=== PATIENT | female | born 1980 | race Caucasian/White ===

== ENCOUNTER 2024-07-20 12:43 | Observation (INO) | payer OTHER, SELFPAY ==
[2024-07-20] VITALS (8 sets, daily range): BP systolic 123–172; BP diastolic 64–98; PULSE 84–114; RESP 15–20; TEMP 36.6–37.4; O2SAT 96–100; BMI 52.3
--- NOTE | ~2024-07-20 | CT_ITS ---
EXAMINATION: CT facial bones w con DATE: 07/20/2024 14:49 INDICATION: Tooth pain. Face swelling. TECHNIQUE: Computed tomography (CT) of the facial bones and maxillofacial region was performed with 7 5 mL Omnipaque 350 intravenous contrast. Automated exposure control and iterative reconstruction tech [employer] were employed. The dose-length product was 811.29 mGy-cm. COMPARISON: None. FINDINGS: There is mucosal thickening in the paranasal sinuses. There is dependent fluid in the sphen oid and maxillary sinuses. The mastoid air cells are normal. There is right face soft tissue swelling . There is a mildly enlarged right submental lymph node, likely reactive. There are changes of root c anal procedures at teeth 30 and 31. There is a 17 x 4 mm subperiosteal abscess of the alveolar proces s adjacent to teeth 30 and 31. IMPRESSION: 1. Subperiosteal abscess of the alveolar process adjacent to teeth 30 and 31. Reviewed, dictated and finalized at location A. [facility] [employer]
--- NOTE | 2024-07-20 14:00 | ED.DENTAL ---
HPI - Dental/Oral General Chief complaint: Dental/Oral <LIANE Lebron Last Filed: 07/20/24 17:55> Stated complaint: dental pain <LIANE Lebron Last Filed: 07/20/24 17:55> Time Seen by Provider: 07/20/24 13:55 <LIANE Lebron Last Filed: 07/20/24 17:55> Source: patient <LIANE Lebron Last Filed: 07/20/24 17:55> Mode of arrival: ambulatory <LIANE Lebron Last Filed: 07/20/24 17:55> Limitations: no limitations <LIANE Lebron Last Filed: 07/20/24 17:55> History of Present Illness HPI Narrative: This is a 43 year old female that presents to the ER for dentalgia. Ongoing over the last 4 days. Reports she was seen by a dentist yesterday. Started on Clindamycin. She has taken two doses of this. Had significant swelling which developed overnight which prompted her to be seen. Denies fevers, difficulty breathing or trouble swallowing. <LIANE Lebron Last Filed: 07/20/24 17:55> MD Complaint: tooth pain <LIANE Lebron Last Filed: 07/20/24 17:55> Location: Tooth # (30) <LIANE Lebron Last Filed: 07/20/24 17:55> Related Data Allergies/adverse reactions: Allergies Allergy/AdvReac Type Severity Reaction Status Date / Time Penicillins Allergy Severe Anaphylaxis Verified 07/20/24 13:04 ketorolac (From Toradol) Allergy Mild Agitated Verified 07/20/24 13:04 lorazepam (From Ativan) Allergy Mild Agitated Verified 07/20/24 13:04 Influenza Virus Vaccines AdvReac Mild Vomiting Verified 07/20/24 13:04 metoclopramide (From Reglan) AdvReac Mild Vomiting Verified 07/20/24 13:04 <LIANE Lebron Last Filed: 07/20/24 17:55> Review of Systems Review of Systems: CONSTITUTIONAL: Denies fever ENT: Reports dentalgia <Joann Post PA-C - Last Filed: 07/20/24 17:55> All systems reviewed & are unremarkable except as noted in HPI and below <Joann Post PA-C - Last Filed: 07/20/24 17:55> PMFSH Past Medical History Medical History: Medical History (Updated 07/20/24 @ 21:27 by Blanca Vasquez PA-C) Type 2 diabetes mellitus <Joann Post PA-C - Last Filed: 07/20/24 17:55> Social History Social History: Social History (Updated 07/20/24 @ 21:27 by Blanca Vasquez PA-C) Social History: Surrogate medical decision maker: Aris Wilson, sibling. Code status: Full code. Substance use: never <Joann Post PA-C - Last Filed: 07/20/24 17:55> Exam Narrative: GENERAL: Well-appearing, well-nourished, and in no acute distress. HEAD: Normocephalic, atraumatic. EYES: EOMI. ENT: Mucous membranes moist. Oropharynx without tonsillar hypertrophy exudate or other lesions. No trismus. Floor of mouth is soft. Significant right sided submandibular swelling. No overlying redness. Tender to palpation of tooth #30. NECK: Supple. No adenopathy or masses. CHEST: Clear to auscultation. No respiratory distress. No wheezes rales or rhonchi HEART: Regular rate and rhythm. No murmur heard. Normal peripheral pulses. EXTREMITIES: Normal range of motion. No edema. SKIN: Warm, dry, no rash. NEURO: No focal deficits. Alert and oriented x3. PSYCH: Normal mood and affect <Joann Post PA-C - Last Filed: 07/20/24 17:55> Course Course Emergency Course: patient updated on workup and recommendation for admission <Joann Post PA-C - Last Filed: 07/20/24 17:55> HIGH SPEED OPERATOR/PA Physician Supervision For this patient encounter, I reviewed the HIGH SPEED OPERATOR or PA documentation, treatment plan, and medical decision making; and I had [id number] time with this patient. <Lobo Gordillo MD - Last Filed: 07/20/24 21:30> Consultations Consultation #1: Spoke with hospitalist about patient and workup who accepts admission <Joann Post PA-C - Last Filed: 07/20/24 17:55> Date: 07/20/24 <Joann Post PA-C - Last Filed: 07/20/24 17:55> Vital Signs Vital signs: Vital Signs Temperature 98.9 F 07/20/24 12:56 Pulse Rate 114 H 07/20/24 12:56 Respiratory Rate 20 07/20/24 12:56 Blood Pressure 172/94 H 07/20/24 12:56 Pulse Oximetry 100 07/20/24 12:56 Oxygen Delivery Room Air 07/20/24 12:56 Temperature 97.9 F 07/20/24 14:28 Pulse Rate 105 H 07/20/24 18:23 Respiratory Rate 20 07/20/24 18:23 Blood Pressure 144/95 H 07/20/24 18:23 Pulse Oximetry 100 07/20/24 18:23 Oxygen Delivery Room Air 07/20/24 12:56 <Joann Post PA-C - Last Filed: 07/20/24 17:55> Vital Signs Temperature 98.9 F 07/20/24 12:56 Pulse Rate 114 H 07/20/24 12:56 Respiratory Rate 20 07/20/24 12:56 Blood Pressure 172/94 H 07/20/24 12:56 Pulse Oximetry 100 07/20/24 12:56 Oxygen Delivery Room Air 07/20/24 12:56 Temperature 97.9 F 07/20/24 14:28 Pulse Rate 105 H 07/20/24 18:23 Respiratory Rate 20 07/20/24 18:23 Blood Pressure 144/95 H 07/20/24 18:23 Pulse Oximetry 100 07/20/24 18:23 Oxygen Delivery Room Air 07/20/24 12:56 <oLbo Gordillo MD - Last Filed: 07/20/24 21:30> MDM - Dental/Oral MDM Narrative Medical decision making narrative: Patient presents to the ER for dentalgia, facial swelling. Patient is afebrile. Tachycardic upon arrival. She does have significant right-sided facial swelling with associated tenderness to palpation of tooth number 30. No trismus, floor of mouth is soft, airway patent. CBC with leukocytosis to 15.7. ESR and CRP are elevated. Blood cultures obtained. Patient started on IV antibiotics. Patient has a very small subperiosteal abscess with associated facial cellulitis. With patient's history of diabetes will admit for further management with IV antibiotics. Spoke with hospitalist about patient and workup who accepts admission <Joann Post PA-C - Last Filed: 07/20/24 17:55> Differential Diagnosis Differential diagnosis: Likely dental caries, toothache and dental abscess <Joann Post PA-C - Last Filed: 07/20/24 17:55> Lab Data Attestation: I reviewed the patient's lab results. <Joann Post PA-C - Last Filed: 07/20/24 17:55> Result diagrams: 07/20/24 14:17 07/20/24 14:17 <LIANE Lebron Last Filed: 07/20/24 17:55> Labs: Lab Results 07/20/24 Range/Units 14:17 WBC 15.7 H (4.5-10.0) K/mm3 RBC 5.51 H (4.2-5.4) M/mm3 Hgb 14.7 (12.0-15.0) g/dL Hct 44.5 (37.0-47.0) % MCV 80.8 (80-100) fl MCH 26.7 (26-34) pg MCHC 33.0 (32-36) g/dl RDW 14.5 (11.5-14.5) % Plt Count 319 (150-375) k/mm3 MPV 8.9 (7.4-10.4) fl Immature Gran % (Auto) 0.4 (0-0.5) % Neut % (Auto) 75.8 H (45.5-73.1) % Lymph % (Auto) 16.6 L (18.3-44.2) % [place] % (Auto) 6.6 (2.6-8.5) % Eos % (Auto) 0.3 (0-4.4) % Baso % (Auto) 0.3 (0.2-1.2) % Lymph # (Auto) 2.61 (0.9-3.2) K/mm3 [place] # (Auto) 1.0 H (0.1-0.6) K/mm3 Eos # (Auto) 0.0 (0-0.3) K/mm3 Baso # (Auto) 0.1 (0.0-0.1) K/mm3 Abs Immat Gran (auto) 0.07 H (0.00-0.031) K/mm3 Absolute Neuts (auto) 11.9 H (1.3-6.7) K/mm3 Absolute Nucleated RBC 0.000 (0.0-0.012) K/mm3 Nucleated RBC % 0.0 (0.0-0.2) % ESR 42 H (0-20) mm/hr Sodium 139 (137-145) mmol/L Potassium 4.0 (3.4-5.0) mmol/L Chloride 103 (98-107) mmol/L Carbon Dioxide 23 (22-30) mmol/L Anion Gap 13 H (4-12) mmol/L BUN 4 L (7-17) mg/dL Creatinine 0.51 L (0.7-1.0) mg/dL Estim Creat Clear Calc 174 ml/min Estimated GFR > 60 (59 - ) Glucose 113 H (65-110) mg/dL Calcium 10.0 (8.4-10.2) mg/dL Total Bilirubin 0.8 (0.2-1.3) mg/dL AST 21 (14-36) U/L ALT 32 (6-35) U/L Alkaline Phosphatase 126 (38-126) U/L C-Reactive Protein 7.0 H (<1.0) mg/dL Total Protein 8.0 (6.3-8.2) g/dL Albumin 4.6 (3.5-5.1) g/dL <Joann Post PA-C - Last Filed: 07/20/24 17:55> Lab Results 07/20/24 Range/Units 14:17 WBC 15.7 H (4.5-10.0) K/mm3 RBC 5.51 H (4.2-5.4) M/mm3 Hgb 14.7 (12.0-15.0) g/dL Hct 44.5 (37.0-47.0) % MCV 80.8 (80-100) fl MCH 26.7 (26-34) pg MCHC 33.0 (32-36) g/dl RDW 14.5 (11.5-14.5) % Plt Count 319 (150-375) k/mm3 MPV 8.9 (7.4-10.4) fl Immature Gran % (Auto) 0.4 (0-0.5) % Neut % (Auto) 75.8 H (45.5-73.1) % Lymph % (Auto) 16.6 L (18.3-44.2) % [place] % (Auto) 6.6 (2.6-8.5) % Eos % (Auto) 0.3 (0-4.4) % Baso % (Auto) 0.3 (0.2-1.2) % Lymph # (Auto) 2.61 (0.9-3.2) K/mm3 [place] # (Auto) 1.0 H (0.1-0.6) K/mm3 Eos # (Auto) 0.0 (0-0.3) K/mm3 Baso # (Auto) 0.1 (0.0-0.1) K/mm3 Abs Immat Gran (auto) 0.07 H (0.00-0.031) K/mm3 Absolute Neuts (auto) 11.9 H (1.3-6.7) K/mm3 Absolute Nucleated RBC 0.000 (0.0-0.012) K/mm3 Nucleated RBC % 0.0 (0.0-0.2) % ESR 42 H (0-20) mm/hr Sodium 139 (137-145) mmol/L Potassium 4.0 (3.4-5.0) mmol/L Chloride 103 (98-107) mmol/L Carbon Dioxide 23 (22-30) mmol/L Anion Gap 13 H (4-12) mmol/L BUN 4 L (7-17) mg/dL Creatinine 0.51 L (0.7-1.0) mg/dL Estim Creat Clear Calc 174 ml/min Estimated GFR > 60 (59 - ) Glucose 113 H (65-110) mg/dL Calcium 10.0 (8.4-10.2) mg/dL Total Bilirubin 0.8 (0.2-1.3) mg/dL AST 21 (14-36) U/L ALT 32 (6-35) U/L Alkaline Phosphatase 126 (38-126) U/L C-Reactive Protein 7.0 H (<1.0) mg/dL Total Protein 8.0 (6.3-8.2) g/dL Albumin 4.6 (3.5-5.1) g/dL <Lobo Gordillo MD - Last Filed: 07/20/24 21:30> Imaging Data Radiologist's impression: ITS Impressions Face CT 07/20/24 14:55 IMPRESSION: 1. Subperiosteal abscess of the alveolar process adjacent to teeth 30 and 31. <Joann Post PA-C - Last Filed: 07/20/24 17:55> Critical Care Time Critical Care Time Critical Care Time: No <Joann Post PA-C - Last Filed: 07/20/24 17:55> Discharge Plan Discharge Clinical Impression: Toothache, Dental abscess, Cellulitis of face <Joann Post PA-C - Last Filed: 07/20/24 17:55> Patient Disposition: Still a Patient <Joann Post PA-C - Last Filed: 07/20/24 17:55> Condition: Stable <Joann Post PA-C - Last Filed: 07/20/24 17:55>
[2024-07-20 14:23] LABS: Basophils Absolute Auto 0.1 K/mm3 (0.0-0.1); Basophils Percent Auto 0.3 % (0.2-1.2); Eosinophils Percent Auto 0.3 % (0-4.4); Hematocrit 44.5 % (37.0-47.0); Hemoglobin 14.7 g/dL (12.0-15.0); Immature Granulocyte Absolute 0.07 K/mm3 (0.00-0.031); Immature Granulocyte Percent A 0.4 % (0-0.5); Lymphocytes Absolute Auto 2.61 K/mm3 (0.9-3.2); Lymphocytes Percent Auto 16.6 % (18.3-44.2); Mean Corpuscular Hemoglobin 26.7 pg (26-34); Mean Corpuscular Volume 80.8 fl (80-100); Mean Platelet Volume 8.9 fl (7.4-10.4); Monocytes Percent Auto 6.6 % (2.6-8.5); Neutrophils Absolute Auto 11.9 K/mm3 (1.3-6.7); Neutrophils Percent Auto 75.8 % (45.5-73.1); Platelet Count Result 319 k/mm3 (150-375); Red Blood Count 5.51 M/mm3 (4.2-5.4); Red Cell Distribution Width 14.5 % (11.5-14.5); White Blood Count 15.7 K/mm3 (4.5-10.0)
[2024-07-20] MEDS: dexAMETHasone SOD PHOS INJ 10 MG/ML 1 ML VIAL IV PUSH (14:25)
[2024-07-20] MEDS: MORPHINE SULFATE (*CRX) 4 MG/ML INJ IV PUSH (14:25)
[2024-07-20] MEDS: ONDANSETRON INJ 4 MG/2 ML VIAL IV PUSH (14:25)
[2024-07-20] MEDS: SODIUM CHLORIDE 0.9% IV 1,000 ML 999 ML IV CONT (14:25)
[2024-07-20 14:35] LABS: Alanine Aminotransferase 32 U/L (6-35); Albumin Level 4.6 g/dL (3.5-5.1); Alkaline Phosphatase 126 U/L (38-126); Anion Gap 13 mmol/L (4-12); Aspartate Amino Transferase 21 U/L (14-36); Bilirubin,Total 0.8 mg/dL (0.2-1.3); Blood Urea Nitrogen 4 mg/dL (7-17); Carbon Dioxide 23 mmol/L (22-30); Chloride 103 mmol/L (98-107); Estimated CRCL calculation 174 ml/min; Estimated Glomerular Filt Rate > 60; Glucose 113 mg/dL (65-110); Sodium 139 mmol/L (137-145)
--- OUTSIDE RECORDS SUMMARY | 2024-07-20 14:56 | XMS_ITS | Encounter Summary ---
Author Organization [facility] Address [address] [place] [address] Care Team Providers Care Supervisor Wheel Shop Name Role Phone Rosette Michelle RN Unavailable Unavailab Lyle Stuart MD Primary Care Provider [phone] Mellissa Reid CAR SWEEPER Unavailable [phone] Nargis Martins CAR SWEEPER Unavailable Reason for Visit * Reason Onset Date Comments Future Appointment 09/23/2018 Encounter Details Date Type Department Care Team (Late st Contact Info) Description 09/23/2018 Telephone [facility] [address] [place], [place] [id number] Jostin Souza Jr., MD [address] [place], [place] [id number] Future Appointment Social History Tobacco Use Types Packs/Day Years Used Date Smoking Tobacco: Never Smokeless Tobacco: Never Alcohol Use Standard Drinks/Week Comments No 0 (1 standard drink = 0.6 oz pur e alcohol) Sex and Gender Information Value Date Recorded Sex Assigned at Female 12/12/2023 4:10 PM CDT Gender Identity Female 12/12/2023 4:10 PM CDT Sexual Orientation Choose not to disclose 2023 4:10 PM CDT documented as of this encounter Miscellaneous Notes * Telephone Encounter - Elly Walker - 09/23/2018 8:21 AM CDT Pt received vm says Monday 09/25 will work for her so she will be here at 3:30 no need for return call. 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
--- OUTSIDE RECORDS SUMMARY | 2024-07-20 14:56 | XMS_ITS | Encounter Summary ---
Author Organization [facility] Address [address] [place] [address] Care Team Providers Care Conveyor Feeder Name Role Phone Romi Tompkins MD Primary Care Provider Violeta castellon Reason for Visit * Reason Onset Date Comments Courtesy Call 10/18/2019 Encounter Details Date Type Department Care Team (Late st Contact Info) Description 10/18/2019 Telephone [facility] [address] [address] Teresa Burns, RT Courtesy Call Social History Tobacco Use Types Packs/Day Years Used Date Smoking Tobacco: Never Smokeless Tobacco: Never Comments:tried smoking but q uit by age 20 Alcohol Use Standard Drinks/Week Comments Not Currently 0 (1 standard drink = 0.6 oz pur e alcohol) Rare Comments No Sex and Gender Information Value Date Recorded Sex Assigned at Not on file Legal Sex Female 11:36 AM CDT Gender Identity Not on file Sexual Orientation Not on file 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 No / Unsure 10/15/2019 12:21 PM CDT documented as of this encounter Plan of Treatment Not on file documented as of this encounter Visit Diagnoses Not on filedocumented in this encounter Additional Health Concerns Assessment Noted Time PHQ-9 Depression Total Score: 6 12/08/19 19 3:00 PM CDT documented as of this encounter Care Teams Conveyor Feeder Relationship Specialty Start Date End Date Romi Tompkins MD PCP - General Family Practice 12/02/18 documented as of this encounter
--- OUTSIDE RECORDS SUMMARY | 2024-07-20 14:56 | XMS_ITS | Encounter Summary ---
Author Organization [facility] Address [address] [place] [address] Care Team Providers Care Jewel Grinder Name Role Phone Rosette Michelle RN Unavailable Unavailab Lyle Stuart MD Primary Care Provider [phone] Mellissa Reid TIP OUT WORKER Unavailable [phone] Nargis Martins TIP OUT WORKER Unavailable [phone] Reason for Visit * Reason Onset Date Comments Med Question 09/09/2017 Encounter Details Date Type Department Care Team (Late st Contact Info) Description 09/09/2017 Telephone [facility] [address] [place] [id number] Lisette Mobley Med Question Social History Tobacco Use Types Packs/Day Years [...] encounter Miscellaneous Notes * Telephone Encounter - Patricia Cardenas - 09/09/2017 2:21 PM CDT Telephone call to [facility]. Spoke with Tad who states Elmiron was prescribed Dr Milton on 09/05. States this medication will cost pt $125 per one month supply. Pt is requesting prescription for a cheaper option. * Telephone Encounter - Lisette Mobley - 09/09/2017 1:47 PM CDT [facility] stating pt can not afford Elmiron rx that was sent over. Pt wouldlike a cheaper rx sent to her pharm. 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
--- OUTSIDE RECORDS SUMMARY | 2024-07-20 14:57 | XMS_ITS | Encounter Summary ---
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
--- OUTSIDE RECORDS SUMMARY | 2024-07-20 14:57 | XMS_ITS | Clinical Summary ---
Author Organization [facility] Address [address] [place] [address] Care Team Providers Care [employer]orer [employer] Name Role Phone Lyle Hutchins MD Primary Care Provider [phone] Allergies Active Allergy Reactions Criticality Noted Date Comments Lorazepam Unknown Mupirocin Rash Medium 11/27/2021 Clarithromycin Nausea only,Vomiting Reaction: NAUSEA, VOMITING, Dicyclomine Nausea And Vomiting 09/11/2017 Flu Vac Tv 2012(18-49yr)Rc(Pf) Nausea & Vomiting Low 12/12/2019 Flu like symptoms Penicillin Anaphylaxis High Penicillin G Procaine Anaphylaxis High 03/31/2014 Prednisone Other (See comments) Low High blood sugars. Metoclopramide Anxiety Low 12/12/2019 Shellfish Anaphylaxis High 11/06/2015 Only shrimp & Tuna confirmed with community worker Ketorolac Mental status changes Low Agitated and increases PTSD Medications norethindrone (AYGESTIN) 5 mg tablet Take 1 tablet (5 mg total) by mouth nightly Active allopurinoL (ZYLOPRIM) 100 mg tablet Take 1 tablet (100 mg total) by mouth nightly 0 Active insulin aspart niacinamide (FIASP) 100 unit/mL (3 mL) pen for injection Inject 15 Units under the skin 3 (three) times a day before meals Plus sliding scale (1-10 units) Active QUEtiapine XR (SEROquel XR) 50 mg tablet extended release 24 hr Take 2 tablets (100 mg total) by mouth nightly PTSD Active insulin degludec (TRESIBA) 100 unit/mL (3 mL) pen for injectionIndica tions:type 2 diabetes mellitus Inject 0.3 mL (30 Units total) under the skin daily Active omeprazole (PriLOSEC) 40 mg capsule Take 1 capsule (40 mg total) by mouth nightly Active escitalopram (LEXAPRO) 20 mg tablet Take 1 tablet (20 mg total) by mouth nightly Active nabumetone (RELAFEN) 750 mg tablet Take 1 tablet (750 mg total) by mouth nightly Active prazosin (MINIPRESS) 1 mg capsule Take 1 capsule (1 mg total) by mouth nightly Active traZODone (DESYREL) 100 mg tablet Take 1 tablet (100 mg total) by mouth nightly Active lidocaine (LMX) 4 % cream Apply 2.5 g (1 Application total) topically as needed for pain Active benzonatate (TESSALON) 200 mg capsule Take 1 capsule (200 mg total) by mouth 3 (three) times a day as needed for cough Active Lactobacillus acidophilus capsule Take 1 capsule by mouth daily (brand: [employer] Active polyethylene glycol (Miralax) 17 gram packetIndicatio ns:constipation Take 1 packet (17 g total) by mouth daily as needed for constipation Active hydrOXYzine (ATARAX) 10 mg tablet Take 1 tablet (10 mg total) by mouth 3 (three) times a day as needed for anxiety Active phenazopyridine (PYRIDIUM) 200 mg tablet Take 1 tablet (200 mg total) by mouth 3 (three) times a day 6 tablet 4 Active tamsulosin (FLOMAX) 0.4 mg extended release capsule Take 1 capsule (0.4 mg total) by mouth daily 15 capsule 4 Active HYDROcodone-uziel taminophen (NORCO) 5-325 mg per tabletIndicatio ns:Pain Take 1 tablet by mouth every 6 (six) hours as needed for pain 15 tablet 4 Active albuterol HFA (PROVENTIL HFA,VENTOLIN HFA,PROAIR HFA) 90 mcg/actuation inhaler Inhale 2 puffs every 4 (four) hours as needed for wheezing or shortness of breath 18 g 4 03/02/20 25 Active Active Problems Problem Noted Date Diagnosed Date Shortness of breath 03/02/2024 Wheezing 03/02/2024 COVID-19 07/10/2023 Insect bite of pelvic region 05/31/2023 Spider bite 05/31/2023 Cellulitis 05/30/2023 Miscarriage 11/27/2021 Abdominal pain 02/21/2020 Cervical stenosis of spinal canal 02/21/2020 Diabetes mellitus, insulin dependent (IDDM), con trolled 02/21/2020 Depressive disorder 02/21/2020 Upper respiratory tract infection 02/21/2020 Clostridium difficile infection 01/28/2020 Colitis 01/28/2020 Encounter for medication refill 01/28/2020 Gastroesophageal reflux disease with esophagitis 01/28/2020 Involuntary movements 01/28/2020 Overview (02/21/2020): left arm and left leg . Lightheadedness 01/28/2020 Overview (02/21/2020): Persistent headache and dizziness. Called neurologist Dr. Norberto Kennedy . He will see her right now. Informed pt and . [address] drive pt to the neurologists office for further eval and treatment. examination or test, unconfi rmed 01/28/2020 Nonintractable episodic headache 12/16/2019 Chronic pain syndrome 12/16/2019 Hypertension 12/16/2019 Cervical spondylosis without myelopathy 05/31/20 19 Dehydration 03/22/2019 Diabetic ketoacidosis withou t coma associated with type 2 diabetes mellitus ([facility]/HCC) 03/22/2019 Metabolic acidosis 03/22/2019 Sinusitis 03/22/2019 Trochanteric bursitis of left hip 03/21/2019 Elevated liver enzymes 02/17/2019 Gastroesophageal reflux disease 02/17/2019 Gastroparesis due to DM (CMS/HCC) 02/17/2019 NAFLD (nonalcoholic fatty liver disease) 019 Protein-calorie malnutrition, moderate (CMS/HCC) 01/29/2019 Intractable nausea and vomiting 01/28/2019 Morbid obesity with BMI of 50.0-59.9, adult 01/01 Insulin dependent type 2 reji betes mellitus, controlled (CMS/HCC) 01/28/2019 Enthesopathy of hip region 01/18/2019 Anxiety 12/07/2018 Biliary dyskinesia 12/07/2018 Generalized anxiety disorder 12/07/2018 Inflammatory dermatosis 12/07/2018 Insomnia 12/07/2018 Morbid obesity with body mass index of 40.0-49.9 12/07/2018 Obstructive sleep apnea of adult 12/07/2018 Osteoarthritis of knee 12/07/2018 Pelvic adhesions 12/07/2018 Severe episode of recurrent major depressive disorder, without psychotic features 12/07/2018 Irritable bowel syndrome with diarrhea 8 Chronic constipation 09/11/2017 Chronic interstitial cystitis 09/11/2017 Urinary urgency 09/11/2017 Endometriosis 04/09/2016 Sprain of tibiofibular ligament of ankle 014 Encounters Date Type Department Care Team Description 04/28/2024 5:49 PM ENVELOPE FOLDING MACHINE ADJUSTER - 04/29/2024 12:08 AM [facility] Emergency [facility] Emergency Department [address] [place] [address] Gonzalo Holman MD Beck, Joann Valdez MD Hyperglycemia (Primary Dx); Other migraine without status migrainosus, not intractable; Leukocytosis, unspecified type Discharge Disposition: Discharge to home or self care from Last 3 Months Immunizations Immunization Administration Dates Next Due Influenza, Quadrivalent, Spl it, Preservative Free, Intramuscular 03/03/2019 Influenza, Trivalent, IM (MDV) 04/01/2014,2012 Influenza, Trivalent, Preservative Free, Intramu scular 05/08/2012 Influenza, Unspecified 03/06/2009 Pneumococcal Polysaccharide PPV23 05/08/2012 Tdap 09/23/2013 Surgical History Surgery Date Site/Laterality Comments CHOLECYSTECTOMY Cholecystectomy KNEE SURGERY 06/02/2011 - 06/01/2012 arthroscopy ERCP x3 TONSILLECTOMY Bilateral CARPAL TUNNEL RELEASE Right TOTAL ABDOMINAL HYSTERECTOMY 06/02/2012 - 06/01/2013 Hysterectomy, total TOTAL ABDOMINAL HYSTERECTOMY W/ BILATERAL SALPINGOOPHORECTOMY ERCP CERVICAL DISCECTOMY 10/31/2020 - 11/29/2020 Disc replacement C6-7 RADIOFREQUENCY ABLATION NERVES x 3 prior to cervical surgeries Medical History Medical History Date Comments Anxiety Type 2 diabetes mellitus (HCC) Depression IBS (irritable bowel syndrome) d iarrhea often related to pain and stress/PTSD Asthma exercise induced as a child, no inhalers required, no occurences in many years Cervical stenosis (uterine cervix) Hypertension controlled, pain increase BP at times Endometriosis had 7 miscarriag es/3 surgeries - diagnostic lap/hysterectomy/laprascopic bilat S & ) Arthritis IBS (irritable bowel syndrome) PTSD (post-traumatic stress disorder) seven miscarriages/anxiety/pain- pt states called complex PTSD related to several causes Gout Obesity Eczema contact dermatit is at times/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/ no outbreaks at this time 11/27/21 Tarsal tunnel syndrome left, hx fracture Wears glasses Teeth missing wisdom teeth, 2 teeth lower left missing Miscarriage seven/endometrio sis/unable to have children/hysterectomy followed 7 D & C's PONV (postoperative nausea and vomiting) only after cervical discectomy DKA (diabetic ketoacidosis) (CMS/HCC) (HCC) occurred several years ago a fter prednisone dosing/listed as an allergy now Overactive bladder doesn't empty completely at times- pt stated Family History Medical History Relation Name Comments Diabetes Brother Hypertension Brother Diabetes Father Cancer Maternal Grandfather Cancer Maternal Grandmother Diabetes Mother Hypertension Mother Cancer Paternal Grandfather Diabetes Sister Relation Name Status Comments Brother Father Maternal Grandfather Maternal Grandmother Mother Paternal Grandfather Sister Social History Tobacco Use Types Packs/Day Years Used Date Smoking Tobacco: Never Smokeless Tobacco: Never Tobacco Cessation:Counseling Given: No Alcohol Use Standard Drinks/Week Comments Yes 0 (1 standard drink = 0.6 oz pur e alcohol) [facility] Utilities Answer Date Recorded In the past 12 months has th e electric, gas, oil, or water Visier threatened to shut off services in your home? No 07/11/2023 Social Connection and Isolat ion Panel [NHANES] Answer Date Recorded In a typical week, how many times do you talk on the phone with family, friends, or neighbors? More than three times a week 07/11/2023 How often do you get togethe r with friends or relatives? More than three times a week 07/11/2023 How often do you attend chur ch or pentecostalism services? Never 07/11/2023 Do you belong to any clubs o r organizations such as holiness groups, unions, fraternal or athletic groups, or school groups? No 07/11/2023 How often do you attend meet ings of the clubs or organizations you belong to? Never 07/11/2023 Are you , , di vorced, , never , or living with a partner? 07/11/2023 AUDIT-C Answer Date Recorded Q1: How often do you have a drink containing alc ohol? Monthly or less 11/29/2021 Q2: How many drinks containi ng alcohol do you have on a typical day when you are drinking? 1 or 2 11/29/2021 Q3: How often do you have si x or more drinks on one occasion? Less than monthly 11/29/2021 Overall Financial Resource Strain (CARDIA) Answe r Date Recorded How hard is it for you to pa y for the very basics like food, housing, medical care, and heating? Not hard at all 07/11/2023 Hunger Vital Sign Answer Date Recorded Within the past 12 months, y ou worried that your food would run out before you got the money to buy more. Never true 07/11/19 24 Within the past 12 months, t he food you bought just didn't last and you didn't have money to get more. Never true 07/11/2023 PRAPARE - Transportation Answer Date Re corded In the past 12 months, has l ack of transportation kept you from medical appointments or from getting medications? No 02/2024 In the past 12 months, has l ack of transportation kept you from meetings, work, or from getting things needed for daily living? No 07/11/2023 Housing Stability Vital Sign Answer Pablo e Recorded In the last 12 months, was t here a time when you were not able to pay the mortgage or rent on time? No 07/11/2023 In the last 12 months, how many places have you lived? 1 07/11/2023 In the last 12 months, was t here a time when you did not have a steady place to sleep or slept in a jail (including now)? No 07/11/2023 Personal Safety Answer Date Recorded Have you ever been in or are you currently in a harmful physical or emotional relationship or is someone making you feel afraid or unsafe? Denies 04/28/2024 Comments No Sex and Gender Information Value Date Recorded Sex Assigned at Not on file Legal Sex Female 2:19 PM ENVELOPE FOLDING MACHINE ADJUSTER Gender Identity Not on file Sexual Orientation Bisexual 04/28/2024 6: 46 PM ENVELOPE FOLDING MACHINE ADJUSTER Obstetrics History Last Filed Vital Signs Vital Sign Reading Time Taken Comments Blood Pressure 129/81 04/28/2024 11:30 PM ENVELOPE FOLDING MACHINE ADJUSTER Pulse 85 04/28/2024 11:30 PM ENVELOPE FOLDING MACHINE ADJUSTER Temperature 36.9 C (98.4 F) 04/28/2024 5:39 PM ENVELOPE FOLDING MACHINE ADJUSTER Respiratory Rate 16 04/28/2024 11:30 PM ENVELOPE FOLDING MACHINE ADJUSTER Oxygen Saturation 97% 04/28/2024 11:30 PM ENVELOPE FOLDING MACHINE ADJUSTER Inhaled Oxygen Concentration - - Weight 140.6 kg (310 lb) 04/28/2024 5:39 PM ENVELOPE FOLDING MACHINE ADJUSTER Height 165.1 cm (5' 5 ) 04/28/2024 5:39 PM ENVELOPE FOLDING MACHINE ADJUSTER Body Mass Index 51.59 04/28/2024 5:39 PM ENVELOPE FOLDING MACHINE ADJUSTER Plan of Treatment Health Maintenance Due Date Last Done Comments Albumin Creatinine Ratio, Urine 1982 Depression Screening 1982 Hepatitis C Screening 1982 Dilated Eye Exam 1982 Foot Exam 1982 Varicella Vaccines (1 of 2 - 13+ 2-dose series) 08/24/1995 Hepatitis B Screening 2000 Regular Well Visit/Exam 18-64 2000 Lipid Panel 12/09/2019 12/08/2018 DTaP/Tdap/Td Vaccine (2 - Td or Tdap) 09/24/2023 09/23/2013 Hemoglobin A1C 12/01/2023 06/02/2023 Covid-19 Vaccine ( season) 2024 03/07/2021, 07/25/2020, 07/04/2020 Influenza Vaccine (#1) 2024 9, 04/01/2014, 03/05/2013, Additional history exists Breast Cancer Screening-Mammogram 12/12/2024 12/13/2023, 12/13/2023 eGFR 04/28/2025 04/28/2024, 04/03, 03/02/2024, Additional history exists Pneumococcal vaccine <65 Completed 03/03/2023, 12/2011 HPV Vaccines Aged Out No longer eligi ble based on patient's age to complete this topic Medical Devices Implanted Type Area Survey Interviewer Device Identifier Shelf Expiration Date Model / Serial / Lot Other - See Comments Other - see comments Neck Description:Neck disc replac ement C6-C7 Procedures Procedure Name Priority Date/Time Associated Diagnosis Comments EGFR STAT 04/28/2024 11:19 PM ENVELOPE FOLDING MACHINE ADJUSTER BASIC METABOLIC PANEL STAT 04/28/2024 11:19 PM ENVELOPE FOLDING MACHINE ADJUSTER POCT GLUCOSE DEVICE Routine 04/28/2024 9 :38 PM ENVELOPE FOLDING MACHINE ADJUSTER TROPONIN T HIGH-SENSITIVITY 2-HOUR Timed 04/28/2024 9:37 PM ENVELOPE FOLDING MACHINE ADJUSTER POCT GLUCOSE DEVICE Routine 04/28/2024 8 :31 PM ENVELOPE FOLDING MACHINE ADJUSTER PRO B-TYPE NATRIURETIC PEPTIDE STAT 04/28/2024 7:13 PM ENVELOPE FOLDING MACHINE ADJUSTER COMPREHENSIVE METABOLIC PANEL STAT 04/28/2024 7:13 PM ENVELOPE FOLDING MACHINE ADJUSTER EGFR STAT 04/28/2024 7:13 PM ENVELOPE FOLDING MACHINE ADJUSTER DIFFERENTIAL AUTO STAT 04/28/2024 7:1 3 PM ENVELOPE FOLDING MACHINE ADJUSTER TROPONIN T HIGH-SENSITIVITY SERIES (BASELINE, 2HR, 4HR, 6HR) STAT 04/28/2024 7:13 PM ENVELOPE FOLDING MACHINE ADJUSTER CBC WITH AUTO DIFFERENTIAL STAT 04/28/2024 7:13 PM ENVELOPE FOLDING MACHINE ADJUSTER RESPIRATORY PATHOGEN PANEL Routine 04/28/2024 7:13 PM ENVELOPE FOLDING MACHINE ADJUSTER URINALYSIS AND REFLEX TO MICROSCOPIC AND CULTURE STAT 04/28/2024 7:13 PM ENVELOPE FOLDING MACHINE ADJUSTER CT HEAD WO CONTRAST ED 04/28/2024 6 :53 PM ENVELOPE FOLDING MACHINE ADJUSTER XR CHEST PA LATERAL 2 VIEWS ED 04/28/2024 6:34 PM ENVELOPE FOLDING MACHINE ADJUSTER ECG 12-LEAD STAT 04/28/2024 6:26 PM ENVELOPE FOLDING MACHINE ADJUSTER POCT GLUCOSE DEVICE Routine 04/28/2024 5 :44 PM ENVELOPE FOLDING MACHINE ADJUSTER HEMOGLOBIN A1C Routine 06/02/2023 4:40 AM ENVELOPE FOLDING MACHINE ADJUSTER from Last 3 Months or Most Recently Relevant to Health Maintenance Results * eGFR (04/28/2024 11:19 PM ENVELOPE FOLDING MACHINE ADJUSTER) Pathologist [facility] [place] eGFR >90 >=60 mL/min/1. 73 m2 Comment: Interpretive Data Reference Interval Normal >/= 90 mL/min/1.73m2 Mildly decreased* 60 - 89 mL/min/1.73m2 Mildly to moderately decreased 45 - 59 mL/min/1.73m2 Moderately to severely decreased 30 - 44 mL/min/1.73m2 Severely decreased 15 - 29 mL/min/1.73m2 Kidney Failure < 15 mL/min/1.73m2 *Relative to young adult level Estimated glomerular filtration rate is determined by the 2020 CKD-EPI equation recommended by the National Kidney Foundation (A Unifying Approach to GFR Estimation: Recommendations of the NKF-ASK Task Force on Reassessing the Inclusion of Race in Diagnosing Kidney Disease, JASN 2020). The CKD-EPI equation should not be used for patients with unstable renal function and has not been validated in children and those over 70. Current interpretive data was last reviewed 2021. Blood 04/28/2024 11:1 9 PM ENVELOPE FOLDING MACHINE ADJUSTER 04/28/2024 11:24 PM ENVELOPE FOLDING MACHINE ADJUSTER us Gonzalo Holman MD LAB BLOOD ORDERABLES Final R esult [facility] [address] Department [place] [address] * (ABNORMAL) Basic metabolic panel (04/28/2024 11:19 PM ENVELOPE FOLDING MACHINE ADJUSTER) Pathologist [facility] [place] Sodium 139 135 - 145 mmol/L Potassium, pl 4.3 3.3 - 4.9 mmol/L [facility] Chloride 105 97 - 110 mmol/L [facility] CO2 19(L) 22 - 32 mmol/L [facility] Anion gap 15 2 - 15 mmol/L [facility] BUN 16 6 - 25 mg/dL [facility] Creatinine 0.67 0.60 - 1.10 mg/dL [facility] Glucose 218(H) 70 - 199 mg/dL [facility] Comment: Interpretive Data Fasting glucose >/= 126 mg/dl is diagnostic for diabetes. Fasting is defined as no caloric intake for at least 8 hours. Fasting glucose between 100 mg/dl to 125 mg/dl is diagnostic of prediabetes. In a patient with classic symptoms of hyperglycemia or hyperglycemic crisis, a random glucose >/= 200 mg/dl is diagnostic for diabetes. In the absence of unequivocal hyperglycemia, results should be confirmed by repeat testing. The classification and Diagnosis of Diabetes Diabetes Care 2021; 46: S19-S40. Current interpretive data was last revised 2022. Calcium 9.4 8.5 - 10.3 mg/dL [facility] Blood 04/28/2024 11:1 9 PM ENVELOPE FOLDING MACHINE ADJUSTER 04/28/2024 11:24 PM ENVELOPE FOLDING MACHINE ADJUSTER Gonzalo Holman MD LAB BLOOD ORDERABLES Final R esult Performing Organization Address City/[facility]/ZIP Co de Phone Number [facility] [address] [place] [address] * POCT glucose (04/28/2024 9:38 PM ENVELOPE FOLDING MACHINE ADJUSTER) Pathologist [facility] [place] Glucose, POC 195 70 - 199 mg/dL Comment: For Glucose values <35 mg/dl when Hematocrit is >60 mg/dl,the test may not accurately detect significant hypoglycemia,and testing in the Laboratory should be considered if clinically indicated. Blood 04/28/2024 9:38 PM ENVELOPE FOLDING MACHINE ADJUSTER 04/28/2024 9:38 PM ENVELOPE FOLDING MACHINE ADJUSTER Gonzalo Holman MD LAB POCT ORDERABLES - DEVICE Final Result Performing Organization Address City/[facility]/ZIP Co de Phone Number [facility] [address] [place] [address] * Troponin T high-sensitivity 2-hour (04/28/2024 9:37 PM ENVELOPE FOLDING MACHINE ADJUSTER) Pathologist [facility] [place] Trop T hs <6 <=14 ng/L Comment: Interpretive Data For further hscTnT resources including the diagnostic algorithm and an aid in interpretation, copy and paste this link: [email or web address]/[email or web address] Current Interpretive Data last revised 2020. Trop T hs delta 0 ng/L [facility] Trop T hs interp Insignificant [facility] Blood 04/28/2024 9:37 PM ENVELOPE FOLDING MACHINE ADJUSTER 04/28/2024 9:50 PM ENVELOPE FOLDING MACHINE ADJUSTER Gonzalo Holman MD LAB BLOOD ORDERABLES Final R esult Performing Organization Address [facility] Co de Phone Number [facility] [address] Department of Laboratories [place], [place] [id number] * POCT glucose (04/28/2024 8:31 PM ENVELOPE FOLDING MACHINE ADJUSTER) Glucose, POC 198 70 - 199 mg/dL Comment: For Glucose values <35 mg/dl when Hematocrit is >60 mg/dl,the test may not accurately detect significant hypoglycemia,and testing in the Laboratory should be considered if clinically indicated. Blood 04/28/2024 8:31 PM ENVELOPE FOLDING MACHINE ADJUSTER 04/28/2024 8:31 PM ENVELOPE FOLDING MACHINE ADJUSTER Gonzalo Holman MD LAB POCT ORDERABLES - DEVICE Final Result Performing Organization Address [facility] Co de Phone Number [facility] [address] Department [place] [address] * Troponin T high-sensitivity series (baseline, 2hr, 4hr, 6hr) (04/28/2024 7:13 PM ENVELOPE FOLDING MACHINE ADJUSTER) Trop T hs <6 <=14 ng/L Comment: Interpretive Data For further hscTnT resources including the diagnostic algorithm and an aid in interpretation, copy and paste this link: https://nrl.[email or web address]/show/[email or web address] Current Interpretive Data last revised 2020. Blood 04/28/2024 7:13 PM ENVELOPE FOLDING MACHINE ADJUSTER 04/28/2024 7:22 PM ENVELOPE FOLDING MACHINE ADJUSTER Gonzalo Holman MD LAB BLOOD ORDERABLES Final R esult Performing Organization Address [facility] Co de Phone Number [facility] [address] Department of [employer] [place], [place] [phone] * eGFR (04/28/2024 7:13 PM ENVELOPE FOLDING MACHINE ADJUSTER) eGFR >90 >=60 mL/min/1. 73 m2 Comment: Interpretive Data Reference Interval Normal >/= 90 mL/min/1.73m2 Mildly decreased* 60 - 89 mL/min/1.73m2 Mildly to moderately decreased 45 - 59 mL/min/1.73m2 Moderately to severely decreased 30 - 44 mL/min/1.73m2 Severely decreased 15 - 29 mL/min/1.73m2 Kidney Failure < 15 mL/min/1.73m2 *Relative to young adult level Estimated glomerular filtration rate is determined by the 2020 CKD-EPI equation recommended by the National Kidney Foundation (A Unifying Approach to GFR Estimation: Recommendations of the NKF-ASK Task Force on Reassessing the Inclusion of Race in Diagnosing Kidney Disease, JASN 2020). The CKD-EPI equation should not be used for patients with unstable renal function and has not been validated in children and those over 70. Current interpretive data was last reviewed 2021. Blood 04/28/2024 7:13 PM ENVELOPE FOLDING MACHINE ADJUSTER 04/28/2024 7:22 PM ENVELOPE FOLDING MACHINE ADJUSTER Gonzalo Holman MD LAB BLOOD ORDERABLES Final R esult Performing Organization Address [facility] Co de Phone Number [facility] [address] Department of [employer] [place], [place] [id number] * (ABNORMAL) Differential, auto (04/28/2024 7:13 PM ENVELOPE FOLDING MACHINE ADJUSTER) Pathologist [facility] [place] Neutrophil abs 15.5(H) 1.5 - 6.5 K/cumm Imm gran abs 0.2(H) 0.0 - 0.1 K/cumm [facility] Lymphocyte abs 2.4 0.8 - 3.3 K/cumm [facility] Monocyte abs 0.7 0.2 - 0.8 K/cumm [facility] Eosinophil abs 0.0 0.0 - 0.5 K/cumm [facility] Basophil abs 0.0 0.0 - 0.1 K/cumm [facility] Neutrophil pct 82.2 % [facility] Comment: Interpretive Data Percent cell count reference ranges are not reported, since discordance with absolute values may lead to misinterpretation of CBC data. Current Interpretive Data was last revised on 2017. Imm gran pct 0.9 % [facility] Comment: Interpretive Data Percent cell count reference ranges are not reported, since discordance with absolute values may lead to misinterpretation of CBC data. Current Interpretive Data was last revised on 2017. Lymphocyte pct 12.9 % [facility] Comment: Interpretive Data Percent cell count reference ranges are not reported, since discordance with absolute values may lead to misinterpretation of CBC data. Current Interpretive Data was last revised on 2017. Monocyte pct 3.9 % [facility] Comment: Interpretive Data Percent cell count reference ranges are not reported, since discordance with absolute values may lead to misinterpretation of CBC data. Current Interpretive Data was last revised on 2017. Eosinophil pct 0.0 % [facility] Comment: Interpretive Data Percent cell count reference ranges are not reported, since discordance with absolute values may lead to misinterpretation of CBC data. Current Interpretive Data was last revised on 2017. Basophil pct 0.1 % [facility] Comment: Interpretive Data Percent cell count reference ranges are not reported, since discordance with absolute values may lead to misinterpretation of CBC data. Current Interpretive Data was last revised on 2017. Blood 04/28/2024 7:13 PM ENVELOPE FOLDING MACHINE ADJUSTER 04/28/2024 7:22 PM ENVELOPE FOLDING MACHINE ADJUSTER us Gonzalo Holman MD LAB BLOOD ORDERABLES Final R esult [facility] [address] Department [place] [address] * Pro B-type natriuretic peptide (04/28/2024 7:13 PM ENVELOPE FOLDING MACHINE ADJUSTER) NT-proBNP 51 <=300 pg/mL Comment: Interpretive Comments: A. Dyspnea in Acute Care Setting All Ages: < 300 pg/ml, acute heart failure unlikely. < 50 yrs: 300 - 450 pg/ml, further investigation warranted. > 450 pg/ml, acute heart failure likely. 50 - 74 yrs: 300 - 900 pg/ml, further investigation warranted. > 900 pg/ml, acute heart failure likely . > or = 75 yrs: 450 - 1800 pg/ml, further investigation warranted. > 1800 pg/ml, acute heart failure likely. B. Non-acute Setting < 75 yrs < 125 pg/ml, rules out heart failure. > or = 125 pg/ml, further investigation warranted. > or = 75 yrs < 450 pg/ml, rules out heart failure. > or = 450 pg/ml, further investigation warranted. - Knowledge of each individual patient's NT-proBNP range may be more useful than using similar cut-points for every patient. Please note that marked elevations in NT-proBNP levels may be observed in state other than Left Ventricular Congestive Failure, including: acute coronary syndromes, right heart strain/failure (including pulmonary embolism and cor pulmonale), critical illness, renal failure, as well as advanced age. - References: 1. Jess JL et.al. Eur Heart J. 2006:27:330-337. 2. Jean-Claude RW, Sarath BALLESTEROS. J. AM Walt Cardiol: Cardiovasc Imag. 2009;2: 216- 225. Interpretive Data Last Revised Date: 2018. Blood 04/28/2024 7:13 PM ENVELOPE FOLDING MACHINE ADJUSTER 04/28/2024 7:14 PM ENVELOPE FOLDING MACHINE ADJUSTER us Gonzalo Holman MD LAB BLOOD ORDERABLES Final R esult [facility] [address] Department [place] [address] * Urinalysis reflex to microscopic and culture Urine (04/28/2024 7:13 PM ENVELOPE FOLDING MACHINE ADJUSTER) Color, ur Straw Yellow Clarity, ur Clear Clear [facility] Specific gravity, ur 1.010 1.003 - 1.030 [facility] pH, urine 6.5 [facility] Comment: Interpretive Data U rine pH is affected by diet, medications, systemic acid-base disturbances, and renal tubular function. pH may affect urinary stone formation. For example, urine pH below 6.0 may help reduce the tendency for calcium phosphate stones and pH greater than 6.0 may reduce the tendency for uric acid stone formation. Source: [facility] Current Interpretive Data was last revised on 2017 Protein, ur ql Negative Negative [facility] Glucose, ur ql Negative Negative [facility] Ketones, ur Negative Negative [facility] Bilirubin, ur Negative Negative [facility] Blood, ur Negative Negative [facility] Urobilinogen, ur <2.0 <2.0 mg/dL [facility] Nitrite, ur Negative Negative [facility] Leukocyte esterase, ur Negative Negative [facility] UA reflex comment Reflex conditions for microscopic UA and culture not met. [facility] Urine 04/28/2024 7:13 PM ENVELOPE FOLDING MACHINE ADJUSTER 04/28/2024 7:14 PM ENVELOPE FOLDING MACHINE ADJUSTER Gonzalo Holman MD LAB MICROBIOLOGY - GENERAL O RDERABLES Final Result [facility] [address] Department [place] [address] * Respiratory pathogen panel Nasopharyngeal (04/28/2024 7:13 PM ENVELOPE FOLDING MACHINE ADJUSTER) Influenza A RNA Not Detected Not Detected [facility] Influenza B RNA Not Detected Not Detected [facility] RSV RNA Not Detected Not Detected [facility] COVID-19 RNA Not Detected Not Detected [facility] Coronavirus 229E RNA Not Detected Not Detected [facility] Coronavirus HKU1 RNA Not Detected Not Detected [facility] Coronavirus NL63 RNA Not Detected Not Detected [facility] Coronavirus OC43 RNA Not Detected Not Detected [facility] Adenovirus DNA Not Detected Not Detected [facility] Metapneumovirus RNA Not Detected Not Detected [facility] Rhinovirus/Enterov irus RNA Not Detected Not Detected [facility] Parainfluenza 1 RNA Not Detected Not Detected [facility] Parainfluenza 2 RNA Not Detected Not Detected [facility] Parainfluenza 3 RNA Not Detected Not Detected [facility] Parainfluenza 4 RNA Not Detected Not Detected [facility] B. pertussis DNA Not Detected Not Detected [facility] B. parapertussis DNA Not Detected Not Detected [facility] C. pneumoniae DNA Not Detected Not Detected [facility] M. pneumoniae DNA Not Detected Not Detected [facility] Comment: Interpretive Data The [employer] FilmArray Respiratory Panel (RP2.1) assay is a multiplexed real-time PCR based nucleic acid test capable of simultaneous qualitative detection and identification of multiple respiratory viral and bacterial nucleic acids, including SARS Coronavirus 2 (the causative agent of COVID-19). The following bacteria, viruses and virus subtypes can be identified using the FilmArray RP2.1 assay: Bordetella pertussis, Bordetella parapertussis, Chlamydia pneumoniae, Mycoplasma pneumoniae, Adenovirus, SARS Coronavirus 2, seasonal coronaviruses (Coronavirus HKU1, Coronavirus NL63, Coronavirus 229E, and Coronavirus OC43), Influenza A, Influenza A subtype H1, Influenza A subtype H3, Influenza A subtype 2009 H1, Influenza B, Metapneumovirus, Parainfluenza 1, Parainfluenza 2, Parainfluenza 3, Parainfluenza 4, RSV, Rhinovirus/Enterovirus. Due to the genetic similarity between human Rhinovirus and Enterovirus, the FilmArray RP2.1 assay cannot reliably differentiate them. Coronavirus OC43 may cross-react with some isolates of Coronavirus HKU1. A dual positive result may be due to cross-reactivity or may indicate a co- infection. The detection and identification of specific viral and bacterial nucleic acids from individuals exhibiting signs and symptoms of a respiratory infection aids in the diagnosis of respiratory infection if used in conjunction with other clinical and epidemiological information. The results of this test should not be used as the sole basis for diagnosis, treatment, or other management decisions. Negative results in the setting of a respiratory illness may be due to infection with pathogens that are not detected by this test. Positive results do not rule out infection/co-infection with other organisms. The agent(s) detected by the FilmArray RP2.1 may not be the definite cause of disease. Additional testing (lab, imaging, etc.) may be necessary when evaluating a patient with possible respiratory tract infection. The FilmArray RP2.1 assay has FDA clearance for testing of MOCK UP BUILDER swabs. The performance characteristics of this assay have been determined by [facility]. Current interpretive data was last revised on 2020. Nasopharyngeal 04/28/2024 7: 13 PM ENVELOPE FOLDING MACHINE ADJUSTER 04/28/2024 7:19 PM ENVELOPE FOLDING MACHINE ADJUSTER Narrative [facility] - 04/28/2024 8:11 PM ENVELOPE FOLDING MACHINE ADJUSTER Is the Patient experiencing symptoms consistent with COVID?->Yes Surveillance testing for transplant patient?->No Gonzalo Holman MD LAB MICROBIOLOGY - GENERAL O RDERABLES Final Result [facility] [address] Department [place] [address] [facility] * (ABNORMAL) CBC with auto differential (04/28/2024 7:13 PM ENVELOPE FOLDING MACHINE ADJUSTER) WBC 18.8(H) 3.8 - 9.9 K/cumm Hgb 13.7 11.9 - 15.5 g/dL [facility] Hct 41.7 35.6 - 45.5 % [facility] Plt 398 150 - 400 K/cumm [facility] MPV 9.2 9.1 - 12.3 fL [facility] RBC 5.12 3.90 - 5.20 M/cumm [facility] MCV 81.4 81.3 - 96.4 fL [facility] MCH 26.8(L) 27.1 - 33.3 pg [facility] MCHC 32.9 32.3 - 35.7 g/dL [facility] RDW CV 14.1 11.1 - 14.9 % [facility] RDW SD 41.2 35.7 - 48.1 fL [facility] NRBC abs 0.00 0.00 - 0.01 K/cumm [facility] Blood 04/28/2024 7:13 PM ENVELOPE FOLDING MACHINE ADJUSTER 04/28/2024 7:22 PM ENVELOPE FOLDING MACHINE ADJUSTER Gonzalo Holman MD LAB BLOOD ORDERABLES Final R esult [facility] [address] Department [place] [address] * (ABNORMAL) Comprehensive metabolic panel (04/28/2024 7:13 PM ENVELOPE FOLDING MACHINE ADJUSTER) Sodium 141 135 - 145 mmol/L Potassium, pl 4.2 3.3 - 4.9 mmol/L [facility] Chloride 104 97 - 110 mmol/L [facility] CO2 20(L) 22 - 32 mmol/L [facility] Anion gap 17(H) 2 - 15 mmol/L [facility] BUN 16 6 - 25 mg/dL [facility] Creatinine 0.74 0.60 - 1.10 mg/dL [facility] Glucose 212(H) 70 - 199 mg/dL [facility] Comment: Interpretive Data Fasting glucose >/= 126 mg/dl is diagnostic for diabetes. Fasting is defined as no caloric intake for at least 8 hours. Fasting glucose between 100 mg/dl to 125 mg/dl is diagnostic of prediabetes. In a patient with classic symptoms of hyperglycemia or hyperglycemic crisis, a random glucose >/= 200 mg/dl is diagnostic for diabetes. In the absence of unequivocal hyperglycemia, results should be confirmed by repeat testing. The classification and Diagnosis of Diabetes Diabetes Care 2021; 46: S19-S40. Current interpretive data was last revised 2022. Calcium 9.9 8.5 - 10.3 mg/dL [facility] Bilirubin, total 0.2 0.1 - 1.2 mg/dL [facility] Protein, pl 7.7 6.5 - 8.5 g/dL [facility] Albumin 4.6 3.5 - 5.0 g/dL [facility] Alk phos 98 40 - 130 Units/L [facility] ALT 29 7 - 45 Units/L [facility] AST 19 10 - 45 Units/L [facility] Blood 04/28/2024 7:13 PM ENVELOPE FOLDING MACHINE ADJUSTER 04/28/2024 7:14 PM ENVELOPE FOLDING MACHINE ADJUSTER Gonzalo Holman MD LAB BLOOD ORDERABLES Final R esult [facility] [address] Department [place] [address] * CT Head WO Contrast (04/28/2024 6:53 PM ENVELOPE FOLDING MACHINE ADJUSTER) Anatomical Region Laterality Modality Head and Neck N/A Computed Tomogra phy 04/28/2024 6:57 PM ENVELOPE FOLDING MACHINE ADJUSTER Impressions 04/28/2024 7:20 PM ENVELOPE FOLDING MACHINE ADJUSTER No acute intracranial process. Dictated by: Valencia Yousif MD The radiology attending physician has personally reviewed this study, and had reviewed and/or edited this written report and agrees with it. Electronically signed by: Rachid Monge MD Narrative 04/28/2024 7:20 PM ENVELOPE FOLDING MACHINE ADJUSTER EXAMINATION: CT head without contrast HISTORY: Headache TECHNIQUE: CT of the head was performed with images acquired from skull base to vertex without intravenous contrast. COMPARISON: CT dated 12/16/2019 FINDINGS: There is no acute intracranial hemorrhage. Ventricles are of normal size and morphology. No mass effect or midline shift is present. The wilkinson-white matter differentiation is normal. The visualized portions of the orbits are normal. The visualized portions of the mastoids are normal. The visualized portions of the paranasal sinuses are normal. No fractures are identified. Hyperostosis frontalis interna. Procedure Note Rachid Monge MD - 04/28/2024 EXAMINATION: CT head without contrast HISTORY: Headache TECHNIQUE: CT of the head was performed with images acquired from skull base to vertex without intravenous contrast. COMPARISON: CT dated 12/16/2019 FINDINGS: There is no acute intracranial hemorrhage. Ventricles are of normal size and morphology. No mass effect or midline shift is present. The wilkinson-white matter differentiation is normal. The visualized portions of the orbits are normal. The visualized portions of the mastoids are normal. The visualized portions of the paranasal sinuses are normal. No fractures are identified. Hyperostosis frontalis interna. IMPRESSION: No acute intracranial process. Dictated by: Valencia Yousif MD The radiology attending physician has personally reviewed this study, and had reviewed and/or edited this written report and agrees with it. Electronically signed by: Rachid Monge MD Gonzalo Holman MD IMG CT PROCEDURES Final Resu lt * XR Chest Pa Lateral 2 Vw (04/28/2024 6:34 PM ENVELOPE FOLDING MACHINE ADJUSTER) Anatomical Region Laterality Modality Body, Chest N/A Computed Radiogr aphy 04/28/2024 6:45 PM ENVELOPE FOLDING MACHINE ADJUSTER Impressions 04/28/2024 6:45 PM ENVELOPE FOLDING MACHINE ADJUSTER No consolidation or pulmonary edema. No pleural effusion or pneumothorax. Unchanged cardiomediastinal silhouette. Unchanged mild elevation of the right hemidiaphragm. Cholecystectomy. Electronically signed by: Johanna Lopez M.D. Narrative 04/28/2024 6:45 PM ENVELOPE FOLDING MACHINE ADJUSTER EXAMINATION: XR CHEST PA LATERAL 2 VIEWS HISTORY: Shortness of breath COMPARISON: Radiograph 03/02/2024 Procedure Note Johanna Lopez MD - 04/28/2024 EXAMINATION: XR CHEST PA LATERAL 2 VIEWS HISTORY: Shortness of breath COMPARISON: Radiograph 03/02/2024 IMPRESSION: No consolidation or pulmonary edema. No pleural effusion or pneumothorax. Unchanged cardiomediastinal silhouette. Unchanged mild elevation of the right hemidiaphragm. Cholecystectomy. Electronically signed by: Johanna Lopez M.D. Gonzalo Holman MD G XR PROCEDURES Final Resu lt * ECG 12 lead (04/28/2024 6:26 PM ENVELOPE FOLDING MACHINE ADJUSTER) 04/28/2024 6:26 PM ENVELOPE FOLDING MACHINE ADJUSTER Narrative [facility] - 04/28/2024 9:06 PM ENVELOPE FOLDING MACHINE ADJUSTER Vent Rate: 86 bpm RR Interval: 695 msec FL Interval: 168 msec QRS Duration: 91 msec QT Interval: 363 msec QTC Interval: 406 msec P-R-T [place]: 17 - 11 - 12 degrees IMPRESSION: SINUS RHYTHM LOW QRS VOLTAGE IN PRECORDIAL LEADS [QRS DEFLECTION < 1.0 mV IN CHEST LEADS] DELAYED R WAVE PROGRESSION ABNORMAL ECG Electronically Signed By: Andres Cummins [facility] Card Gonzalo Holman MD ECG ORDERABLES Final Result [facility] * (ABNORMAL) POCT glucose (04/28/2024 5:44 PM ENVELOPE FOLDING MACHINE ADJUSTER) Glucose, POC 201(H) 70 - 199 mg/dL Comment: For Glucose values <35 mg/dl when Hematocrit is >60 mg/dl,the test may not accurately detect significant hypoglycemia,and testing in the Laboratory should be considered if clinically indicated. Blood 04/28/2024 5:44 PM ENVELOPE FOLDING MACHINE ADJUSTER 04/28/2024 5:44 PM ENVELOPE FOLDING MACHINE ADJUSTER Notinfile Unknown LAB POCT ORDERABLES - DEVICE F inal Result Performing Organization Address [facility] Co de Phone Number [facility] [address] [place] [address] * (ABNORMAL) Hemoglobin A1c (06/02/2023 4:40 AM ENVELOPE FOLDING MACHINE ADJUSTER) [facility] Hgb A1C 8.6(H) 4.0 - 5.6 % [facility] Estimated Average Glucose 200 mg/dL [facility] Comment: The ADA recommends reporting an estimated Average Glucose (eAG) with all Hemoglobin A1c results using the equation derived from a study of 507 normal and diabetic adults. Minority populations were underrepresented and children were not included. (Diabetes Care 31:2670-7569, 2008). The eAG is not equivalent to a fasting glucose. Blood 06/02/2023 4:40 AM ENVELOPE FOLDING MACHINE ADJUSTER 06/02/2023 5:21 AM ENVELOPE FOLDING MACHINE ADJUSTER us Jean Givens DO LAB BLOOD ORDERABLES Final Result [facility] [address] [place] [address] from Last 3 Months or Most Recently Relevant to Health Maintenance Insurance [facility] PPO [employer] [facility] PPO MAIL [employer] [facility] Advance Directives For more information, please contact: [phone] * Full Code (Latest Code Status on File) Date Activated Date Inactivated Comments 07/10/2023 7:28 AM 07/12/2023 4:02 PM * Full Code Date Activated Date Inactivated Comments 05/30/2023 8:47 PM 06/05/2023 7:08 PM Care Teams Laborer [employer] Relationship Specialty Start Date End Date Lyle Hutchins MD [address] [facility] [address] [address] PCP - General Family Medicine 02/09/20
--- OUTSIDE RECORDS SUMMARY | 2024-07-20 14:57 | XMS_ITS | Encounter Summary ---
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
--- OUTSIDE RECORDS SUMMARY | 2024-07-20 14:57 | XMS_ITS | Referral Summary ---
Author Organization [facility] Address [address] [place] [address] Care Team Providers Care Scaffold Builder Name Role Phone Lyle Hutchins MD Primary Care Provider [phone] Encounters Date Type Department Care Team Description 04/28/2024 5:49 PM CEMENT SACK BREAKER - 04/29/2024 12:08 AM [facility] Emergency [facility] Emergency Department [address] [place] [address] Gonzalo Holman MD Beck, Joann Valdez MD Hyperglycemia (Primary Dx); Other migraine without status migrainosus, not intractable; Leukocytosis, unspecified type Discharge Disposition: Discharge to home or self care from Last 3 Months Allergies Active Allergy Reactions Criticality Noted Date [...] 11/06/2015 Only shrimp & Tuna confirmed with development analyst Ketorolac Mental status changes Low Agitated and [...] Take 1 capsule by mouth daily (brand: [employer]) Active polyethylene glycol (Miralax) 17 gram packetIndicatio [...] 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) 01/28/2019 Enthesopathy of hip region 01/18/2019 Anxiety [...] Sprain of tibiofibular ligament of ankle 014 Immunizations Immunization Administration Dates Next Due Influenza, Quadrivalent, Spl it, Preservative Free, Intramuscular 03/03/2019 Influenza, Trivalent, IM (MDV) 04/01/2014,2012 Influenza, Trivalent, Preservative Free, Intramu scular 05/08/2012 Influenza, Unspecified 03/06/2009 Pneumococcal Polysaccharide PPV23 05/08/2012 Tdap 09/23/2013 Social History Tobacco Use Types Packs/Day Years Used Date Smoking Tobacco: Never Smokeless Tobacco: Never Tobacco Cessation:Counseling Given: No Alcohol Use Standard Drinks/Week Comments Yes 0 (1 standard drink = 0.6 oz pur e alcohol) [facility] Utilities Answer Date Recorded In the past 12 months has [employer], gas, oil, or water [employer] threatened to shut off services in your [...] often do you attend chur ch or voodoo services? Never 07/11/2023 Do you belong to any clubs o r organizations such as cheondoism groups, unions, fraternal or athletic groups, or [...] place to sleep or slept in a group home (including now)? No 07/11/2023 Personal Safety Answer Date Recorded Have you ever been in or are you currently in a harmful physical or emotional relationship or is someone making you feel afraid or unsafe? Denies 04/28/2024 Comments No Sex and Gender Information Value Date Recorded Sex Assigned at Not on file Legal Sex Female 2:19 PM CEMENT SACK BREAKER Gender Identity Not on file Sexual Orientation Bisexual 04/28/2024 6: 46 PM CEMENT SACK BREAKER Last Filed Vital Signs Vital Sign Reading Time Taken Comments Blood Pressure 129/81 04/28/2024 11:30 PM CEMENT SACK BREAKER Pulse 85 04/28/2024 11:30 PM CEMENT SACK BREAKER Temperature 36.9 C (98.4 F) 04/28/2024 5:39 PM CEMENT SACK BREAKER Respiratory Rate 16 04/28/2024 11:30 PM CEMENT SACK BREAKER Oxygen Saturation 97% 04/28/2024 11:30 PM CEMENT SACK BREAKER Inhaled Oxygen Concentration - - Weight 140.6 kg (310 lb) 04/28/2024 5:39 PM CEMENT SACK BREAKER Height 165.1 cm (5' 5 ) 04/28/2024 5:39 PM CEMENT SACK BREAKER Body Mass Index 51.59 04/28/2024 5:39 PM CEMENT SACK BREAKER Plan of Treatment Not on file Medical Devices Implanted Type Area Director Global Device Identifier Shelf Expiration Date Model / Serial / Lot Other - See Comments Other - see comments Neck Description:Neck disc replac ement C6-C7 Procedures Procedure Name Priority Date/Time Associated Diagnosis Comments EGFR STAT 04/28/2024 11:19 PM CEMENT SACK BREAKER BASIC METABOLIC PANEL STAT 04/28/2024 11:19 PM CEMENT SACK BREAKER POCT GLUCOSE DEVICE Routine 04/28/2024 9 :38 PM CEMENT SACK BREAKER TROPONIN T HIGH-SENSITIVITY 2-HOUR Timed 04/28/2024 9:37 PM CEMENT SACK BREAKER POCT GLUCOSE DEVICE Routine 04/28/2024 8 :31 PM CEMENT SACK BREAKER PRO B-TYPE NATRIURETIC PEPTIDE STAT 04/28/2024 7:13 PM CEMENT SACK BREAKER COMPREHENSIVE METABOLIC PANEL STAT 04/28/2024 7:13 PM CEMENT SACK BREAKER EGFR STAT 04/28/2024 7:13 PM CEMENT SACK BREAKER DIFFERENTIAL AUTO STAT 04/28/2024 7:1 3 PM CEMENT SACK BREAKER TROPONIN T HIGH-SENSITIVITY SERIES (BASELINE, 2HR, 4HR, 6HR) STAT 04/28/2024 7:13 PM CEMENT SACK BREAKER CBC WITH AUTO DIFFERENTIAL STAT 04/28/2024 7:13 PM CEMENT SACK BREAKER RESPIRATORY PATHOGEN PANEL Routine 04/28/2024 7:13 PM CEMENT SACK BREAKER URINALYSIS AND REFLEX TO MICROSCOPIC AND CULTURE STAT 04/28/2024 7:[address] HEAD WO CONTRAST ED 04/28/2024 6 :53 PM CEMENT SACK BREAKER XR CHEST PA LATERAL 2 VIEWS ED 04/28/2024 6:34 PM CEMENT SACK BREAKER ECG 12-LEAD STAT 04/28/2024 6:26 PM CEMENT SACK BREAKER POCT GLUCOSE DEVICE Routine 04/28/2024 5 :44 PM CEMENT SACK BREAKER HEMOGLOBIN A1C Routine 06/02/2023 4:40 AM CEMENT SACK BREAKER from Last 3 Months or Most Recently Relevant to Health Maintenance Results * eGFR (04/28/2024 11:19 PM CEMENT SACK BREAKER) eGFR >90 >=60 mL/min/1. 73 m2 Comment: [...] of Race in Diagnosing Kidney Disease, JASN 202). The CKD-EPI equation should not be used for patients with unstable renal function and has not been validated in children and those over 70. Current interpretive data was last reviewed 2021. Blood 04/28/2024 11:1 9 PM CEMENT SACK BREAKER 04/28/2024 11:24 PM CEMENT SACK BREAKER Gonzalo Holman MD LAB BLOOD ORDERABLES Final R esult [facility] [address] Department [place] [address] * (ABNORMAL) Basic metabolic panel (04/28/2024 11:19 PM CEMENT SACK BREAKER) Sodium 139 135 - 145 mmol/L Potassium, pl 4.3 3.3 - 4.9 mmol/L [facility] Chloride 105 97 - 110 mmol/L [facility] CO2 19(L) 22 - 32 mmol/L [facility] Anion gap 15 2 - 15 mmol/L [facility] BUN 16 6 - 25 mg/dL [facility] Creatinine 0.67 0.60 - 1.10 mg/dL [facility] Glucose 218(H) 70 - 199 mg/dL [facility] Comment: Interpretive Data Fasting glucose >/= [...] 2022. Calcium 9.4 8.5 - 10.3 mg/dL [facility] Blood 04/28/2024 11:1 9 PM CEMENT SACK BREAKER 04/28/2024 11:24 PM CEMENT SACK BREAKER Gonzalo Holman MD LAB BLOOD ORDERABLES Final R esult Performing Organization Address [facility]/ZIP Co de Phone Number [facility] [address] Department [place] [address] * POCT glucose (04/28/2024 9:38 PM CEMENT SACK BREAKER) Glucose, POC 195 70 - 199 mg/dL Comment: For Glucose values <35 mg/dl when Hematocrit is >60 mg/dl,the test may not accurately detect significant hypoglycemia,and testing in the Laboratory should be considered if clinically indicated. Blood 04/28/2024 9:38 PM CEMENT SACK BREAKER 04/28/2024 9:38 PM CEMENT SACK BREAKER Gonzalo Holman MD LAB POCT ORDERABLES - DEVICE Final Result Performing Organization Address [facility] Co de Phone Number [facility] [address] [place] [address] * Troponin T high-sensitivity 2-hour (04/28/2024 9:37 PM CEMENT SACK BREAKER) Pathologist [facility] Trop T hs <6 <=14 ng/L Comment: Interpretive Data For further hscTnT resources including the diagnostic algorithm and an aid in interpretation, copy and paste this link: https://nrl.testcatalog.org/show/hsTrop Current Interpretive Data last revised 2020. Trop T hs delta 0 ng/L [facility] Trop T hs interp Insignificant [facility] Blood 04/28/2024 9:37 PM CEMENT SACK BREAKER 04/28/2024 9:50 PM CEMENT SACK BREAKER Gonzalo Holman MD LAB BLOOD ORDERABLES Final R esult Performing Organization Address City/[facility]/ZIP Co de Phone Number [facility] [address] [place] [address] * POCT glucose (04/28/2024 8:31 PM CEMENT SACK BREAKER) Glucose, POC 198 70 - 199 mg/dL Comment: For Glucose values <35 mg/dl when Hematocrit is >60 mg/dl,the test may not accurately detect significant hypoglycemia,and testing in the Laboratory should be considered if clinically indicated. Blood 04/28/2024 8:31 PM CEMENT SACK BREAKER 04/28/2024 8:31 PM CEMENT SACK BREAKER Gonzalo Holman MD LAB POCT ORDERABLES - DEVICE Final Result Performing Organization Address [facility] de Phone Number [facility] [address] Department [place] [address] * Troponin T high-sensitivity series (baseline, 2hr, 4hr, 6hr) (04/28/2024 7:13 PM CEMENT SACK BREAKER) Pathologist [facility] Trop T hs <6 <=14 ng/L Comment: Interpretive Data For further hscTnT resources including the diagnostic algorithm and an aid in interpretation, copy and paste this link: https://nrl.testcatalog.org/show/hsTrop Current Interpretive Data last revised 2020. Blood 04/28/2024 7:13 PM CEMENT SACK BREAKER 04/28/2024 7:22 PM CEMENT SACK BREAKER Gonzalo Holman MD LAB BLOOD ORDERABLES Final R esult Performing Organization Address [facility] Co de Phone Number [facility] [address] Department of [employer] [place], [place] [id number] * eGFR (04/28/2024 7:13 PM CEMENT SACK BREAKER) eGFR >90 >=60 mL/min/1. 73 m2 Comment: [...] of Race in Diagnosing Kidney Disease, JASN 202). The CKD-EPI equation should not be used for patients with unstable renal function and has not been validated in children and those over 70. Current interpretive data was last reviewed 2021. Blood 04/28/2024 7:13 PM CEMENT SACK BREAKER 04/28/2024 7:22 PM CEMENT SACK BREAKER us Gonzalo Holman MD LAB BLOOD ORDERABLES Final R esult [facility] [address] Department [place] [address] * (ABNORMAL) Differential, auto (04/28/2024 7:13 PM CEMENT SACK BREAKER) Neutrophil abs 15.5(H) 1.5 - 6.5 K/cumm Imm gran abs 0.2(H) 0.0 - 0.1 K/cumm [facility] Lymphocyte abs 2.4 0.8 - 3.3 K/cumm [facility] Monocyte abs 0.7 0.2 - 0.8 K/cumm [facility] Eosinophil abs 0.0 0.0 - 0.5 K/cumm [facility] Basophil abs 0.0 0.0 - 0.1 K/cumm [facility] Neutrophil pct 82.2 % [facility] Comment: Interpretive Data Percent cell count reference ranges are not reported, since discordance with absolute values may lead to misinterpretation of CBC data. Current Interpretive Data was last revised on 2017. Imm gran pct 0.9 % [facility] Comment: Interpretive Data Percent cell count reference ranges are not reported, since discordance with absolute values may lead to misinterpretation of CBC data. Current Interpretive Data was last revised on 2017. Lymphocyte pct 12.9 % [facility] Comment: Interpretive Data Percent cell count reference ranges are not reported, since discordance with absolute values may lead to misinterpretation of CBC data. Current Interpretive Data was last revised on 2017. Monocyte pct 3.9 % [facility] Comment: Interpretive Data Percent cell count reference ranges are not reported, since discordance with absolute values may lead to misinterpretation of CBC data. Current Interpretive Data was last revised on 2017. Eosinophil pct 0.0 % [facility] Comment: Interpretive Data Percent cell count reference ranges are not reported, since discordance with absolute values may lead to misinterpretation of CBC data. Current Interpretive Data was last revised on 2017. Basophil pct 0.1 % [facility] Comment: Interpretive Data Percent cell count reference ranges are not reported, since discordance with absolute values may lead to misinterpretation of CBC data. Current Interpretive Data was last revised on 2017. Blood 04/28/2024 7:13 PM CEMENT SACK BREAKER 04/28/2024 7:22 PM CEMENT SACK BREAKER us Gonzalo Holman MD LAB BLOOD ORDERABLES Final R esult [facility] [address] Department [place] [address] * Pro B-type natriuretic peptide (04/28/2024 7:13 PM CEMENT SACK BREAKER) NT-proBNP 51 <=300 pg/mL Comment: Interpretive Comments: [...] as advanced age. - References: 1. Jess BASHIR et.al. Eur Heart J. 2006:27:330-337. 2. Jean-Claude RW, Sarath BALLESTEROS. J. AM Walt Cardiol: Cardiovasc Imag. 2009;2: 216- 225. Interpretive Data Last Revised Date: 2018. Blood 04/28/2024 7:13 PM CEMENT SACK BREAKER 04/28/2024 7:14 PM CEMENT SACK BREAKER us Gonzalo Holman MD LAB BLOOD ORDERABLES Final R esult [facility] [address] Department [place] [address] * Urinalysis reflex to microscopic and culture Urine (04/28/2024 7:13 PM CEMENT SACK BREAKER) Color, ur Straw Yellow Clarity, ur Clear Clear [facility] Specific gravity, ur 1.010 1.003 - 1.030 [facility] pH, urine 6.5 [facility] Comment: Interpretive Data U rine pH is affected by diet, medications, systemic acid-base disturbances, and renal tubular function. pH may affect urinary stone formation. For example, urine pH below 6.0 may help reduce the tendency for calcium phosphate stones and pH greater than 6.0 may reduce the tendency for uric acid stone formation. Source: [facility] [employer] Current Interpretive Data was last revised on 2017 Protein, ur ql Negative Negative [facility] Glucose, ur ql Negative Negative [facility] Ketones, ur Negative Negative [facility] Bilirubin, ur Negative Negative [facility] Blood, ur Negative Negative [facility] Urobilinogen, ur <2.0 <2.0 mg/dL [facility] Nitrite, ur Negative Negative [facility] Leukocyte esterase, ur Negative Negative [facility] UA reflex comment Reflex conditions for microscopic UA and culture not met. [facility] Urine 04/28/2024 7:13 PM CEMENT SACK BREAKER 04/28/2024 7:14 PM CEMENT SACK BREAKER Gonzalo Holman MD LAB MICROBIOLOGY - GENERAL O RDERABLES Final Result [facility] [address] Department [place] [address] * Respiratory pathogen panel Nasopharyngeal (04/28/2024 7:13 PM CEMENT SACK BREAKER) Pathologist [facility] Influenza A RNA Not Detected Not Detected [facility] Influenza B RNA Not Detected Not Detected [facility] RSV RNA Not Detected Not Detected [facility] COVID-19 RNA Not Detected Not Detected [facility] Coronavirus 229E RNA Not Detected Not Detected [facility] Coronavirus HKU1 RNA Not Detected Not Detected [facility] Coronavirus NL63 RNA Not Detected Not Detected [facility] Coronavirus OC43 RNA Not Detected Not Detected [facility] Adenovirus DNA Not Detected Not Detected [facility] Metapneumovirus RNA Not Detected Not Detected [facility] Rhinovirus/Enterov irus RNA Not Detected Not Detected [facility] Parainfluenza 1 RNA Not Detected Not Detected [facility] Parainfluenza 2 RNA Not Detected Not Detected [facility] Parainfluenza 3 RNA Not Detected Not Detected [facility] Parainfluenza 4 RNA Not Detected Not Detected [facility] B. pertussis DNA Not Detected Not Detected [facility] B. parapertussis DNA Not Detected Not Detected [facility] C. pneumoniae DNA Not Detected Not Detected [facility] M. pneumoniae DNA Not Detected Not Detected [facility] Comment: Interpretive Data The [employer] FilmArray Respiratory Panel (RP2.1) assay is a [...] assay has FDA clearance for testing of MECHANICAL LEAD swabs. The performance characteristics of this assay have been determined by [facility]. Current interpretive data was last revised on 2020. Nasopharyngeal 04/28/2024 7: 13 PM CEMENT SACK BREAKER 04/28/2024 7:19 PM CEMENT SACK BREAKER Narrative [facility] - 04/28/2024 8:11 PM CEMENT SACK BREAKER Is the Patient experiencing symptoms consistent with COVID?->Yes Surveillance testing for transplant patient?->No Gonzalo Holman MD LAB MICROBIOLOGY - GENERAL O RDERABLES Final Result [facility] [address] Department [place] [address] [facility] * (ABNORMAL) CBC with auto differential (04/28/2024 7:13 PM CEMENT SACK BREAKER) [facility] WBC 18.8(H) 3.8 - 9.9 K/cumm Hgb 13.7 11.9 - 15.5 g/dL [facility] Hct 41.7 35.6 - 45.5 % [facility] Plt 398 150 - 400 K/cumm [facility] MPV 9.2 9.1 - 12.3 fL [facility] RBC 5.12 3.90 - 5.20 M/cumm [facility] MCV 81.4 81.3 - 96.4 fL [facility] MCH 26.8(L) 27.1 - 33.3 pg [facility] MCHC 32.9 32.3 - 35.7 g/dL [facility] RDW CV 14.1 11.1 - 14.9 % [facility] RDW SD 41.2 35.7 - 48.1 fL [facility] NRBC abs 0.00 0.00 - 0.01 K/cumm [facility] Blood 04/28/2024 7:13 PM CEMENT SACK BREAKER 04/28/2024 7:22 PM CEMENT SACK BREAKER us Gonzalo Holman MD LAB BLOOD ORDERABLES Final R esult [facility] [address] Department [place] [address] * (ABNORMAL) Comprehensive metabolic panel (04/28/2024 7:13 PM CEMENT SACK BREAKER) [facility] Sodium 141 135 - 145 mmol/L Potassium, pl 4.2 3.3 - 4.9 mmol/L [facility] Chloride 104 97 - 110 mmol/L [facility] CO2 20(L) 22 - 32 mmol/L [facility] Anion gap 17(H) 2 - 15 mmol/L [facility] BUN 16 6 - 25 mg/dL [facility] Creatinine 0.74 0.60 - 1.10 mg/dL [facility] Glucose 212(H) 70 - 199 mg/dL [facility] Comment: Interpretive Data Fasting glucose >/= [...] 2022. Calcium 9.9 8.5 - 10.3 mg/dL [facility] Bilirubin, total 0.2 0.1 - 1.2 mg/dL [facility] Protein, pl 7.7 6.5 - 8.5 g/dL [facility] Albumin 4.6 3.5 - 5.0 g/dL [facility] Alk phos 98 40 - 130 Units/L [facility] ALT 29 7 - 45 Units/L [facility] AST 19 10 - 45 Units/L [facility] Blood 04/28/2024 7:13 PM CEMENT SACK BREAKER 04/28/2024 7:14 PM CEMENT SACK BREAKER Gonzalo Holman MD LAB BLOOD ORDERABLES Final R esult [facility] [address] Department [place] [address] * CT Head WO Contrast (04/28/2024 6:53 PM CEMENT SACK BREAKER) Anatomical Region Laterality Modality Head and Neck N/A Computed Tomogra phy 04/28/2024 6:57 PM CEMENT SACK BREAKER Impressions 04/28/2024 7:20 PM CEMENT SACK BREAKER No acute intracranial process. Dictated by: Valencia Yousif MD The radiology attending physician has personally reviewed this study, and had reviewed and/or edited this written report and agrees with it. Electronically signed by: Rachid Monge MD Narrative 04/28/2024 7:20 PM CEMENT SACK BREAKER EXAMINATION: CT head without contrast HISTORY: Headache [...] Pa Lateral 2 Vw (04/28/2024 6:34 PM CEMENT SACK BREAKER) Anatomical Region Laterality Modality Body, Chest N/A Computed Radiogr aphy 04/28/2024 6:45 PM CEMENT SACK BREAKER Impressions 04/28/2024 6:45 PM CEMENT SACK BREAKER No consolidation or pulmonary edema. No pleural effusion or pneumothorax. Unchanged cardiomediastinal silhouette. Unchanged mild elevation of the right hemidiaphragm. Cholecystectomy. Electronically signed by: Johanna Lopez M.D. Narrative 04/28/2024 6:45 PM CEMENT SACK BREAKER EXAMINATION: XR CHEST PA LATERAL 2 VIEWS [...] by: Johanna Lopez M.D. Gonzalo Holman MD IMG XR PROCEDURES Final Resu lt * ECG 12 lead (04/28/2024 6:26 PM CEMENT SACK BREAKER) 04/28/2024 6:26 PM CEMENT SACK BREAKER Narrative [facility] - 04/28/2024 9:06 PM CEMENT SACK BREAKER Vent Rate: 86 bpm RR Interval: 695 msec NH Interval: 168 msec QRS Duration: 91 msec QT Interval: 363 msec QTC Interval: 406 msec P-R-T [place]: 17 - 11 - 12 degrees IMPRESSION: SINUS RHYTHM LOW QRS VOLTAGE IN PRECORDIAL LEADS [QRS DEFLECTION < 1.0 mV IN CHEST LEADS] DELAYED R WAVE PROGRESSION ABNORMAL ECG Electronically Signed By: Andres Cummins [facility] Card Gonzalo Holman MD ECG ORDERABLES Final Result Performing Organization Address [facility]/ZIP Co de Phone Number [email or web address] [facility] * (ABNORMAL) POCT glucose (04/28/2024 5:44 PM CEMENT SACK BREAKER) [facility] Glucose, POC 201(H) 70 - 199 mg/dL Comment: For Glucose values <35 mg/dl when Hematocrit is >60 mg/dl,the test may not accurately detect significant hypoglycemia,and testing in the Laboratory should be considered if clinically indicated. Blood 04/28/2024 5:44 PM CEMENT SACK BREAKER 04/28/2024 5:44 PM CEMENT SACK BREAKER Notinfile Unknown LAB POCT ORDERABLES - DEVICE F inal Result [facility] [address] Department [place] [address] * (ABNORMAL) Hemoglobin A1c (06/02/2023 4:40 AM CEMENT SACK BREAKER) Hgb A1C 8.6(H) 4.0 - 5.6 % [facility] Estimated Average Glucose 200 mg/dL [facility] Comment: The ADA recommends reporting an estimated Average Glucose (eAG) with all Hemoglobin A1c results using the equation derived from a study of 507 normal and diabetic adults. Minority populations were underrepresented and children were not included. (Diabetes Care 31:4253-3852, 2008). The eAG is not equivalent to a fasting glucose. Blood 06/02/2023 4:40 AM CEMENT SACK BREAKER 06/02/2023 5:21 AM CEMENT SACK BREAKER Jean Givens LAB BLOOD ORDERABLES Final Result [facility] [address] Department [place] [address] from Last 3 Months or Most Recently Relevant to Health Maintenance Insurance [facility] PPO [employer]IL [employer] [facility] MAIL HANDLERS [facility] Advance Directives For more information, please contact: [phone] * Full Code (Latest Code Status on File) Date Activated Date Inactivated Comments 07/10/2023 7:28 AM 07/12/2023 4:02 PM * Full Code Date Activated Date Inactivated Comments 05/30/2023 8:47 PM 06/05/2023 7:08 PM Care Teams Scaffold Builder Relationship Specialty Start Date End Date Lyle Hutchins MD [address] [address] PCP - General Family Medicine 02/09/20
--- OUTSIDE RECORDS SUMMARY | 2024-07-20 14:57 | XMS_ITS | Continuity of Care Document ---
Author Organization [facility] Address [address] [place] [address] Phone Care Team Providers Care Industrial Refrigeration Mechanic Name Role Phone Andres Coker MD Unavailable Unavailable Allergies, Adverse Reactions, Alerts Substance Reaction Status Criticality Penicillins Active No Information lorazepam Active No Information prednisone Active No Information KETOROLAC TROMETHAMINE Active No In formation clarithromycin Active No Informatio n Medications Medication Instructions Dosage Effective Dates (start - stop) Status Comments EpiPen 2-Sebastian 0.3 mg/0.3 mL injection, auto-injector inject 0.3 milliliter by intramuscular route once as needed for anaphylaxis 0.3 MG - Active nabumetone 750 mg tablet take 1 tablet by oral route 2 times every day 750 MG - Active aripiprazole 2 mg tablet - Active escitalopram 20 mg tablet take 1 tablet by oral route every day 20 MG - Active omeprazole 40 mg capsule,delayed release take 1 capsule by oral route every day before a meal 40 MG - Active Ambien 5 mg tablet take 1 tablet by oral route every day at bedtime 5 MG - Active lidocaine 5 % adhesive patch apply 1 patch by transdermal route every day (May wear up to 12hours.) 1.00 patch - Active cyclobenzaprine 10 mg tablet take 1 tablet by oral route 2 times every day 10 MG - Active tramadol 50 mg tablet take 1 tablet by oral route every 6 hours as needed 50 MG - Active hyoscyamine sulfate 0.125 mg tablet take 1 by Oral route every 4 hours prn 1 - Active Procedures Procedure Date ALLERGY SKIN TESTS OFFICE [id number] BODY MASS INDEX DOCD SYST BP LT 130 MM HG DIAST BP < 80 MM HG INJECT, ANESTHETIC AND/OR ST EROID, TRANSFORAMINAL EPIDURAL; C/T, SINGLE LEVEL SURGICAL TRAY LOW OSMOLAR CONTRAST (200 TO 299 MG IODI NE) INJ, DEXAMETHASONE SODUIM PHOSPHATE (DEC ADRON) 1MG Advance Directives Directive Yes / No Effective Date File Name No Information Encounters Encounter Description Practice Location Reason(s) For Visit Diagnoses Date Provider Providers Copied on Encounter [facility], [address], [place], [place], [address] , tel: [phone] [facility] Clarissa No Information 2 John Paul Campos. [address] [place] [address], [place], [place], [id number] , [place]. tel:[phone] [facility]ICE [id number] [address], [place], [place], [address] , [place] tel: [phone] [facility] All[facility] Clarissa Patient encounter (chief complaint) Dermographic urticariaAnaphylaxis due to shellfish, initial encounterAllergic contact dermatitis due to other agents 2 John Paul Campos. [address] [facility] [facility] , [place] [address], [place], [place], [address] , [place]. tel:[phone] Referring Provider: Lyle Hutchins MD, [address] [place] [address], [address]. tel:[phone] [facility], [address], [place], [place], [address] , [place] tel:[phone] [facility] No Information 1 Leeroy Jimenez. [address] [facility], [place], [place], [address] , [place]. tel:[phone] Referring Provider: Bishop Reno, [address] , [place], [address]. tel:[phone] [facility], [address], [place], [place], [address] , [place] tel: [phone] [facility] Irritable bowel syndrome with diarrheaDiffuse abdominal pain 6 Marcos Horvath. [address], [address], [place], [place], [address] . tel: [phone] Referring Provider: Lyle Hutchins MD, [address], [address]. tel:[phone] Family History Family Member Type Diagnosis Age At Onset Problem (finding) Family history of Irritable bowel disease Payers Payer name Insurance type Covered democrat ID Authoriza tiventura(s) DIYA PPO CI [id number] Social History Type Description Quantity Date Captured Comments Alcohol Use Details Unknown Caffeine Use Details Unknown Tobacco Use Status No Information Smoking Status No Information Sex Female Chief Complaint And Reason For Visit No Information Reason For Referral Reason For Referral No Information History Of Present Illness Encounter Date Complaint History Of Prese nt Illness Patient encounter Chief complain t: skin allergies concerns.Pt presents due to concerns of skin allergies over last couple years. Getting them multiple times/day over the last 6 months after gradually worsening. Occur most on wrists, ankles, knees, forearms. Can last minutes to couple hours. Itchy skin areas look normal until she scratches, at which times it turns uniformly red and occasionally can have bumps. Taking PO benadryl PRN, but sx resolve before med would kick in often. Hytone 1% seems to make her itch more. No obvious triggers. No new meds, but does take ibuprofen nightly. Got COVID booster within a month or so before onset. States got LLR from COVID booster. Flu shots give her severe flu-like sx.Also notes throat swelling/itching and SOB after eating shrimp fried rice approx 4 yrs ago. Treated with EPI in ED. Never has had objective testing. No further shellfish ingestion since then, but has toelrated pork fried rice.Also notes sensitive skin, with lots of skin products that seem to irritate her skin. Rashes typically resolve within a few days. Tries to use F&C/hypoallergenic products whenever possible. Functional Status Date Functional Assessmen t No Information Instructions Date Instruction Additional Infor josé Possibly, vs irritan t dermatitis with sensitive skin. Could consider patch testing in the future. Use hypoallergenic products as much as possible.Follow-up pending response to therapy and lab results. Related to Allergic contact dermatitis due to other agents Skin testing negativ e; check blood too. EPII pen rx provided, technique and indications of use reviewed. Related to Anaphylaxis due to shellfish, initial encounter Symptomatic, poorly controlled. Likely stimulated by COVID booster coupled with underlying predisposition. This is NOT an allergy to the COVID booster. Hopefully, this should improve eventually. In the meantime, will start preventive antihistamine regimen of xyzal 5mg daily and can increase to twice daily if not effective. 1 sample provided. Related to Dermographic urticaria Assessments Type Assessment Date No Information Patient Care Teams Name Effective Dates (start - stop) Status Members No Information
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
--- OUTSIDE RECORDS SUMMARY | 2024-07-20 14:57 | XMS_ITS | Patient Health Record ---
Author Organization [facility] Address [address] [place] [address] Care Team Providers Care Composition Roofer Name Role Phone Cuong CHINCHILLA, John Primary Care Provider Unavailab Lyle Espinoza Unavailable [phone] Shadia CHINCHILLA, Bishop Unavailable Unavailable Allergies Allergen (clinical drug ingredient) Drug/Non Drug Allergy documented on EMR Reaction Allergy Type Onset Date Status Influenza A (H1N1) Monoval PF Unknown Drug Allergy Active Adhesive Unknown Allergy Active clarithromycin Clarithromycin Unknown Drug Allergy Active dicyclomine Dicyclomine Unknown Drug Allergy Act dannielle Iodine Unknown Drug Allergy Active ketorolac Ketorolac Unknown Drug Allergy Active lorazepam Lorazepam Unknown Drug Allergy Active methylprednisolone Methylprednisolone Unknown Drug Allergy Active metoclopramide Metoclopramide Unknown Drug Allergy Active naproxen Naproxen Unknown Drug Allergy Active Penicillin Unknown Drug Allergy Active prochlorperazine Prochlorperazine Unknown Drug Allergy Active Shellfish (FN) Shellfish-derived Products Unknown Drug Allergy Active Substance with sulfonamide structure and antibacterial mechanism of action (substance) Sulfa Antibiotics Unknown Drug Allergy Active vancomycin Vancomycin Unknown Drug Allergy Activ e Reason For Referral No Information Medications Medication SIG (Take, Route, Frequency, Duration) Notes Start Date End Date Status Norethindrone Acetate 5 MG 1 tablet Oral ly Once a day for 30 day(s) Active Ozempic (0.25 or 0.5 MG/DOSE) 2 MG/1.5ML as directed Subcutaneous Active Omeprazole 40 MG 1 capsule 30 minutes before morning meal Orally Once a day for 30 day(s) Active Ursodiol 300 MG 1 capsule Orally Twi ce a day for 30 day(s) Active QUEtiapine Fumarate 50 MG 1 tablet at be dtime Orally Once a day for 30 day(s) Active Allopurinol 100 MG 1 tablet Orally Once a day for 30 day(s) Active Lexapro 20 MG 1 tablet Orally Once a day Active traMADol HCl 50 MG 1 tablet as needed O rally q 8 hours as needed for 7 days 11/08/2022 Active Insulin Degludec 100 UNIT/ML as directed Subcutaneous Act dannielle Fiasp PenFill 100 UNIT/ML as directed Subcutaneous Active Nabumetone 750 MG as directed Orally Active Lancets - as directed Active Social History Sex Assigned At : Social History Observation Description Sex Assigned At Female Plan Of Treatment Pending Test Test Name Order Date MRI : Cervical Spine w/o Contrast 2021 MRI : Cervical Spine w/o Contrast 2022 MRI : Lumbar Spine w/o Contrast 11/03/19 MRI : Left Knee 03/05/2022 Next Appt Details Provider Name:Lyle palafox, 07/23/2024 11:20:00 AM, [address] [place] [address], [phone], Insurance Providers Payer Name Payer Address Payer Phone Subscriber Number Group Number Insured Name Patient Relationship to Insured Coverage Start Date Coverage End Date [employer] [address] [place] [address] [id number] Natasha Wilson Self - patient is the insured Medical (General) History Medical History History ICD Code dysuria endometriosis Pelvic adhesions Chronic interstitial cystis Bladder pain and Urgency Chronic constipation IBS Surgical History Surgery Date(Month/Year) Cervical Diskectomy C5-6 2020 Endometriosis fulguration 2017 Cystoscopy 2017 Salpingo-oophorectomy (B) 2017 Lysis of adhesions, pelvic, laparoscopic 2017 cholecystectomy hysterectomy Left knee arthroscopy Tonsillectomy Hospitalization History Reason Date(Month/Year) see above
--- OUTSIDE RECORDS SUMMARY | 2024-07-20 14:57 | XMS_ITS | Continuity of Care Document ---
Author Organization [facility] Address [address] [place] [address] Phone Care Team Providers Care Community Arts Officer Name Role Phone Naye Rollins PA-C Unavailable Unavailable Allergies, Adverse Reactions, Alerts Substance Reaction Status Criticality KETOROLAC TROMETHAMINE Active No In formation shellfish derived Active No Informa tion prednisone Active No Information Penicillins Active No Information clarithromycin Active No Informatio n Medications Medication Instructions Dosage Effective Dates (start - stop) Status Comments CRANBERRY (unknown strength) Not Available - Active PRILOSEC (unknown strength) Not Available - Active NABUMETONE (unknown strength) Not Available - Active LEXAPRO (unknown strength) Not Available - Active Procedures Procedure Date OFFICE CONSULTATION Advance Directives Directive Yes / No Effective Date File Name No Information Encounters Encounter Description Practice Location Reason(s) For Visit Diagnoses Date Provider Providers Copied on Encounter OFFICE CONSULTATION [facility], [address], [place], [address], [place] tel:[phone] [facility] Left hip pain (chief complaint) Left hip painTrochanteric bursitis of left hip Aug- 5 Ayo Yancey. [address], [place], [place], [address] . tel:[phone] Referring Provider: Lyle Green[address], [address]. tel:[phone] Family History Family Member Type Diagnosis Age At Onset Mother Problem (finding) hypertension Father Problem (finding) gout Mother Problem (finding) Maternal history of reji betes mellitus Father Problem (finding) Maternal history of reji betes mellitus Mother Problem (finding) depression Payers Payer name Insurance type Covered democrat ID Tete lundy(s) No Information Social History Type Description Quantity Date Captured Comments Alcohol Use Details No Caffeine Use Details Unknown Tobacco Use Status Never smoked tobacco 2014 Smoking Status Never smoker Non-Smoking Tobacco Use Details : No Details Available : No Details Available Sex Female Vital Signs Date / Time: Height Weight BMI Pulse Rate Blood Pressure Temperature Respiratory Rate Body Surface Area Head Circumference Head Circ. Percentile Wt./Cr. Percentile BMI percentile Pulse Ox Inhaled Ox 2:16 PM 65.00 in 131.542 kg (290.00 lbs) 48.2 6 kg/m eter (2) 118/80 mm[Hg] Chief Complaint And Reason For Visit From encounter dated '09/23/2014 14:00'. Left hip pain (chief complaint) Reason For Referral Reason For Referral No Information Plan Of Treatment Date Type Action Status Referral Ordered: RADEX PELVIS 1/2 VIEWS ordered History Of Present Illness Encounter Date Complaint History Of Prese nt Illness Left hip pain Functional Status Date Functional Assessmen t No Information Instructions Date Instruction Additional Infor mation Discussed treatment options Rela rajni to Trochanteric bursitis of left hip Call for increase in pain Relate d to Trochanteric bursitis of left hip Assessments Type Assessment Date assessment Left hip pain assessment Trochanteric bursitis of left hi p Patient Care Teams Name Effective Dates (start - stop) Status Members No Information
--- OUTSIDE RECORDS SUMMARY | 2024-07-20 14:57 | XMS_ITS | Continuity of Care Document ---
Author Organization [facility] Address [address] [place] [address] Phone Care Team Providers Care Hospital Administrator Name Role Phone House Nargis KEARNS Unavailable Unavailable Allergies, Adverse Reactions, Alerts Substance Reaction Status Criticality IODINE Swelling, Other Active No Informati on shellfish derived Active No Informa tion Penicillins DifficultyBreathing Active No Infor mation lorazepam Active No Information KETOROLAC TROMETHAMINE Active No In formation iodine Unknown Active No Information clarithromycin Unknown Active No Informatio n Medications Medication Instructions Dosage Effective Dates (start - stop) Status Comments Lexapro 5 mg tablet take 1 tablet by oral route every day 5 MG - Active Minipress 1 mg capsule take 1 capsule by oral route 3 times every day - Active norethindrone acetate 5 mg tablet take 1 tablet by oral route every day during second half of the menstrual cycle 5 MG - Active hydroxyzine HCl 10 mg tablet - Active ursodiol 300 mg capsule take (4MG/KG) by oral route 2 times every day 4 MG/KG - Active Relafen DS 1,000 mg tablet take 1 tablet by oral route 2 times every day 1000 MG - Active Fiasp U-100 Insulin 100 unit/mL subcutaneous solution inject by subcutaneous route per prescriber's instructions. Insulin dosing requires individualization. 0.00 - Active Tresiba FlexTouch U-100 insulin 100 unit/mL (3 mL) subcutaneous pen inject by subcutaneous route as per insulin protocol 0.00 - Active Ozempic 1 mg/dose (2 mg/1.5 mL) subcutaneous pen injector inject (1MG) by subcutaneous route every week on the same day of each week, in the abdomen, thighs, or upper arm rotating injection sites - Active quetiapine 25 mg tablet - Active URSODIOL (unknown strength) Not Available - Active Compazine (unknown strength) Not Available - Active Prilosec OTC 20 mg tablet,delayed release - Active omeprazole 40 mg capsule,delayed release - Active Procedures Procedure Date Kenalog 40mg/mL Asp/Injection, Major Joint W/ Ultrasound Kenalog 40mg/mL Asp/Injection, Major Joint W/ Ultrasound Monovisc Asp/Injection, Major Joint W/ Ultrasound Office/outpatient visit,est, mod 2023 Monovisc Asp/Injection, Major Joint W/ Ultrasound Kenalog 40mg/mL Asp/Injection, Major Joint W/ Ultrasound Office/outpatient visit,est, mod 2022 X-ray exam knee, 4+ views Office/outpatient visit,est, mod 2021 Xray Copy Kenalog Triamcinolone acetonide inj Inject, therapeutic, carpal tunnel Office/outpatient visit,est, low 2019 Office/outpatient visit,est, mod 2019 X-ray exam wrist, complete, 3+ views Oct Office/outpatient visit,est, low 2019 X-ray exam wrist, complete, 3+ views September Office/outpatient visit,est, mod 2019 Wrist Lacer Global/Postop followup visit Global/Postop followup visit Global/Postop followup visit Carpal tunnel release Office/outpatient visit,est, mod 2019 X-ray exam wrist, complete, 3+ views Jun X-ray exam shoulder minimum 2 views Office/outpatient visit,est, mod 2019 X-ray exam wrist, complete, 3+ views Nov Global/Postop followup visit X-ray exam wrist, complete, 3+ views Oct Global/Postop followup visit Disability Form Wrist Lacer Clsd Tx Distal Radius Fx Office/outpatient visit,est, low 2018 Office/outpatient visit,est, mod 2017 MRI lower extrm joint, w/o contrast Office/outpatient visit,est, mod 2017 X-ray exam shoulder minimum 2 views Office/outpatient visit,est, mod 2017 X-ray exam foot, minimum 3 views 2017 X-ray exam ankle, minimum 3 views Office/outpatient visit,new, mod 2017 Unna Boot Application Wrist Brace Tital Olden Office/outpatient visit,est, mod 2017 Office/outpatient visit,new, mod 2017 Office/outpatient visit,new, mod 2008 Advance Directives Directive Yes / No Effective Date File Name No Information Encounters Encounter Description Practice Location Reason(s) For Visit Diagnoses Date Provider Providers Copied on Encounter [facility], [address] [place] [address], [id number], [place] tel:[phone] [facility] left knee pain (chief complaint) Unilateral primary osteoarthriti s, left knee 4 House Nargis. [address] [facility] [address], [place], [place], [id number], [place]. tel:[phone] Referring Provider: Lyle Green, [address] [facility] [address], [place], [address] . tel:[phone] [facility], [facility] [address], [id number], [place] tel:[phone] [facility] left knee pain (chief complaint) Unilateral primary osteoarthriti s, left knee Nov- 4 House Nargis. [address] [address], [place], [place], [address], [place]. tel:[phone] Referring Provider: Lyle Green, [address], [address] . tel:[phone] Office/outpa tient visit,est, mod [facility], [address], [id number], [place] tel:[phone] [facility] right knee pain (chief complaint) Unilateral primary osteoarthriti s, left knee Jul-0 4 House Nargis. [address] [address], [place], [place], [address], [place]. tel:[phone] Referring Provider: Lyle Green, [address], [address] . tel:[phone] [facility], [address], [id number], [place] tel:[phone] [facility] Unilateral primary osteoarthriti s, left knee Jul- 4 House Nargis. [address] [address], [place], [place], [address], [place]. tel:[phone] [facility], [address] [place] [address], [id number], [place] tel:[phone] [facility] left knee pain (chief complaint) Unilateral primary osteoarthriti s, left knee Jul-2 3 House Nargis. [address], [id number], [place]. tel:[phone] Referring Provider: Lottie Lincoln, [address] [address], [place], [address] . tel:[phone] Office/outpa tient visit,est, mod [facility], [address], [id number], [place] tel:[phone] [facility] left knee pain (chief complaint) Unilateral primary osteoarthriti s, left knee Jul- 3 Tello Barillas. [address] [address], [place], [place], [address], [place]. tel:[phone] Referring Provider: Lottie Lincoln, [address] [place] [address], [place], [address] . tel:[phone] [facility], [address] [place] [address], [id number], [place] tel:[phone] [facility] Unilateral primary osteoarthriti s, left knee 3 Shahnaz Brush. [address] [address], [place], [place], [address], [place]. tel:[phone] Office/outpa tient visit,est, [facility], [address] [place] [address], [id number], [place] tel:[phone] [facility] left knee pain (chief complaint) Pain in left kneeUnilatera l primary osteoarthriti s, left kneeObesity 2 Shahnaz Brush. [address] [address], [place], [place], [address], [place]. tel:[phone] Referring Provider: Lottie Lincoln, [address] [place] [address], [place], [address] . tel:[phone] [facility], [address] [place] [address], [id number], [place] tel:[phone] [facility] No Information Administrati ve Provider. [address] [place] [address], [place], [place], [id number], [place]. tel:[phone] Office/outpa tient visit,est, low [facility], [address] [place] [address], [id number], [place] tel:[phone] [facility] Bilateral hands (chief complaint) Carpal tunnel syndrome, right upper limbCarpal tunnel syndrome, left upper limb Nov- 0 [facility]. [address] [facility], [address], [place], [place], [address], [place]. tel:[phone] Referring Provider: Lottie Lincoln, [address] [facility] [address] [facility], [place], [address] . tel:[phone] Office/outpa tient visit,est, [facility], [address] [facility] [address], [place], [place], [id number], [place] tel:[phone] [facility] Bilateral hands (chief complaint) Carpal tunnel syndrome, left upper limbCarpal tunnel syndrome, right upper limb Oct- 0 [facility]. [address] [facility], [address] [address], [place], [place], [id number], [place]. tel:[phone] Referring Provider: Lottie Lincoln, [address] [facility] [address], [place], [address] . tel:[phone] Office/outpa tient visit,[facility], [facility], [address] [address], [place], [place], [id number], [place] tel:[phone] [facility] Bilateral hands (chief complaint) Fracture of navicular bone of right wrist, subsequent encounter for fracture w/ routine healingCarpal tunnel syndrome, left upper limbCarpal tunnel syndrome, right upper limb Oct- 0 [facility]. [address] [facility], [address], [place], [place], [id number], [place]. tel:[phone] Referring Provider: Lottie Lincoln, [address] [facility] [address] [facility], [place], [address] . tel:[phone] Office/outpa tient visit,[facility], [address] [address], [place], [place], [id number], [place] tel:[phone] [facility] RIGHT WRIST (chief complaint) Injury of right wrist, initial encounterFrac ture of scaphoid bone of right wrist, initial encounter for closed fracture September- 0 Yane Giron. [facility], [address], [place], [place], [address], [place]. tel:[phone] Referring Provider: Lottie Lincoln, [address] [address] [facility], [place], [address] . tel:[phone] [facility], [facility] [address], [place], [place], [id number], [place] tel:[phone] [facility] right wrist (chief complaint) Carpal tunnel syndrome, right upper limb September-0 0 Yane Giron. [address] [place] [address], [address] [facility], [place], [place], [id number], [place]. tel:[phone] Referring Provider: Lottie Lincoln, [address] [place] [address] [facility], [place], [address] . tel:[phone] [facility], [address] [facility] [address], [place], [place], [id number], [place] tel:[phone] [facility] RIGHT WRIST (chief complaint) Carpal tunnel syndrome, right upper limb Jul-1 0 Yane Giron. [address] [place] [address], [address], [place], [place], [id number], [place]. tel:[phone] Referring Provider: Lottie Lincoln, [address] [place] [address] [address], [place], [address] . tel:[phone] [facility], [address] [facility] [address], [place], [place], [id number], [place] tel:[phone] [facility] right wrist (chief complaint) Carpal tunnel syndrome, right upper limb Mar-0 0 Yane Giron. [address] [place] [address], [address], [place], [place], [address], [place]. tel:[phone] Referring Provider: Lottie Lincoln, [address] [address], [place], [address] . tel:[phone] [facility], [address] [place] [address], [place], [place], [id number], tel:[phone] [facility] No Information 0 Yane Giron. [address] [place] [address], [place], [place], [address], [place]. tel:[phone] Referring Provider: Lottie Lincoln, [address] [place] [address], [place], [address] . tel:[phone] [facility], [address] [place] [address], [place], [place], [address], [place] tel:[phone] [facility] Carpal tunnel syndrome, right upper limb Jul-0 0 Yane Giron. [address] [place] [address], [place], [place], [address], [place]. tel:[phone] Office/outpa tient visit,est, [facility], [address] [place] [address], [place], [place], [address], [place] tel:[phone] [facility] RIGHT WRIST (chief complaint) Carpal tunnel syndrome, right upper limb 0 0 Yane Giron. [address] [place] [address], [place], [place], [address], [place]. tel:[phone] Referring Provider: Lottie Lincoln, [address] [place] [address], [place], [address] . tel:[phone] Office/outpa tient visit,est, [facility], [address] [place] [address], [id number], [place] tel:[phone] [facility] Wrist, shoulder pain. Right side (chief complaint) Colles' fracture of right radius, subsequent encounter for closed fracture w/ routine healingPain in right shoulderCarpa l tunnel syndrome, right upper limbRadiculop athy, cervical region 0 Yane Giron. [address] [place] [address] Road, [address], [place], [place], [address], [place]. tel:[phone] Referring Provider: Lottie Lincoln, [address] [facility] [address], [place], [address] . tel:[phone] [facility], [address] [facility] [address], [place], [place], [address], [place] tel:[phone] [facility] right wrist (chief complaint) Colles' fracture of right radius, subsequent encounter for closed fracture w/ routine healing 9 Hildaanant Crump. [address] [facility], [address], [place], [place], [address], [place]. tel:[phone] [facility], [address] [facility] [address], [place], [place], [address], [place] tel:[phone] [facility] right wrist (chief complaint) Colles' fracture of right radius, subsequent encounter for closed fracture w/ routine healing 9 Hildayocasta Crump. [address] [facility], [address], [place], [place], [address], [place]. tel:[phone] Referring Provider: Lottie Lincoln, [address] [facility] [address], [place], [address] . tel:[phone] [facility], [address] [address], [place], [place], [address], [place] tel:[phone] [facility] No Information 9 Hildaanant Crump. [address] [facility], [address], [place], [place], [address], [place]. tel:[phone] Office/outpa tient visit,est, low [facility], [address] [facility] [address], [place], [place], [address], [place] tel:[phone] [facility] right wrist (chief complaint) Colles' fracture of right radius, initial encounter for closed fracture [facility] Theron. [address] [facility], [address], [place], [place], [address], [place]. tel:[phone] Referring Provider: Lottie Lincoln, [facility]0 [facility] [address], [place], [address] . tel:[phone] Office/outpa tient visit,est, [facility], [address] [facility] [address], [place], [place], [address], [place] tel:[phone] [facility] Follow Up of right ankle (chief complaint) Sprain of unspecified ligament of right ankle, subs encntrSprain of calcaneofibul ar ligament of right ankle, subsLocalized edemaType 2 diabetes mellitus without complications Pain in right foot Dec- 4 8 Marie Rachel [address] [facility], [address], [place], [place], [address], [place]. tel:[phone] Referring Provider: Lottie Lincoln, [facility] [address], [place], [address] . tel:[phone] [facility], [address] [facility] [address], [place], [place], [address], [place] tel:[phone] [facility] Pain in right ankle May- 8 [facility]. [address] [facility], [address], [place], [place], [address], [place]. tel:[phone] Referring Provider: Lottie Lincoln, [address] [facility] [address], [place], [address] . tel:[phone] Office/outpa tient visit,est, [facility], [address] [facility] [address], [place], [place], [address], [place] tel:[phone] [facility] Follow Up of right ankle (chief complaint) Sprain of unspecified ligament of right ankle, subs encntrSprain of calcaneofibul ar ligament of right ankle, subsPain in right foot Dec- 0-201 8 Marie Rachel [address] [facility], [address], [place], [place], [address], [place]. tel:[phone] Referring Provider: Mack Tafoya, [address] [place] [address], [place], [address] . tel:[phone] [facility], [address] [place] [address], [place], [place], [address], [place] tel:[phone] [facility] Carpal tunnel syndrome, right upper limb Dec-0 6 8 Yane Giron. [address] [facility], [address] [address], [place], [place], [address], [place]. tel:[phone] Office/outpa tient visit,[facility], [facility], [address] [place] [address], [place], [place], [address], [place] tel:[phone] [facility] left shoulder (chief complaint) Pain in left shoulderOther sprain of left shoulder joint, initial encounter Dec-0 8 Yane Giron. [address] [place] [address], [address] [address], [place], [place], [address], [place]. tel:[phone] Referring Provider: Mack Tafoya, [address] [place] [address], [place], [address] . tel:[phone] Office/outpa tient visit,new, [facility], [address] [place] [address], [place], [place], [address], [place] tel:[phone] [facility] Injured Ankle (chief complaint) Pain in right footPain in right lower legSprain of ligament of right ankle, subsequent encounterSpra in of calcaneofibul ar ligament of right ankle, subsLocalized edemaType 2 diabetes mellitus without complications Contusion of right foot, subsequent encounter Dec-0 8 Marie Tafoya. [address] [place] [address], [address] [address], [place], [place], [address], [place]. tel:[phone] Referring Provider: Mack Tafoya, [address] [place] [address], [place], [address] . tel:[phone] Office/outpa tient visit,[facility], [facility], [address] [facility] [address], [place], [place], [address], [place] tel:[phone] [facility] Right Shoulder (chief complaint) Pain in right shoulderCarpa l tunnel syndrome, right upper limb 8 Yane Giron. [address] [facility], [facility] [address], [place], [place], [address], [place]. tel:[phone] Referring Provider: Mack Tafoya, [address] [facility] [address], [place], [address] . tel:[phone] Office/outpa tient visit,[facility], [address] [facility] [address], [place], [place], [address], [place] tel:[phone] [facility] left knee pain (chief complaint) Chondromalaci a patellae, left kneeUnilatera l primary osteoarthriti s, left kneeObesityAn xiety 8 Shahnaz Brush. [address] [facility], [facility] [address], [place], [place], [address], [place]. tel:[phone] Office/outpa tient visit,[facility], [address] [address], [place], [place], [address], [place] tel:[phone] [facility] Information Sep-2 5-200 9 Estee Hooper. [address] [address], [place], [place], [address], [place]. tel:[phone] Referring Provider: Lyle Green, [address] [place] [address], [address] . tel:[phone] Family History Family Member Type Diagnosis Age At Onset Mother Problem (finding) hypertension Mother Problem (finding) Mental illness Father Problem (finding) Cancer, unknown Mother Problem (finding) Depression Mother Problem (finding) Diabetes mellitus Father Problem (finding) Depression Mother Problem (finding) Osteoarthritis Father Problem (finding) gout Father Problem (finding) Mental illness Father Problem (finding) Diabetes Mother Problem (finding) Arthritis Mother Problem (finding) Diabetes Payers Payer name Insurance type Covered libertarian ID Authoriza tion(s) [employer] [id number] Social History Type Description Quantity Date Captured Comments Alcohol Use Details Unknown Caffeine Use Details Unknown Tobacco Use Status No Information Smoking Status No Information Non-Smoking Tobacco Use Details : No Details Available : No Details Available Sex Female Vital Signs Date / Time: Height Weight BMI Pulse Rate Blood Pressure Temperature Respiratory Rate Body Surface Area Head Circumference Head Circ. Percentile Wt./Cr. Percentile BMI percentile Pulse Ox Inhaled Ox 7:45 AM 65.00 in 133.810 kg (295.00 lbs) 49.0 9 kg/m eter (2) 2.48 meter(2) Chief Complaint And Reason For Visit From encounter dated '04/27/2024 08:00'. left knee pain (chief complaint). Description: Natasha Wilson is a 43 year old female. The patient has a known knee osteoarthritis. She presents with pain on the left side. The patient would like to proceed with an injection today. Reason For Referral Reason For Referral No Information Plan Of Treatment Date Type Action Status Referral Ordered: Durolane 20 Mg/mL LT knee ordered Referral Ordered: Monovisc LT knee ordered Referral Ordered: X-ray exam knee, 4+ views LT knee ordered Referral Ordered: EMG NCS RT arm Appointment date/timeframe: 07/01/2019 ordered Referral Ordered: X-ray exam shoulder minimum 2 views RT ordered Referral Ordered: X-ray exam wrist, complete, 3+ views RT ordered Referral Ordered: MRI lower extrm joint, w/o contrast RT ankle Appointment date/timeframe: 05/12/2018 ordered Referral Ordered: X-ray exam shoulder minimum 2 views LT ordered Referral Ordered: X-ray exam foot, minimum 3 views RT ordered Referral Ordered: X-ray exam ankle, minimum 3 views RT ordered Referral Ordered: EMG NCS Appointment date/timeframe: 04/20/2018 ordered Patient Education Body Mass Index: After Your Visit completed History Of Present Illness Encounter Date Complaint History Of Prese nt Illness left knee pain Natasha Wilson is a 43 year old female. The patient has a known knee osteoarthritis. She presents with pain on the left side. The patient would like to proceed with an injection today. left knee pain Natasha Wilson is a 43 year old female. The patient has a known knee osteoarthritis. She presents with pain on the left side. The patient would like to proceed with an injection today. right knee pain Natasha Wilson is a 42 year old female. The patient has known knee osteoarthritis and returns for evaluation and to discuss other treatment options for progression/exacerbation of symptoms. She presents with pain on the right side. She states that the symptoms have been chronic non-traumatic. The symptoms occur constantly with intermittent worsening. The problem is worse. Currently the patient states that the symptoms are incapacitating. The pain is described as sharp, aching and localized. The symptoms occur with activity. The symptoms are aggravated by ascending stairs, daily activities, descending stairs, movement, standing and walking. In addition to right knee pain the patient is also experiencing crepitus, decreased mobility, difficulty bending, limping, night pain and pain after activity. Pertinent negatives include numbness, weakness, fever and radicular symptoms. The patient has had a previous x-ray. She has had prior injections, physical therapy/home exercises, ice, OTC meds. left knee pain Natasha Wilson is a 41 year old female. The patient has a known knee osteoarthritis. She presents with pain on the left side. The patient would like to proceed with an injection today. left knee pain Natasha Wilson is a 41 year old female. The patient has known knee osteoarthritis and returns for evaluation and to discuss other treatment options for progression/exacerbation of symptoms. She presents with pain on the left side. She states that the symptoms have been chronic non-traumatic. The symptoms occur constantly with intermittent worsening. The problem is worse. Currently the patient states that the symptoms are incapacitating. The pain is described as aching, localized and sharp. The symptoms occur with activity. The symptoms are aggravated by ascending stairs, daily activities, descending stairs, movement, standing and walking. In addition to left knee pain the patient is also experiencing crepitus, decreased mobility, difficulty bending, limping, night pain and pain after activity. Pertinent negatives include fever, radicular symptoms, numbness and weakness. The patient has had a previous x-ray. She has had prior injections, physical therapy/home exercises, ice, OTC meds. left knee pain Natasha Wilson is a 41 year old female. She was last seen in 2018 for left knee pain related to osteoarthritis, primarily PF. We recommended weight loss, activity modifications, physical therapy for a home strengthening program and an intra-articular cortisone injection. She has been in pain management for lumbar spine issues and was referred here for her knee issues. In addition to the history I have reviewed today the outside MRI findings and the last office note from pain management. She presents with pain, crepitus and swelling on the left side. She states that the symptoms have been chronic non-traumatic. The symptoms occur constantly with intermittent worsening. Currently the patient states that the symptoms are moderate-severe. The pain is described as aching and sharp. The symptoms occur with activity. The patient is experiencing pain in the following location: posterior/anterior on the left side. She rates her current pain as 8/10. The symptoms are aggravated by daily activities, ascending stairs, descending stairs, standing and walking. Natasha states that the symptoms are relieved by rest. In addition to left knee pain the patient is also experiencing crepitus, difficulty bending and pain after activity. She has had no recent treatment. She notes a cortisone injection in the left knee summer by Dr. Hutchins which provided nearly a year of relief. Bilateral hands Natasha returns t o the office today on December 09, 2019. She is here for followup of bilateral hand pain. Natasha has been treated for bilateral carpal tunnel syndrome. She was taken to surgery by Dr. Mack Che on July 23, 2019 for open right carpal tunnel release surgery. Natasha has reported persistent pain in the right hand after surgery. She also describes persistent pain in the left hand. Natasha was seen in my office on November 09, 2019 and I referred her to Hand Therapy at that time. I also increased her amitriptyline to 50 mg per night. I wrote for Natasha to work with Hand Therapy 3 times a week for 4 weeks. She only went 2 times. She reported that the amitriptyline did not work because it had an adverse effect on her. She reported that the therapy did not help. When Natasha was seen in my office 10 days ago on November 29, 2019, I referred her to Dr. Anthony Preston for pain management. Natasha returns today because her appointment is not until 1 week from now, and she has severe pain. She presents in a wheelchair today. She explains that she is in a wheelchair because she is lightheaded from the pain. Bilateral hands Natasha returns t o the office today on November 29, 2019. She is here for a followup of bilateral hand pain. Natasha has been treated for bilateral carpal tunnel syndrome. She was taken to surgery by Dr. Mack Che four months ago on July 23, 2019. Natasha has reported persistent pain in the right hand. She also describes persistent pain in the left hand. When Natasha was last seen in my office three weeks ago on November 09, 2019, I referred her to Hand Therapy at that time, and I increased her Amitriptyline prescription to 50 mg per night. I wrote for Natasha to work with Hand Therapy three times a week for four weeks. Over the past three weeks, Natasha has only been to therapy two times. She also reports that the Amitriptyline did not work because it has an adverse effect on her. She reports that therapy has not helped. Natasha feels like her right hand is getting worse instead of better. The left hand pain and paresthesias also persist. Bilateral hands Natasha presents to the office today on November 09, 2019. She is here for follow up of bilateral carpal tunnel syndrome, and also for an injury to the right wrist that occurred on October 28, 2019. Natasha had an open right carpal tunnel release procedure performed almost 4 months ago on July 23, 2019. She also fell on her right hand 2 weeks ago on October 28, 2019. She followed up with Dr. Mack Che on the same day as her fall. Dr. Che thought she may have a nondisplaced fracture of the scaphoid tuberosity. He gave her a protective brace. Natasha returns for followup today, and she reports that her right hand and entire upper extremity are still painful. Natasha localizes the right wrist pain across the volar aspect of the right wrist from radial to ulnar. She also points to her distal dorsal right forearm, the right elbow, the right arm, and the right shoulder as areas of severe pain on the right side. In addition, she reports persistent left carpal tunnel syndrome symptoms as well. RIGHT WRIST NEW INJURY. FELL TODAY right wrist telemedicine fol low up RIGHT WRIST INCISION CHECK right wrist suture removal RIGHT WRIST TEST RESULTS Wrist, shoulder pain. Right side right wrist Natasha returns t o the office today on December 23, 2018. She is here for follow up of a right distal radius fracture. Natasha is now 6 weeks out from the injury that occurred on November 12, 2018. She was last seen in the office 4 weeks ago on November 25, 2018, and at that time I suggested that Natasha continue the cock-up wrist splint for the right wrist as needed, but wean out of it as tolerated. Natasha was also allowed to work on home exercises and advance her activities as tolerated. She returns for follow up today. right wrist Natasha returns t o the office today on November 25, 2018. She is here for follow up of a right distal radius fracture. Natasha is now 2 weeks out from the injury that occurred on November 12, 2018. Natasha was last seen in the office 9 days ago on November 16, 2018, and at that time I gave her a cock-up wrist splint for the right distal radius fracture. Natasha has been comfortable in the splint. She returns for follow up today. right wrist Natasha presents to the office today on November 16, 2018. She is here because of an injury to the right wrist. Natasha injured the right wrist 4 days ago on November 12, 2018. She tripped and fell at home, and she landed on her outstretched right upper extremity. Natasha had immediate pain in the right wrist. She went to [facility]. X-rays of the right wrist were taken, and they showed a nondisplaced right distal radius fracture. I reviewed the x-ray images myself, and a nondisplaced metaphyseal fracture of the right distal radius is seen. There are no other significant bony abnormalities. A fiberglass splint was placed at [facility]. Natasha presents today for further evaluation and treatment of her right wrist. Follow Up of right ankle Patient comes in for MRI results of her right ankle. Follow Up of right ankle Patient returns for her right ankle. left shoulder injury left shou lder Injured Ankle Patient presents for her right ankle. Right Shoulder Patient presents to office for Right Shoulder Pain left knee pain Ms Cross is a 37 year old female who complains of left knee pain. She presents with pain on the left side. She states that the symptoms have been acute non-traumatic and began 4 weeks ago. The symptoms occur intermittently. The problem is fluctuating. Currently the patient states that the symptoms are moderate-severe. The pain is described as aching and dull. The symptoms occur with activity. The patient is experiencing pain in the following location: diffuse on the left side. She rates her current pain as 8/10. The symptoms are aggravated by ascending stairs, bent knee activities, sports and walking. Natasha states that the symptoms are relieved by ice and rest. In addition to left knee pain the patient is also experiencing cracking and popping. Pertinent negatives include chills, fever, locking and tingling. The patient has had a previous x-ray and MRI. She has had knee immobilizer, icing, rest, remote history of cortisone injection. Patient has not had any pertinent therapy for this condition. Patient has had no prior surgeries. She experienced no previous injury. Functional Status Date Functional Assessmen t No Information Instructions Date Instruction Additional Infor josé Injection performed today as documented. Continue non-operative treatments as outlined previously. Follow up prn if symptoms return or worsen. Questions answered, verbalized understanding. Related to Unilateral primary osteoarthritis, left knee Injection performed today as documented. Continue non-operative treatments as outlined previously. Follow up prn if symptoms return or worsen. Questions answered, verbalized understanding. Related to Unilateral primary osteoarthritis, left knee Injection performed today as documented. Continue non-operative treatments as outlined previously. Follow up prn if symptoms return or worsen. Questions answered, verbalized understanding. Related to Unilateral primary osteoarthritis, left knee Injection performed today as documented. Continue non-operative treatments as outlined previously. Follow up prn if symptoms return or worsen. Questions answered, verbalized understanding. Related to Unilateral primary osteoarthritis, left knee The patient would kristina conley to proceed with an injection into the involved knee today. We will also institute efforts on weight control/loss. They were given instruction on icing and activity modifications. A prescription was given for physical therapy. They were given instructions on use of an oral NSAID/Tylenol with PCP approval. Currently they are not a candidate for knee replacement given her BMI is over 45. The patient will follow up on an as needed basis in 3 months or more to repeat cortisone, or we could consider a visco injection if only short term relief is obtained from cortisone. Questions answered, verbalized understanding. Related to Unilateral primary osteoarthritis, left knee They are indicated f or non-operative treatments. We will institute efforts on weight loss and she is well aware and is making appropriate plans. We discussed activity modifications and instructions on icing were given. A prescription was given for physical therapy with a goal to learn a home program. They were instructed in the use of Tylenol/NSAIDs over the counter with PCP approvalWe discussed the risks and benefits of an injection and they would like to proceed. This will be arranged with my FINANCIAL ENGINEER Candice Javed. We can repeat this every 3 months or more if needed. We may try visco if only short term relief. We discussed possible need for knee replacement in the future if non-surgical treatment fails and the general risks, benefits, and recovery for this. This is her only surgical option and would not be possible unless her BMI is at or under 45, which will be her terminal make up operator goal (ideally a BMI of 40 or below). The patient will follow up on an as needed basis. Questions answered, verbalized understanding and agreement. Related to Obesity The patient would kristina conley to proceed with starting efforts on weight loss, which is more important than any other treatment we could prescribe. They were given instruction on icing and activity modifications. A prescription was given for physical therapy with a plan to transition to home exercise. They were given instructions on use of an oral NSAID/Tylenol with PCP approval. We could consider cortisone and/or visco injections in the future if needed. She should d/c the knee immobilizer immediately as this is a hampering factor in her PF symptoms. The patient will follow up on an as needed basis. She is not a candidate for any surgical intervention given her weight, and her psychological health may be contributing as well, and we discussed if she feels she is depressed or her anxiety is worsening she should discuss this with her mental health professional and/or PCP. Fortunately she has no indication for surgical intervention, but we discussed terminal make up operator if she does not lose some of her weight, and get her BMI down to a more managable 40 or below, her arthritis will not have any surgical options when/if it progresses. Questions answered, verbalized understanding. Related to Unilateral primary osteoarthritis, left knee Assessments Type Assessment Date assessment Unilateral primary osteoarthriti s, left knee Patient Care Teams Name Effective Dates (start - stop) Status Members No Information
--- OUTSIDE RECORDS SUMMARY | 2024-07-20 14:57 | XMS_ITS | Clinical Summary ---
Author Organization [facility] Address [address] [place] [address] Phone Care Team Providers Care Edge Burnisher Name Role Phone Romi Tompkins MD Primary Care Provider Violeta castellon Allergies Active Allergy Reactions Criticality Noted Date Comments Clarithromycin Rash Low 12/18/2012 Dicyclomine Nausea and Vomiting Low 09/11/2017 Influenza Virus Vaccines Other (See Comments) 0 12/07/2018 Ketorolac Tromethamine Anxiety Low 12/18/2012 Lorazepam Other (See Comments) 09/21/2015 Tachycardia and SOB Metoclopramide Other (See Comments) 01/27/2013 agitated Metoclopramide Hcl Other (See Comments) 013 agitated Penicillins Hives High 12/18/2012 Prednisone Shortness of Breath/Wheezing High 01/27/2013 Shellfish Derived Anaphylaxis High 11/12/2018 Medications Insulin [place], Disposable, (NOVOFINE 32) 32 gauge x 1/4 Needle Novofine 32 32 gauge x 1/4 needle USE DAILY FOR INJECTION. Active Blood-Glucose Meter (ONETOUCH VERIO FLEX)Indication s:Type 2 diabetes mellitus with hyperglycemia, without long-term current use of insulin ([facility]) Check blood sugars three times daily. ICD 10: E11.9, insurance coverage depending.. 1 Device 9 Active QUEtiapine (SEROquel) 25 mg tablet Take 25 mg by mouth daily. Active NORETHINDRONE ACETATE ORAL Take 5 mg by mouth daily. Active lancetsIndicati ons:Type 2 diabetes mellitus with hyperglycemia, without long-term current use of insulin ([facility]) Check blood sugars three times daily. ICD 10: E11.9 100 Each 6 9 Active blood sugar diagnostic (ONETOUCH VERIO) StripIndication s:Type 2 diabetes mellitus with hyperglycemia, without long-term current use of insulin ([facility]) 1 Strip by See Admin Instructions route 3 times daily before meals. ICD 10: E11.9, insurance coverage depending. 100 Each 6 9 Active insulin degludec (TRESIBA FLEXTOUCH U-100 SUBCUT) Inject 50 Units by subcutaneous injection daily. Active insulin aspart (NovoLOG) 100 unit/mL injection Inject 20 Units by subcutaneous injection 3 times daily with meals. AND SLIDING SCALE. Active promethazine (PHENERGAN) 25 mg tablet Take 1 Tablet (25 mg) by mouth every 6 hours as needed for Nausea or Emesis. 10 Tablet None 0 Active letrozole (FEMARA) 2.5 mg Tablet Take 2.5 mg by mouth daily. Active ursodioL (ACTIGALL) 300 mg capsuleIndicati ons:Gastropares is,Intractable cyclical vomiting with nausea TAKE 1 CAPSULE (300 MG) BY MOUTH EVERY 12 HOURS. 180 Capsule 1 0 Active zolpidem (AMBIEN) 5 mg tabletIndicatio ns:Insomnia, unspecified type TAKE 1 TABLET BY MOUTH EVERYDAY AT BEDTIME 30 Tablet 2 0 Active pregabalin (LYRICA) 100 mg CapsuleIndicati ons:Cervicalgia ,Degenerative disc disease, cervical,Cervic al spondylosis without myelopathy,Radi culopathy, unspecified spinal region Take 1 Capsule (100 mg) by mouth every 8 hours. 90 Capsule 1 0 Active Additional Information Patient taking differently:100 mg OralTHREE TIMES DAILY, Reported on 12/28/2019 diazePAM (VALIUM) 5 mg tablet Take 5 mg by mouth every 6 hours as needed for Anxiety. Active nabumetone (RELAFEN) 750 mg tabletIndicatio ns:Chronic bilateral low back pain without sciatica Take 1 Tablet (750 mg) by mouth daily. 30 Tablet 6 0 Active omeprazole (PriLOSEC) 40 mg Capsule, Delayed Release(E.C.) Take 1 Capsule (40 mg) by mouth daily. 30 Capsule 0 Active allopurinoL (ZYLOPRIM) 100 mg tablet Take 100 mg by mouth daily. 0 Active escitalopram oxalate (LEXAPRO) 10 mg tablet Take 10 mg by mouth daily. Active insulin aspart, niacinamide, (Fiasp FlexTouch U-100 Insulin) 100 unit/mL (3 mL) Insulin Pen Inject 10 Units by subcutaneous injection. Active semaglutide (Ozempic) 0.25 mg or 0.5 mg(2 mg/1.5 mL) Pen Injector as directed 1 Active Active Problems Problem Noted Date Diagnosed Date Cervical spondylosis without myelopathy 05/31/20 19 Fibromyalgia 05/31/2019 Diabetic ketoacidosis withou t coma associated with type 2 diabetes mellitus 03/22/2019 Dehydration 03/22/2019 Sinusitis 03/22/2019 Obesity (BMI 30.0-34.9) 03/22/2019 Metabolic acidosis 03/22/2019 Trochanteric bursitis of left hip 03/21/2019 Elevated liver enzymes 02/17/2019 Gastroesophageal reflux disease 02/17/2019 NAFLD (nonalcoholic fatty liver disease) 019 Gastroparesis due to DM 02/17/2019 Protein-calorie malnutrition, moderate 9 Type 2 diabetes mellitus wit hout complication, without long-term current use of insulin 01/28/2019 Morbid obesity with BMI of 50.0-59.9, adult 01/01 Intractable nausea and vomiting 01/28/2019 Enthesopathy of hip region 01/18/2019 Anxiety 12/07/2018 Biliary dyskinesia 12/07/2018 Inflammatory dermatosis 12/07/2018 Insomnia 12/07/2018 Obstructive sleep apnea of adult 12/07/2018 Osteoarthritis of knee 12/07/2018 Pelvic adhesions 12/07/2018 Plantar fasciitis 12/07/2018 Morbid obesity with body mass index of 40.0-49.9 12/07/2018 Major depression 12/07/2018 Severe episode of recurrent major depressive disorder, without psychotic features 12/07/2018 Generalized anxiety disorder 12/07/2018 Chronic pelvic pain in female 12/07/2018 Irritable bowel syndrome with diarrhea 8 Chronic constipation 09/11/2017 Chronic interstitial cystitis 09/11/2017 Myalgia of pelvic floor 09/11/2017 Urinary urgency 09/11/2017 Endometriosis 04/09/2016 Sprain of tibiofibular ligament of ankle 014 Clostridium difficile infection Upper respiratory tract infection Resolved Problems Problem Noted Date Diagnosed Date Resolved Date Acute diarrhea 02/17/2019 Immunizations Immunization Administration Dates Next Due (ADACEL/BOOSTRIX)(10 YR UP) TDAP VACCINE, 0.5ML, IM 09/23/2013 INFLUENZA VACCINE QUADRIVALE NT 6 MOS UP PF IM 03/03/2019 Influenza Seasonal Unspecifi ed Formulation IM 04/01/2014,03/05/2013,03/06/2009 Family History Medical History Relation Name Comments Depression Brother 1 Kristopher Wilson Diabetes Brother 1 Kristopher Wilson Depression Brother 2 Virgilio Wilson Other Brother 2 Virgilio Katie s/p MVA issues Diabetes Father Arnol Katie Unknown Father Arnol Katie Cancer Maternal Grandfather Nnamdi Szymanski Cancer Maternal Grandmother Venita Szymanski brain Asthma Mother Maria D Katie Depression Mother Maria D Katie Diabetes Mother Maria D Katie Other Mother Maria D Katie gastric ulcer Cancer Paternal Grandfather Julian Wilson Cancer Paternal Grandmother Estrellita Wilson Relation Name Status Comments Brother 1 Kristopher Wilson Alive Brother 2 Virgilio Wilson Alive Father Arnol Katie Alive Maternal Grandfather Nnamdi Szymanski Maternal Grandmother Venita Szymanski Mother Maria D Katie Alive Paternal Grandfather Julian Wilson Paternal Grandmother Estrellita Wilson Social History Tobacco Use Types Packs/Day Years [...] 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 Not on file Not on file Not on file Last Filed Vital Signs Vital Sign Reading Time Taken Comments Blood Pressure 121/75 01/15/2023 4:58 PM CDT Pulse 100 01/15/2023 4:58 PM CDT Temperature 36.4 C (97.6 F) 01/15/2023 4:58 PM CDT Respiratory Rate 16 01/15/2023 4:58 PM CDT Oxygen Saturation 98% 01/15/2023 4:58 PM CDT Inhaled Oxygen Concentration - - Weight 133.8 kg (295 lb) 01/15/2023 4:58 PM CDT Height 165.1 cm (5' 5 ) 01/15/2023 4:58 PM CDT Body Mass Index 49.09 01/15/2023 4:58 PM CDT Plan of Treatment Health Maintenance Due Date Last Done Comments DIABETES ANNUAL FOOT EXAM 2000 DIABETES MICROALBUMIN ANNUAL SCREEN 2000 HEPATITIS B VACCINES (1 of 3 - 19+ 3-dose series) 2001 LDL CHOLESTEROL ANNUAL 12/09/2019 12/08/2018 CERVICAL CANCER SCREENING 01/05/2022 01/05/2019 DIABETES HBA1C Q 6 MONTHS 05/24/20222021, 03/10/2019, 12/07/2018, Additional history exists DTAP/TDAP/TD VACCINES (2 - Td or Tdap) 09/24/2023 09/23/2013 DIABETES ANNUAL RETINAL EXAM 12/02/2023 12/01/2022, 12/28/2018 INFLUENZA VACCINE (#1) 2024 9, 04/01/2014, 03/05/2013, Additional history exists BREAST CANCER SCREENING 12/12/2024 12/13/2023 HPV VACCINES Aged Out No longer eligi ble based on patient's age to complete this topic Medical Devices Implanted Type Area Seasonal Warehouse Associate Device Identifier Shelf Expiration Date Model / Serial / Lot Barrier Seprafilm 5x6in [id number] - [id number] Implanted:Qty : 1 on 02/02/2013 by Valencia Lehman DO at [facility] Adhesion Barrier N/A: Abdomen GENZYME- BIOSURG 10/30/2014 [id number] Procedures Procedure Name Priority Date/Time Associated Diagnosis Comments POC HEMOGLOBIN A1C Routine 03/10/2019 3: 27 PM CDT Type 2 diabetes mellitus without complication, without long-term current use of insulin ([facility]) CERV/VAG CYTO SCREEN PAP RLFX HPV Routine 01/05/2019 3:35 PM CDT Encntr for fugitive investigator exam (general) (routine) w abnormal findings HM DIABETES EYE EXAM Routine 12/28/2018 LIPID PANEL Routine 12/08/2018 7:36 AM CDT Type 2 diabetes mellitus with hyperglycemia, without long-term current use of insulin ([facility]) Morbid obesity with body mass index of 40.0-49.9 ([facility]) from Last 3 Months or Most Recently Relevant to Health Maintenance Results * (ABNORMAL) POC HEMOGLOBIN A1C (03/10/2019 3:27 PM CDT) HGB A1C POC 7.6(A) <=5.7 % [facility] Blood, capillary 03/10/2019 3:27 PM CDT us Romi Tompkins MD POINT OF CARE TESTING Final R es[id number] [address] [place] [address] * CERV/VAG CYTO SCREEN PAP RLFX HPV (01/05/2019 3:35 PM CDT) CASE REPORT Gynecologic Cytology Report Case: [id number] Authorizing Provider: Justin Kaminski MD Collected: 01/05/2019 03:35 PM Ordering Location: [facility] Received: 01/06/2019 06:50 AM [facility] First Screen: Desirae Ames Rescreen: Hannah Snow MD Specimen: LB PAP TP W/RFLX HPV PROT, Vaginal cuff 01/14/2019 3:28 PM CDT [facility] Specimen Adequacy Satisfactory for evaluation 01/14/2019 3:28 PM CDT [facility] Senior Construction Manager Interpretation Negative for intraepithelial lesion or malignancy 01/14/2019 3:28 PM CDT [facility] Senior Construction Manager Other Findings Fungal organisms morphologically consistent with Litzy species 01/14/2019 3:28 PM CDT [facility] SEARCH ENGINE MARKETING MANAGER Clinical Information abdominal hysterectomy and oophorectomy 01/14/2019 3:28 PM CDT [facility] Senior Construction Manager Educational Note 01/14/2019 3:28 PM CDT [facility] Comment:The Pap test is a sc reening test used to aid in the detection of cervical cancer and its precursors. It should not be the sole means by which malignant and premalignant lesions are diagnosed. Both false negative and false positive results may occur. Results must be interpreted in the context of historic and current clinical information. EMBEDDED IMAGE 01/14/2019 3:28 PM CDT [facility] Genital (Vaginal cuff) Collection / Unknown 01/05/2019 3:35 PM CDT 01/06/2019 6:50 AM CDT us Justin Kaminski MD PATHOLOGY/CYTOLOGY ORDERABLES Fi nal Result [facility] CLIA# [id number] [place] [address] * HM DIABETES EYE EXAM (12/28/2018) us Abstract Provider HEALTH MAINTENANCE Edited Resu lt - Final [facility] [address] CLIA# [id number] [address] [place] [address] * (ABNORMAL) LIPID PANEL (12/08/2018 7:36 AM CDT) CHOLESTEROL 249(H) <200 mg/dL 12/08/2018 1:18 PM CDT [facility] TRIGLYCERIDE 256(H) <150 mg/dL 12/08/2018 1:18 PM CDT [facility] HDL 44(L) >57 mg/dL 12/08/2018 1:18 PM CDT [facility] LDL CALCULATED 154(H) <100 mg/dL 12/08/2018 1:18 PM T [facility] NON-HDL CHOLESTEROL 205(H) <130 mg/dL 12/08/2018 1:18 PM CDT [facility] Blood Venipuncture / Unknown 12/08/2018 7:36 AM CDT 12/08/2018 7:36 AM CDT Narrative [facility] - 12/08/2018 1:18 PM CDT TOTAL CHOLESTEROL mg/dL Desirable <200 Borderline high 200-239 High >=240 TRIGLYCERIDES mg/dL Normal <150 Borderline high 150-199 High 200-499 Very high >=500 HDL CHOLESTEROL mg/dL Low <40 Normal 40-59 Desirable >=60 NON HDL CHOLESTEROL mg/dL Optimal <130 Near Optimal 130-159 Borderline High 160-189 Very High >=190 Calculated LDL mg/dL Optimal <100 Near Optimal 100-129 Borderline High 130-159 High 160-189 Very High >=190 ATPIII Guidelines Reference Ranges for Lipid Panels (NCEP/AMA) us Romi Tompkins MD CHEMISTRY ORDERABLES Final Re sult [facility] CLIA# [id number] [place], [place] [id number] from Last 3 Months or Most Recently Relevant to Health Maintenance Insurance [place] [address] [place] [address] [place] [address] [place] [address] [address] [facility] [address] Advance Directives For more information, please contact: [phone] * Full Code (Latest Code Status on File) Date Activated Date Inactivated Comments 03/22/2019 8:53 AM 03/23/2019 8:20 PM * Full Code Date Activated Date Inactivated Comments 01/28/2019 10:36 PM 02/01/2019 1:24 PM * Full Code Date Activated Date Inactivated Comments 02/02/2013 3:50 PM 02/03/2013 2:21 PM * Full Code Date Activated Date Inactivated Comments 02/02/2013 10:13 AM 02/02/2013 3:50 PM Care Teams Edge Burnisher Relationship Specialty Start Date End Date Romi Tompkins MD PCP - General Family Practice 12/02/18
--- OUTSIDE RECORDS SUMMARY | 2024-07-20 14:57 | XMS_ITS | Referral Summary ---
Author Organization [facility] Address [address] [place] [address] Care Team Providers Care Esthetician Name Role Phone Rosette Michelle RN [facility] Lyle Stuart MD Primary Care Provider [phone] Source Comments [facility],non-owned Affiliates and Associated Physician Practices is amultiple site organization consisting of ambulatory clinics and hospital sitesin [place], [place], [place] and [place]. This disclosure is being madepursuant to the Care Everywhere program and may not contain all information available regarding this patient. Last updated 18.[facility] Encounters Date Type Department Care Team Description 07/12/2024 Refill [facility] [address] [phone] Lyle Hutchins MD Refill Request 07/01/2024 1:30 PM CALL OR CONTACT CENTRE TEAM LEADER Office Visit [facility] [address] [phone] Lyle Hutchins MD Type 2 diabetes mellitus without complication, with long-term current use of insulin (HCC) (Primary Dx); Lumbar radiculitis 06/29/2024 Telephone [facility] [address] [phone] Lyle Hutchins MD General 06/24/2024 Telephone [facility] [address] [phone] Lyle Hutchins MD General (FMLA Form's) 06/15/2024 Refill [facility] [address] [facility], [facility] [address] [place] [address] Lyle Hutchins MD Refill Request 05/31/2024 Refill [facility] [address] [facility], [facility] [address] [place] [address] Lyle Hutchins MD Refill Request 05/10/2024 Refill [facility] [address] [facility], [facility] [address] [place] [address] Lyle Hutchins MD Refill Request from Last 3 Months Allergies Active Allergy Reactions Criticality Noted Date Comments Adhesive Sensitivity Nausea and/or Vomiting 03/31/2014 Clarithromycin Nausea and/or Vomiting,Rash,Vomiti ng Medium 12/18/2012 Other reaction(s): Nausea only Reaction: NAUSEA, VOMITING, Dicyclomine Nausea and/or Vomiting 09/11/2017 Influenza Vaccines Other,Nausea and/or Vomiting Low 12/07/2018 Flu like symptoms Iodine Urticaria,Unknown Medium 10/24/2020 Per patient, she can have contrast via IV Ketorolac Other,GI Discomfort 05/19/2006 agitation Ketorolac Tromethamine Other 12/18/2012 Lorazepam Psychiatric 11/06/2015 Methylprednisolone Shortness of Breath High 03/29/20 20 DKA with ICU admission Metoclopramide Other 01/27/2013 agitated Other reaction(s): Other (See Comments) agitated Mupirocin Rash Medium 11/27/2021 Naproxen Other 09/27/2019 Makes patient physically ill Penicillin G Procaine Anaphylaxis High 03/31/2014 Penicillins Anaphylaxis,Urticari a High 12/18/2012 Prochlorperazine Unknown 09/27/2019 Shellfish Anaphylaxis High 09/16/2017 Shellfish Allergy Anaphylaxis High 11/06/2015 Sulfa Antibiotics Urticaria Medium 03/03/2023 Sulfa Drugs Anaphylaxis,Unknown High 11/12/2018 Tramadol Other 03/05/2024 Restless and agitation Vancomycin Elevated Blood Pressure,Rash,Shortn ess of Breath,Swelling High 11/24/2020 Medications * Be aware that medications may not be up to date on this document. Alwaysverify current medications with the patient. Medication Sig Dispensed Refills Start Date End Date Status insulin degludec (TRESIBA FLEXTOUCH) 100 UNIT/ML pen Inject 30 (thirty) Units subcutaneously once daily Active prazosin (Minipress) 1 MG capsule Take 1 (one) capsule by mouth at bedtime 3 Active escitalopram (Lexapro) 20 MG tablet Take 1 (one) tablet by mouth once daily 4 Active traZODone (Desyrel) 50 MG tablet Take 1.5 (one and one-half) tablets by mouth at bedtime 4 Active omeprazole (PriLOSEC) 40 MG capsuleIndicati ons:Gastroesoph ageal reflux disease with esophagitis without hemorrhage TAKE 1 CAPSULE BY MOUTH EVERY DAY BEFORE BREAKFAST 90 capsule 1 4 Active evolocumab (Repatha) 140 MG/ML auto-injector Inject subcutaneously every 14 days Active albuterol HFA (Proventil; Ventolin; Proair) 108 (90 Base) MCG/ACT inhaler Inhale 2 (two) puffs by mouth every 4 hours as needed for Shortness of Breath or Wheezing 4 025 Active HYDROcodone-uziel taminophen ([place]) 5-325 MG tablet Take 1 (one) tablet by mouth every 6 hours as needed for Pain 4 Active hydrOXYzine HCl (Atarax) 50 MG tablet Take 1 (one) tablet by mouth 3 times daily as needed (Anxiety) 4 Active insulin aspart, w/Niacinamide, (Fiasp) vial Inject 15 (fifteen) Units to 24 (twenty four) Units subcutaneously 3 times daily before meals 15 units baseline then adds 2 units per 50 points on blood sugar reading Active Continuous Glucose Sensor (Dexcom G7 Sensor) [facility] Active ursodiol (Actigall) 300 MG capsuleIndicati ons:Other specified diseases of gallbladder TAKE 1 CAPSULE BY MOUTH EVERY DAY 90 capsule 1 4 Active QUEtiapine XR 24hr (SEROquel XR) 50 MG tablet TAKE 1 TABLET BY MOUTH EVERYDAY AT BEDTIME 90 tablet 1 4 Active nabumetone (Relafen) 750 MG tabletIndicatio ns:Arthralgia, unspecified joint TAKE 1 (ONE) TABLET BY MOUTH ONCE DAILY NEEDED FOR PAIN 90 tablet 4 Active allopurinol (Zyloprim) 100 MG tablet TAKE 1 TABLET BY MOUTH EVERY DAY 90 tablet 1 5 Active tirzepatide (Mounjaro) 7.5 MG/0.5ML injectionIndica tions:Type 2 diabetes mellitus without complication, with long-term current use of insulin (HCC) Inject 7.5 (seven and one-half) mg subcutaneously every 7 days 5 Active tiZANidine (Zanaflex) 4 MG tabletIndicatio ns:Lumbar radiculitis Take 1 (one) tablet by mouth every 8 hours as needed for Muscle Spasms 45 tablet 5 5 Active norethindrone (Aygestin) 5 MG tablet TAKE 1 TABLET BY MOUTH EVERY DAY 90 tablet 1 5 Active norethindrone (Aygestin) 5 MG tablet TAKE 1 TABLET BY MOUTH EVERY DAY 90 tablet 1 4 025 Discontinued tiZANidine (Zanaflex) 4 MG tablet Take 1 (one) tablet by mouth every 8 hours as needed for Muscle Spasms 30 tablet 4 025 Discontinued(Re order) Active Problems Problem Noted Date Diagnosed Date Dyspnea, unspecified type 03/05/2024 Shortness of breath 03/02/2024 Wheezing 03/02/2024 COVID-19 07/10/2023 Spider bite wound 05/31/2023 Cellulitis 05/30/2023 Tarsal tunnel syndrome 03/03/2023 3 Suicidal thoughts 03/03/2023 03/03/2023 H/O: osteoarthritis 03/03/2023 03/03/2023 Gout 03/03/2023 03/03/2023 Gonococcal infection (acute) of lower genitourin [place] tract 08/01/2022 Overview (08/01/2022): return to clinic in 2 weeks for test of cure . Will also screen for HIV , hep B and syphilis . Other physical and mental strain related to work 08/01/2022 Current drinker 01/01/2022 03/03/2023 Recurrent major depressive episodes, moderate 07/09/2023 Miscarriage 11/27/2021 Arthritis 11/05/2021 Hyperlipidemia 03/15/2021 Overview (03/15/2021): recheck in 2 months . Sleep apnea 10/24/2020 Bulging of cervical intervertebral disc 10/10/19 Clostridium difficile infection 01/28/2020 Colitis 01/28/2020 Encounter for medication refill 01/28/2020 Gastroesophageal reflux disease with esophagitis 01/28/2020 examination or test, unconfi rmed 01/28/2020 Involuntary movements 01/28/2020 Overview (01/28/2020): left arm and left leg . Lightheadedness 01/28/2020 Overview (01/28/2020): Persistent headache and dizziness. Called neurologist Dr. Norberto Kennedy . He will see her right now. Informed pt and . pacheco drive pt to the neurologists office for further eval and treatment. Cervical spondylosis without myelopathy 05/31/20 19 Metabolic acidosis 03/22/2019 Trochanteric bursitis of left hip 03/21/2019 Elevated liver enzymes 02/17/2019 Gastroesophageal reflux disease 02/17/2019 NAFLD (nonalcoholic fatty liver disease) 019 Protein-calorie malnutrition, moderate 9 Intractable nausea and vomiting 01/28/2019 Morbid obesity with BMI of 50.0-59.9, adult 01/01 Type 2 diabetes mellitus wit hout complication, with long-term current use of insulin 01/28/2019 Enthesopathy of hip region 01/18/2019 Major depression 12/07/2018 Overview (01/28/2020): stop lexapro . Start prozac . Biliary dyskinesia 12/07/2018 Anxiety 12/07/2018 Inflammatory dermatosis 12/07/2018 Generalized anxiety disorder 12/07/2018 Insomnia 12/07/2018 Morbid obesity with body mass index of 40.0-49.9 12/07/2018 Obstructive sleep apnea of adult 12/07/2018 Osteoarthritis of knee 12/07/2018 Irritable bowel syndrome with diarrhea 8 Chronic interstitial cystitis 09/11/2017 Bladder pain 09/11/2017 Urinary urgency 09/11/2017 Myalgia of pelvic floor 09/11/2017 Chronic constipation 09/11/2017 Sprain of distal tibiofibular ligament 4 Dysuria Endometriosis Chronic pelvic pain in female Pelvic adhesions Diabetes mellitus, insulin dependent (IDDM), con trolled Cervical stenosis of spinal canal Resolved Problems Problem Noted Date Diagnosed Date Resolved Date Exacerbation of asthma, unsp ecified asthma severity, unspecified whether persistent 03/05/2024 07/02/2024 Asthma 11/05/2021 11/06/2021 Upper respiratory infection 02/21/2020 11/07/2020 Dehydration 03/22/2019 02/11/2020 Diabetic ketoacidosis withou t coma associated with type 2 diabetes mellitus 03/22/2019 11/06/2021 Sinusitis 03/22/2019 11/21/2020 Gastroparesis due to DM 02/17/2019 06/0 11/2021 Severe episode of recurrent major depressive disorder, without psychotic features 12/07/201811/2021 Immunizations Name Administration Dates Next Due INFLUENZA VACCINE, TRIV. (AF LURIA, FLUZONE TRIVALENT; 6MO+) (IIV3) 03/05/2013 [employer] primary monoval ent 12+ yr 0.3mL Purple cap 03/07/2021,03/07/2021,07/25/2020,2020,07/04/2020,07/04/2020 FLU VACCINE TRI IIV3 SPLIT P F IM (FLUVIRIN) 05/08/2012 INFLUENZA VACCINE 04/01/2014, 3,05/08/2012,2008 INFLUENZA VACCINE, QUADR. (F LUZONE; FLULAVAL; FLUARIX; AFLURIA QUADRIVALENT; 6MO+), 0.5 ML (IIV4) 03/03/2019 PNEUMOCOCCAL PCV20 CONJ VAC IM 03/03/2023 PNEUMOCOCCAL PPSV23 05/08/2012 TDAP (7yrs+) 09/23/2013 Social History Tobacco Use Types Packs/Day Years Used Date Smoking Tobacco: Never Smokeless Tobacco: Never Tobacco Cessation:Counseling Given: Not Answered Alcohol Use Standard Drinks/Week Comments No 0 (1 standard drink = 0.6 oz pur e alcohol) AUDIT-C Answer Date Recorded Q1: How often do you have a drink containing alcohol? Never 03/05/2024 Q2: How many drinks containi ng alcohol do you have on a typical day when you are drinking? Patient does not drink Q3: How often do you have si x or more drinks on one occasion? Never 03/05/2024 PHQ-2 Answer Date Recorded Patient Health Questionnaire-2 Score 2 07/01/2024 Sex and Gender Information Value Date Recorded Sex Assigned at Female 12/12/2023 4:10 PM CDT Gender Identity Female 12/12/2023 4:10 PM CDT Sexual Orientation Choose not to disclose 2023 4:10 PM CDT Last Filed Vital Signs Vital Sign Reading Time Taken Comments Blood Pressure 122/79 07/01/2024 1:31 PM CALL OR CONTACT CENTRE TEAM LEADER Pulse 91 07/01/2024 1:31 PM CALL OR CONTACT CENTRE TEAM LEADER Temperature 36.3 C (97.3 F) 07/01/2024 1:31 PM CALL OR CONTACT CENTRE TEAM LEADER Respiratory Rate 18 03/09/2024 3:04 PM CDT Oxygen Saturation 98% 07/01/2024 1:31 PM CALL OR CONTACT CENTRE TEAM LEADER Inhaled Oxygen Concentration - - Weight 146.4 kg (322 lb 12.8 oz) 07/01/2024 1:31 PM CALL OR CONTACT CENTRE TEAM LEADER Height 165.1 cm (5' 5 ) 07/01/2024 1:31 PM CALL OR CONTACT CENTRE TEAM LEADER Body Mass Index 53.72 07/01/2024 1:31 PM CALL OR CONTACT CENTRE TEAM LEADER Functional Status Functional Status Response Date of Assess ment Is person deaf or have serious hearing difficult y? No 03/08/2024 Is person blind or have serious difficulty seein g? No 03/08/2024 Does person have serious dif ficulty walking/climbing stairs? No 03/08/2024 Does person have difficulty dressing/bathing? No 03/08/2024 Does person have difficulty doing errands alone? No 03/08/2024 Cognitive Status Response Date of Assessm ent Does person have difficulty concentrating/remembering/making decisions? No 03/08/2024 Plan of Treatment Not on file Procedures Procedure Name Priority Date/Time Associated Diagnosis Comments COMPREHENSIVE METABOLIC PANEL STAT 03/05/2024 1:04 PM CDT MAMMO BILAT SCREENING W EDGAR Routine 12/13/2023 10:42 AM CDT Visit for screening mammogram HEMOGLOBIN A1C (EXTERNAL RESULT ENTRY) Routine 11/22/2021 from Last 3 Months or Most Recently Relevant to Health Maintenance Results * (ABNORMAL) COMPREHENSIVE METABOLIC PANEL (03/05/2024 1:04 PM CDT) Glucose 202(H) 70 - 99 mg/dL 03/05/2024 1:26 PM [facility] Sodium 139 136 - 145 mmol/L 03/05/2024 1:26 PM [facility] Potassium 4.3 3.5 - 5.1 mmol/L 03/05/2024 1:26 PM [facility] Chloride 108(H) 98 - 107 mmol/L 03/05/2024 1:26 PM [facility] CO2 18(L) 22 - 29 mmol/L 03/05/2024 1:26 PM [facility] Calcium 9.5 8.4 - 10.4 mg/dL 03/05/2024 1:26 PM [facility] Anion Gap 13 6 - 16 mmol/L 03/05/2024 1:26 PM [facility] BUN 14 5.3 - 18.7 mg/dL 03/05/2024 1:26 PM [facility] Creatinine 0.80 0.57 - 1.11 mg/dL 03/05/2024 1:26 PM [facility] Alkaline Phosphatase 82 40 - 150 U/L 03/05/2024 1:26 PM [facility] ALT 20 0 - 55 U/L 03/05/2024 1:26 PM [facility] AST 24 5 - 34 U/L 03/05/2024 1:26 PM [facility] Protein Total 7.5 6.4 - 8.3 gm/dL 03/05/2024 1:26 PM [facility] Albumin 3.7 3.4 - 5.0 gm/dL 03/05/2024 1:26 PM [facility] Bilirubin Total 0.3 0.2 - 1.2 mg/dL 03/05/2024 1:26 PM [facility] eGFR by CKD-EPI >90 >=90 mL/min/1.7 3 m2 03/05/2024 1:26 PM CDT [facility] Blood BLOOD SPECIMEN / Unknown Venipuncture / Unknown 03/05/2024 1:04 PM CDT 03/05/2024 1:08 PM CDT Wilmer Reyna MD LAB - CHEMISTRY OR DERABLES [facility] [address] [id number] * MAMMO BILAT SCREENING W EDGAR (12/13/2023 10:42 AM CDT) Anatomical Region Laterality Modality Breast Bilateral Mammography 12/15/2023 8:56 AM CDT Impressions 12/15/2023 8:59 AM CDT : No mammographic evidence of malignancy in either breast. ASSESSMENT: BIRADS Category 1: Negative mammogram. RECOMMENDATION: Bilateral screening mammogram in one year. Thank you for allowing us to participate in the care of your patient. [facility] utilizes [employer] as a reminder system to notify patients of their next recommended mammogram. > Interpreting Provider: Sandra Diaz MD on 12/15/2023 8:59 AM Narrative 12/15/2023 8:59 AM CDT EXAMINATION: Digital screening mammogram. Low-dose full-field digital breast tomosynthesis examination was performed with synthetic 2D images. Computer assisted detection was utilized. DATE: 12/13/2023 10:43 AM PRIOR: None. This is a baseline mammogram. BREAST PARENCHYMAL DENSITY: The breasts are almost entirely fatty. FINDINGS: No suspicious masses, areas of architectural distortion or microcalcifications are evident on synthetic 2D mammogram or tomosynthesis images. Lyle Hutchins MD MAMMO ORDERABLES * (ABNORMAL) HEMOGLOBIN A1C (EXTERNAL RESULT ENTRY) (11/22/2021) Hemoglobin A1c (EXTERNAL RESULT) 6.6(H) % OUTSIDE REFERENCE LAB Comment:Endocrinology, [facility] - via Scanned Document Blood BLOOD SPECIMEN / Unknown 11/22/2021 Historical Provider LAB - CHEMISTRY O RDERABLES OUTSIDE REFERENCE LAB from Last 3 Months or Most Recently Relevant to Health Maintenance Administered Medications Advance Directives * Full Code (Latest Code Status on File) Date Activated Date Inactivated Comments 03/05/2024 5:27 PM 03/09/2024 5:53 PM Care Teams Esthetician Relationship Specialty Start Date End Date Lyle Hutchins MD PCP - General 03/02/19 Rosette Michelle RN Registered Nurse 01/01/17
--- OUTSIDE RECORDS SUMMARY | 2024-07-20 14:58 | XMS_ITS | Clinical Summary ---
Author Organization [facility] [employer] Address [address] [place] [address] Care Team Providers Care Cloth Finisher Name Role Phone Rosette Michelle RN [facility] MD Primary Care Provider [phone] Source Comments [facility],non-owned Affiliates and Associated Physician Practices is amultiple site organization consisting of ambulatory clinics and hospital sitesin [place], [place], [place] and [place]. This disclosure is being madepursuant to the Care Everywhere program and may not contain all information available regarding this patient. Last updated 18.[facility] [employer] Allergies Active Allergy Reactions Criticality Noted Date [...] or Wheezing 4 025 Active HYDROcodone-uziel taminophen (Conrad) 5-325 MG tablet Take 1 (one) tablet [...] Active Continuous Glucose Sensor (Dexcom G7 Sensor) [facility] Active ursodiol (Actigall) 300 MG capsuleIndicati ons:Other [...] 10/24/2020 Bulging of cervical intervertebral disc 10/10/19 21 Clostridium difficile infection 01/28/2020 Colitis 01/28/2020 Encounter [...] major depressive disorder, without psychotic features 12/07/201811/2021 Encounters Date Type Department Care Team Description 07/12/2024 Refill [facility] [address], [facility] [address] [place] [phone] Lyle Hutchins MD Refill Request 07/01/2024 1:30 PM PHOTOCOPY OPERATOR Office Visit [facility] [address], [facility] [address] [place] [phone] Lyle Hutchins MD Type 2 diabetes mellitus without complication, with long-term current use of insulin (HCC) (Primary Dx); Lumbar radiculitis 06/29/2024 Telephone [facility] [address], [facility] [address] [place] [phone] Lyle Hutchins MD [facility] 06/24/2024 Telephone [facility] [address], [address] [phone] Lyle Hutchins MD [facility] (FMLA Form's) 06/15/2024 Refill [facility] [address] [phone] Lyle Hutchins MD Refill Request 05/31/2024 Refill [facility] [address], [address] [phone] Lyle Hutchins MD Refill Request 05/10/2024 Refill [facility] [address], [address] [phone] Lyle Hutchins MD Refill Request from Last 3 Months Immunizations Name Administration Dates Next Due INFLUENZA VACCINE, TRIV. (AF LURIA, FLUZONE TRIVALENT; 6MO+) (IIV3) 03/05/2013 CovAsset Mapping primary monoval ent 12+ yr 0.3mL Purple cap 03/07/2021,03/07/2021,07/25/2020,2020,07/04/2020,07/04/2020 FLU VACCINE TRI IIV3 SPLIT P F IM (FLUVIRIN) 05/08/2012 INFLUENZA VACCINE 04/01/2014, 3,05/08/2012,2008 INFLUENZA VACCINE, QUADR. (F LUZONE; FLULAVAL; FLUARIX; AFLURIA QUADRIVALENT; 6MO+), 0.5 ML (IIV4) 03/03/2019 PNEUMOCOCCAL PCV20 CONJ VAC IM 03/03/2023 PNEUMOCOCCAL PPSV23 05/08/2012 TDAP (7yrs+) 09/23/2013 Family History Medical History Relation Name Comments Cancer - Other Father Diabetes - Type 2 Father Does not k now much about dad Diabetes - Type 2 Mother Relation Name Status Comments Father Alive Mother Alive Social History Tobacco Use Types Packs/Day Years [...] Comments Blood Pressure 122/79 07/01/2024 1:31 PM PHOTOCOPY OPERATOR Pulse 91 07/01/2024 1:31 PM PHOTOCOPY OPERATOR Temperature 36.3 C (97.3 F) 07/01/2024 1:31 PM PHOTOCOPY OPERATOR Respiratory Rate 18 03/09/2024 3:04 PM CDT Oxygen Saturation 98% 07/01/2024 1:31 PM PHOTOCOPY OPERATOR Inhaled Oxygen Concentration - - Weight 146.4 kg (322 lb 12.8 oz) 07/01/2024 1:31 PM PHOTOCOPY OPERATOR Height 165.1 cm (5' 5 ) 07/01/2024 1:31 PM PHOTOCOPY OPERATOR Body Mass Index 53.72 07/01/2024 1:31 PM PHOTOCOPY OPERATOR Plan of Treatment Health Maintenance Due Date Last Done Comments HEPATITIS B VACCINE (1 of 3 - 19+ 3-dose series) 2001 DIABETES-FOOT EXAM WITH MONOFILAMENT 01/28/2020 DTAP/TDAP/TD VACCINES (2 - Td or Tdap) 09/24/2023 09/23/2013 DIABETES-HGB A1C 12/01/2023 06/02/2023, , 11/02/2020, Additional history exists COVID-19 VACCINE ( season) 2024 03/07/2021, 03/07/2021, 07/25/2020, Additional history exists INFLUENZA VACCINE (#1) 2024 9, 04/01/2014, 03/05/2013, Additional history exists PAP SMEAR 03/03/2024 03/03/2021 (Done Outside Per Patient), 01/05/2019, 01/05/2019 (Done Outside Per Report) DIABETES - URINE PROTEIN SCREENING 06/02/2024 12/01/2022 (Done Outside Per Report) DIABETES RETINOPATHY SCREENING 12/01/2024 12/01/2022 (Done Outside Per Patient) DIABETES-SERUM CREATININE 03/05/20252023, 05/01/2023, 01/21/2022, Additional history exists MAMMOGRAM 12/12/2025 12/13/2023 ZOSTER VACCINE (1 of 2) 2032 PNEUMOCOCCAL VACCINE Completed 03/03/2023, 05/08/20 12 DEPRESSION SCREENING Completed 07/01/2024, 09/25/2023, 05/01/2023, Additional history exists DIABETES-STATIN Discontinued HEPATITIS C SCREENING Discontinued HIB VACCINE Aged Out No longer eligi ble based on patient's age to complete this topic HIV SCREENING Discontinued HPV VACCINE Aged Out No longer eligi ble based on patient's age to complete this topic MENINGOCOCCAL (Group B) VACCINE Aged Out No longer eligible based on patient's age to complete this topic MENINGOCOCCAL VACCINE Aged Out No haven inocencia eligible based on patient's age to complete this topic Procedures Procedure Name Priority Date/Time Associated Diagnosis [...] 70 - 99 mg/dL 03/05/2024 1:26 PM CDT [facility] Sodium 139 136 - 145 mmol/L 03/05/2024 1:26 PM CDT [facility] Potassium 4.3 3.5 - 5.1 mmol/L 03/05/2024 1:26 PM [facility] Chloride 108(H) 98 - 107 mmol/L 03/05/2024 1:26 PM [facility] CO2 18(L) 22 - 29 mmol/L 03/05/2024 1:26 PM [facility] Calcium 9.5 8.4 - 10.4 mg/dL 03/05/2024 1:26 PM [facility] Anion Gap 13 6 - 16 mmol/L 03/05/2024 1:26 PM [facility] BUN 14 5.3 - 18.7 mg/dL 03/05/2024 1:26 PM [facility] Creatinine 0.80 0.57 - 1.11 mg/dL 03/05/2024 1:26 PM [facility] Alkaline Phosphatase 82 40 - 150 U/L 03/05/2024 1:26 PM [facility] ALT 20 0 - 55 U/L 03/05/2024 1:26 PM [facility] AST 24 5 - 34 U/L 03/05/2024 1:26 PM [facility] Protein Total 7.5 6.4 - 8.3 gm/dL 03/05/2024 1:26 PM [facility] Albumin 3.7 3.4 - 5.0 gm/dL 03/05/2024 1:26 PM [facility] Bilirubin Total 0.3 0.2 - 1.2 mg/dL 03/05/2024 1:26 PM [facility] eGFR by CKD-EPI >90 >=90 mL/min/1.7 3 m2 03/05/2024 1:26 PM [facility] Blood BLOOD SPECIMEN / Unknown Venipuncture / Unknown 03/05/2024 1:04 PM CDT 03/05/2024 1:08 PM T Wilmer Reyna MD LAB - CHEMISTRY OR DERABLES [facility] [address] [address] * MAMMO BILAT SCREENING W EDGAR (12/13/2023 10:42 AM CDT) Anatomical Region Laterality Modality Breast Bilateral Mammography 12/15/2023 8:56 AM CDT Impressions 12/15/2023 8:59 AM CDT : No mammographic evidence of malignancy in either breast. ASSESSMENT: BIRADS Category 1: Negative mammogram. RECOMMENDATION: Bilateral screening mammogram in one year. Thank you for allowing us to participate in the care of your patient. [facility] utilizes [employer] as a reminder system to notify patients [...] or Most Recently Relevant to Health Maintenance Advance Directives * Full Code (Latest Code Status on File) Date Activated Date Inactivated Comments 03/05/2024 5:27 PM 03/09/2024 5:53 PM Care Teams Cloth Finisher Relationship Specialty Start Date End Date Lyle Hutchins MD PCP - General 03/02/19 Rosette Michelle RN Registered Nurse 01/01/17
--- OUTSIDE RECORDS SUMMARY | 2024-07-20 14:58 | XMS_ITS | Patient Health Summary ---
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 This disclosure is being madepursuant to the Care Everywhere program and may not contain all informatio navailable regarding this patient. Last updated 18.[facility] Allergies * Adhesive Sensitivity(Nausea and/or Vomiting) * Clarithromycin(Nausea and/or Vomiting,Rash,Vomiting) -Medium Criticality * Dicyclomine(Nausea and/or Vomiting) * Influenza Vaccines(Other,Nausea and/or Vomiting) -Low Criticality * Iodine(Urticaria,Unknown) -Medium Criticality * Ketorolac(Other,GI Discomfort) * Ketorolac Tromethamine(Other) * Lorazepam(Psychiatric) * Methylprednisolone(Shortness of Breath) -High Criticality * Metoclopramide(Other) * Mupirocin(Rash) -Medium Criticality * Naproxen(Other) * Penicillin G Procaine(Anaphylaxis) -High Criticality * Penicillins(Anaphylaxis,Urticaria) -High Criticality * Prochlorperazine(Unknown) * Shellfish(Anaphylaxis) -High Criticality * Shellfish Allergy(Anaphylaxis) -High Criticality * Sulfa Antibiotics(Urticaria) -Medium Criticality * Sulfa Drugs(Anaphylaxis,Unknown) -High Criticality * Tramadol(Other) * Vancomycin(Elevated Blood Pressure,Rash,Shortness of Breath,Swelling) -High Criticality * Prednisone(Shortness of Breath,Psychiatric) -High Criticality,Inactive Medications * Be aware that medications may not be up to date on this document. Alwaysverify current medications with the patient. * insulin degludec (TRESIBA FLEXTOUCH) 100 UNIT/ML pen Inject 30 (thirty) Units subcutaneously once daily * prazosin (Minipress) 1 MG capsule(Started 12/30/2022) Take 1 (one) capsule by mouth at bedtime * escitalopram (Lexapro) 20 MG tablet(Started 10/25/2023) Take 1 (one) tablet by mouth once daily * traZODone (Desyrel) 50 MG tablet(Started 09/17/2023) Take 1.5 (one and one-half) tablets by mouth at bedtime * omeprazole (PriLOSEC) 40 MG capsule(Started 01/22/2024) TAKE 1 CAPSULE BY MOUTH EVERY DAY BEFORE BREAKFAST 1 refill by 01/21/2025 * evolocumab (Repatha) 140 MG/ML auto-injector Inject subcutaneously every 14 days * albuterol HFA (Proventil; Ventolin; Proair) 108 (90 Base) MCG/ACT inhaler (Started 03/02/2024) Inhale 2 (two) puffs by mouth every 4 hours as needed for Shortness of Breath or Wheezing * HYDROcodone-acetaminophen (Hallowell) 5-325 MG tablet(Started 03/02/2024) Take 1 (one) tablet by mouth every 6 hours as needed for Pain * hydrOXYzine HCl (Atarax) 50 MG tablet(Started 02/19/2024) Take 1 (one) tablet by mouth 3 times daily as needed (Anxiety) * insulin aspart, w/Niacinamide, (Fiasp) vial Inject 15 (fifteen) Units to 24 (twenty four) Units subcutaneously 3 times daily before meals 15 units baseline then adds 2 units per 50 points on blood sugar reading * Continuous Glucose Sensor (Dexcom G7 Sensor) MISC * ursodiol (Actigall) 300 MG capsule(Started 04/13/2024) TAKE 1 CAPSULE BY MOUTH EVERY DAY 1 refill by 04/13/2025 * QUEtiapine XR 24hr (SEROquel XR) 50 MG tablet(Started 05/10/2024) TAKE 1 TABLET BY MOUTH EVERYDAY AT BEDTIME 1 refill by 05/10/2025 * nabumetone (Relafen) 750 MG tablet(Started 05/31/2024) TAKE 1 (ONE) TABLET BY MOUTH ONCE DAILY NEEDED FOR PAIN * allopurinol (Zyloprim) 100 MG tablet(Started 06/16/2024) TAKE 1 TABLET BY MOUTH EVERY DAY 1 refill by 06/16/2025 * tirzepatide (Mounjaro) 7.5 MG/0.5ML injection(Started 07/01/2024) Inject 7.5 (seven and one-half) mg subcutaneously every 7 days * tiZANidine (Zanaflex) 4 MG tablet(Started 07/01/2024) Take 1 (one) tablet by mouth every 8 hours as needed for Muscle Spasms 5 refills by 07/01/2025 * norethindrone (Aygestin) 5 MG tablet(Started 07/12/2024) TAKE 1 TABLET BY MOUTH EVERY DAY 1 refill by 07/12/2025 Ended Medications* norethindrone (Aygestin) 5 MG tablet(Started 12/26/2023) (Discontinued) TAKE 1 TABLET BY MOUTH EVERY DAY 1 refill by 12/25/2024 * tiZANidine (Zanaflex) 4 MG tablet(Started 03/09/2024)(Discontinued) Take 1 (one) tablet by mouth every 8 hours as needed for Muscle Spasms Active Problems Problem Noted Date Diagnosed Date Dyspnea, unspecified type 03/05/2024 Shortness of breath 03/02/2024 Wheezing 03/02/2024 COVID-19 07/10/2023 Spider bite wound 05/31/2023 Cellulitis 05/30/2023 Tarsal tunnel syndrome 03/03/2023 Suicidal thoughts 03/03/2023 03/03/2023 H/O: osteoarthritis 03/03/2023 03/03/2023 Gout 03/03/2023 03/03/2023 Gonococcal infection (acute) of lower genitourin [place] tract 08/01/2022 Other physical and mental strain related to work 08/01/2022 Current drinker 01/01/2022 03/03/2023 Recurrent major depressive episodes, moderate 07/09/2023 Miscarriage 11/27/2021 Arthritis 11/05/2021 Hyperlipidemia 03/15/2021 Sleep apnea 10/24/2020 Bulging of cervical intervertebral disc 10/10/19 Clostridium difficile infection 01/28/2020 Colitis 01/28/2020 Encounter for medication refill 01/28/2020 Gastroesophageal reflux disease with esophagitis 01/28/2020 examination or test, unconfi rmed 01/28/2020 Involuntary movements 01/28/2020 Lightheadedness 01/28/2020 Cervical spondylosis without myelopathy 05/31/20 19 Metabolic [...] of hip region 01/18/2019 Major depression 12/07/2018 Biliary dyskinesia 12/07/2018 Anxiety 12/07/2018 Inflammatory dermatosis [...] 03/22/2019 11/21/2020 Gastroparesis due to DM 02/17/2019 0611/2021 Severe episode of recurrent major depressive disorder, without psychotic features 12/07/201811/2021 Immunizations * INFLUENZA VACCINE, TRIV. (AFLURIA, FLUZONE TRIVALENT; 6MO+) (IIV3)(Given 03/05/2013) * Covid Pfizer primary monovalent 12+ yr 0.3mL Purple cap(Given 03/07/2021, 03/07/2021, 07/25/2020, 07/25/2020, 07/04/2020, 07/04/2020) * FLU VACCINE TRI IIV3 SPLIT PF IM (FLUVIRIN)(Given 05/08/2012) * INFLUENZA VACCINE(Given 04/01/2014, 03/05/2013, 05/08/2012, 03/06/2009) * INFLUENZA VACCINE, QUADR. 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 REPAIR WORKER Temperature 36.3 C (97.3 F) 07/01/2024 1:31 PM FINISH REPAIR WORKER Respiratory Rate 18 03/09/2024 3:04 PM CDT Oxygen Saturation 98% 07/01/2024 1:31 PM FINISH REPAIR WORKER Inhaled Oxygen Concentration - - Weight 146.4 kg (322 lb 12.8 oz) 07/01/2024 1:31 PM FINISH REPAIR WORKER Height 165.1 cm (5' 5 ) 07/01/2024 1:31 PM FINISH REPAIR WORKER Body Mass Index 53.72 07/01/2024 1:31 PM FINISH REPAIR WORKER Procedures * CARDIAC EKG ORDER(Performed 03/10/2024) * GLUCOSE - POINT OF CARE(Performed 03/09/2024) * GLUCOSE - POINT OF CARE(Performed 03/09/2024) * GLUCOSE - POINT OF CARE(Performed 03/08/2024) * GLUCOSE - POINT OF CARE(Performed 03/08/2024) * ECHO COMPLETE W CONTRAST(Performed 03/08/2024) Performed for Shortness of breath * GLUCOSE - POINT OF CARE(Performed 03/08/2024) * GLUCOSE - POINT OF CARE(Performed 03/08/2024) * GLUCOSE - POINT OF CARE(Performed 03/07/2024) * GLUCOSE - POINT OF CARE(Performed 03/07/2024) * GLUCOSE - POINT OF CARE(Performed 03/07/2024) * GLUCOSE - POINT OF CARE(Performed 03/07/2024) * GLUCOSE - POINT OF CARE(Performed 03/06/2024) * GLUCOSE - POINT OF CARE(Performed 03/06/2024) * BLOOD GASES ARTERIAL(Performed 03/06/2024) Performed for Wheezing * GLUCOSE - POINT OF CARE(Performed 03/06/2024) * GLUCOSE - POINT OF CARE(Performed 03/06/2024) * GLUCOSE - POINT OF CARE(Performed 03/05/2024) * GLUCOSE - POINT OF CARE(Performed 03/05/2024) * CT NECK SOFT TISSUE W CONT(Performed 03/05/2024) Performed for Dyspnea, unspecified type * BLOOD GASES DOUG(Performed 03/05/2024) * START ED RT BRONCHODILATOR PROTOCOL(Performed 03/05/2024) * START ED RT BRONCHODILATOR PROTOCOL(Performed 03/05/2024) * CT ANGIO CHEST PULM EMBOLISM(Performed 03/05/2024) Performed for Shortness of breath * TROPONIN-I HIGH SENSITIVE REFLEX 1HOUR(Performed 03/05/2024) * HCG BLOOD QUALITATIVE(Performed 03/05/2024) * B-TYPE NATRIURETIC PEPTIDE(Performed 03/05/2024) * TROPONIN-I HIGH SENSITIVE BASELINE + 1HR(Performed 03/05/2024) * CBC W AUTO DIFFERENTIAL(Performed 03/05/2024) * COMPREHENSIVE METABOLIC PANEL(Performed 03/05/2024) * XR CHEST 1VW PORTABLE(Performed 03/05/2024) Performed for Shortness of breath * EKG 12-LEAD(Performed 03/05/2024) Performed for Shortness of breath * MAMMO BILAT SCREENING W EDGAR(Performed 12/13/2023) Performed for Visit for screening mammogram * SKIN TEST PPD - POINT OF CARE(Performed 12/11/2023) Performed for Encounter for TB radha test * SARS-COV-2 (COVID-19)+INFLU A+B AG (AMB) POC(Performed 09/25/2023) Performed for Sore throat * STREP A SCREEN - POINT OF CARE (AMB)(Performed 09/25/2023) Performed for Sore throat * SARS-COV-2 (COVID-19)+INFLU A+B AG (AMB) POC(Performed 07/09/2023) Performed for COVID-19 * CARDIAC EKG ORDER(Performed 05/03/2023) * XR SHOULDER LEFT 2VW OR MORE(Performed 05/01/2023) Performed for Weakness, Syncope and collapse * TROPONIN-I HIGH SENSITIVE BASELINE + 1HR(Performed 05/01/2023) * CT HEAD WO CONTRAST(Performed 05/01/2023) Performed for Weakness, Syncope and collapse * URINALYSIS REFLEX MICROSCOPIC REFLEX CULTURE(Performed 05/01/2023) * COMPREHENSIVE METABOLIC PANEL(Performed 05/01/2023) * EKG 12-LEAD(Performed 05/01/2023) Performed for Weakness * CBC W AUTO DIFFERENTIAL(Performed 05/01/2023) * XR SHOULDER LEFT 2VW OR MORE(Performed 03/03/2023) Performed for Acute pain of left shoulder * PAIN MANAGEMENT PROCEDURE TIME(Performed 06/18/2022) Performed for Lumbar radiculopathy * PAIN MANAGEMENT PROCEDURE TIME(Performed 02/01/2022) Performed for Lumbar radiculopathy * C-REACTIVE PROTEIN(Performed 01/12/2022) * ERYTHROCYTE SEDIMENTATION RATE(Performed 01/12/2022) * LACTIC ACID BLOOD REFLEX TO REPEAT(Performed 01/12/2022) * COMPREHENSIVE METABOLIC PANEL(Performed 01/12/2022) * CBC W AUTO DIFFERENTIAL(Performed 01/12/2022) * C-REACTIVE PROTEIN(Performed 01/07/2022) * ERYTHROCYTE SEDIMENTATION RATE(Performed 01/07/2022) * COMPREHENSIVE METABOLIC PANEL(Performed 01/07/2022) * CBC W AUTO DIFFERENTIAL(Performed 01/07/2022) * XR FOOT LEFT 3VW OR MORE(Performed 01/07/2022) Performed for Left foot pain * VAS LEFT VENOUS DUPLEX LE(Performed 01/07/2022) Performed for Left foot pain * HEMOGLOBIN A1C (EXTERNAL RESULT ENTRY)(Performed 11/22/2021) * PAIN MANAGEMENT PROCEDURE TIME(Performed 11/20/2021) Performed for Cervical radiculopathy * WI INSERT NON-INDWELLING BLADDER(Performed 10/19/2021) Performed for Frequency of micturition, Nocturia, Urge incontinence * CULTURE URINE COMPREHENSIVE(Performed 10/19/2021) Performed for Frequency of micturition, Nocturia, Urge incontinence * URINALYSIS AUTO - POINT OF CARE (AMB) SLU(Performed 10/19/2021) Performed for Frequency of micturition, Nocturia, Urge incontinence * CT RENAL STONE(Performed 10/06/2021) Performed for Dysuria * COMPREHENSIVE METABOLIC PANEL(Performed 10/06/2021) * CBC W AUTO DIFFERENTIAL(Performed 10/06/2021) * URINALYSIS REFLEX MICROSCOPIC REFLEX CULTURE(Performed 10/06/2021) * IMAGING/RADIOLOGY/XRAY RESULTS ORDER(Performed 06/09/2021) * LAB RESULTS ORDER(Performed 03/18/2021) * IMAGING/RADIOLOGY/XRAY RESULTS ORDER(Performed 03/17/2021) * LAB RESULTS ORDER(Performed 03/17/2021) * LAB RESULTS ORDER(Performed 03/17/2021) * SARS-COV-2 (COVID-19) AG (AMB) POCT(Performed 03/15/2021) Performed for Acute non-recurrent maxillary sinusitis * STREP A SCREEN - POINT OF CARE (AMB)(Performed 03/15/2021) Performed for Acute non-recurrent maxillary sinusitis * DEXA BONE DENSITY 2 SITES(Performed 03/06/2021) * XR KNEE LEFT 3VW(Performed 02/26/2021) Performed for Chronic pain of left knee * XR KNEE BILAT STANDING 1VW(Performed 02/26/2021) Performed for Chronic pain of left knee * URINALYSIS AUTO - POINT OF CARE(Performed 11/24/2020) Performed for Abdominal pain, unspecified abdominal location * CULTURE URINE(Performed 11/24/2020) Performed for Abdominal pain, unspecified abdominal location * BASIC METABOLIC PANEL (CALCIUM TOTAL)(Performed 11/02/2020) Performed for Pre-operative clearance * CBC W AUTO DIFFERENTIAL(Performed 11/02/2020) Performed for Pre-operative clearance * HEMOGLOBIN A1C - POINT OF CARE (AMB)(Performed 11/02/2020) Performed for Type 2 diabetes mellitus without complication, without long-term current use of insulin (HCC) * XR LUMBAR SPINE 2 OR 3VW(Performed 03/29/2020) Performed for Acute bilateral low back pain with left-sided sciatica * URINALYSIS AUTO - POINT OF CARE(Performed 03/22/2020) Performed for Frequent urination * CK BLOOD(Performed 02/22/2020) Performed for Cervical spondylosis without myelopathy, Arthralgia, unspecified joint, Myalgia * SS-A/SS-B (SJOGREN'S) ANTIBODY PANEL(Performed 02/22/2020) Performed for Cervical spondylosis without myelopathy, Arthralgia, unspecified joint, Myalgia * URIC ACID BLOOD(Performed 02/22/2020) Performed for Cervical spondylosis without myelopathy, Arthralgia, unspecified joint, Myalgia * ERYTHROCYTE SEDIMENTATION RATE(Performed 02/22/2020) Performed for Cervical spondylosis without myelopathy, Arthralgia, unspecified joint, Myalgia * GUILLERMO BLOOD SCREEN W/REFLEX TITER(Performed 02/22/2020) Performed for Cervical spondylosis without myelopathy, Arthralgia, unspecified joint, Myalgia * RHEUMATOID FACTOR BLOOD QUANTITATIVE(Performed 02/22/2020) Performed for Cervical spondylosis without myelopathy, Arthralgia, unspecified joint, Myalgia * COMPREHENSIVE METABOLIC PANEL(Performed 09/23/2019) * CBC W AUTO DIFFERENTIAL(Performed 09/23/2019) * CT ABDOMEN PELVIS W CONTRAST(Performed 09/25/2018) Performed for Lower abdominal pain * LIPASE BLOOD(Performed 09/25/2018) * COMPREHENSIVE METABOLIC PANEL(Performed 09/25/2018) * CBC W AUTO DIFFERENTIAL(Performed 09/25/2018) * CULTURE URINE(Performed 08/07/2018) Performed for Frequency of urination * WI IRRIGATION OF BLADDER(Performed 08/06/2018) Performed for Chronic interstitial cystitis * URINALYSIS - POINT OF CARE(Performed 08/06/2018) Performed for Frequency of urination * WI IRRIGATION OF BLADDER(Performed 02/10/2018) Performed for Chronic interstitial cystitis * THERAPY REPORT(Performed 01/12/2018) * CULTURE YEAST WITH DIRECT FLUORESCENT ANDRE(Performed 12/10/2017) Performed for Acute vaginitis, Vaginal discharge, Vaginal irritation, IC (interstitial cystitis) * WI IRRIGATION OF BLADDER(Performed 12/09/2017) Performed for Acute vaginitis, Vaginal discharge, Vaginal irritation, IC (interstitial cystitis) * IMAGING/RADIOLOGY/XRAY RESULTS ORDER(Performed 11/12/2017) * WI IRRIGATION OF BLADDER(Performed 10/21/2017) Performed for Chronic interstitial cystitis * WI IRRIGATION OF BLADDER(Performed 10/11/2017) Performed for Chronic interstitial cystitis * THERAPY REPORT(Performed 10/08/2017) * WI IRRIGATION OF BLADDER(Performed 09/23/2017) Performed for Chronic interstitial cystitis * WI IRRIGATION OF BLADDER(Performed 09/19/2017) Performed for Chronic interstitial cystitis, Bladder pain, Urinary urgency * CT ABDOMEN PELVIS W CONTRAST(Performed 08/26/2017) Performed for Abdominal pain, generalized * URINALYSIS REFLEX MICROSCOPIC REFLEX CULTURE(Performed 08/26/2017) * HCG BETA BLOOD QUANTITATIVE(Performed 08/26/2017) * COMPREHENSIVE METABOLIC PANEL(Performed 08/26/2017) * CBC W AUTO DIFFERENTIAL(Performed 08/26/2017) * FSH(Performed 07/26/2017) * CULTURE URINE(Performed 01/22/2017) * LAB HISTORICAL RESULTS-ONBASE(Performed 01/22/2017) * URINALYSIS REFLEX MICROSCOPIC REFLEX CULTURE(Performed 01/10/2017) * CT ABDOMEN PELVIS W CONTRAST(Performed 01/10/2017) Performed for Abdominal pain, left lower quadrant * COMPREHENSIVE METABOLIC PANEL(Performed 01/10/2017) * CBC W AUTO DIFFERENTIAL(Performed 01/10/2017) * APHERESIS/TRANSFUSION ORDER(Performed 01/03/2017) * CARDIAC RHYTHM STRIP ORDER(Performed 01/03/2017) * PATHOLOGY TISSUE EXAM (STL)(Performed 01/01/2017) Performed for Endometriosis, Chronic pelvic pain in female * ENDOTRACHEAL TUBE NOTE(Performed 01/01/2017) * LAPAROSCOPIC ADHESIOLYSIS(Performed 01/01/2017) Performed for Endometriosis, Chronic pelvic pain in female * LAPAROSCOPIC SALPINGECTOMY AND/OR OOPHORECTOMY(Performed 01/01/2017) Performed for Endometriosis, Chronic pelvic pain in female * CYSTOSCOPY WITH HYDRODISTENSION BLADDER(Performed 01/01/2017) Performed for Endometriosis, Chronic pelvic pain in female * LAPAROSCOPIC FULGURATION/EXCISION LESION PELVIC/OVARY (LASER)(Performed 01/01/2017) Performed for Endometriosis, Chronic pelvic pain in female * PATHOLOGY/GENETICS HISTORICAL-ONBASE(Performed 01/01/2017) * BLOOD TYPE VERIFICATION(Performed 12/26/2016) * TYPE + SCREEN PANEL(Performed 12/26/2016) Performed for Pre-op testing * CBC W AUTO DIFFERENTIAL(Performed 12/26/2016) Performed for Pre-op testing * CT ABDOMEN PELVIS W CONTRAST(Performed 07/29/2016) Performed for RLQ abdominal pain * URINE MICROSCOPIC ONLY REFLEX TO CULTURE(Performed 07/29/2016) * URINALYSIS REFLEX MICROSCOPIC REFLEX CULTURE(Performed 07/29/2016) * HCG URINE QUALITATIVE - POINT OF CARE(Performed 07/29/2016) * COMPREHENSIVE METABOLIC PANEL(Performed 07/29/2016) * CBC W AUTO DIFFERENTIAL(Performed 07/29/2016) * CHLAMYDIA+GC SANDRA PAP VIAL(Performed 04/11/2016) * CULTURE URINE(Performed 04/11/2016) * URINALYSIS REFLEX MICROSCOPIC REFLEX CULTURE(Performed 11/06/2015) * BASIC METABOLIC PANEL (CALCIUM TOTAL)(Performed 11/06/2015) * CBC W AUTO DIFFERENTIAL(Performed 11/06/2015) Results * CARDIAC EKG ORDER (03/10/2024 4:14 PM CDT) Only the most recent of2 resultswithin the time period is included. Narrative 03/10/2024 4:14 PM CDT Ordered by an unspecified provider. Scanned Document CARDIAC SERVICES ORD ERABLES * (ABNORMAL) GLUCOSE - POINT OF CARE (03/09/2024 11:39 AM CDT) Only the most recent of16 resultswithin the time period is included. Glucose WB/POC 193(H) 70 - 99 mg/dL 03/09/2024 11:48 AM CDT [facility] Specimen Type Cap Fingerstick 2023 11:48 AM CDT [facility] Blood BLOOD SPECIMEN / Unknown 03/09/2024 11:39 AM CDT 03/09/2024 11:48 AM CDT Angelica Huber MD LAB - POINT OF CARE ORDERABLES [facility] [address] [place], [place] [id number] * ECHO COMPLETE W CONTRAST (03/08/2024 11:30 AM CDT) Myocardial strain charge 2 unitless SSM CV FUJI PACS LV EDV A2C 127 ml SSM CV FU JI PACS LV EDV A4C 135 ml SSM CV FU JI PACS LV ESV A2C 54.4 ml SSM CV FU JI PACS LV ESV A4C 56.1 ml SSM CV FU JI PACS IVSd 2D 0.959 cm SSM CV FUJ I PACS LVIDd 4.88 cm SSM CV FUJ I PACS LVIDs 3.45 cm SSM CV FUJ I PACS LVOT diam 2 cm SSM CV FUJ I PACS LVOT VTI 21.8 cm SSM CV FUJ I PACS LVOT pk han 96.6 cm/s SSM CV F UJI PACS LVPWd 0.977 cm SSM CV FUJ I PACS MV E' lateral han 10.7 cm/s SSM CV FUJI PACS LV A2C EF 57.165 % SSM CV FUJ I PACS LV A4C EF 58.444 % SSM CV FUJ I PACS LV biplane EF 57.015 % SSM CV FUJI PACS LA vol BP 31.6 ml SSM CV FUJ I PACS LA vol index 0.012 l/m SSM CV FUJI PACS AV mn grad 5 mmHg SSM CV FU JI PACS AV VTI 26.8 cm SSM CV FUJ I PACS AV pk han 138 cm/s SSM CV FUJ I PACS Ascending aorta 3.5 cm SSM CV FUJI PACS IVC Diam Expiration 2.08 cm SSM CV FUJI PACS MV A pk han 58.7 cm/s SSM CV F UJI PACS MV E pk han 66.6 cm/s SSM CV F UJI PACS PV pk han 88.2 cm/s SSM CV FUJ I PACS TAPSE 2.63 cm SSM CV FUJ I PACS Anatomical Region Laterality Modality Ultrasound 03/08/2024 10:5 0 AM CDT Narrative 03/09/2024 10:08 AM CDT Summary * The left ventricle is normal in size with normal systolic function and an estimated ejection fraction of 55-60% by visual estimate. Left ventricular wall motion is normal. * The left ventricular diastolic function is normal. * Right ventricle is normal in size with normal systolic function. * Unable to assess pulmonary pressures due to a lack of tricuspid and pulmonic regurgitation. Patient Info Name: Jean Carlos Wilson Age: 43 years : 1980 Gender: Female Ht: 65 in Wt: 310 lb BSA: 2.63 m2 BP: 130 / 63 mmHg Exam Date: 03/08/2024 10:50 AM Patient Status: OPO Study Site: [facility] Primary Location: [facility] EStudy Info Technical Quality: Poor Exam Type: ECHO COMPLETE W CONTRAST Indications R06.02 - Shortness of breath Procedure(s) * A complete 2D, color Doppler, spectral Doppler, and M-Mode transthoracic echocardiogram was performed. * Definity Ultrasound Enhancing Agent (UEA) was utilized to enhance endocardial definition, opacity the left ventricle and further assess left ventricular function and wall motion. Staff Referring Physician: Edson Nascimento Ordering Provider: Edson Nascimento Attending Physician: Edson Nascimento Welder Oxyhydrogen: Yahaira Church RUST Left Ventricle The left ventricle is normal in size. Left ventricular systolic function is normal with an estimated ejection fraction of 55-60% by visual estimate. The left ventricular mass is normal. Left ventricular segmental wall motion is normal. The left ventricular diastolic function is normal. Right Ventricle The right ventricle is normal in size. Right ventricular systolic function is normal. Left Atrium The left atrium is normal in size with a left atrial volume index of 12 ml/m2 by BP MOD. Right Atrium The right atrium is normal in size. Atrial Septum Intact interatrial septum visualized by 2D and color Doppler imaging. Aortic Valve The aortic valve is trileaflet. There is no aortic valve stenosis. There is no aortic valve regurgitation. Pulmonic Valve The pulmonic valve is normal. There is no pulmonic valve stenosis. There is no pulmonic regurgitation. Mitral Valve The mitral valve is normal. There is no mitral valve stenosis. There is no mitral valve regurgitation. Tricuspid Valve The tricuspid valve is normal. There is no tricuspid valve regurgitation. Unable to assess pulmonary pressures due to a lack of tricuspid and pulmonic regurgitation. Inferior Vena Cava The inferior vena cava is dilated (> 2.1 cm). There is > 50% collapse of the IVC upon inspiration with an estimated right atrial pressure of 8 mmHg. Pericardium/Pleural There is no pericardial effusion. Aorta The aortic root at the sinus of Valsalva is normal in size. The ascending aorta is normal in size. Measurements Left Ventricular Outflow Tract Name Value Normal LVOT 2D LVOT Diameter 2.0 cm LVOT Area 3.1 cm2 LVOT Doppler LVOT Peak Velocity 1.0 m/s LVOT Peak Gradient 4 mmHg LVOT Mean Velocity 75.70 cm/s LVOT Mean Gradient 3 mmHg LVOT VTI 21.8 cm LVOT VTI/AV VTI Ratio 0.8 LVOT Stroke Volume 68 ml LVOT Stroke Volume Index 26 ml/m2 35-58 Pulmonic Valve Name Value Normal PV Doppler PV Peak Velocity 0.9 m/s PV Peak Gradient 3 mmHg PV Accel Time 116.00 ms Mitral Valve Name Value Normal MV Doppler MV PHT 60 ms MV Area (PHT) 3.67 cm2 4.00-5.00 MV Diastolic Function MV E Peak Velocity 0.7 m/sec MV A Peak Velocity 0.6 m/sec MV E/A 1.1 MV Decel Time (PW) 204 ms MV Annular TDI MV Septal e' Velocity 9 cm/s >=8 MV E/e' (Septal) 7 <=8 MV Lateral e' Velocity 11 cm/s >=10 MV E/e' (Lateral) 6 <=8 MV e' Average 10 cm/s MV E/e' (Average) 7 Tricuspid Valve Name Value Normal Estimated PAP/RSVP RA Pressure 8 mmHg <=5 TV Annular TDI TV Lateral Lola s' Velocity 14 cm/s 10-19 Aorta Name Value Normal Ascending Aorta Ao Root Diameter (2D) 3.2 cm Ao Root Diam Index (2D) 1.2 cm/m2 Asc Ao Diameter 3.5 cm 1.9-3.5 Asc Ao Diameter Index 1.3 cm/m2 1.0-2.2 Venous Name Value Normal IVC/SVC IVC Diameter 2.1 cm <=2.1 Aortic Valve Name Value Normal AV Doppler AV Peak Velocity 1.38 m/s AV Peak Gradient 8 mmHg AV Mean Gradient 5 mmHg AV VTI 27 cm AV Area (Cont Eq VTI) 2.56 cm2 >=2.00 AV Area (Cont Eq Han) 2.20 cm2 AV DI (VTI) 0.81 AV DI (Han) 0.70 AV Regurgitation 2D LVOT Area 3.14 cm2 Ventricles Name Value Normal LV Dimensions 2D/MM IVS Diastolic Thickness (2D) 1.0 cm 0.6-0.9 LVID Diastole (2D) 4.9 cm 3.8-5.2 LVPW Diastolic Thickness (2D) 1.0 cm 0.6-0.9 LVID Systole (2D) 3.5 cm 2.2-3.5 LV Mass (2D Cubed) 167 g 67-162 LV Mass Index (2D Cubed) 64 g/m2 43-95 Relative Wall Thickness (2D) 0.40 <=0.42 LV Fractional Shortening/Ejection Fraction 2D/MM LV Fractional Shortening (2D) 29 % 27-45 LV EF (2D Teicholz) 56 % 54-74 LV Diastolic Volume (4C MOD) 135 ml LV EF (4C MOD) 58 % LV Diastolic Volume (2C MOD) 127 ml LV EF (2C MOD) 57 % LV Diastolic Volume (BP MOD) 134 ml 46-106 LV Diastolic Volume Index (BP MOD) 51 ml/m2 29-61 LV Systolic Volume (BP MOD) 58 ml 14-42 LV Systolic Volume Index (BP MOD) 22 ml/m2 8-24 LV EF (BP MOD) 57 % 54-74 LV Diastolic Length (4C) 8.7 cm LV Systolic Length (4C) 7.3 cm LV Stroke Volume (4C MOD) 79 ml RV Dimensions 2D/MM TAPSE 2.6 cm >=1.7 Atria Name Value Normal LA Dimensions LA Volume (BP MOD) 32 ml LA Volume Index (BP MOD) 12 ml/m2 16-34 Report Signatures Finalized by Kostas Baldwin on 03/09/2024 10:08 AM Procedure Note Kostas Baldwin MD - 03/09/2024 Summary * The left ventricle is normal in size with normal systolic function andan estimated ejection fraction of 55-60% by visual estimate. Leftventricular wall motion is normal. * The left ventricular diastolic function is normal. * Right ventricle is normal in size with normal systolic function. * Unable to assess pulmonary pressures due to a lack of tricuspid and pulmonic regurgitation. Patient Info Name: Jean Carlos Wilson Age: 43 years : 1980 Gender: Female Ht: 65 in Wt: 310 lb BSA: 2.63 m2 BP: 130 / 63 mmHg Exam Date: 03/08/2024 10:50 AM Patient Status: OPO Study Site: [facility] Primary Location: [facility] EStudy Info Technical Quality: Poor Exam Type: ECHO COMPLETE W CONTRAST Indications R06.02 - Shortness of breath Procedure(s) * A complete 2D, color Doppler, spectral Doppler, and M-Modetransthoracic echocardiogram was performed. * Definity Ultrasound Enhancing Agent (UEA) was utilized to enhance endocardial definition, opacity the left ventricle and further assessleft ventricular function and wall motion. Staff Referring Physician: Edson Nascimento Ordering Provider: Edson Nascimento Attending Physician: Edson Nascimento Welder Oxyhydrogen: Yahaira Church RUST Left Ventricle The left ventricle is normal in size. Left ventricular systolic functionis normal with an estimated ejection fraction of 55-60% by visual estimate.The left ventricular mass is normal. Left ventricular segmental wall motionis normal. The left ventricular diastolic function is normal. Right Ventricle The right ventricle is normal in size. Right ventricular systolicfunction is normal. Left Atrium The left atrium is normal in size with a left atrial volume index of12 ml/m2 by BP MOD. Right Atrium The right atrium is normal in size. Atrial Septum Intact interatrial septum visualized by 2D and color Doppler imaging. Aortic Valve The aortic valve is trileaflet. There is no aortic valve stenosis. Thereis no aortic valve regurgitation. Pulmonic Valve The pulmonic valve is normal. There is no pulmonic valve stenosis. Thereis no pulmonic regurgitation. Mitral Valve The mitral valve is normal. There is no mitral valve stenosis. There isno mitral valve regurgitation. Tricuspid Valve The tricuspid valve is normal. There is no tricuspid valveregurgitation. Unable to assess pulmonary pressures due to a lack of tricuspid andpulmonic regurgitation. Inferior Vena Cava The inferior vena cava is dilated (> 2.1 cm). There is > 50% collapse ofthe IVC upon inspiration with an estimated right atrial pressure of 8 mmHg. Pericardium/Pleural There is no pericardial effusion. Aorta The aortic root at the sinus of Valsalva is normal in size. Theascending aorta is normal in size. Measurements Left Ventricular Outflow Tract Name Value Normal LVOT 2D LVOT Diameter 2.0 cm LVOT Area 3.1 cm2 LVOT Doppler LVOT Peak Velocity 1.0 m/s LVOT Peak Gradient 4 mmHg LVOT Mean Velocity 75.70 cm/s LVOT Mean Gradient 3 mmHg LVOT VTI 21.8 cm LVOT VTI/AV VTI Ratio 0.8 LVOT Stroke Volume 68 ml LVOT Stroke Volume Index 26 ml/m2 35-58 Pulmonic Valve Name Value Normal PV Doppler PV Peak Velocity 0.9 m/s PV Peak Gradient 3 mmHg PV Accel Time 116.00 ms Mitral Valve Name Value Normal MV Doppler MV PHT 60 ms MV Area (PHT) 3.67 cm2 4.00-5.00 MV Diastolic Function MV E Peak Velocity 0.7 m/sec MV A Peak Velocity 0.6 m/sec MV E/A 1.1 MV Decel Time (PW) 204 ms MV Annular TDI MV Septal e' Velocity 9 cm/s >=8 MV E/e' (Septal) 7 <=8 MV Lateral e' Velocity 11 cm/s >=10 MV E/e' (Lateral) 6 <=8 MV e' Average 10 cm/s MV E/e' (Average) 7 Tricuspid Valve Name Value Normal Estimated PAP/RSVP RA Pressure 8 mmHg <=5 TV Annular TDI TV Lateral Lola s' Velocity 14 cm/s 10-19 Aorta Name Value Normal Ascending Aorta Ao Root Diameter (2D) 3.2 cm Ao Root Diam Index (2D) 1.2 cm/m2 Asc Ao Diameter 3.5 cm 1.9-3.5 Asc Ao Diameter Index 1.3 cm/m2 1.0-2.2 Venous Name Value Normal IVC/SVC IVC Diameter 2.1 cm <=2.1 Aortic Valve Name Value Normal AV Doppler AV Peak Velocity 1.38 m/s AV Peak Gradient 8 mmHg AV Mean Gradient 5 mmHg AV VTI 27 cm AV Area (Cont Eq VTI) 2.56 cm2 >=2.00 AV Area (Cont Eq Han) 2.20 cm2 AV DI (VTI) 0.81 AV DI (Han) 0.70 AV Regurgitation 2D LVOT Area 3.14 cm2 Ventricles Name Value Normal LV Dimensions 2D/MM IVS Diastolic Thickness (2D) 1.0 cm 0.6-0.9 LVID Diastole (2D) 4.9 cm 3.8-5.2 LVPW Diastolic Thickness (2D) 1.0 cm 0.6-0.9 LVID Systole (2D) 3.5 cm 2.2-3.5 LV Mass (2D Cubed) 167 g 67-162 LV Mass Index (2D Cubed) 64 g/m2 43-95 Relative Wall Thickness (2D) 0.40 <=0.42 LV Fractional Shortening/Ejection Fraction 2D/MM LV Fractional Shortening (2D) 29 % 27-45 LV EF (2D Teicholz) 56 % 54-74 LV Diastolic Volume (4C MOD) 135 ml LV EF (4C MOD) 58 % LV Diastolic Volume (2C MOD) 127 ml LV EF (2C MOD) 57 % LV Diastolic Volume (BP MOD) 134 ml 46-106 LV Diastolic Volume Index (BP MOD) 51 ml/m2 29-61 LV Systolic Volume (BP MOD) 58 ml 14-42 LV Systolic Volume Index (BP MOD) 22 ml/m2 8-24 LV EF (BP MOD) 57 % 54-74 LV Diastolic Length (4C) 8.7 cm LV Systolic Length (4C) 7.3 cm LV Stroke Volume (4C MOD) 79 ml RV Dimensions 2D/MM TAPSE 2.6 cm >=1.7 Atria Name Value Normal LA Dimensions LA Volume (BP MOD) 32 ml LA Volume Index (BP MOD) 12 ml/m2 16-34 Report Signatures Finalized by Kostas Baldwin on 03/09/2024 10:08 AM Edson Nascimento MD ECHO CUPID * (ABNORMAL) BLOOD GASES ARTERIAL (03/06/2024 12:08 PM CDT) pH Arterial 7.49(H) 7.35 - 7.45 pH 03/06/2024 12:26 PM CDT [facility] pO2 Arterial 102(H) 80 - 100 mmHg 03/06/2024 12:26 PM CDT [facility] pCO2 Arterial 26(L) 35 - 45 mmHg 03/06/2024 12:26 PM CDT [facility] HCO3 Arterial 19.8(L) 22.0 - 26.0 mmol/L 03/06/2024 12:26 PM CDT [facility] BE Arterial -2.1(L) -2.0 - 2.0 mmol/L 03/06/2024 12:26 PM CDT [facility] O2 Saturation Arterial 99 90 - 100 % 03/06/2024 12:26 PM CDT [facility] Temperature (C) 37.0 C 12:26 PM CDT [facility] Gaston's Test Positive 03/06/2024 12:26 PM CDT [facility] O2 Device Room Air 03/06/2024 12:26 PM CDT [facility] P/F Ratio 03/06/2024 12:26 PM CDT [facility] Comment:C^Incalculable Blood ARTERIAL BLOOD SPECIMEN / Unknown 03/06/2024 12:08 PM CDT 03/06/2024 12:08 PM CDT Edson Nascimento MD LAB - BLOOD GASES OR DERABLES Performing Organization Address City/State/[facility] Co de Phone Number [facility] [address] * CT Neck Soft Tissue W Cont (03/05/2024 4:18 PM CDT) Anatomical Region Laterality Modality Head Computed Tomogra phy 03/05/2024 4:23 PM CDT Impressions 03/05/2024 4:42 PM CDT IMPRESSION: 1.Unremarkable CT examination of the neck. > Interpreting Provider: Neno Chappell MD on 03/05/2024 4:42 PM Narrative 03/05/2024 4:42 PM CDT EXAMINATION: Computed tomography (CT) of the neck with contrast HISTORY: R06.00: Dyspnea, unspecified TECHNIQUE: CT of the neck was performed following the uneventful administration of 70 cc Isovue-370 intravenous contrast according to standard protocol. Sagittal and coronal reformats were submitted. Dose reduction techniques utilized. COMPARISON: None. FINDINGS: No lymphadenopathy is seen. The muscles of the neck appear normal. The cervical internal carotid arteries and internal jugular veins appear normal. Fascial planes are preserved and the deep spaces of the neck appear normal. The visualized airway appears normal. The visualized portions of the posterior fossa and brain appear normal. Multilevel degenerative changes of the cervical spine are noted. An intervertebral disc spacer is noted at C6-7. The visualized orbits and paranasal sinuses appear normal. The visible lung apices are clear. Procedure Note Neno Chappell MD - 03/05/2024 EXAMINATION: Computed tomography (CT) of the neck with contrast HISTORY: R06.00: Dyspnea, unspecified TECHNIQUE: CT of the neck was performed following the uneventful administration of 70 cc Isovue-370 intravenous contrast according to standard protocol. Sagittal and coronal reformats were submitted. Dose reduction techniques utilized. COMPARISON: None. FINDINGS: No lymphadenopathy is seen. The muscles of the neck appear normal. The cervical internal carotid arteries and internal jugular veins appear normal. Fascial planes are preserved and the deep spaces of the neckappear normal. The visualized airway appears normal. The visualized portions of the posterior fossa and brain appear normal. Multilevel degenerative changes of the cervical spine are noted. An intervertebral disc spaceris noted at C6-7. The visualized orbits and paranasal sinuses appearnormal. The visible lung apices are clear. IMPRESSION: 1.Unremarkable CT examination of the neck. > Interpreting Provider: Neno Chappell MD on 03/05/2024 4:42 PM Wilmer Reyna MD CT ORDERABLES * (ABNORMAL) BLOOD GASES DOUG (03/05/2024 3:33 PM CDT) pH Venous 7.57(H) 7.32 - 7.42 pH 03/05/2024 4:00 PM CDT [facility] pO2 Venous 44(H) 35 - 40 mmHg 03/05/2024 4:00 PM CDT [facility] pCO2 Venous 24(L) 40 - 50 mmHg 03/05/2024 4:00 PM CDT [facility] HCO3 Venous 22.0(L) 24 - 26 mmol/L 03/05/2024 4:00 PM CDT [facility] Base Excess Venous 1.5 -2.0 - 2.0 mmol/L 03/05/2024 4:00 PM CDT [facility] O2 Saturation Venous 83 >=70 % 03/05/2024 4:00 PM CDT [facility] Temperature (C) 37.0 C 4:00 PM CDT [facility] Gaston's Test N/A 03/05/2024 4:00 PM CDT [facility] O[facility] Device Room Air 03/05/2024 4:00 PM CDT [facility] Blood BLOOD SPECIMEN / Unknown 03/05/2024 3:33 PM CDT 03/05/2024 3:33 PM CDT Wilmer Reyna MD LAB - BLOOD GASES ORDERABLES [facility] Alphonse Monae [address] * CT Angio Chest Pulm Embolism (03/05/2024 2:43 PM CDT) Anatomical Region Laterality Modality Chest Computed Tomogra phy 03/05/2024 2:57 PM CDT Impressions 03/05/2024 3:03 PM CDT IMPRESSION: 1. No evidence of an acute pulmonary embolus. > Interpreting Provider: Thom Longoria DO on 03/05/2024 3:03 PM Narrative 03/05/2024 3:03 PM CDT PROCEDURE: CT ANGIO CHEST PULM EMBOLISM DATE/TIME OF EXAM: 03/05/2024 2:46 PM CLINICAL INFORMATION: Shortness of breath. COMPARISON: Chest radiograph 03/05/2024. TECHNIQUE: CT angiography of the chest was performed without IV contrast followed by IV contrast, including 3D post processing CTA image reconstruction. CT angiography of the chest was performed with IV contrast. MIP (maximum intensity projection) images or 3D post processing was performed. CT dose reduction technique was used including Automated Exposure Control CONTRAST: IOPAMIDOL 76 % IV SOLN:90 mL FINDINGS: Pulmonary arteries are appropriately opacified and no intraluminal filling defects are noted to indicate the presence of acute pulmonary emboli. Normal heart size. Trace pericardial effusion. Aorta is nonaneurysmal. Left vertebral artery arises as a separate branch from the aortic arch which is an anatomic variant. There is no mediastinal or hilar lymphadenopathy. Central airways are patent. There is no lung consolidation noted. No pleural effusion or pneumothorax. No thyroid enlargement. No bulky supraclavicular, internal mammary or axillary lymphadenopathy. Limited assessment of upper abdomen is without an acute abnormality. 1.6 cm nodule left adrenal gland demonstrates attenuation values less than 0 Hounsfield units, typical of an adenoma. Thoracic alignment and curvature is normal. There is no compression fracture, aggressive bone or endplate destructive process. Interbody spacer C6-C7. Procedure Note Thom Longoria DO - 03/05/2024 PROCEDURE: CT ANGIO CHEST PULM EMBOLISM DATE/TIME OF EXAM: 03/05/2024 2:46 PM CLINICAL INFORMATION: Shortness of breath. COMPARISON: Chest radiograph 03/05/2024. TECHNIQUE: CT angiography of the chest was performed without IV contrast followedby IV contrast, including 3D post processing CTA image reconstruction. CT angiography of the chest was performed with IV contrast. MIP (maximum intensity projection) images or 3D post processing was performed. CTdose reduction technique was used including Automated Exposure Control CONTRAST: IOPAMIDOL 76 % IV SOLN:90 mL FINDINGS: Pulmonary arteries are appropriately opacified and no intraluminalfilling defects are noted to indicate the presence of acute pulmonary emboli. Normal heart size. Trace pericardial effusion. Aorta is nonaneurysmal.Left vertebral artery arises as a separate branch from the aortic arch whichis an anatomic variant. There is no mediastinal or hilar lymphadenopathy. Central airways are patent. There is no lung consolidation noted. No pleural effusion orpneumothorax. No thyroid enlargement. No bulky supraclavicular, internal mammary or axillary lymphadenopathy. Limited assessment of upper abdomen is withoutan acute abnormality. 1.6 cm nodule left adrenal gland demonstrates attenuation values less than 0 Hounsfield units, typical of an adenoma. Thoracic alignment and curvature is normal. There is no compression fracture, aggressive bone or endplate destructive process. Interbodyspacer C6-C7. IMPRESSION: 1. No evidence of an acute pulmonary embolus. > Interpreting Provider: Thom Longoria DO on 03/05/2024 3:03 PM [address] Reyna MD CT ORDERABLES * TROPONIN-I HIGH SENSITIVE REFLEX 1HOUR (03/05/2024 2:18 PM CDT) Troponin I High Sensitive <3 <=14 ng/L 03/05/2024 2:48 PM CDT [facility] Delta Troponin I HS 03/05/2024 2:48 PM CDT [facility] Comment:Result exceeds linea rity range. A delta value is unable to be calculated. Blood BLOOD SPECIMEN / Unknown Venipuncture / Unknown 03/05/2024 2:18 PM CDT 03/05/2024 2:23 PM CDT Wilmer Reyna MD LAB - CHEMISTRY OR DERABLES Performing Organization Address City/[facility] Co de Phone Number [facility] [address] [place] [address] * TROPONIN-I HIGH SENSITIVE BASELINE + 1HR (03/05/2024 1:04 PM CDT) Only the most recent of2 resultswithin the time period is included. Pathologist [facility] Troponin I High Sensitive <3 <=14 ng/L 03/05/2024 1:31 PM CDT [facility] Blood BLOOD SPECIMEN / Unknown Venipuncture / Unknown 03/05/2024 1:04 PM CDT 03/05/2024 1:08 PM CDT Wilmer Reyna MD LAB - CHEMISTRY OR DERABLES Performing Organization Address [facility] de Phone Number [facility] [address] [place] [address] * (ABNORMAL) CBC W AUTO DIFFERENTIAL (03/05/2024 1:04 PM CDT) Only the most recent of13 resultswithin the time period is included. Pathologist [facility] WBC 15.7(H) 4.0 - 10.7 x10E9/L 03/05/2024 1:10 PM CDT [facility] RBC Count 4.98 3.90 - 5.20 x10E12/L 03/05/2024 1:10 PM CDT [facility] Hemoglobin 13.5 11.9 - 15.8 g/dL 03/05/2024 1:10 PM CDT [facility] Hematocrit 41.6 34.8 - 46.1 % 03/05/2024 1:10 PM CDT [facility] MCV 83.5 80.0 - 98.0 fL 03/05/2024 1:10 PM CDT [facility] MCH 27.1 26.7 - 33.6 pg 03/05/2024 1:10 PM [facility] MCHC 32.5 31.7 - 36.3 g/dL 03/05/2024 1:10 PM [facility] RDW-CV 14.7 11.3 - 14.8 % 03/05/2024 1:10 PM [facility] Platelet Count 297 150 - 420 x10E9/L 03/05/2024 1:10 PM [facility] MPV 9.4 7.8 - 11.4 fL 03/05/2024 1:10 PM [facility] Neutrophil % 77.7(H) 41.0 - 74.0 % 03/05/2024 1:10 PM [facility] Lymphocyte % 18.4 17.0 - 47.0 % 03/05/2024 1:10 PM [facility] Monocyte % 2.9(L) 3.0 - 11.0 % 03/05/2024 1:10 PM [facility] Eosinophil % 0.2 0.0 - 7.0 % 03/05/2024 1:10 PM [facility] Basophil % 0.3 0.0 - 1.6 % 03/05/2024 1:10 PM [facility] Immature Granulocytes % 0.5 0.0 - 1.0 % 03/05/2024 1:10 PM [facility] Neutrophil Absolute 12.15(H) 1.60 - 7.50 x10E9/L 03/05/2024 1:10 PM [facility] Lymphocyte Absolute 2.88 1.00 - 4.40 x10E9/L 03/05/2024 1:10 PM [facility] Monocyte Absolute 0.46 0.15 - 1.00 x10E9/L 03/05/2024 1:10 PM [facility] Eosinophil Absolute 0.03 0.00 - 0.60 x10E9/L 03/05/2024 1:10 PM [facility] Basophil Absolute 0.05 0.00 - 0.13 x10E9/L 03/05/2024 1:10 PM [facility] Blood BLOOD SPECIMEN / Unknown Venipuncture / Unknown 03/05/2024 1:04 PM CDT 03/05/2024 1:08 PM CDT Wilmer Reyna MD LAB - HEMATOLOGY O RDERABLES Performing Organization Address [facility] Co de Phone Number [facility] [address] [place] [address] * B-TYPE NATRIURETIC PEPTIDE (03/05/2024 1:04 PM CDT) BNP 14 <=100 pg/mL 03/05/2024 1:31 PM CDT [facility] Blood BLOOD SPECIMEN / Unknown Venipuncture / Unknown 03/05/2024 1:04 PM CDT 03/05/2024 1:08 PM CDT Narrative [facility] - 03/05/2024 1:31 PM CDT A cutoff of 100 pg/mL has been demonstrated to provide the maximal combination of sensitivity, specificity, and negative predictive value for contributing to the diagnosis of congestive heart failure (CHF) only. A B-Type Natriuretic Peptide (BNP) value greater than or equal to 100 pg/mL is consistent with a diagnosis of CHF in the appropriate clinical setting. False positive results are more common in females greater than 75 years of age. Blood concentrations of natriuretic peptides may also be elevated in patients with myocardial infarction and in patients who are candidates for or are undergoing renal dialysis. Wilmer Reyna MD LAB - CHEMISTRY OR DERABLES Performing Organization Address [facility] Co de Phone Number [facility] [address] [place] [address] * (ABNORMAL) COMPREHENSIVE METABOLIC PANEL (03/05/2024 1:04 PM CDT) Only the most recent of10 resultswithin the time period is included. Glucose 202(H) 70 - 99 mg/dL 03/05/2024 1:26 PM CDT [facility] Sodium 139 136 - 145 mmol/L 03/05/2024 1:26 PM CDT [facility] Potassium 4.3 3.5 - 5.1 mmol/L 03/05/2024 1:26 PM CDT [facility] Chloride 108(H) 98 - 107 mmol/L 03/05/2024 1:26 PM CDT [facility] CO2 18(L) 22 - 29 mmol/L 03/05/2024 1:26 PM CDT [facility] Calcium 9.5 8.4 - 10.4 mg/dL 03/05/2024 1:26 PM CDT [facility] Anion Gap 13 6 - 16 mmol/L 03/05/2024 1:26 PM CDT [facility] BUN 14 5.3 - 18.7 mg/dL 03/05/2024 1:26 PM CDT [facility] Creatinine 0.80 0.57 - 1.11 mg/dL 03/05/2024 1:26 PM [facility] Alkaline Phosphatase 82 40 - 150 U/L 03/05/2024 1:26 PM CDT [facility] ALT 20 0 - 55 U/L 03/05/2024 1:26 PM CDT [facility] AST 24 5 - 34 U/L 03/05/2024 1:26 PM [facility] Protein Total 7.5 6.4 - 8.3 gm/dL 03/05/2024 1:26 PM [facility] Albumin 3.7 3.4 - 5.0 gm/dL 03/05/2024 1:26 PM [facility] Bilirubin Total 0.3 0.2 - 1.2 mg/dL 03/05/2024 1:26 PM [facility] eGFR by CKD-EPI >90 >=90 mL/min/1.7 3 m2 03/05/2024 1:26 PM [facility] Blood BLOOD SPECIMEN / Unknown Venipuncture / Unknown 03/05/2024 1:04 PM CDT 03/05/2024 1:08 PM CDT Wilmer Reyna MD LAB - CHEMISTRY OR DERABLES [facility] [address] [place] [address] * HCG BLOOD QUALITATIVE (03/05/2024 1:04 PM CDT) HCG Qual Serum Negative Negative 03/05/2024 1:18 PM CDT [facility] Blood BLOOD SPECIMEN / Unknown Venipuncture / Unknown 03/05/2024 1:04 PM CDT 03/05/2024 1:08 PM CDT Narrative [facility] - 03/05/2024 1:18 PM CDT Specimens containing human anti-mouse antibodies may exhibit false positive or false negative results. If qualitative interpretation is inconsistent with clinical evaluation, consider confirmation by an alternative hCG method. Specimens containing human anti-mouse antibodies may exhibit false positive or false negative results. If qualitative interpretation is inconsistent with clinical evaluation, consider confirmation by an alternative hCG method. Wilmer Reyna MD LAB - CHEMISTRY OR DERABLES [facility] [address] [address] * XR CHEST 1VW PORTABLE (03/05/2024 12:04 PM CDT) Anatomical Region Laterality Modality Chest Radiographic Hernan ging 03/05/2024 12:0 8 PM CDT Narrative 03/05/2024 12:08 PM CDT Portable AP Chest x-ray INDICATION: R06.02: Shortness of breath COMPARISON: None FINDINGS: There is no focal infiltrate or consolidation. Heart size is normal. No evidence of pneumothorax or pleural effusion. A mass is not detected. > Interpreting Provider: Manoj Goff JR, MD on 03/05/2024 12:08 PM Procedure Note Manoj Goff MD - 03/05/2024 Portable AP Chest x-ray INDICATION: R06.02: Shortness of breath COMPARISON: None FINDINGS: There is no focal infiltrate or consolidation. Heart size is normal. No evidence of pneumothorax or pleural effusion. A mass is not detected. > Interpreting Provider: Manoj Goff JR, MD on 03/05/2024 12:08 PM Wilmer Reyna MD DIAGNOSTIC IMAGING ORDERABLES * EKG 12-LEAD (03/05/2024 11:45 AM CDT) Only the most recent of2 resultswithin the time period is included. [facility] Signature Ventricular Rate 71 BPM [facility] Atrial Rate 71 BPM [facility] P-R Interval 148 ms [facility] QRS Duration ms 80 ms [facility] Q-T Interval ms 386 ms [facility] QTC Calculation (Bezet) 419 ms [facility] Calculated P [place] 16 degrees [facility] Calculated R [place] 18 degrees [facility] Calculated T [place] 16 degrees [facility] Interpretation EKG Normal sinus rhythm Normal ECG When compared with ECG of 01-MAY-2023 10:06, No significant change was found Confirmed by Francisco J Reis MD ([id number]) on 03/05/2024 12:13:13 PM [facility] 03/05/2024 11:4 5 AM CDT 03/05/2024 12:13 PM CDT Wilmer Reyna MD ECG ORDERABLES [facility] * MAMMO BILAT SCREENING W EDGAR (12/13/2023 10:42 AM CDT) Anatomical Region Laterality Modality Breast Bilateral Mammography 12/15/2023 8:56 AM CDT Impressions 12/15/2023 8:59 AM CDT : No mammographic evidence of malignancy in either breast. ASSESSMENT: BIRADS Category 1: Negative mammogram. RECOMMENDATION: Bilateral screening mammogram in one year. Thank you for allowing us to participate in the care of your patient. [facility] [place] [facility] utilizes [employer] as a reminder system to notify patients [...] images. Lyle Hutchins MD MAMMO ORDERABLES * SKIN TEST PPD - POINT OF CARE (12/11/2023 1:06 PM CDT) PPD negative [facility] Other MISCELLANEOUS SAMPLE S / Unknown 12/11/2023 1:06 PM CDT Sloane Schultz POPULATION GENETICIST-SHUTTLE INSPECTOR LAB - POINT OF C ARE ORDERABLES Performing Organization Address [facility] de Phone Number [facility] [address] [phone] * SARS-COV-2 (COVID-19)+INFLU A+B AG (AMB) POC (09/25/2023 1:21 PM CDT) Only the most recent of2 resultswithin the time period is included. Pathologist [facility] Influenza A Antigen Rapid Negative Negative [facility] Influenza B Antigen Rapid Negative Negative [facility] SARS-CoV-2 Ag Negative Negative [facility] COVID Internal Control Acceptable Acceptable [facility] Lot # [id number] [facility] Expiration Date 06/01/2024 [facility] Instrument Serial Number na [facility] Microbiology SPECIMEN FROM NASAL FOSSAE / Unknown 09/25/2023 1:21 PM CDT Slonaepierre Schultz POPULATION GENETICIST-[facility] LAB - POINT OF C ARE ORDERABLES Performing Organization Address [facility] de Phone Number [facility] [address] [place] [address], [facility] [[email or web address]] [phone] * STREP A SCREEN - POINT OF CARE (AMB) (09/25/2023 1:20 PM CDT) Only the most recent of2 resultswithin the time period is included. Strep A Rapid POCT Negative Negative [facility] Strep A Internal Control Present [facility] Other ENTIRE THROAT (SURFACE REGION OF NECK) / Unknown 09/25/2023 1:20 PM CDT Sloanepierre Schultz POPULATION GENETICIST-SHUTTLE INSPECTOR LAB - POINT OF C ARE ORDERABLES [facility] [address] [place] [address], [facility] [[email or web address]] [phone] * XR SHOULDER LEFT 2VW OR MORE (05/01/2023 11:43 AM FINISH REPAIR WORKER) Only the most recent of2 resultswithin the time period is included. Anatomical Region Laterality Modality Upper Extremity Radiographic Hernan ging 05/01/2023 11:5 0 AM FINISH REPAIR WORKER Narrative 05/01/2023 11:50 AM FINISH REPAIR WORKER PROCEDURE(s): XR SHOULDER LEFT 2VW OR MORE DATE AND TIME OF EXAM(s): 05/01/2023 11:43 AM INDICATION(s): R53.1: Weakness R55: Syncope and collapse COMPARISON(s): None available. FINDINGS/IMPRESSION: No acute fracture or dislocation. Bone density and texture are normal. The joint spaces are maintained. There is no significant soft tissue swelling. > Interpreting Provider: Neno Chappell MD on 05/01/2023 11:50 AM Procedure Note Neno Chappell MD - 05/01/2023 PROCEDURE(s): XR SHOULDER LEFT 2VW OR MORE DATE AND TIME OF EXAM(s): 05/01/2023 11:43 AM INDICATION(s): R53.1: Weakness R55: Syncope and collapse COMPARISON(s): None available. FINDINGS/IMPRESSION: No acute fracture or dislocation. Bone density and texture are normal.The joint spaces are maintained. There is no significant soft tissueswelling. > Interpreting Provider: Neno Chappell MD on 05/01/2023 11:50 AM Mike House MD DIAGNOSTIC IMAGIN G ORDERABLES * CT HEAD WO CONTRAST (05/01/2023 11:24 AM FINISH REPAIR WORKER) Anatomical Region Laterality Modality Head Computed Tomogra phy 05/01/2023 11:2 9 AM FINISH REPAIR WORKER Impressions 05/01/2023 11:32 AM FINISH REPAIR WORKER IMPRESSION: 1. No acute intracranial abnormality is identified. > Interpreting Provider: Thom Longoria DO on 05/01/2023 11:32 AM Narrative 05/01/2023 11:32 AM FINISH REPAIR WORKER PROCEDURE: CT HEAD WO CONTRAST DATE/TIME OF EXAM: 05/01/2023 11:24 AM CLINICAL INFORMATION: Weakness for 2 days. Epistaxis. Headache. COMPARISON: None. TECHNIQUE: Noncontrast CT brain was performed utilizing standard protocol. CT dose reduction technique was used, including Automated Exposure Control. Viz AI used for intracranial hemorrhage detection FINDINGS: There is no mass effect, midline shift or acute intracranial hemorrhage. Appearing white matter. No CT evidence of an acute infarction. There is no depressed calvarial fracture. The sinuses and mastoids are clear. Orbital contents are unremarkable. Procedure Note Thom Longoria DO - 05/01/2023 PROCEDURE: CT HEAD WO CONTRAST DATE/TIME OF EXAM: 05/01/2023 11:24 AM CLINICAL INFORMATION: Weakness for 2 days. Epistaxis. Headache. COMPARISON: None. TECHNIQUE: Noncontrast CT brain was performed utilizing standard protocol. CT dose reduction technique was used, including Automated ExposureControl. Viz AI used for intracranial hemorrhage detection FINDINGS: There is no mass effect, midline shift or acute intracranial hemorrhage. Appearing white matter. No CT evidence of an acute infarction. There is no depressed calvarial fracture. The sinuses and mastoids are clear. Orbital contents are unremarkable. IMPRESSION: 1. No acute intracranial abnormality is identified. > Interpreting Provider: Thom Longoria DO on 05/01/2023 11:32 [address] House MD CT ORDERABLES * (ABNORMAL) URINALYSIS REFLEX MICROSCOPIC REFLEX CULTURE (05/01/2023 11:23 AM FINISH REPAIR WORKER) Only the most recent of6 resultswithin the time period is included. Color UA Yellow Straw, Yellow 05/01/2023 11:39 AM FINISH REPAIR WORKER [facility] Clarity UA Clear Clear 05/01/2023 11:39 AM FINISH REPAIR WORKER [facility] Glucose UA Negative Negative 05/01/2023 11:39 AM FINISH REPAIR WORKER [facility] Bilirubin UA Negative Negative 05/01/2023 11:39 AM FINISH REPAIR WORKER [facility] Ketone UA 1+(A) Negative 05/01/2023 11:39 AM FINISH REPAIR WORKER [facility] Specific [place] UA 1.014 1.005 - 1.030 05/01/2023 11:39 AM FINISH REPAIR WORKER [facility] Blood UA Negative Negative 05/01/2023 11:39 AM FINISH REPAIR WORKER [facility] pH UA 6.0 5.0 - 8.0 pH 05/01/2023 11:39 AM FINISH REPAIR WORKER [facility] Protein UA Negative Negative 05/01/2023 11:39 AM FINISH REPAIR WORKER [facility] Urobilinogen UA Negative Negative mg/dL 05/01/2023 11:39 AM FINISH REPAIR WORKER [facility] Nitrite UA Negative Negative 05/01/2023 11:39 AM FINISH REPAIR WORKER [facility] Leukocyte UA Negative Negative 05/01/2023 11:39 AM FINISH REPAIR WORKER [facility] Urine Microscopy Urine microscopy not indicated 05/01/2023 11:39 AM FINISH REPAIR WORKER [facility] Reflex Status Culture not indicated 05/01/2023 11:[address] [facility] Urine URINE SPECIMEN OBTAINED BY CLEAN CATCH PROCEDURE / Unknown Collection / Unknown 05/01/2023 11:23 AM FINISH REPAIR WORKER 05/01/2023 11:24 AM FINISH REPAIR WORKER Narrative [facility] - 05/01/2023 11:39 AM FINISH REPAIR WORKER Mike House MD LAB - URINALYSIS ORDERABLES Performing Organization Address City/State/[facility] Co de Phone Number [facility] [address] [place] [address] * PAIN MANAGEMENT PROCEDURE TIME (06/18/2022 4:22 PM FINISH REPAIR WORKER) Only the most recent of3 resultswithin the time period is included. Anatomical Region Laterality Modality X-Ray Angiograph y Narrative 06/18/2022 4:22 PM Lyle Beach MD 06/18/2022 4:33 PM [facility] Left sided L4 and L5 transforaminal LEBRON. The patient was identified in the holding area and the operative permit was explained and signed. I have discussed with the patient the risks, benefits, side effects and complications of a fluoroscopically guided transforaminal lumbar nerve root steroid injection. I have answered the patient's questions regarding the procedure and have given the patient the opportunity to refuse the procedure. I also have discussed alternative methods of treatment. The patient stated understanding of the procedure and wished to proceed with a fluoroscopically guided transforaminal lumbar nerve root steroid injection. The patient was taken to the fluoroscopic suite and placed on a C-arm table in the prone position with the appropriate monitors applied. A nurse was in attendance for the duration of the procedure to carefully monitor the patient. Please refer to the nursing record for vital sign documentation and for any doses of sedatives and medications. I was present and gave the order for any medications given to the patient. The procedure was performed on the Left L4 and L5 nerve roots. The lumbosacral region of the back was prepped and draped in the usual sterile fashion. The fluoroscopic unit was manipulated in a caudad/cephalad position until the disc spaces of the joints were in clear focus. The unit was then positioned in the oblique view until the pedicle and articulating processes were clearly visible. The skin and subcutaneous tissues overlying tissues were anesthetized with 2 cc of 1% Lidocaine via a 27-gauge needle. Using fluoroscopic guidance, a 22 gauge Quincke needle was placed on the six o'clock position of the pedicle. The needle was then slowly walked off the lamina into the nerve root foramen. A lateral fluoroscopic projection showed the needle tip entering the superior posterior aspect of the L4 intervertebral foramen. This procedure was repeated in an identical fashion at the L5 level. Using AP fluoroscopic projection, 0.3 cc of Isovue M 200 was injected through each needle with live fluoroscopy and a neurogram was produced. There was clear dye spread through each nerve root sheath and into the epidural space. No vascular uptake was noted. There was no cerebrospinal fluid or blood aspirated from the needle. A preservative free solution of 5 mg of Dexamethasone and 1.0 cc of 0.25% Bupivacaine were injected at each level approached. There were no signs or symptoms of intrathecal or intravascular injection. The needle was removed intact and hemostasis was appreciated. The patient tolerated the procedure well and there were no complications. The patient was taken to the recovery area. The patient remained in stable condition with no apparent complications. Postprocedure instructions were given to the patient and a follow up appointment was confirmed. The patient was also discharged with information on how to reach the clinic or training personnel supervisor physician at anytime for questions or complaints. Estimated blood loss during procedure 0 ml. Lyle Gonzalez MD DIAGNOSTIC IMAGIN G ORDERABLES * LACTIC ACID BLOOD REFLEX TO REPEAT (01/12/2022 1:08 PM CDT) Pathologist [facility] Lactic Acid 1.58 <=2 mmol/L 01/12/2022 1:23 PM CDT [facility] Blood BLOOD SPECIMEN / Unknown Venipuncture / Unknown 01/12/2022 1:08 PM CDT 01/12/2022 1:12 PM CDT Dia [facility]ER[facility] LAB - CHEMISTRY ALEX RANGEL Performing Organization Address [facility] de Phone Number [facility] [address] [place] [phone] * (ABNORMAL) C-REACTIVE PROTEIN (01/12/2022 1:08 PM CDT) Only the most recent of2 resultswithin the time period is included. [facility] C-Reactive Protein 2.27(H) <=0.50 mg/dL 01/12/2022 1:30 PM CDT [facility] Blood BLOOD SPECIMEN / Unknown Venipuncture / Unknown 01/12/2022 1:08 PM CDT 01/12/2022 1:12 PM CDT Dia Hammond PA-C LAB - CHEMISTRY ALEX RANGEL Performing Organization Address [facility] de Phone Number [facility] [address], [place] [id number] * ERYTHROCYTE SEDIMENTATION RATE (01/12/2022 1:08 PM CDT) Only the most recent of3 resultswithin the time period is included. [facility] Erythrocyte Sedimentation Rate Automated 17 0 - 20 MM/HR 01/12/2022 1:24 PM CDT [facility] Blood BLOOD SPECIMEN / Unknown Venipuncture / Unknown 01/12/2022 1:08 PM CDT 01/12/2022 1:12 PM CDT Dia DENNIS-C LAB - HEMATOLOGY ORD ERAARACELI Performing Organization Address City/[facility]/ZIP Co de Phone Number [facility] [address] [place] [phone] * XR FOOT LEFT 3VW OR MORE (01/07/2022 4:49 PM CDT) Anatomical Region Laterality Modality Ankle / Foot Radiographic Hernan ging 01/07/2022 4:58 PM CDT Impressions 01/07/2022 5:00 PM CDT IMPRESSION: 1. Mild soft tissue thickening at the dorsal aspect of the left foot at the level of the metatarsals which is probably edema. 2. Mild degenerative changes at the first metatarsal phalangeal joint. 3. Small bone spur along the plantar aspect of the left calcaneus. > Interpreting Provider: Tristan Ott MD on 01/07/2022 5:00 PM Narrative 01/07/2022 5:00 PM CDT PROCEDURE: XR FOOT LEFT 3VW OR MORE, DATE/TIME OF EXAM: 01/07/2022 4:49 PM, LOCATION [facility] INDICATION: M79.642: Pain in left hand M79.672: Pain in left foot ADDITIONAL CLINICAL INFORMATION: Ordering Provider Reason For Exam: Wound. Pain. Redness. Bruising. Technologist Note: Additional: COMPARISON: None. FINDINGS: 3 views of the left foot were performed. There is no fracture identified. There is mild joint space narrowing at the lateral aspect of the first metatarsal phalangeal joint representing mild degenerative changes. There is a small bone spur seen along the plantar aspect of the left calcaneus measuring 8 mm. There is mild soft tissue thickening seen along the dorsal aspect of the foot at the level of the metatarsals suggesting edema and possibly inflammation. Procedure Note Tristan Ott MD - 01/07/2022 PROCEDURE: XR FOOT LEFT 3VW OR MORE, DATE/TIME OF EXAM: 01/07/2022 4:49PM, LOCATION [facility] INDICATION: M79.642: Pain in left hand M79.672: Pain in left foot ADDITIONAL CLINICAL INFORMATION: Ordering Provider Reason For Exam: Wound. Pain. Redness. Bruising. Technologist Note: Additional: COMPARISON: None. FINDINGS: 3 views of the left foot were performed. There is no fractureidentified. There is mild joint space narrowing at the lateral aspect of the first metatarsal phalangeal joint representing mild degenerative changes.There is a small bone spur seen along the plantar aspect of the left calcaneus measuring 8 mm. There is mild soft tissue thickening seen along thedorsal aspect of the foot at the level of the metatarsals suggesting edema and possibly inflammation. IMPRESSION: 1. Mild soft tissue thickening at the dorsal aspect of the left foot atthe level of the metatarsals which is probably edema. 2. Mild degenerative changes at the first metatarsal phalangeal joint. 3. Small bone spur along the plantar aspect of the left calcaneus. > Interpreting Provider: Tristan Ott MD on 01/07/2022 5:00 PM Terrance Noonan MD DIAGNOSTIC IMAGING O RDERABLES * VAS LEFT VENOUS DUPLEX LE (01/07/2022 4:41 PM CDT) Anatomical Region Laterality Modality Lower Extremity, Upper Extremity Ultrasound 01/07/2022 6:25 PM CDT Narrative Procedure Note Tad Del Valle MD - 01/07/2022 Hospital/Clinic Name Lower Extremity Venous Ultrasound Report Pat.Name: REED JEAN CARLOS Melissa Pat.ID: [id number] .Date: 01/07/2022 Refer.MD: Terrance Noonan Exam Time: 6:25:00 PM Study Type:LE Venous Age: 3 1980,41Y Sex: FEMALE Sonogrphr: Joann De Leon RDMS, RVT Pat. Stat.:Outpatient Room: ER Reason for Study: Pain -Leg, left History / Clinical: Hypertension, Diabetes, Obesity Procedures: Lower Extremity Venous - Left Race: [facility] Visit ID: [id number] ++++++++++++++++++++++++++++++++++++ SUMMARY: ++++++++++++++++++++++++++++++++++++ No evidence of deep or superficial venous thrombosis of the left lower extremity. ++++++++++++++++++++++++++++++++++++ FINDINGS: ++++++++++++++++++++++++++++++++++++ Procedure: Venous duplex imaging of the left lower extremity was performed using color flow and spectral Doppler analysis. The contralateral common femoral vein was also examined. Study Quality: This study is of adequate technical quality. Lt Leg: All vessels seen appear patent and compressible. There was spontaneous and phasic flow seen in all major veins of the left lower extremity. Appropriate augmentation with distal compression. The right common femoral vein demonstrated phasic and spontaneous flow. Comments: No acute DVT seen. Signed 01/07/2022 04:50 PM Tad Del Valle MD Terrance Noonan MD VASCULAR LAB ORDERAB LES * (ABNORMAL) HEMOGLOBIN A1C (EXTERNAL RESULT ENTRY) (11/22/2021) Hemoglobin A1c (EXTERNAL RESULT) 6.6(H) % OUTSIDE REFERENCE LAB Comment:Endocrinology, [facility] - via Scanned Document Blood BLOOD SPECIMEN / Unknown 11/22/2021 Historical Provider LAB - CHEMISTRY O RDERABLES OUTSIDE REFERENCE LAB * WI INSERT NON-INDWELLING BLADDER (10/19/2021 2:45 PM CDT) Narrative Rhea Kerns Che, MD - 10/19/2021 2:45 PM CDT Rhea Kerns Che, MD 10/19/2021 2:46 PM The patient was prepped with betadine (or with hibiclens or other antiseptic agent if allergic to topical iodine). She understood the rationale for the procedure and agreed to the procedure. A 14F short female catheter was then advanced into the urethra and urine was collected for bedside urinalysis as well as a urine culture and/or formal urinalysis as needed. The post void residual is as noted in the progress note, as are results of the dipstick taken. The patient tolerated the procedure well. Rhea Kerns MD PROCEDURE/MINOR SURG ICAL ORDERABLES * CULTURE URINE COMPREHENSIVE (10/19/2021 2:30 PM CDT) Culture [facility] Comment: CULTURE, URINE, SPECIAL Micro Number: [id number] Test Status: Final Specimen Source: Urine, catheter Specimen Quality: Adequate Result: No Growth Test Performed at: [address] [id number] JEFRY HARRIS MD Microbiology URINE SPECIMEN COLLECTION, CATHETERIZED / Unknown 10/19/2021 2:30 PM CDT 10/20/2021 12:36 AM CDT Rhea Kerns MD LAB - MICROBIOLOGY O RDERABLES [address] [address] * URINALYSIS AUTO - POINT OF CARE (AMB) [facility] (10/19/2021) Glucose UA neg Bilirubin UA POCT neg Ketones UA POCT neg Specific [place] UA 1.010 Blood Urine POCT neg pH UA 6.0 Protein UA neg Urobilinogen UA 0.2 Nitrite UA neg WBC UA neg Urine URINE / Unknown 10/19/2021 Rhea Kerns MD LAB - POINT OF CARE ORDERABLES * CT RENAL STONE - suspected stone disease (10/06/2021 1:13 PM CDT) Anatomical Region Laterality Modality Abdomen Computed Tomogra phy 10/06/2021 1:20 PM CDT Impressions 10/06/2021 1:22 PM CDT No acute abdominal or pelvic pathology. Fatty infiltration of the liver. *Reading Radiologist: Mio Elaine on 10/06/2021 at 1:22 PM Narrative 10/06/2021 1:[address] ABDOMEN AND PELVIS WITHOUT CONTRAST Clinical Indication: Dysuria Technique: Axial CT images from the lung bases through the pubic symphysis were obtained without intravenous contrast. Radiation dose reduction technique was utilized. Comparison is made with CT abdomen pelvis dated September 25, 2018 Findings: The lung bases are clear. The liver is hypoattenuating consistent with fatty infiltration. No hepatic masses are noted. The patient status post cholecystectomy. The spleen, pancreas and adrenal glands are normal appearing. The kidneys, ureters and bladder appear normal. No obstructive uropathy is seen. The bowel appear normal without obstruction or perforation. No inflammatory changes are noted. No abnormal lymph nodes, fluid collections or free air noted. Abdominal vasculature appears normal. The ovaries and uterus are not identified. The anterior abdominal wall is intact. Degenerative disc disease seen at L5-S1. No suspicious skeletal lesions are seen. Procedure Note Mio Elaine, DO - 10/06/2021 CT ABDOMEN AND PELVIS WITHOUT CONTRAST Clinical Indication: Dysuria Technique: Axial CT images from the lung bases through the pubic symphysis were obtained without intravenous contrast. Radiation dose reduction technique was utilized. Comparison is made with CT abdomen pelvis dated September 25, 2018 Findings: The lung bases are clear. The liver is hypoattenuating consistent with fatty infiltration. No hepatic masses are noted. The patient status post cholecystectomy. The spleen, pancreas and adrenal glands are normal appearing. The kidneys, ureters and bladder appear normal. No obstructive uropathy is seen. The bowel appear normal without obstruction or perforation. No inflammatory changes are noted. No abnormal lymph nodes, fluid collections or free air noted. Abdominal vasculature appears normal. The ovaries and uterus are not identified. The anterior abdominal wall is intact. Degenerative disc disease seen at L5-S1. No suspicious skeletal lesions are seen. IMPRESSION No acute abdominal or pelvic pathology. Fatty infiltration of the liver. *Reading Radiologist: Mio Elaine on 10/06/2021 at 1:22 PM Chelsie Padron POPULATION GENETICIST-SHUTTLE INSPECTOR CT ORDERABL ES * IMAGING RADIOLOGY XRAY RESULTS ORDER (06/09/2021) Only the most recent of3 resultswithin the time period is included. Anatomical Region Laterality Modality Other 06/09/2021 Narrative 06/09/2021 Ordered by an unspecified provider. Scanned Document IMAGING * LAB RESULTS ORDER (03/18/2021) Only the most recent of3 resultswithin the time period is included. 03/18/2021 Narrative 03/18/2021 Ordered by an unspecified provider. Scanned Document LAB - THERAPEUTIC DR ISAMAR MONITORING ORDERABLES * SARS-COV-2 (COVID-19) AG (AMB) POCT- BE (03/15/2021 9:42 AM CDT) SARS-CoV-2 Ag Negative Negative [facility] Lot # [id number] [facility] Expiration Date 04/24/2022 [facility] Instrument Serial Number [id number] [facility] COVID Internal Control Acceptable Acceptable [facility] Microbiology SPECIMEN FROM NASAL FOSSAE / Unknown 03/15/2021 9:42 AM CDT Lina Kaplan POPULATION GENETICIST-SHUTTLE INSPECTOR LAB - POINT OF CARE ORDERABLES [facility] [address], [address] [phone] * DEXA BONE DENSITY 2 SITES (03/06/2021) Anatomical Region Laterality Modality Other 03/06/2021 Narrative 03/06/2021 Ordered by an unspecified provider. Scanned Document DEXA ORDERABLES * XR KNEE LEFT 3VW (02/26/2021 3:42 PM CDT) Anatomical Region Laterality Modality Lower Extremity Radiographic Hernan ging 02/26/2021 6:22 PM CDT Impressions 02/26/2021 6:26 PM CDT Degenerative change at knee with mild narrowing of medial knee joint compartment and with spur formation felt to be present at superior patellar articular margin. No apparent fracture, dislocation, or bone destruction. *Reading Radiologist: Nickolas Rebolledo on 02/26/2021 at 6:26 PM Narrative 02/26/2021 6:26 PM CDT LEFT KNEE 4 VIEWS 02/26/2021 HISTORY: Chronic left knee pain. Patient complains of morning stiffness and swelling of knee as the day progresses. No recent injury. COMPARISON: 02/26/2021 AP weightbearing view of knees. Procedure Note Nickolas Rebolledo MD - 02/26/2021 LEFT KNEE 4 VIEWS 02/26/2021 HISTORY: Chronic left knee pain. Patient complains of morning stiffness and swelling of knee as the day progresses. No recent injury. COMPARISON: 02/26/2021 AP weightbearing view of knees. IMPRESSION Degenerative change at knee with mild narrowing of medial knee joint compartment and with spur formation felt to be present at superior patellar articular margin. No apparent fracture, dislocation, or bone destruction. *Reading Radiologist: Nickolas Rebolledo on 02/26/2021 at 6:26 PM Lyle Hutchins MD DIAGNOSTIC IMAGING O RDERABLES * XR KNEE BILAT STANDING 1VW (02/26/2021 3:41 PM CDT) Anatomical Region Laterality Modality Lower Extremity Radiographic Hernan ging 02/26/2021 6:26 PM CDT Impressions 02/26/2021 6:28 PM CDT Degenerative change at bilateral knees with mild narrowing of each medial knee joint compartment. Articular margin spur formation at right medial femoral articular margin. No apparent fracture, dislocation, or bone destruction identified at either knee on this one view study. *Reading Radiologist: Nickolas Rebolledo on 02/26/2021 at 6:28 PM Narrative 02/26/2021 6:28 PM CDT BILATERAL KNEES WITH WEIGHTBEARING ONE VIEW 02/26/2021 HISTORY: Chronic left knee pain. Patient complains of morning stiffness and swelling of left knee as the day progresses. No recent injury. COMPARISON: 02/26/2021 left knee x-rays. Procedure Note Nickolas Rebolledo MD - 02/26/2021 BILATERAL KNEES WITH WEIGHTBEARING ONE VIEW 02/26/2021 HISTORY: Chronic left knee pain. Patient complains of morning stiffness and swelling of left knee as the day progresses. No recent injury. COMPARISON: 02/26/2021 left knee x-rays. IMPRESSION Degenerative change at bilateral knees with mild narrowing of each medial knee joint compartment. Articular margin spur formation at right medial femoral articular margin. No apparent fracture, dislocation, or bone destruction identified at either knee on this one view study. *Reading Radiologist: Nickolas Rebolledo on 02/26/2021 at 6:28 PM Lyle Hutchins MD DIAGNOSTIC IMAGING O RDERABLES * (ABNORMAL) URINALYSIS AUTO - POINT OF CARE (11/24/2020 1:05 PM CDT) Only the most recent of2 resultswithin the time period is included. Clarity UA POCT dark yellow [facility] Color UA POCT Dark [facility] [place] Leukocyte UA Neg Negative [facility] [place] Nitrite UA POCT Neg Negative [facility] [place] Urobilinogen UA 0.2 0.1 - 1.0 [facility] [place] Protein UA POCT +(A) Negative [facility] pH UA 6.0 5.0 - 8.0 pH units [facility] Blood UA Neg Negative [facility] Specific [place] UA POCT 1.030 1.002 - 1.030 [facility] Ketone UA 2+(A) Negative [facility] Bilirubin UA POCT Neg Negative [facility] Glucose UA Neg Negative [facility] Urine URINE / Unknown 11/24/2020 1 :05 PM CDT Lyle Hutchins MD LAB - POINT OF CARE ORDERABLES [facility] [address] [place] [address], [facility] [email or web address]] [phone] * CULTURE URINE (11/24/2020 12:46 PM CDT) Only the most recent of4 resultswithin the time period is included. Urine Culture Routine Final report [facility] INSURANCE BILL Result 1 [facility] INSURANCE BILL Comment: Mixed urogenital varghese 10,000-25,000 colony forming units per mL Urine URINE SPECIMEN OBTAINED BY CLEAN CATCH PROCEDURE / Unknown 11/24/2020 12:46 PM CDT 11/24/2020 Narrative Resulting Agency Comment Lab Testing performed at: [address] [id number] Lyle Hutchins MD LAB - MICROBIOLOGY O [facility] INSURANCE BILL [address] [place] [address] * (ABNORMAL) BASIC METABOLIC PANEL (BMP) (11/02/2020 10:03 AM CDT) Only the most recent of2 resultswithin the time period is included. Glucose 136(H) 65 - 99 mg/dL [facility] Comment: Fasting reference interval For someone without known diabetes, a glucose value >125 mg/dL indicates that they may have diabetes and this should be confirmed with a follow-up test. BUN 10 7 - 25 mg/dL [facility] Creatinine 0.85 0.50 - 1.10 mg/dL [facility] eGFR by MDRD 87 > OR = 60 mL/min/1. 73m2 [facility] eGFR by MDRD 101 > OR = 60 mL/min/1. 73m2 [facility] BUN/Creatinine Ratio NOT APPLICABLE 6 - 22 (calc) [facility] Sodium 137 135 - 146 mmol/L [facility] Potassium 4.2 3.5 - 5.3 mmol/L [facility] Chloride 103 98 - 110 mmol/L [facility] CO2 25 20 - 32 mmol/L [facility] Calcium 9.6 8.6 - 10.2 mg/dL [facility] Comment: Test Performed at: [facility] [address] [place] [address] CHANTE TATUM DO,MPH Blood BLOOD SPECIMEN / Unknown 11/02/2020 10:03 AM CDT 11/02/2020 10:04 AM CDT Lyle Hutchins MD LAB - CHEMISTRY ALEX RANGEL [facility] [address] [place] [address] * (ABNORMAL) HEMOGLOBIN A1C - POINT OF CARE (HgbA1C) (11/02/2020 10:00 AM CDT) Pathologist [facility] Hemoglobin A1c POCT 6.9(H) % [facility] Expiration Date [id number] [facility] [place] Lot # [id number] [facility] [place] QC Verified Yes Yes [facility] Blood BLOOD SPECIMEN / Unknown 11/02/2020 10:00 AM CDT Lyle Hutchins MD LAB - POINT OF CARE ORDERABLES [facility] [address] [place] [address], [facility] [[email or web address]] [phone] * XR LUMBAR SPINE 2 OR 3VW (03/29/2020 1:41 PM CDT) Anatomical Region Laterality Modality Spine Radiographic Hernan ging 03/29/2020 2:11 PM CDT Impressions 03/29/2020 2:13 PM CDT No acute abnormality identified. Postcholecystectomy. Vertebral heights and alignment appear normally maintained. Mild L3-4, L4-5, and L5-S1 disc space narrowing. Lumbar neural arches all appear intact. Bilateral facet arthropathy noted in mid to lower lumbar spine, greatest at L5-S1 level with vacuum joint phenomenon in bilateral facet joints at this level. *Reading Radiologist: Nickolas Rebolledo on 03/29/2020 at 2:13 PM Narrative 03/29/2020 2:13 PM CDT LUMBAR SPINE 5 VIEWS 03/29/2020 HISTORY: Acute bilateral low back pain with left sciatica. Muscle spasm lower back. COMPARISON: None. Procedure Note Nickolas Rebolledo MD - 03/29/2020 LUMBAR SPINE 5 VIEWS 03/29/2020 HISTORY: Acute bilateral low back pain with left sciatica. Muscle spasm lower back. COMPARISON: None. IMPRESSION No acute abnormality identified. Postcholecystectomy. Vertebral heights and alignment appear normally maintained. Mild L3-4, L4-5, and L5-S1 disc space narrowing. Lumbar neural arches all appear intact. Bilateral facet arthropathy noted in mid to lower lumbar spine, greatest at L5-S1 level with vacuum joint phenomenon in bilateral facet joints at this level. *Reading Radiologist: Nickolas Rebolledo on 03/29/2020 at 2:13 PM Lina Kaplan POPULATION GENETICIST-SHUTTLE INSPECTOR DIAGNOSTIC HERNAN GING ORDERABLES * (ABNORMAL) URIC ACID BLOOD (02/22/2020 8:40 AM CDT) Uric Acid 8.4(H) 2.5 - 7.0 mg/dL [facility] Comment: Therapeutic target for gout patients: <6.0 mg/dL Test Performed at: [facility] [address] [place] [address] CHANTE TATUM DO,MPH Blood BLOOD SPECIMEN / Unknown 02/22/2020 8:40 AM CDT 02/22/2020 8:42 AM CDT Lyle Hutchins MD LAB - CHEMISTRY ALEX RANGEL Performing Organization Address [facility] [place] [address] * RHEUMATOID FACTOR BLOOD QUANTITATIVE (RF) (02/22/2020 8:40 AM CDT) Pathologist [facility] Rheumatoid Factor <14 <14 IU/mL [facility] Comment: Test Performed at: [facility] [address] [place] [address] CHANTE TATUM DO,MPH Blood BLOOD SPECIMEN / Unknown 02/22/2020 8:40 AM CDT 02/22/2020 8:42 AM CDT Lyle Hutchins MD LAB - CHEMISTRY ALEX RANGEL Performing Organization Address [facility] [place] [address] * GUILLERMO BLOOD SCREEN W/REFLEX TITER (02/22/2020 8:40 AM CDT) Pathologist [facility] GUILLERMO Screen NEGATIVE NEGATIVE [facility] Comment: GUILLERMO IFA is a first line screen for detecting the presence of up to approximately 150 autoantibodies in various autoimmune diseases. A negative GUILLERMO IFA result suggests an GUILLERMO-associated autoimmune disease is not present at this time, but is not definitive. If there is high clinical suspicion for Sjogren's syndrome, testing for anti-SS-A/Ro antibody should be considered. Anti-Juliana-1 antibody should be considered for clinically suspected inflammatory myopathies. AC-0: Negative International Consensus on GUILLERMO Patterns (https://doi.org/10.1515/yzcd-7988-7608) For additional information, please refer to http://education.[employer].Offermobi/faq/JKM598 (This link is being provided for informational/ educational purposes only.) Test Performed at: [facility] [address] [address] CHANTE TATUM DO,MPH Blood BLOOD SPECIMEN / Unknown 02/22/2020 8:40 AM CDT 02/22/2020 8:42 AM CDT Lyle Hutchins MD LAB - CHEMISTRY ALEX RANGEL Performing Organization Address [facility] de Phone Number [facility] [address] [place] [address] * SS-A/SS-B (SJOGREN'S) ANTIBODY PANEL (02/22/2020 8:40 AM CDT) Sjogren's Antibodies (SSA) <1.0 NEG <1.0 NEG AI [facility] Sjogren's Antibodies (SSB) <1.0 NEG <1.0 NEG AI [facility] Comment: REPORT COMMENT: FASTING:YES Test Performed at: [facility] [address] CHANTE TATUM DO,MPH Blood BLOOD SPECIMEN / Unknown 02/22/2020 8:40 AM CDT 02/22/2020 8:42 AM CDT Lyle Hutchins MD LAB - CHEMISTRY ALEX RANGEL Performing Organization Address [facility] de Phone Number [facility] [address] [place] [address] * CK BLOOD (02/22/2020 8:40 AM CDT) CK 42 29 - 143 U/L [facility] Comment: Test Performed at: [facility] [address] CHANTE TATUM DO,MPH Blood BLOOD SPECIMEN / Unknown 02/22/2020 8:40 AM CDT 02/22/2020 8:42 AM CDT Lyle Hutchins MD LAB - CHEMISTRY ALEX ARNGEL Performing Organization Address [facility] Co de Phone Number [facility] [address] [place] [address] * CT ABDOMEN PELVIS W CONTRAST (09/25/2018 6:34 PM CDT) Only the most recent of4 resultswithin the time period is included. Anatomical Region Laterality Modality Abdomen, Pelvis Computed Tomogra phy 09/25/2018 6:34 PM CDT Narrative 09/25/2018 6:[address] abdomen pelvis HISTORY: Nausea and vomiting and diarrhea TECHNIQUE: Postcontrast imaging with 100 cc Isovue-370 is compared to 08/26/2017 There is a diffuse fatty change liver. The liver is mildly enlarged. No focal hepatic lesion is seen. The gallbladder is absent without biliary duct dilatation The spleen, pancreas and adrenal glands are normal. The kidneys, ureters and bladder are normal. The uterus is surgically absent. No adnexal mass is present. The large and small bowel, appendix and stomach are normal. No free air free fluid is present. The aorta is branches enhance normally. No adenopathy is seen. The lung bases are clear. DIAGNOSIS: No acute intra-abdominal or pelvic abnormality Fatty enlarged liver Reading Radiologist: Kahlil Roque MD on 09/25/2018 at 6:39 PM Procedure Note Kahlil Roque MD - 09/25/2018 CT abdomen pelvis HISTORY: Nausea and vomiting and diarrhea TECHNIQUE: Postcontrast imaging with 100 cc Isovue-370 is compared to 08/26/2017 There is a diffuse fatty change liver. The liver is mildly enlarged. No focal hepatic lesion is seen. The gallbladder is absent without biliary duct dilatation The spleen, pancreas and adrenal glands are normal. The kidneys, ureters and bladder are normal. The uterus is surgically absent. No adnexal mass is present. The large and small bowel, appendix and stomach are normal. No free air free fluid is present. The aorta is branches enhance normally. No adenopathy is seen. The lung bases are clear. DIAGNOSIS: No acute intra-abdominal or pelvic abnormality Fatty enlarged liver Reading Radiologist: Kahlil Roque MD on 09/25/2018 at 6:39 PM Prem Wagner PA-C CT ORDERABLES * LIPASE BLOOD (09/25/2018 4:18 PM CDT) Lipase 31 8 - 78 U/L 09/25/2018 6:37 PM CDT [facility] Blood BLOOD SPECIMEN / Unknown Venipuncture / Unknown 09/25/2018 4:18 PM CDT 09/25/2018 4:21 PM CDT Narrative [facility] - 09/25/2018 6:37 PM CDT Attention clinician: Reference Range has changed. Prem Wagner PA-C LAB - CHEMISTRY ORD ERABLES [facility] [address] [place] [address] * [place] IRRIGATION OF BLADDER (08/06/2018 4:33 PM FINISH REPAIR WORKER) Narrative Ila Blancas APRN-CNP - 08/06/2018 4:33 PM FINISH REPAIR WORKER Ila Blancas APRN-CNP 08/06/2018 4:33 PM Bladder Rescue Instillation Procedure Note: Indication: Interstitial cystitis, painful bladder syndrome, urinary frequency. CPT: 54428 Procedure: The procedure was discussed with the patient and verbal consent was obtained. The patient was placed in a dorsal lithotomy position. Her urethra was visualized and prepped with Betadine (unless she was allergic in which case Hibiclens was used). A 12F reg catheter was introduced under aseptic conditions. The bladder was then instilled slowly with a solution containin cc 0.5% Marcaine (S0020)([facility] [id number]) 40 mg Kenalog (J3301) 10,000 units Heparin (J1644) The catheter was then removed, and the patient was instructed to retain the solution for at least 30 minutes. She tolerated the procedure well. A follow up visit for repeat bladder instillation was scheduled for next 2 week if still feels she needs it or prn. Will call with urine culture results Ila Blancas APRN-WHITNEY PROCEDURE /MINOR SURGICAL ORDERABLES * URINALYSIS - POINT OF CARE (08/06/2018) Clarity UA POCT clear Comment:cath'd spec Color UA POCT yellow Leukocyte UA neg Negative Nitrite UA POCT neg Negative Urobilinogen UA 0.1 0.1 - 1.0 Protein UA POCT neg Negative pH UA 7.0 5.0 - 8.0 pH units Blood UA + Negative Specific [place] UA POCT 1.020 1.002 - 1.030 Ketone UA neg Negative Bilirubin UA POCT neg Negative Glucose UA neg Negative Urine URINE / Unknown 08/06/2018 [facility] - POI NT OF CARE ORDERABLES * WI IRRIGATION OF BLADDER (02/10/2018 3:00 PM CDT) Narrative Ila Blancas APRN-CNP - 02/10/2018 3:00 PM CDT Ila Blancas APRN-CNP 02/10/2018 3:00 PM Bladder Rescue Instillation Procedure Note: Indication: Interstitial cystitis, painful bladder syndrome, urinary frequency. CPT: 47392 Procedure: The procedure was discussed with the patient and verbal consent was obtained. The patient was placed in a dorsal lithotomy position. Her urethra was visualized and prepped with Betadine (unless she was allergic in which case Hibiclens was used). A 12F reg catheter was introduced under aseptic conditions. The bladder was then instilled slowly with a solution containin cc 0.5% Marcaine (S0020)([facility] [id number]) 40 mg Kenalog (J3301) 10,000 units Heparin (J1644) The catheter was then removed, and the patient was instructed to retain the solution for at least 30 minutes. She tolerated the procedure well. A follow up visit for repeat bladder instillation was scheduled for next 4 week. Ila Blancas [facility] PROCEDURE /MINOR SURGICAL ORDERABLES * THERAPY REPORT (01/12/2018 10:33 AM CDT) Narrative 01/12/2018 10:33 AM CDT Ordered by an unspecified provider. Scanned Document SCANNING ONLY * CULTURE YEAST WITH DIRECT FLUORESCENT ANDRE (12/10/2017 9:00 AM CDT) Smear [facility] Comment: CULTURE, YEAST, W/DIRECT FLUORESCENT ANDRE MICRO NUMBER: [id number] TEST STATUS: FINAL SPECIMEN SOURCE: GENITAL SPECIMEN QUALITY: ADEQUATE SMEAR: No fungal elements seen. RESULT: No fungal growth at 2 Weeks NO COLLECTION DATE RECEIVED. WE HAVE USED THE DATE THE SPECIMEN WAS RECEIVED BY THIS LABORATORY THE COLLECTION DATE. IF THIS IS INCORRECT, PLEASE CONTACT CLIENT SERVICES. PHONE NUMBER: [phone] Test Performed at: [facility] [address] JEFRY HARRIS MD Microbiology SPECIMEN FROM GENITAL SYSTEM / Unknown 11/26/2017 1:18 AM CDT Ila STEINBERG LAB - [place] ROBIOLOGY ORDERABLES [facility] [address] [place] [address] * [place] IRRIGATION OF BLADDER (12/09/2017 9:28 AM CDT) Narrative Ila Blancas APRN-CNP - 12/09/2017 9:28 AM CDT Ila Blancas APRN-CNP 12/09/2017 9:28 AM Bladder Rescue Instillation Procedure Note: Indication: Interstitial cystitis, painful bladder syndrome, urinary frequency. CPT: 44604 Procedure: The procedure was discussed with the patient and verbal consent was obtained. The patient was placed in a dorsal lithotomy position. Her urethra was visualized and prepped with Betadine (unless she was allergic in which case Hibiclens was used). A 12F reg catheter was introduced under aseptic conditions. The bladder was then instilled slowly with a solution containin cc 0.5% Marcaine (S0020)([facility] [id number]) 40 mg Kenalog (J3301) 10,000 units Heparin (J1644) The catheter was then removed, and the patient was instructed to retain the solution for at least 30 minutes. She tolerated the procedure well. A follow up visit for repeat bladder instillation was scheduled for next 1-2 week. Ila STEINBERG PROCEDURE /MINOR SURGICAL ORDERABLES * WI IRRIGATION OF BLADDER (10/21/2017 5:15 PM CDT) Narrative Ila Blancas APRN-CNP - 10/21/2017 5:15 PM CDT Ila Blancas APRN-CNP 10/21/2017 5:15 PM Bladder Rescue Instillation Procedure Note: Indication: Interstitial cystitis, painful bladder syndrome, urinary frequency. CPT: 40312 Procedure: The procedure was discussed with the patient and verbal consent was obtained. The patient was placed in a dorsal lithotomy position. Her urethra was visualized and prepped with Betadine (unless she was allergic in which case Hibiclens was used). A 12F catheter was introduced under aseptic conditions. The bladder was then instilled slowly with a solution containin cc 0.5% Marcaine 40 mg Kenalog 10,000 units Heparin The catheter was then removed, and the patient was instructed to retain the solution for at least 30 minutes. She tolerated the procedure well. A follow up visit for repeat bladder instillation was scheduled for next week. Ila STEINBERG PROCEDURE /MINOR SURGICAL ORDERABLES * WI IRRIGATION OF BLADDER (10/11/2017 8:04 PM CDT) Ila Nogueira APRN-CNP - 10/11/2017 8:04 PM CDT Ila Blancas APRN-CNP 10/11/2017 8:04 PM Bladder Rescue Instillation Procedure Note: Indication: Interstitial cystitis, painful bladder syndrome, urinary frequency. CPT: 56967 Procedure: The procedure was discussed with the patient and verbal consent was obtained. The patient was placed in a dorsal lithotomy position. Her urethra was visualized and prepped with Betadine (unless she was allergic in which case Hibiclens was used). A 12F catheter was introduced under aseptic conditions. The bladder was then instilled slowly with a solution containin cc 0.5% Marcaine 40 mg Kenalog 10,000 units Heparin The catheter was then removed, and the patient was instructed to retain the solution for at least 30 minutes. She tolerated the procedure well. A follow up visit for repeat bladder instillation was scheduled for next week. Ila STEINBERG PROCEDURE /MINOR SURGICAL ORDERABLES * THERAPY REPORT (10/08/2017 10:43 AM CDT) Narrative 10/08/2017 10:43 AM CDT Ordered by an unspecified provider. Scanned Document SCANNING ONLY * WI IRRIGATION OF BLADDER (09/23/2017 2:37 PM CDT) Ila Nogueira APRN-CNP - 09/23/2017 2:37 PM CDT Ila Blancas APRN-CNP 09/23/2017 2:37 PM Bladder Rescue Instillation Procedure Note: Indication: Interstitial cystitis, painful bladder syndrome, urinary frequency. CPT: 53691 Procedure: The procedure was discussed with the patient and verbal consent was obtained. The patient was placed in a dorsal lithotomy position. Her urethra was visualized and prepped with Betadine (unless she was allergic in which case Hibiclens was used). A 12F catheter was introduced under aseptic conditions. The bladder was then instilled slowly with a solution containin cc 0.5% Marcaine 40 mg Kenalog 10,000 units Heparin The catheter was then removed, and the patient was instructed to retain the solution for at least 30 minutes. She tolerated the procedure well. A follow up visit for repeat bladder instillation was scheduled for next week. Ila Blancas APRN-SHUTTLE INSPECTOR PROCEDURE /MINOR SURGICAL ORDERABLES * WI IRRIGATION OF BLADDER (09/19/2017 2:58 PM CDT) Ila Nogueira APRN-CNP - 09/19/2017 2:58 PM CDT Ila Blancas APRN-CNP 09/19/2017 2:58 PM Bladder Rescue Instillation Procedure Note: Indication: Interstitial cystitis, painful bladder syndrome, urinary frequency. CPT: 90676 Procedure: The procedure was discussed with the patient and verbal consent was obtained. The patient was placed in a dorsal lithotomy position. Her urethra was visualized and prepped with Betadine (unless she was allergic in which case Hibiclens was used). A 12F catheter was introduced under aseptic conditions. The bladder was then instilled slowly with a solution containin cc 0.5% Marcaine 40 mg Kenalog 10,000 units Heparin The catheter was then removed, and the patient was instructed to retain the solution for at least 30 minutes. She tolerated the procedure well. A follow up visit for repeat bladder instillation was scheduled for next week. Ila Blancas APRN-SHUTTLE INSPECTOR PROCEDURE /MINOR SURGICAL ORDERABLES * HCG BETA BLOOD QUANTITATIVE (08/26/2017 12:04 PM CDT) hCG Quantitative 1 mIU/mL 08/27/19 18 1:30 PM CDT [facility] Blood BLOOD SPECIMEN / Unknown Venipuncture / Unknown 08/26/2017 12:04 PM CDT 08/26/2017 1:14 PM CDT Narrative [facility] - 08/26/2017 1:30 PM CDT hCG Reference Range, mIU/mL: Males 0-2.0 Non Females 0-6.0 Perimenopausal Females ages 41-55* 0-7.7 Postmenopausal Females age >55* 0-14 Females, Weeks after Last Menstrual Period 0.2-1 week 5-50 1 - 2 weeks 50-500 2 - 3 weeks 100-5000 3 - 4 weeks 500-10,000 4 - 5 weeks 1000-50,000 5 - 6 weeks 10,000-100,000 6 - 8 weeks 15,000-200,000 2 - 3 months 10,000-100,000 Trophoblastic Disease >100,000 *In higher than expected hCG in females > age 40, a serum FSH >20 IU/L makes unlikely. Raul Arenas MD LAB - CHEMISTRY ALEX RANGEL Performing Organization Address City/[facility]/ZIP Co de Phone Number [facility] [address] [place] [address] * FSH (07/26/2017 9:51 AM FINISH REPAIR WORKER) FSH 32.3 mIU/mL [facility] ([facility]) Comment: Reference Range Follicular Phase 2.5-10.2 Mid-cycle Peak 3.1-17.7 Luteal Phase 1.5- 9.1 Postmenopausal 23.0-116.3 Test Performed at: [facility] [place] [address] [place] [address] CHANTE TATUM DO,MPH Blood specimen (specimen) BLOOD SPECIMEN / Unknown 07/26/2017 9:51 AM FINISH REPAIR WORKER 07/26/2017 9:51 AM FINISH REPAIR WORKER Jostin Souza Jr., MD LAB - CHEMISTRY ORDERABLES Performing Organization Address City/[facility]/ZIP Co de Phone Number [facility] ([facility]) [address] * LAB HISTORICAL RESULTS-ONBASE (01/22/2017) 01/22/2017 Historical Provider LAB - CHEMISTRY Brie [facility] [address] * APHERESIS/TRANSFUSION ORDER (01/03/2017 10:54 PM CDT) Narrative 01/03/2017 10:54 PM CDT Ordered by an unspecified provider. Scanned Document NURSING - VITAL SIGN S AND ASSESSMENT * CARDIAC RHYTHM STRIP ORDER (01/03/2017 10:54 PM CDT) Narrative 01/03/2017 10:54 PM CDT Ordered by an unspecified provider. Scanned Document CARDIAC SERVICES ORD ERABLES * GROSS + MICRO EXAM (STL) (01/01/2017 3:21 PM CDT) Case Report Surgical Pathology Report Case: [id number] Authorizing Provider: Jostin Souza Jr., MD Collected: 01/01/2017 03:21 PM Ordering Location: [facility] Received: 01/02/2017 07:54 AM Pathologist: Prudence Paez MD Specimens: A) - Ovary with Tube, Bilateral tube and ovary B) - Tissue, Left pelvic rim 01/03/2017 5:04 PM CDT [facility] Final Diagnosis 1. Bilateral fallopian tubes and ovaries, salpingoophorectomy: -- Ovaries with epithelial inclusion cysts -- Fallopian tube with paratubal cysts 2. Left pelvic rim, biopsy: -- Endometriosis MC/na 01/03/2017 5:04 PM CDT [facility] Clinical History Endometriosis, chronic pelvic pain. 01/03/2017 5:04 PM CDT [facility] Gross Description The specimen is received fixed in formalin in 2 containers. Both containers are labeled with the patient's name, Jean Carlos Cross. Specimen A, ovary with tube, bilateral tubes and consists of 2 unoriented fimbriated fallopian tubes measuring 7.5 and 5.0 cm in length, each with diameters of 0.5 cm. Each fallopian tube has attached paratubal cysts filled with translucent thin fluid ranging in greatest dimension from 0.8 to 0.7 cm. Cut surface through the fallopian tubes reveal unremarkable pinpoint lumen. One intact ovary measures 4.0 x 2.6 x 2.2 cm and weighs 14.14 g. The second ovary is tattered and roughened and has an aggregate measurement of 5.5 x 5.0 x 1.8 cm and a combined weight of 21.62 g. Both ovaries are white-arenas and rubbery on cut surface with multiple cystic structures each filled with translucent thin fluid. Biology Faculty Member sections are submitted as follows: A1-A2 - Fallopian tubes A3-A4 - Ovaries MR/crista Specimen B, left pelvic rim consists of 1 sheet of rubbery, arenas tissue measuring 0.7 x 0.6 x 0.1 cm. The specimen is submitted in toto in cassette B1. MR/dak 01/03/2017 5:04 PM T [facility] Microscopic Description 1. Sections of the fallopian tubes show no significant pathologic diagnosis. Paratubal cysts are identified. Sections of the ovary shows small epithelial inclusion cysts. No evidence of malignancy is seen. 2. Sections show fibrous connective tissue with endometriosis. JEROME/krishan 01/03/2017 5:04 PM T [facility] Disclaimer All histochemical and/or immunohistochemical results are interpreted with controls that demonstrate appropriate staining reactions before reporting results. Note on use of immunocytochemistry reagents: This test was developed and its performance characteristic determined by [facility], Department of Laboratory Medicine. It has not been cleared or approved by the U.S. Food and Drug Administration (FDA). The FDA has determined that such clearance or approval is not necessary. The test is used for clinical purpose. It should not be regarded as investigational or for research. This laboratory is certified to perform high complexity testing. 01/03/2017 5:04 PM CDT [facility] Embedded Images 01/03/2017 5:04 PM T [facility] Pathology/Cytology FALLOPIAN TUBE AND OVARY, CS / Unknown 01/01/2017 3:21 PM CDT 01/02/2017 7:54 AM CDT Miscellaneous samples (specimen) TISSUE SPECIMEN / Unknown 01/01/2017 3:22 PM CDT 01/02/2017 7:54 AM CDT Jostin Souza Jr., MD LAB - PATHOLOGY/ CYTOLOGY ORDERABLES [facility] [address] [place] [address] * PATHOLOGY/GENETICS HISTORICAL-ONBASE (01/01/2017) 01/01/2017 Historical Provider LAB - CHEMISTRY O RDERABLES [place] [id number] [address] * BLOOD TYPE VERIFICATION (12/26/2016 2:15 PM CDT) ABO A 12/26/2016 3:17 PM CDT [facility] Rh Type Negative 12/26/2016 3:17 PM CDT [facility] Blood Bank BLOOD SPECIMEN / Unknown Venipuncture / Unknown 12/26/2016 2:15 PM CDT 12/26/2016 2:42 PM CDT Jostin Souza Jr., MD LAB - BLOOD BANK ORDERABLES Performing Organization Address [facility] Co de Phone Number [facility] [address] [place] [address] * TYPE + SCREEN PANEL (12/26/2016 2:12 PM CDT) ABO A 12/26/2016 3:17 PM CDT [facility] Rh Type Negative 12/26/2016 3:17 PM CDT [facility] Comment:History check perfor med. No retype required. Antibody Screen Negative 12/26/2016 3:17 PM CDT [facility] Blood Bank BLOOD SPECIMEN / Unknown Venipuncture / Unknown 12/26/2016 2:12 PM CDT 12/26/2016 2:36 PM CDT Jostin Souza Jr., MD LAB - BLOOD BANK ORDERABLES Performing Organization Address [facility] Co de Phone Number [facility] [address] [place] [address] * URINALYSIS MICROSCOPIC ONLY W/REFLEX CULTURE (07/29/2016 8:16 AM FINISH REPAIR WORKER) Epithelial Cell UA 0-2 0-2, 2-5 # /hpf 07/29/2016 8:56 AM FINISH REPAIR WORKER [facility] Urine URINE SPECIMEN OBTAINED BY CLEAN CATCH PROCEDURE / Unknown Collection / Unknown 07/29/2016 8:16 AM FINISH REPAIR WORKER 07/29/2016 8:41 AM FINISH REPAIR WORKER Juanita Beltran DO LAB - URINALYSIS ORD ERABLES Performing Organization Address [facility] de Phone Number [facility] [address] [place] [address] * HCG URINE QUALITATIVE - POINT OF CARE (IP) (07/29/2016 8:12 AM FINISH REPAIR WORKER) HCG Qual Urine Negative Negative HC POCT TESTING QC Verified Yes Yes [facility] POC T TESTING Urine URINE / Unknown 07/29/2016 8 :12 AM FINISH REPAIR WORKER Juanita Beltran DO LAB - POINT OF CARE ORDERABLES Performing Organization Address [facility] de Phone Number [facility] POCT TESTING [address] [place] [address] * CHLAMYDIA+GC SANDRA PAP VIAL (04/11/2016 3:00 AM FINISH REPAIR WORKER) Chlamydia trachomatis RNA TMA NOT DETECTED NOT DETECTED [facility] Neisseria gonorrhoeae RNA TMA NOT DETECTED NOT DETECTED [facility] See Note [facility] Comment: This test was performed using the APTIMA COMBO2 Assay ([employer] The analytical performance characteristics of this assay, when used to test SurePath specimens have been determined by [employer]. Test Performed at: [facility] [address] [place] [address] CHANTE TATUM DO,MPH Cervical swab (specimen) 04/11/2016 3:00 AM FINISH REPAIR WORKER 04/10/2016 6:55 AM FINISH REPAIR WORKER Narrative [facility] - 04/11/2016 3:00 AM FINISH REPAIR WORKER Specimen Type->Cervical swab Jostin Souza Jr., MD LAB - MICROBIOLO GY ORDERABLES Performing Organization Address [facility] Co de Phone Number [facility] Care Teams Food Preparation Worker Relationship Specialty Start Date End Date Lyle Hutchins MD PCP - General 03/02/19 Rosette Michelle RN Registered Nurse 01/01/17
[2024-07-20 15:02] LABS: Erythrocyte Sedimentation Rate 42 mm/hr (0-20)
[2024-07-20] MEDS: metroNIDAZOLE 500 MG/ISO 100ML 500 MG/100 ML BAG 100 MG IVPB ×2 (15:35→22:13)
[2024-07-20] MEDS: oxyCODONE HCL (*CRX) 5 MG TAB IR PO (16:33)
[2024-07-20] MEDS: levoFLOXacin 750 MG/D5W 150 ML 750 MG/150 ML BAG 100 MG IVPB (16:34)
[2024-07-20] MEDS: MORPHINE SULFATE (*CRX) 2 MG/ML INJ IV PUSH (17:14)
[2024-07-20] MEDS: BENZOCAINE (*SP) 60 ML SPRAY CAN (HURRICAINE) 1 SPRAY MUCOUS MEM (17:46)
--- NOTE | 2024-07-20 20:30 | PM.IMHP ---
H&P: HPI History of Present Illness Date/Time: 07/20/24 20:30 Chief Complaint: Pain and swelling right side of face. Narrative: This is a pleasant 43-year-old female with type 2 diabetes mellitus who presented to the emergency department viewed private vehicle for evaluation of pain and swelling in the right side of the face. The patient provides the following history. Friday she awoke with severe pain in a right lower molar and her dentist prescribed clindamycin yesterday with plans for tooth extraction this coming Friday. Last night she developed swelling on the right side of the lower face and it was much worse this morning. She called her dentist who told her to come to the ED. she reports chills and sweats but is not have a documented fever. She otherwise feels okay aside from severe aching pain in the tooth and face. She is not having difficulties swallowing or tolerating secretions. In the ED: She was afebrile on arrival with stable vital signs. Labs were significant for WBC count of 15.7, creatinine 0.51, glucose 113, CRP 7.0. CT of the face showed subperiosteal abscess of the alveolar process adjacent to teeth 30 and 31. She has a penicillin allergy, reportedly anaphylaxis, and she was started on a fluoroquinolone and metronidazole and she is being admitted for further IV antibiotics. Review of Systems Review of Systems: 12 systems were reviewed and are negative except for as per HPI. [facility] Past Medical History Medical History (Updated 07/20/24 @ 23:12 by Blanca Vasquez PA-C) Depression with anxiety Endometriosis Asthma Obstructive sleep apnea on CPAP Type 2 diabetes mellitus Surgical History Surgical History (Updated 07/20/24 @ 23:12 by Blanca Vasquez PA-C) History of cholecystectomy Social History Social History (Updated 07/20/24 @ 21:27 by Blanca Vasquez PA-C) Social History: Surrogate medical decision maker: Aris Wilson, sibling. Code status: Full code. Smoking status: Never smoker Alcohol intake: current Substance use: never Do You Feel Safe in your Home?: Yes Lack of Transportation: No Lack of Food: Never True Current Housing: I Have Housing Concerned About Future Housing: No Difficulty Paying Gas/Electric Bills: No Difficulty Paying for Meds: No Currently Unemployed: No Education: Decline to Answer Difficulty w/ Childcare or Family Care: No Spiritual care concerns: No Meds Home Medications and Allergies Home Medications ?Medication ?Instructions ?Recorded ?Confirmed ?Type allopurinol 100 mg tablet 100 mg PO DAILY 07/20/24 07/20/24 History clindamycin HCl 300 mg capsule 300 mg PO DAILY 07/20/24 07/20/24 History escitalopram oxalate 20 mg tablet 20 mg PO DAILY 07/20/24 07/20/24 History evolocumab 140 mg/mL subcutaneous 140 mg subcut [id number] 07/20/24 07/20/24 History pen injector (Elfego Sosa) hydrocodone 5 mg-acetaminophen 325 1 tablet PO Q6H PRN pain 07/20/24 07/20/24 History mg tablet hydroxyzine HCl 50 mg tablet 50 mg PO TID PRN anxiety 07/20/24 07/20/24 History insulin aspart U-100 100 unit/mL 40 unit subcut TIDWMEAL 07/20/24 07/20/24 History (3 mL) subcutaneous pen (Novolog FlexPen U-100 Insulin aspart) insulin degludec 100 unit/mL (3 60 unit subcut DAILY 07/20/24 07/20/24 History mL) subcutaneous pen (Tresiba FlexTouch U-100 insulin) nabumetone 750 mg tablet 750 mg PO HS 07/20/24 07/20/24 History norethindrone acetate 5 mg tablet 5 mg PO DAILY 07/20/24 07/20/24 History omeprazole 40 mg capsule,delayed 40 mg PO DAILY 07/20/24 07/20/24 History release prazosin 1 mg capsule 1 mg PO HS 07/20/24 07/20/24 History pregabalin 100 mg capsule 100 mg PO DAILY 07/20/24 07/20/24 History quetiapine 50 mg tablet,extended 50 mg PO HS 07/20/24 07/20/24 History release 24 hr tirzepatide 5 mg/0.5 mL 7.5 mg subcut WEEKLY 07/20/24 07/20/24 History subcutaneous pen injector (Gene) tizanidine 4 mg tablet 4 mg PO Q8H 07/20/24 07/20/24 History trazodone 50 mg tablet 75 mg PO HS 07/20/24 07/20/24 History ursodiol 300 mg capsule 300 mg PO HS 07/20/24 07/20/24 History Allergies Allergy/AdvReac Type Severity Reaction Status Date / Time Penicillins Allergy Severe Anaphylaxis Verified 07/20/24 13:04 ketorolac (From Toradol) Allergy Mild Agitated Verified 07/20/24 13:04 lorazepam (From Ativan) Allergy Mild Agitated Verified 07/20/24 13:04 Influenza Virus Vaccines AdvReac Mild Vomiting Verified 07/20/24 13:04 metoclopramide (From Reglan) AdvReac Mild Vomiting Verified 07/20/24 13:04 Vital Signs Vital Signs - 24 hr 07/20/24 12:56 07/20/24 14:28 07/20/24 15:36 Temperature 98.9 F 97.9 F Pulse Rate 114 H 102 H 84 Respiratory Rate 20 18 15 Blood Pressure 172/94 H 156/83 H 145/88 H Pulse Oximetry 100 97 96 Oxygen Delivery Room Air 07/20/24 16:08 07/20/24 16:30 07/20/24 18:12 Temperature Pulse Rate 105 H Respiratory Rate 20 20 Blood Pressure 156/93 H 152/98 H 144/95 H Pulse Oximetry 96 100 100 Oxygen Delivery 07/20/24 18:23 Temperature Pulse Rate 105 H Respiratory Rate 20 Blood Pressure 144/95 H Pulse Oximetry 100 Oxygen Delivery Exam Narrative: General: Mildly ill-appearing female sitting up in bed in no acute distress. Weight: 142.2 kg. BMI: 52.2. HEENT: Wearing corrective lenses. PERRL, EOMI. Sclera anicteric. There is mild swelling at the base of the right lower molars. The swelling extends to the buccal mucosa on that side with pretty significant right-sided submandibular swelling. There is no overlying redness or warmth but is exquisitely tender to palpation. Floor of the mouth is soft and there is no evidence of trismus. Neck: Supple. Submandibular lymphadenopathy on the right. Respiratory: Lungs are clear to auscultation bilaterally. Cardiovascular: Regular rate and rhythm with S1-S2. Gastrointestinal: Abdomen is soft, nontender, and nondistended with positive bowel sounds. Skin: Warm and dry. No rash or lesions on limited exam. Extremities: No cyanosis, clubbing, or edema. Radial and pedal pulses intact. Neurological: Alert. Cranial nerves 2-12 are grossly intact. No gross focal deficits to casual conversation. Psychiatric: Pleasant and cooperative with normal mood and affect. Judgment and insight intact. H&P: Results Labs Labs: Short CBC 07/20/24 Range/Units 14:17 WBC 15.7 H (4.5-10.0) K/mm3 Hgb 14.7 (12.0-15.0) g/dL Hct 44.5 (37.0-47.0) % Plt Count 319 (150-375) k/mm3 BMP 07/20/24 14:17 Sodium 139 Potassium 4.0 Chloride 103 Carbon Dioxide 23 BUN 4 L Creatinine 0.51 L Glucose 113 H Calcium 10.0 Liver Function 07/20/24 Range/Units 14:17 Total Bilirubin 0.8 (0.2-1.3) mg/dL AST 21 (14-36) U/L ALT 32 (6-35) U/L Alkaline Phosphatase 126 (38-126) U/L Albumin 4.6 (3.5-5.1) g/dL Impressions Face CT 07/20/24 14:55 IMPRESSION: 1. Subperiosteal abscess of the alveolar process adjacent to teeth 30 and 31. Assessment and Plan Assessment and plan (1) Cellulitis of face: Code(s): L03.211 - Cellulitis of face Status: Acute (2) Dental abscess: Code(s): K04.7 - Periapical abscess without sinus Status: Acute (3) Type 2 diabetes mellitus: Code(s): E11.9 - Type 2 diabetes mellitus without complications Status: Acute (4) Obstructive sleep apnea on CPAP: Code(s): G47.33 - Obstructive sleep apnea (adult) (pediatric) Status: Acute Plan The patient presented to the emergency department for evaluation of right lower molar pain and patient swelling as detailed in HPI. Labs, imaging, EKG, and all reports were personally reviewed. She splits started on clindamycin yesterday after being seen by her dentist with plans for extraction on Friday however given the newly developed swelling, they recommend IV antibiotics prior to tooth extraction. She was started on levofloxacin and metronidazole in the emergency department which will be continued. ED provider attempted incision and drainage and only a small amount of blood drainage was noted. Vital signs were reviewed and they are stable. Initiate sliding scale insulin, Accu-Cheks, and hypoglycemic protocol. CPAP will be provided for the patient to use while hospitalized. Her home medications will be reviewed and resumed as appropriate. Findings and treatment plan were discussed with the patient. Questions were solicited and answered to satisfaction. The patient's medical management will be taken over by the hospitalist team in a.m. Quality VTE Prophylaxis VTE prophylaxis: mechanical ordered If No VTE Prophylaxis Answer both mechanical and pharmacologic: Reason no pharmacologic proph: low risk/not indicated The patient has been admitted under observation status. Hospitalist MIPS Advance Care Plan I have confirmed that the patient's Advanced Care Plan is present, code status is documented, or surrogate decision maker is listed in patient medical record.: Yes Medication Reconciliation I have utilized all available resources to obtain, update and review the patients current medications (includes all prescriptions, OTC, herbals, cannabis, and nutritional supplements).: Yes
[2024-07-20] MEDS: MORPHINE SULFATE (*CRX) 2 MG/ML INJ 4 MG IV PUSH (21:16)
[2024-07-20 21:33] LABS: Glucose Point of Care 201 mg/dl (65-105)
--- NOTE | 2024-07-20 22:23 | ADMGEN ---
This patient, Natasha Wilson, was admitted to [facility] Room 311-01. Patient/family oriented to hospital policies and general routines including ID bracelet, bed and alarms, visiting hours, pain management, procedures, bathroom and other care routines, personal items, smoking policy, room service/diet, and visiting hours. Information on how to activate the Rapid Response Team has been discussed. Patient/Family are encouraged to report perceived risks to care and to ask questions if they do not understand what they are told or what they should do.
[2024-07-20] MEDS: ursodioL 300 MG CAPSULE PO (23:47)
[2024-07-20] MEDS: PRAZOSIN HCL 1 MG CAPSULE PO (23:47)
[2024-07-20] MEDS: traZODone HCL 25 MG TABLET 75 MG PO (23:48)
[2024-07-20] MEDS: QUEtiapine FUMARATE XR 50 MG TAB.ER.24H PO (23:48)
[2024-07-21] MEDS: MORPHINE SULFATE (*CRX) 2 MG/ML INJ 4 MG IV PUSH ×4 (01:56→21:44)
[2024-07-21 05:25] VITALS: BP 121/65; PULSE 80; RESP 20; TEMP 36.4; O2SAT 98
--- NOTE | 2024-07-21 06:27 | PCRCNOTE ---
Patient denied a cpap machine for her hospital stay. Pt states she sleeps better admitted in the hospital on a nasal cannula. RT told her the benefits of cpap, patient still wants to stay on nasal cannula.
[2024-07-21] MEDS: metroNIDAZOLE 500 MG/ISO 100ML 500 MG/100 ML BAG 100 MG IVPB ×3 (06:31→21:48)
[2024-07-21 08:22] LABS: Glucose Point of Care 185 mg/dl (65-105)
[2024-07-21 09:08] LABS: Hematocrit 40.7 % (37.0-47.0); Hemoglobin 13.4 g/dL (12.0-15.0); Mean Corpuscular HGB Conc 32.9 g/dl (32-36); Mean Corpuscular Hemoglobin 26.7 pg (26-34); Mean Corpuscular Volume 81.2 fl (80-100); Mean Platelet Volume 9.1 fl (7.4-10.4); Platelet Count Result 324 k/mm3 (150-375); Red Blood Count 5.01 M/mm3 (4.2-5.4); Red Cell Distribution Width 14.5 % (11.5-14.5); White Blood Count 13.3 K/mm3 (4.5-10.0)
[2024-07-21 09:15] LABS: Anion Gap 13 mmol/L (4-12); Blood Urea Nitrogen 6 mg/dL (7-17); Calcium 9.7 mg/dL (8.4-10.2); Carbon Dioxide 24 mmol/L (22-30); Chloride 101 mmol/L (98-107); Estimated CRCL calculation 172 ml/min; Estimated Glomerular Filt Rate > 60; Glucose 179 mg/dL (65-110); Potassium 3.7 mmol/L (3.4-5.0); Sodium 138 mmol/L (137-145)
[2024-07-21] MEDS: PREGABALIN (*CRX) 50 MG CAPSULE 100 MG PO (09:28)
[2024-07-21] MEDS: HYDROcodone/acetaminophen (*CRX) 5-325 MG TABLET 1 TAB PO ×2 (09:29→20:21)
[2024-07-21] MEDS: ESCITALOPRAM OXALATE 10 MG TABLET 20 MG PO (09:29)
[2024-07-21 09:30] LABS: Hemoglobin A1C 6.7 % (<5.7)
[2024-07-21] MEDS: allopurinoL 100 MG TABLET PO (09:30)
[2024-07-21] MEDS: PANTOPRAZOLE 40 MG TABLET PO ×2 (09:30→17:33)
[2024-07-21] MEDS: INSULIN ASPART (*BKC) 100 UNITS/ML 40 UNITS SUB-Q ×3 (09:33→17:33)
[2024-07-21] MEDS: INSULIN GLARGINE (*BKC) 100 UNITS/ML 60 UNITS SUB-Q (09:33)
[2024-07-21 11:21] LABS: Glucose Point of Care 234 mg/dl (65-105)
[2024-07-21] MEDS: INSULIN ASPART (*BKC) 100 UNITS/ML SUB-Q (12:44)
--- NOTE | 2024-07-21 13:49 | PM.IMPN ---
Progress Note: A&P Assessment and Plan (1) Cellulitis of face: Code(s): L03.211 - Cellulitis of face Status: Acute Assessment and Plan: Pt started on clindamycin yesterday after being seen by her dentist with plans for extraction on Friday however given the newly developed swelling, they recommend IV antibiotics prior to tooth extraction. She was started on levofloxacin and metronidazole in the emergency department which will be continued. ED provider attempted incision and drainage and only a small amount of blood drainage was noted. change pt to unasyn for tooth abscess and continue iv fluids follow face swelling and redness continue current care for 2-3 days time (2) Dental abscess: Code(s): K04.7 - Periapical abscess without sinus Status: Acute Assessment and Plan: pt can try salt gargles continue drinking liquids and soft foods only pain control continue iv abx (3) Type 2 diabetes mellitus: Code(s): E11.9 - Type 2 diabetes mellitus without complications Status: Acute Assessment and Plan: accuchecks ssi (4) Obstructive sleep apnea on CPAP: Code(s): G47.33 - Obstructive sleep apnea (adult) (pediatric) Status: Acute Assessment and Plan: cpap at night Plan dvt prop lovenox Subjective Date/time seen: 07/21/24 13:49 Interval history: Pt admitted with cellulitis of her right face pt having broken tooth and abscess awaiting extraction on friday with dentist Review of Systems Review of Systems: Face slightly swollen on R side and mild superficial redness Exam Narrative: General: pt feels swollen on her R side Neck: Supple. Submandibular lymphadenopathy on the right. Respiratory: Lungs are clear to auscultation bilaterally. Cardiovascular: Regular rate and rhythm with S1-S2. Gastrointestinal: Abdomen is soft, nontender, and nondistended with positive bowel sounds. Skin: Warm and dry. No rash or lesions on limited exam. Extremities: No cyanosis, clubbing, or edema. Radial and pedal pulses intact. Neurological: Alert. Cranial nerves 2-12 are grossly intact. No gross focal deficits to casual conversation. Psychiatric: Pleasant and cooperative with normal mood and affect. Judgment and insight intact. Objective Data Vital Signs Vital Signs: Vital Signs - 24 hr 07/20/24 14:28 07/20/24 15:36 07/20/24 16:08 Temperature 36.6 C Pulse Rate 102 H 84 Respiratory Rate 18 15 Blood Pressure 156/83 H 145/88 H 156/93 H Pulse Oximetry 97 96 96 07/20/24 16:30 07/20/24 18:12 07/20/24 18:23 Temperature Pulse Rate 105 H 105 H Respiratory Rate 20 20 20 Blood Pressure 152/98 H 144/95 H 144/95 H Pulse Oximetry 100 100 100 07/20/24 21:59 07/21/24 05:25 Temperature 37.4 C 36.4 C L Pulse Rate 105 H 80 Respiratory Rate 18 20 Blood Pressure 123/64 121/65 Pulse Oximetry 97 98 Intake/Output Intake/Output: Intake & Output 07/18/24 07/19/24 07/20/24 07/21/24 23:59 23:59 23:59 23:59 Intake Total 1350 836 Balance 1350 836 Meds/Results Medications: Active Medications Generic Name Dose Route Start Last Admin Trade Name Freq PRN Reason Stop Dose Admin Acetaminophen 650 mg 07/20/24 21:10 Acetaminophen 325 Mg Tablet PO Q6H PRN Mild Pain (1-3) or Fever Hydrocodone Bitart/Acetaminophen 1 tab 07/20/24 23:12 07/21/24 09:29 Hydrocodone/Acetaminophen (*Crx) 5-325 Mg Tablet PO 1 tab Q6H PRN Administration Pain Rated 4-6 Allopurinol 100 mg 07/21/24 09:00 07/21/24 09:30 Allopurinol 100 Mg Tablet PO 100 mg DAILY ORACIO Administration Dextrose 12.5 gm 07/20/24 21:31 Dextrose 50% 25 Gm/50 Ml Syringe IV PUSH PRN PRN Hypoglycemia Protocol Escitalopram Oxalate 20 mg 07/21/24 09:00 07/21/24 09:29 Escitalopram Oxalate 10 Mg Tablet PO 20 mg DAILY ORACIO Administration Glucagon 1 mg 07/20/24 21:31 Glucagon For Inj 1 Mg Vial IM PRN PRN Hypoglycemia Protocol Glucose 15 gm 07/20/24 21:31 Glucose Oral Gel 15 Gm Of Glucse In 37.5 Gm Tube PO PRN PRN Hypoglycemia Protocol Hydroxyzine HCl 50 mg 07/20/24 23:12 Hydroxyzine Hcl 25 Mg Tablet PO TID PRN anxiety Dextrose 1,000 mls @ 100 mls/hr 07/20/24 21:31 Dextrose 5% 1,000 Ml IVPB PRN PRN Hypoglycemia Protocol Levofloxacin/Dextrose 750 mg in 150 mls @ 100 mls/hr 07/21/24 16:00 Levaquin 750 Mg/D5w 150 Ml IVPB Q24H ORACIO Metronidazole 500 mg in 100 mls @ 100 mls/hr 07/20/24 23:00 07/21/24 06:31 Flagyl 500 Mg/Iso Soln 100 Ml IVPB 100 mls/hr Q8H ORACIO Administration Insulin Aspart 1 - 3 units 07/21/24 21:00 Insulin Aspart (*Bkc) 100 Units/Ml SUB-Q HS ORACIO Protocol Insulin Aspart 3 - 6 units 07/21/24 08:00 07/21/24 12:44 Insulin Aspart (*Bkc) 100 Units/Ml SUB-Q 3 units TIDWM ORACIO Administration Protocol Insulin Aspart 40 units 07/21/24 08:00 07/21/24 12:44 Insulin Aspart (*Bkc) 100 Units/Ml SUB-Q 40 units TIDWM ORACIO Administration Insulin Glargine 60 units 07/21/24 09:00 07/21/24 09:33 Insulin Glargine (*Bkc) 100 Units/Ml SUB-Q 60 units DAILY ORACIO Administration Miscellaneous Information 0 each 07/21/24 00:15 Norethindrone Acetate 5 Mg Tablet- Nonformulary Please Obtain A Home Supply Or Hold While XX 08/20/24 00:14 CLARIFY ORACIO Miscellaneous Information 0 each 07/21/24 00:20 Evolocumab [Repatha Sureclick] 140 Mg/Ml Pen Injector & Tirzepatide [Mounjaro] 5 Mg/0.5 Ml XX 08/20/24 00:19 CLARIFY ORACIO Morphine Sulfate 4 mg 07/20/24 21:10 07/21/24 10:59 Morphine Sulfate (*Crx) 2 Mg/Ml Inj IV PUSH 4 mg Q4H PRN Administration Pain Rated 7-10 Nabumetone 750 mg 07/21/24 21:00 Nabumetone 750 Mg Tablet PO HS PRN Pain Rated 4-6 Non-Formulary Medication 140 mg 08/03/24 09:00 Evolocumab [Repatha Sureclick] SUB-Q 09/02/24 08:59 [id number] ORACIO Non-Formulary Medication 5 mg 07/21/24 09:00 Norethindrone Acetate PO 08/20/24 08:59 DAILY [facility] Non-Formulary Medication 7.5 mg 07/27/24 09:00 Tirzepatide [Mounjaro] SUB-Q 08/26/24 08:59 WEEKLY [facility] Pantoprazole Sodium 40 mg 07/21/24 09:00 07/21/24 09:30 Pantoprazole 40 Mg Tablet PO 40 mg BID ORACIO Administration Prazosin HCl 1 mg 07/20/24 23:40 07/20/24 23:47 Prazosin Hcl 1 Mg Capsule PO 1 mg HS ORACIO Administration Pregabalin 100 mg 07/21/24 09:00 07/21/24 09:28 Pregabalin (*Crx) 50 Mg Capsule PO 100 mg DAILY ORACIO Administration Quetiapine Fumarate 50 mg 07/20/24 23:40 07/20/24 23:48 Quetiapine Fumarate Xr 50 Mg Tab.Er.24h PO 50 mg HS ORACIO Administration Tizanidine HCl 4 mg 07/20/24 23:15 Tizanidine Hcl 4 Mg Tablet PO Q8H PRN Muscle Spasm Trazodone HCl 75 mg 07/20/24 23:40 07/20/24 23:48 Trazodone Hcl 25 Mg Tablet PO 75 mg HS ORACIO Administration Ursodiol 300 mg 07/20/24 23:40 07/20/24 23:47 Ursodiol 300 Mg Capsule PO 300 mg HS ORACIO Administration Radiology Results: ITS Impressions Face CT 07/20/24 14:55 IMPRESSION: 1. Subperiosteal abscess of the alveolar process adjacent to teeth 30 and 31. Labs Labs: Laboratory Results - last 24 hr 07/20/24 07/20/24 07/21/24 14:17 19:45 07:34 WBC 15.7 H 13.3 H RBC 5.51 H 5.01 Hgb 14.7 13.4 Hct 44.5 40.7 MCV 80.8 81.2 MCH 26.7 26.7 MCHC 33.0 32.9 RDW 14.5 14.5 Plt Count 319 324 MPV 8.9 9.1 Immature Gran % (Auto) 0.4 Neut % (Auto) 75.8 H Lymph % (Auto) 16.6 L [place] % (Auto) 6.6 Eos % (Auto) 0.3 Baso % (Auto) 0.3 Lymph # (Auto) 2.61 [place] # (Auto) 1.0 H Eos # (Auto) 0.0 Baso # (Auto) 0.1 Abs Immat Gran (auto) 0.07 H Absolute Neuts (auto) 11.9 H Absolute Nucleated RBC 0.000 Nucleated RBC % 0.0 ESR 42 H Sodium 139 138 Potassium 4.0 3.7 Chloride 103 101 Carbon Dioxide 23 24 Anion Gap 13 H 13 H BUN 4 L 6 L Creatinine 0.51 L 0.52 L Estim Creat Clear Calc 174 172 Estimated GFR > 60 > 60 Glucose 113 H 179 H POC Capillary Glucose 201 H Hemoglobin A1c 6.7 H Calcium 10.0 9.7 Magnesium 2.0 Total Bilirubin 0.8 AST 21 ALT 32 Alkaline Phosphatase 126 C-Reactive Protein 7.0 H Total Protein 8.0 Albumin 4.6 07/21/24 07/21/24 08:08 11:11 WBC RBC Hgb Hct MCV MCH MCHC RDW Plt Count MPV Immature Gran % (Auto) Neut % (Auto) Lymph % (Auto) [place] % (Auto) Eos % (Auto) Baso % (Auto) Lymph # (Auto) [place] # (Auto) Eos # (Auto) Baso # (Auto) Abs Immat Gran (auto) Absolute Neuts (auto) Absolute Nucleated RBC Nucleated RBC % ESR Sodium Potassium Chloride Carbon Dioxide Anion Gap BUN Creatinine Estim Creat Clear Calc Estimated GFR Glucose POC Capillary Glucose 185 H 234 H Hemoglobin A1c Calcium Magnesium Total Bilirubin AST ALT Alkaline Phosphatase C-Reactive Protein Total Protein Albumin
[2024-07-21 14:00] VITALS: BP 127/66; PULSE 100; RESP 22; TEMP 37.5; O2SAT 100
[2024-07-21] MEDS: levoFLOXacin 500 MG/D5W 100 ML 500 MG/100 ML BAG 100 MG IVPB (14:38)
[2024-07-21 16:53] LABS: Glucose Point of Care 147 mg/dl (65-105)
[2024-07-21] MEDS: LIDOCAINE 2% VISC SOLN 30 ML, ALUMINUM/MAGNESIUM/SIMETH SUSP 30 ML, diphenhydrAMINE HCl... PO (17:37)
[2024-07-21] MEDS: traZODone HCL 25 MG TABLET 75 MG PO (20:21)
[2024-07-21] MEDS: ursodioL 300 MG CAPSULE PO (20:21)
[2024-07-21] MEDS: QUEtiapine FUMARATE XR 50 MG TAB.ER.24H PO (20:22)
[2024-07-21] MEDS: PRAZOSIN HCL 1 MG CAPSULE PO (20:22)
[2024-07-21 20:44] LABS: Glucose Point of Care 106 mg/dl (65-105)
[2024-07-21 21:21] VITALS: BP 124/84; PULSE 97; RESP 20; TEMP 36.6; O2SAT 99
[2024-07-22] MEDS: MORPHINE SULFATE (*CRX) 2 MG/ML INJ 4 MG IV PUSH ×3 (01:32→11:13)
[2024-07-22] MEDS: metroNIDAZOLE 500 MG/ISO 100ML 500 MG/100 ML BAG 100 MG IVPB ×2 (05:49→13:28)
[2024-07-22 05:52] VITALS: BP 111/61; PULSE 75; RESP 18; TEMP 36.6; O2SAT 100
[2024-07-22 07:56] LABS: Glucose Point of Care 116 mg/dl (65-105)
[2024-07-22 08:02] LABS: Hematocrit 37.8 % (37.0-47.0); Mean Corpuscular HGB Conc 31.7 g/dl (32-36); Mean Corpuscular Volume 85.1 fl (80-100); Mean Platelet Volume 9.6 fl (7.4-10.4); Platelet Count Result 282 k/mm3 (150-375); Red Blood Count 4.44 M/mm3 (4.2-5.4); Red Cell Distribution Width 14.7 % (11.5-14.5); White Blood Count 11.9 K/mm3 (4.5-10.0)
[2024-07-22 08:17] LABS: Anion Gap 9 mmol/L (4-12); Blood Urea Nitrogen 11 mg/dL (7-17); Calcium 8.8 mg/dL (8.4-10.2); Carbon Dioxide 27 mmol/L (22-30); Chloride 102 mmol/L (98-107); Estimated CRCL calculation 141 ml/min; Estimated Glomerular Filt Rate > 60; Glucose 121 mg/dL (65-110); Potassium 3.3 mmol/L (3.4-5.0); Sodium 138 mmol/L (137-145)
[2024-07-22] MEDS: HYDROcodone/acetaminophen (*CRX) 5-325 MG TABLET 1 TAB PO ×2 (08:46→15:54)
[2024-07-22] MEDS: PREGABALIN (*CRX) 50 MG CAPSULE 100 MG PO (08:46)
[2024-07-22] MEDS: PANTOPRAZOLE 40 MG TABLET PO (08:46)
[2024-07-22] MEDS: allopurinoL 100 MG TABLET PO (08:46)
[2024-07-22] MEDS: ESCITALOPRAM OXALATE 10 MG TABLET 20 MG PO (08:46)
[2024-07-22] MEDS: INSULIN GLARGINE (*BKC) 100 UNITS/ML 60 UNITS SUB-Q (08:48)
[2024-07-22] MEDS: INSULIN ASPART (*BKC) 100 UNITS/ML 40 UNITS SUB-Q ×2 (08:54→13:25)
--- NOTE | 2024-07-22 10:25 | P.DS_ITS ---
DS: Admitting Diagnosis Discharge Date 07/22/2024 Admitting Diagnosis Facila cellulitis DS: Discharge Diagnosis Discharge Diagnosis (1) Cellulitis of face: Code(s): L03.211 - Cellulitis of face Status: Acute Assessment and Plan: - started on fluoroquinolone and metronidazole d/t pencillin allergy - continue pain medications as scheduled. (2) Dental abscess: Onset Date: ~07/22/24 Code(s): K04.7 - Periapical abscess without sinus Status: Acute Assessment and Plan: - has dental/oral surgeon - made appt for tomorrow at 11 am for extraction and i&D. - poor dentation - discussed oral hygiene. (3) Type 2 diabetes mellitus: Code(s): E11.9 - Type 2 diabetes mellitus without complications Status: Acute Assessment and Plan: stable on home medications (4) Obstructive sleep apnea on CPAP: Code(s): G47.33 - Obstructive sleep apnea (adult) (pediatric) Status: Acute Assessment and Plan: continue with CPAP per home setting. Plan Patient stated that she had an appointment for oral surgery tomorrow at 11 am at his office. patient states she needs to be home soon so she can attend appointment. Educated patient on discharge. Discussed oral health and maintenance until appointment. Follow up with Oral surgeon tomorrow, continue with Antibiotics as prescribed, NO ALCOHOL while taking Flagyl and for 7 days post flagyl. Increase fluids, pain medication as prescribed, do not drive, operate heavy machinery, or consume alcohol. Answered her questions to Her satisfaction she is agreeable to this plan. I educated her to return emergency department if any chest pain, shortness for other worrisome sign or symptom. Patient discharged after her last dose of IV Levaquin as well as Flagyl. DS: Summary Hospital Course Hospital Course: This is a pleasant 43-year-old female with type 2 diabetes mellitus who presented to the emergency department viewed private vehicle for evaluation of pain and swelling in the right side of the face. Patient reported that Friday she awoke with severe pain in a right lower molar and her dentist prescribed clindamycin yesterday with plans for tooth extraction this coming Friday. Last night she developed swelling on the right side of the lower face and it was much worse this morning. She called her dentist who told her to come to the ED. Patient reported chills and sweats but did not have a documented fever. She otherwise felt okay aside from severe aching pain in the tooth and face. She is not having difficulties swallowing or tolerating secretions. In the ED: She was afebrile on arrival with stable vital signs. Labs were significant for WBC count of 15.7, creatinine 0.51, glucose 113, CRP 7.0. CT of the face showed subperiosteal abscess of the alveolar process adjacent to teeth 30 and 31. She has a penicillin allergy, reportedly anaphylaxis, and she was started on a fluoroquinolone and metronidazole and she was admitted for further IV antibiotics. Patient reported this am to feeling much improved. patient denied any distress. Patient stated that she had an appointment for oral surgery tomorrow at 11 am at his office. patient states she needs to be home soon so she can attend appointment. Educated patient on discharge. Discussed oral health and maintenance until appointment. Follow up with Oral surgeon tomorrow, continue with Antibiotics as prescribed, NO ALCOHOL while taking Flagyl and for 7 days post flagyl. Increase fluids, pain medication as prescribed, do not drive, o perate heavy machinery, or consume alcohol. Answered her questions to Her satisfaction she is agreeable to this plan. I educated her to return emergency department if any chest pain, shortness for other worrisome sign or symptom. Patient discharged after her last dose of IV Levaquin as well as Flagyl. Status at Discharge Cognitive/behavioral status at discharge: normal Functional status at discharge: independent ambulation Overall status at discharge: patient is back to baseline Time Spent with Patient Time attestation: Total time spent providing and/or coordinating discharge services: Time spent: Greater than 30 minutes Specific discharge activities: 40 minutes Exam Const: General: cooperative, no acute distress, alert, awake and Physically active Nutritional Appearance: obese morbidly obese Nilesh entation/consciousness: oriented to person, oriented to place, oriented to time and patient oriented x3 Limitations: no limitations HENMT: Head: normal to inspection Face/Nose/Sinus: erythema and Facial tenderness on exam of face and sinuses Teeth and gingiva: caries and poor dentition Eyes: General: appearance normal, both eyes and all related structures Neck: Neck: normal visual inspection, full ROM and no lymphadenopathy Chest: Chest palpation & inspection: normal inspection of the chest Resp: Effort & Inspection: normal respiratory effort Auscultation: clear to auscultation bilaterally Cardio: Jugular venous distension: no JVD Rate: regular rate Rhythm: regular rhythm Heart sounds: S1 normal heart sound present and S2 normal heart sound present GI: Inspection: normal to inspection GI Palp: Yes Soft to palpation Auscultation: normal bowel sounds Skin: General skin exam: normal color Neuro: General: patient oriented x3, tone normal and moves all extremities Cranial nerves: Yes CN's II-XII intact bilaterally Cognition (Neuro): normal cognition Speech: normal speech Gait exam (Neuro): Normal gait present Extrem: General: normal to inspection and full ROM Psych: Appearance: grossly normal Mental Status: mental status grossly normal Speech and movement: Normal speech and movement present DS: Data Data Completed and Pending Completed studies during hospitalization: CT of the face showed subperiosteal abscess of the alveolar process adjacent to teeth 30 and 31. Labs on day of discharge: Labs from last 24 hours 07/22/24 07/22/24 07/21/24 07:41 07:00 20:29 WBC 11.9 H RBC 4.44 Hgb 12.0 Hct 37.8 MCV 85.1 MCH 27.0 MCHC 31.7 L RDW 14.7 H Plt Count 282 MPV 9.6 Sodium 138 Potassium 3.3 L Chloride 102 Carbon Dioxide 27 Anion Gap 9 BUN 11 D Creatinine 0.65 L Estim Creat Clear Calc 141 Estimated GFR > 60 Glucose 121 H POC Capillary Glucose 116 H 106 H Calcium 8.8 07/21/24 07/21/24 16:40 11:11 WBC RBC Hgb Hct MCV MCH MCHC RDW Plt Count MPV Sodium Potassium Chloride Carbon Dioxide Anion Gap BUN Creatinine Estim Creat Clear Calc Estimated GFR Glucose POC Capillary Glucose 147 H 234 H Calcium Preliminary micro results at discharge 07/20/24 15:33 Blood Culture - Preliminary Blood 07/20/24 15:33 Blood Culture - Preliminary Blood Discharge Plan Discharge Attending physician on discharge: Valerie Mock Discharging Clinician: Valerie Mock Anticipated Discharge Date/Time: 07/22/24 10:15 Patient Disposition: Home, Self-Care Activity: may shower and as tolerated Diet: as tolerated Discharge Instructions: Follow up with Oral surgeon tomorrow, continue with Antibiotics as prescribed, NO ALCOHOL while taking Flagyl and for 7 days post flagyl. Increase fluids, pain medication as prescribed, do not drive, operate heavy machinery, or consume alcohol. Rest. Patient Instructions: Antibiotic Form Patient Language: Czech Stand Alone Forms: General Discharge Information Follow-up/Referrals: UNKNOWN,DOCTOR [Primary Care Provider] - (Oral surgeon/dentist) Discharge Medications: New levofloxacin 750 mg tablet 750 mg PO DAILY 6 Days Qty: 6 0RF metronidazole 500 mg tablet 500 mg PO Q8H 6 Days Qty: 18 0RF Continued allopurinol 100 mg tablet 100 mg PO DAILY escitalopram oxalate 20 mg tablet 20 mg PO DAILY Repatha SureClick 140 mg/mL pen injector 140 mg SUBCUT [id number] hydroxyzine HCl 50 mg tablet 50 mg PO TID PRN (Reason: anxiety) insulin aspart U-100 [Novolog FlexPen U-100 Insulin] 100 unit/mL (3 mL) insulin pen 40 unit SUBCUT TIDWMEAL insulin degludec [Tresiba FlexTouch U-100] 100 unit/mL (3 mL) insulin pen 60 unit SUBCUT DAILY nabumetone 750 mg tablet 750 mg PO HS omeprazole 40 mg capsule,delayed release(DR/EC) 40 mg PO DAILY norethindrone acetate 5 mg tablet 5 mg PO DAILY prazosin 1 mg capsule 1 mg PO HS pregabalin 100 mg capsule 100 mg PO DAILY quetiapine 50 mg tablet extended release 24 hr 50 mg PO HS Mounjaro 5 mg/0.5 mL pen injector 7.5 mg SUBCUT WEEKLY trazodone 50 mg tablet 75 mg PO HS tizanidine 4 mg tablet 4 mg PO Q8H ursodiol 300 mg capsule 300 mg PO HS hydrocodone-acetaminophen 5-325 mg tablet 1 tablet PO Q6H PRN (Reason: pain) 3 Days Qty: 12 0RF Discontinued clindamycin HCl 300 mg capsule 300 mg PO DAILY Date of admission: 07/20/24 18:50 Primary Care Provider: UNKNOWN,DOCTOR Admitting Provider: Salas Hein Attending physician on admission: Salas Hein Condition: Stable Hospitalist MIPS Heart Failure (Exclusion) Patient has history of Heart Transplant or Left Ventricular Assistive Device?: No IF YES, STOP HERE Heart Failure (Qualifier) Patient has current or prior documentation of LVEF less than or equal to 40%, or mod/servere depressed LVSF?: No IF NO, STOP HERE
[2024-07-22 12:02] LABS: Glucose Point of Care 79 mg/dl (65-105)
[2024-07-22] MEDS: levoFLOXacin 500 MG/D5W 100 ML 500 MG/100 ML BAG 100 MG IVPB (13:28)
[2024-07-22 14:00] VITALS: BP 121/62; PULSE 76; RESP 18; TEMP 36.6; O2SAT 100
--- OUTSIDE RECORDS SUMMARY | 2024-07-26 07:05 | XMS_ITS | Encounter Summary ---
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
--- OUTSIDE RECORDS SUMMARY | 2024-07-26 07:05 | XMS_ITS | Encounter Summary ---
Author Organization [facility] Address [address] [place] [address] Care Team Providers Care Security Systems Integrator Name Role Phone Rosette Michelle RN Unavailable Unavailab Lyle Stuart MD Primary Care Provider [phone] Mellissa Reid RUBBER AND PLASTICS WORKER Unavailable [phone] Nargis Martins RUBBER AND PLASTICS WORKER Unavailable Reason for Visit * Reason Onset Date Comments Future Appointment 09/23/2018 Encounter Details Date Type Department Care Team (Late st Contact Info) Description 09/23/2018 Telephone [facility] [address] [place], [place] [id number] Jostin Souza Jr., MD [address] [place], [place] [id number] Future Appointment Social History Tobacco Use Types [...] CDT COVID-19 Confirmed 07/09/2023 07/09/2023 4:33 AM DIRECTOR RECORDS MANAGEMENT COVID-19 Under Investigation 09/25/2023 09/25/2023 09/25/2023 1:21 PM CDT documented as of this encounter Care Teams Security Systems Integrator Relationship Specialty Start Date End Date Lyle Hutchins MD PCP - General 03/02/19 Rosette Michelle RN Registered Nurse 01/01/17 Mellissa Reid MSW Outpatient Upper Tier Care Management 03/10/2403/10 Nargis Martins MSW Outpatient Upper Tier Care Management 03/10/2404/25 documented as of this encounter
--- OUTSIDE RECORDS SUMMARY | 2024-07-26 07:05 | XMS_ITS | Encounter Summary ---
Author Organization [facility] Address [address] [place] [address] Care Team Providers Care Jacquard Fixer Name Role Phone Rosette Michelle RN Unavailable Unavailab Lyle Stuart MD Primary Care Provider [phone] Mellissa Reid NOVELTY MAKER Unavailable [phone] Nargis Martins NOVELTY MAKER Unavailable [phone] Reason for Visit * Reason Onset Date Comments Med Question 09/09/2017 Encounter Details Date Type Department Care Team (Late st Contact Info) Description 09/09/2017 Telephone [facility] [address] [place] [id number] Lisette Mobley Med Question Social History [...] 09/09/2017 2:21 PM CDT Telephone call to [facility]. Spoke with Tad who states Elmiron was prescribed Dr Milton on 09/05. States this medication will cost pt $125 per one month supply. Pt is requesting prescription for a cheaper option. * Telephone Encounter - Lisette Mobley - 09/09/2017 1:47 PM CDT Kriss from [facility] pharm called in stating pt can not afford Elmiron rx that was sent over. Pt wouldlike a cheaper rx sent to her pharm. Callback#[phone] documented in this encounter Plan of Treatment Not on file documented as of this encounter Visit Diagnoses Not on filedocumented in this encounter Additional Health Concerns Infection Onset Date Last Indicated Resolved Time COVID-19 Under Investigation 03/15/2021 03/15/2021 03/15/2021 9:43 AM CDT COVID-19 Confirmed 07/09/2023 07/09/2023 4:33 AM REAL TIME OPERATOR COVID-19 Under Investigation 09/25/2023 09/25/2023 09/25/2023 1:21 PM CDT documented as of this encounter Care Teams Jacquard Fixer Relationship Specialty Start Date End Date Lyle Hutchins MD PCP - General 03/02/19 Rosette Michelle RN Registered Nurse 01/01/17 Mellissa Reid MSW Outpatient Revenue Field Auditor Care Management 03/10/2403/10 Nargis Martins MSW Outpatient Revenue Field Auditor Care Management 03/10/2404/25 documented as of this encounter
--- OUTSIDE RECORDS SUMMARY | 2024-07-26 07:06 | XMS_ITS | Patient Health Record ---
Author Organization [facility] Address [address] [place] [address] [address] [place] [address] Care Team Providers Care Education Professional Name Role Phone Cuong CHINCHILLA, John Primary Care Provider Unavailab Lyle Espinoza Unavailable [phone] Shadia CHINCHILLA, Bishop Unavailable Unavailable Allergies Allergen [...] Duration) Notes Start Date End Date Status Lancets - as directed Active Norethindrone Acetate 5 MG 1 tablet Oral ly Once a day for 30 day(s) Active Nabumetone 750 MG as directed Orally Active Ursodiol 300 MG 1 capsule Orally Twi ce a day for 30 day(s) Active QUEtiapine Fumarate 50 MG 1 tablet at be dtime Orally Once a day for 30 day(s) Active Ozempic (0.25 or 0.5 MG/DOSE) 2 MG/1.5ML as directed Subcutaneous Active Omeprazole 40 MG 1 capsule 30 minutes before morning meal Orally Once a day for 30 day(s) Active Insulin Degludec 100 UNIT/ML as directed Subcutaneous Act dannielle Fiasp PenFill 100 UNIT/ML as directed Subcutaneous Active Allopurinol 100 MG 1 tablet Orally Once a day for 30 day(s) Active Lexapro 20 MG 1 tablet Orally Once a day Active traMADol HCl 50 MG 1 tablet as needed O rally q 8 hours as needed for 7 days 11/08/2022 Active Social History Sex Assigned At : Social History Observation Description Sex Assigned At Female Assessments Encounter Date Diagnosis (ICD Code) Assessment Notes Treatment Notes Treatment Clinical Notes Section Notes 07/23/2024 Other Reviewed [place] PDMP on 07/21/24 at 7:36 am and patient is compliant. Last fill of Oxycodone Hcl (Ir) [address] Jean Givens 3 days on 06/05/23 and tramadol 10/2022 per [facility] for 7 days. Plan Of Treatment Pending Test Test Name Order Date MRI : Cervical Spine w/o Contrast 2021 MRI : Cervical Spine w/o Contrast 2022 MRI : Lumbar Spine w/o Contrast 11/03/19 MRI : Left Knee 03/05/2022 Insurance Providers Payer Name Payer Address Payer Phone Subscriber Number Group Number Insured Name Patient Relationship to Insured Coverage Start Date Coverage End Date [employer] [facility] [address] [place] [address] [id number] Natasha Wilson Self - patient is the [...]
--- OUTSIDE RECORDS SUMMARY | 2024-07-26 07:06 | XMS_ITS | Encounter Summary ---
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
--- OUTSIDE RECORDS SUMMARY | 2024-07-26 07:06 | XMS_ITS | Referral Summary ---
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 Ketorolac Mental status changes Low Agitated and [...] Take 1 capsule by mouth daily (brand: Superfeedr) Active polyethylene glycol (Miralax) 17 gram packetIndicatio [...] fatty liver disease) 019 Protein-calorie malnutrition, moderate ([facility]) 01/29/2019 Intractable nausea and vomiting 01/28/2019 Morbid obesity with BMI of 50.0-59.9, adult 01/01 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 No 07/11/2023 Personal Safety Answer Date Recorded Have you ever been in or are you currently in a harmful physical or emotional relationship or is someone making you feel afraid or unsafe? Denies 04/28/2024 Comments No Sex and Gender Information Value Date Recorded Sex Assigned at Not on file Legal Sex Female 2:19 PM CRISIS MENTAL HEALTH THERAPIST Gender Identity Not on file Sexual Orientation Bisexual 04/28/2024 6: 46 PM CRISIS MENTAL HEALTH THERAPIST Last Filed Vital Signs Vital Sign Reading Time Taken Comments Blood Pressure 129/81 04/28/2024 11:30 PM CRISIS MENTAL HEALTH THERAPIST Pulse 85 04/28/2024 11:30 PM CRISIS MENTAL HEALTH THERAPIST Temperature 36.9 C (98.4 F) 04/28/2024 5:39 PM CRISIS MENTAL HEALTH THERAPIST Respiratory Rate 16 04/28/2024 11:30 PM CRISIS MENTAL HEALTH THERAPIST Oxygen Saturation 97% 04/28/2024 11:30 PM CRISIS MENTAL HEALTH THERAPIST Inhaled Oxygen Concentration - - Weight 140.6 kg (310 lb) 04/28/2024 5:39 PM CRISIS MENTAL HEALTH THERAPIST Height 165.1 cm (5' 5 ) 04/28/2024 5:39 PM CRISIS MENTAL HEALTH THERAPIST Body Mass Index 51.59 04/28/2024 5:39 PM CRISIS MENTAL HEALTH THERAPIST Plan of Treatment Not on file Medical Devices Implanted Type Area Brick Grader Device Identifier Shelf Expiration Date Model / Serial / Lot Other - See Comments Other - see comments Neck Description:Neck disc replac ement C6-C7 Procedures Procedure Name Priority Date/Time Associated Diagnosis Comments EGFR STAT 04/28/2024 11:19 PM CRISIS MENTAL HEALTH THERAPIST BASIC METABOLIC PANEL STAT 04/28/2024 11:19 PM CRISIS MENTAL HEALTH THERAPIST POCT GLUCOSE DEVICE Routine 04/28/2024 9 :38 PM CRISIS MENTAL HEALTH THERAPIST TROPONIN T HIGH-SENSITIVITY 2-HOUR Timed 04/28/2024 9:37 PM CRISIS MENTAL HEALTH THERAPIST POCT GLUCOSE DEVICE Routine 04/28/2024 8 :31 PM CRISIS MENTAL HEALTH THERAPIST PRO B-TYPE NATRIURETIC PEPTIDE STAT 04/28/2024 7:13 PM CRISIS MENTAL HEALTH THERAPIST COMPREHENSIVE METABOLIC PANEL STAT 04/28/2024 7:13 PM CRISIS MENTAL HEALTH THERAPIST EGFR STAT 04/28/2024 7:13 PM CRISIS MENTAL HEALTH THERAPIST DIFFERENTIAL AUTO STAT 04/28/2024 7:1 3 PM CRISIS MENTAL HEALTH THERAPIST TROPONIN T HIGH-SENSITIVITY SERIES (BASELINE, 2HR, 4HR, 6HR) STAT 04/28/2024 7:13 PM CRISIS MENTAL HEALTH THERAPIST CBC WITH AUTO DIFFERENTIAL STAT 04/28/2024 7:13 PM CRISIS MENTAL HEALTH THERAPIST RESPIRATORY PATHOGEN PANEL Routine 04/28/2024 7:13 PM CRISIS MENTAL HEALTH THERAPIST URINALYSIS AND REFLEX TO MICROSCOPIC AND CULTURE STAT 04/28/2024 7:13 PM CRISIS MENTAL HEALTH THERAPIST CT HEAD WO CONTRAST ED 04/28/2024 6 :53 PM CRISIS MENTAL HEALTH THERAPIST XR CHEST PA LATERAL 2 VIEWS ED 04/28/2024 6:34 PM CRISIS MENTAL HEALTH THERAPIST ECG 12-LEAD STAT 04/28/2024 6:26 PM CRISIS MENTAL HEALTH THERAPIST POCT GLUCOSE DEVICE Routine 04/28/2024 5 :44 PM CRISIS MENTAL HEALTH THERAPIST HEMOGLOBIN A1C Routine 06/02/2023 4:40 AM CRISIS MENTAL HEALTH THERAPIST from Last 3 Months or Most Recently Relevant to Health Maintenance Results * eGFR (04/28/2024 11:19 PM CRISIS MENTAL HEALTH THERAPIST) eGFR >90 >=60 mL/min/1. 73 m2 Comment: [...] reviewed 2021. Blood 04/28/2024 11:1 9 PM CRISIS MENTAL HEALTH THERAPIST 04/28/2024 11:24 PM CRISIS MENTAL HEALTH THERAPIST Gonzalo Holman MD LAB BLOOD ORDERABLES Final R esult [facility] [address] Department [place] [address] * (ABNORMAL) Basic metabolic panel (04/28/2024 11:19 PM CRISIS MENTAL HEALTH THERAPIST) Sodium 139 135 - 145 mmol/L Potassium, pl 4.3 3.3 - 4.9 mmol/L [facility] Chloride 105 97 - 110 mmol/L [facility] CO2 19(L) 22 - 32 mmol/L [facility] Anion gap 15 2 - 15 mmol/L [facility] BUN 16 6 - 25 mg/dL [facility] Creatinine 0.67 0.60 - 1.10 mg/dL [facility] Glucose 218(H) 70 - 199 mg/dL [facility] Comment: Interpretive Data Fasting glucose >/= 126 [...] 2022. Calcium 9.4 8.5 - 10.3 mg/dL [facility] Blood 04/28/2024 11:1 9 PM CRISIS MENTAL HEALTH THERAPIST 04/28/2024 11:24 PM CRISIS MENTAL HEALTH THERAPIST Gonzalo Holman MD LAB BLOOD ORDERABLES Final R esult Performing Organization Address [facility]/ZIP Co de Phone Number [facility] [address] Department [place] [address] * POCT glucose (04/28/2024 9:38 PM CRISIS MENTAL HEALTH THERAPIST) Glucose, POC 195 70 - 199 mg/dL Comment: For Glucose values <35 mg/dl when Hematocrit is >60 mg/dl,the test may not accurately detect significant hypoglycemia,and testing in the Laboratory should be considered if clinically indicated. Blood 04/28/2024 9:38 PM CRISIS MENTAL HEALTH THERAPIST 04/28/2024 9:38 PM CRISIS MENTAL HEALTH THERAPIST Gonzalo Holman MD LAB POCT ORDERABLES - DEVICE Final Result Performing Organization Address [facility] Co de Phone Number [facility] [address] Department [place] [address] * Troponin T high-sensitivity 2-hour (04/28/2024 9:37 PM CRISIS MENTAL HEALTH THERAPIST) Pathologist [facility] [place] Trop T hs <6 <=14 ng/L Comment: Interpretive Data For further hscTnT resources including the diagnostic algorithm and an aid in interpretation, copy and paste this link: https://nrl.testcatalog.org/show/hsTrop Current Interpretive Data last revised 2020. Trop T hs delta 0 ng/L [facility] Trop T hs interp Insignificant [facility] Blood 04/28/2024 9:37 PM CRISIS MENTAL HEALTH THERAPIST 04/28/2024 9:50 PM CRISIS MENTAL HEALTH THERAPIST Gonzalo Holman MD LAB BLOOD ORDERABLES Final R esult Performing Organization Address [facility]/ZIP Co de Phone Number [facility] [address] Department [place] [address] * POCT glucose (04/28/2024 8:31 PM CRISIS MENTAL HEALTH THERAPIST) Glucose, POC 198 70 - 199 mg/dL Comment: For Glucose values <35 mg/dl when Hematocrit is >60 mg/dl,the test may not accurately detect significant hypoglycemia,and testing in the Laboratory should be considered if clinically indicated. Blood 04/28/2024 8:31 PM CRISIS MENTAL HEALTH THERAPIST 04/28/2024 8:31 PM CRISIS MENTAL HEALTH THERAPIST Gonzalo Holman MD LAB POCT ORDERABLES - DEVICE Final Result Performing Organization Address [facility] de Phone Number [facility] [address] Department [place] [place] [address] * Troponin T high-sensitivity series (baseline, 2hr, 4hr, 6hr) (04/28/2024 7:13 PM CRISIS MENTAL HEALTH THERAPIST) Pathologist [facility] [place] Trop T hs <6 <=14 ng/L Comment: Interpretive Data For further hscTnT resources including the diagnostic algorithm and an aid in interpretation, copy and paste this link: https://nrl.testcatalog.org/show/hsTrop Current Interpretive Data last revised 2020. Blood 04/28/2024 7:13 PM CRISIS MENTAL HEALTH THERAPIST 04/28/2024 7:22 PM CRISIS MENTAL HEALTH THERAPIST Gonzalo Holman MD LAB BLOOD ORDERABLES Final R esult Performing Organization Address [facility] Co de Phone Number [facility] [address] Department of [employer] [place], [place] [id number] * eGFR (04/28/2024 7:13 PM CRISIS MENTAL HEALTH THERAPIST) eGFR >90 >=60 mL/min/1. 73 m2 Comment: [...] last reviewed 2021. Blood 04/28/2024 7:13 PM CRISIS MENTAL HEALTH THERAPIST 04/28/2024 7:22 PM CRISIS MENTAL HEALTH THERAPIST us Gonzalo Holman MD LAB BLOOD ORDERABLES Final R esult [facility] [address] Department [place] [address] * (ABNORMAL) Differential, auto (04/28/2024 7:13 PM CRISIS MENTAL HEALTH THERAPIST) Neutrophil abs 15.5(H) 1.5 - 6.5 K/cumm Imm gran abs 0.2(H) 0.0 - 0.1 K/cumm [facility] Lymphocyte abs 2.4 0.8 - 3.3 K/cumm [facility] Monocyte abs 0.7 0.2 - 0.8 K/cumm [facility] Eosinophil abs 0.0 0.0 - 0.5 K/cumm [facility] Basophil abs 0.0 0.0 - 0.1 K/cumm [facility] Neutrophil pct 82.2 % [facility] Comment: Interpretive Data Percent cell count reference ranges are not reported, since discordance with absolute values may lead to misinterpretation of CBC data. Current Interpretive Data was last revised on 2017. Imm gran pct 0.9 % [facility] Comment: Interpretive Data Percent cell count reference ranges are not reported, since discordance with absolute values may lead to misinterpretation of CBC data. Current Interpretive Data was last revised on 2017. Lymphocyte pct 12.9 % [facility] Comment: Interpretive Data Percent cell count reference ranges are not reported, since discordance with absolute values may lead to misinterpretation of CBC data. Current Interpretive Data was last revised on 2017. Monocyte pct 3.9 % [facility] Comment: Interpretive Data Percent cell count reference ranges are not reported, since discordance with absolute values may lead to misinterpretation of CBC data. Current Interpretive Data was last revised on 2017. Eosinophil pct 0.0 % [facility] Comment: Interpretive Data Percent cell count reference ranges are not reported, since discordance with absolute values may lead to misinterpretation of CBC data. Current Interpretive Data was last revised on 2017. Basophil pct 0.1 % [facility] Comment: Interpretive Data Percent cell count reference ranges are not reported, since discordance with absolute values may lead to misinterpretation of CBC data. Current Interpretive Data was last revised on 2017. Blood 04/28/2024 7:13 PM CRISIS MENTAL HEALTH THERAPIST 04/28/2024 7:22 PM CRISIS MENTAL HEALTH THERAPIST us Gonzalo Holman MD LAB BLOOD ORDERABLES Final R esult [facility] [address] Department [place] [address] * Pro B-type natriuretic peptide (04/28/2024 7:13 PM CRISIS MENTAL HEALTH THERAPIST) NT-proBNP 51 <=300 pg/mL Comment: Interpretive Comments: [...] Revised Date: 2018. Blood 04/28/2024 7:13 PM CRISIS MENTAL HEALTH THERAPIST 04/28/2024 7:14 PM CRISIS MENTAL HEALTH THERAPIST us Gonzalo Holman MD LAB BLOOD ORDERABLES Final R esult [facility] [address] Department [place] [address] * Urinalysis reflex to microscopic and culture Urine (04/28/2024 7:13 PM CRISIS MENTAL HEALTH THERAPIST) Color, ur Straw Yellow Clarity, ur Clear Clear [facility] Specific gravity, ur 1.010 1.003 - 1.030 [facility] pH, urine 6.5 [facility] Comment: Interpretive Data U rine pH is affected by diet, medications, systemic acid-base disturbances, and renal tubular function. pH may affect urinary stone formation. For example, urine pH below 6.0 may help reduce the tendency for calcium phosphate stones and pH greater than 6.0 may reduce the tendency for uric acid stone formation. Source: [facility] [employer] Current Interpretive Data was last revised on 2017 Protein, ur ql Negative Negative [facility] Glucose, ur ql Negative Negative [facility] Ketones, ur Negative Negative [facility] Bilirubin, ur Negative Negative [facility] Blood, ur Negative Negative [facility] Urobilinogen, ur <2.0 <2.0 mg/dL [facility] Nitrite, ur Negative Negative [facility] Leukocyte esterase, ur Negative Negative [facility] UA reflex comment Reflex conditions for microscopic UA and culture not met. [facility] Urine 04/28/2024 7:13 PM CRISIS MENTAL HEALTH THERAPIST 04/28/2024 7:14 PM CRISIS MENTAL HEALTH THERAPIST Gonzalo Holman MD LAB MICROBIOLOGY - GENERAL O RDERABLES Final Result [facility] [address] Department [place] [address] * Respiratory pathogen panel Nasopharyngeal (04/28/2024 7:13 PM CRISIS MENTAL HEALTH THERAPIST) Pathologist [facility] [place] Influenza A RNA Not Detected Not Detected [facility] Influenza B RNA Not Detected Not Detected [facility] RSV RNA Not Detected Not Detected [facility] COVID-19 RNA Not Detected Not Detected [facility] Coronavirus 229E RNA Not Detected Not Detected [facility] Coronavirus HKU1 RNA Not Detected Not Detected [facility] Coronavirus NL63 RNA Not Detected Not Detected [facility] Coronavirus OC43 RNA Not Detected Not Detected [facility] Adenovirus DNA Not Detected Not Detected [facility] Metapneumovirus RNA Not Detected Not Detected [facility] Rhinovirus/Enterov irus RNA Not Detected Not Detected [facility] Parainfluenza 1 RNA Not Detected Not Detected [facility] Parainfluenza 2 RNA Not Detected Not Detected [facility] Parainfluenza 3 RNA Not Detected Not Detected [facility] Parainfluenza 4 RNA Not Detected Not Detected [facility] B. pertussis DNA Not Detected Not Detected [facility] B. parapertussis DNA Not Detected Not Detected [facility] C. pneumoniae DNA Not Detected Not Detected [facility] M. pneumoniae DNA Not Detected Not Detected [facility] Comment: Interpretive Data The [employer] FilmArray Respiratory Panel (RP2.1) assay is a [...] assay has FDA clearance for testing of HEAD STILL OPERATOR swabs. The performance characteristics of this assay have been determined by [facility]. Current interpretive data was last revised on 2020. Nasopharyngeal 04/28/2024 7: 13 PM CRISIS MENTAL HEALTH THERAPIST 04/28/2024 7:19 PM CRISIS MENTAL HEALTH THERAPIST Narrative [facility] - 04/28/2024 8:11 PM CRISIS MENTAL HEALTH THERAPIST Is the Patient experiencing symptoms consistent with COVID?->Yes Surveillance testing for transplant patient?->No Gonzalo Holman MD LAB MICROBIOLOGY - GENERAL O RDERABLES Final Result [facility] [address] Department [place] [address] [facility] * (ABNORMAL) CBC with auto differential (04/28/2024 7:13 PM CRISIS MENTAL HEALTH THERAPIST) [facility] WBC 18.8(H) 3.8 - 9.9 K/cumm Hgb 13.7 11.9 - 15.5 g/dL [facility] Hct 41.7 35.6 - 45.5 % [facility] Plt 398 150 - 400 K/cumm [facility] MPV 9.2 9.1 - 12.3 fL [facility] RBC 5.12 3.90 - 5.20 M/cumm [facility] MCV 81.4 81.3 - 96.4 fL [facility] MCH 26.8(L) 27.1 - 33.3 pg [facility] MCHC 32.9 32.3 - 35.7 g/dL [facility] RDW CV 14.1 11.1 - 14.9 % [facility] RDW SD 41.2 35.7 - 48.1 fL [facility] NRBC abs 0.00 0.00 - 0.01 K/cumm [facility] Blood 04/28/2024 7:13 PM CRISIS MENTAL HEALTH THERAPIST 04/28/2024 7:22 PM CRISIS MENTAL HEALTH THERAPIST us Gonzalo Holman MD LAB BLOOD ORDERABLES Final R esult [facility] [address] Department [place] [address] * (ABNORMAL) Comprehensive metabolic panel (04/28/2024 7:13 PM CRISIS MENTAL HEALTH THERAPIST) [facility] Sodium 141 135 - 145 mmol/L Potassium, pl 4.2 3.3 - 4.9 mmol/L [facility] Chloride 104 97 - 110 mmol/L [facility] CO2 20(L) 22 - 32 mmol/L [facility] Anion gap 17(H) 2 - 15 mmol/L [facility] BUN 16 6 - 25 mg/dL [facility] Creatinine 0.74 0.60 - 1.10 mg/dL [facility] Glucose 212(H) 70 - 199 mg/dL [facility] Comment: Interpretive Data Fasting glucose >/= 126 [...] 2022. Calcium 9.9 8.5 - 10.3 mg/dL [facility] Bilirubin, total 0.2 0.1 - 1.2 mg/dL [facility] Protein, pl 7.7 6.5 - 8.5 g/dL [facility] Albumin 4.6 3.5 - 5.0 g/dL [facility] Alk phos 98 40 - 130 Units/L [facility] ALT 29 7 - 45 Units/L [facility] AST 19 10 - 45 Units/L [facility] Blood 04/28/2024 7:13 PM CRISIS MENTAL HEALTH THERAPIST 04/28/2024 7:14 PM CRISIS MENTAL HEALTH THERAPIST Gonzalo Holman MD LAB BLOOD ORDERABLES Final R esult [facility] [address] Department [place] [address] * CT Head WO Contrast (04/28/2024 6:53 PM CRISIS MENTAL HEALTH THERAPIST) Anatomical Region Laterality Modality Head and Neck N/A Computed Tomogra phy 04/28/2024 6:57 PM CRISIS MENTAL HEALTH THERAPIST Impressions 04/28/2024 7:20 PM CRISIS MENTAL HEALTH THERAPIST No acute intracranial process. Dictated by: Valencia Yousif MD The radiology attending physician has personally reviewed this study, and had reviewed and/or edited this written report and agrees with it. Electronically signed by: Rachid Monge MD Narrative 04/28/2024 7:20 PM CRISIS MENTAL HEALTH THERAPIST EXAMINATION: CT head without contrast HISTORY: Headache [...] Pa Lateral 2 Vw (04/28/2024 6:34 PM CRISIS MENTAL HEALTH THERAPIST) Anatomical Region Laterality Modality Body, Chest N/A Computed Radiogr aphy 04/28/2024 6:45 PM CRISIS MENTAL HEALTH THERAPIST Impressions 04/28/2024 6:45 PM CRISIS MENTAL HEALTH THERAPIST No consolidation or pulmonary edema. No pleural effusion or pneumothorax. Unchanged cardiomediastinal silhouette. Unchanged mild elevation of the right hemidiaphragm. Cholecystectomy. Electronically signed by: Johanna Lopez M.D. Narrative 04/28/2024 6:45 PM CRISIS MENTAL HEALTH THERAPIST EXAMINATION: XR CHEST PA LATERAL 2 VIEWS [...] * ECG 12 lead (04/28/2024 6:26 PM CRISIS MENTAL HEALTH THERAPIST) 04/28/2024 6:26 PM CRISIS MENTAL HEALTH THERAPIST Narrative [facility] - 04/28/2024 9:06 PM CRISIS MENTAL HEALTH THERAPIST Vent Rate: 86 bpm RR Interval: 695 msec FL Interval: 168 msec QRS Duration: 91 msec QT Interval: 363 msec QTC Interval: 406 msec P-R-T Martin: 17 - 11 - 12 degrees IMPRESSION: SINUS RHYTHM LOW QRS VOLTAGE IN PRECORDIAL LEADS [QRS DEFLECTION < 1.0 mV IN CHEST LEADS] DELAYED R WAVE PROGRESSION ABNORMAL ECG Electronically Signed By: Andres Cummins [facility] Card Gonzalo Holman MD ECG ORDERABLES Final Result Performing Organization Address [facility]/ZIP Co de Phone Number [employer] [facility] * (ABNORMAL) POCT glucose (04/28/2024 5:44 PM CRISIS MENTAL HEALTH THERAPIST) [facility] Glucose, POC 201(H) 70 - 199 mg/dL Comment: For Glucose values <35 mg/dl when Hematocrit is >60 mg/dl,the test may not accurately detect significant hypoglycemia,and testing in the Laboratory should be considered if clinically indicated. Blood 04/28/2024 5:44 PM CRISIS MENTAL HEALTH THERAPIST 04/28/2024 5:44 PM CRISIS MENTAL HEALTH THERAPIST Notinfile Unknown LAB POCT ORDERABLES - DEVICE F inal Result [facility] [address] Department [place] [address] * (ABNORMAL) Hemoglobin A1c (06/02/2023 4:40 AM CRISIS MENTAL HEALTH THERAPIST) Hgb A1C 8.6(H) 4.0 - 5.6 % [facility] Estimated Average Glucose 200 mg/dL [facility] Comment: The ADA recommends reporting an estimated Average Glucose (eAG) with all Hemoglobin A1c results using the equation derived from a study of 507 normal and diabetic adults. Minority populations were underrepresented and children were not included. (Diabetes Care 31:1722-4423, 2008). The eAG is not equivalent to a fasting glucose. Blood 06/02/2023 4:40 AM CRISIS MENTAL HEALTH THERAPIST 06/02/2023 5:21 AM CRISIS MENTAL HEALTH THERAPIST Jean Givens LAB BLOOD ORDERABLES Final Result [facility] [address] [place] [address] from Last 3 Months or Most Recently Relevant to Health Maintenance Insurance [facility] PPO [facility] [employer] [facility] [employer] [facility] Advance Directives For more information, please contact: [phone] * Full Code (Latest Code Status on File) Date Activated Date Inactivated Comments 07/10/2023 7:28 AM 07/12/2023 4:02 PM * Full Code Date Activated Date Inactivated Comments 05/30/2023 8:47 PM 06/05/2023 7:08 PM Care Teams Sales Office Coordinator Relationship Specialty Start Date End Date Lyle Hutchins MD [address] [address] PCP - General Family Medicine 02/09/20
--- OUTSIDE RECORDS SUMMARY | 2024-07-26 07:06 | XMS_ITS | Clinical Summary ---
Author Organization 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 ([facility]/HCC) 03/22/2019 Metabolic acidosis 03/22/2019 Sinusitis 03/22/2019 Trochanteric [...] Department Care Team Description 04/28/2024 5:49 PM FOOD SCIENCE TECHNICIAN - 04/29/2024 12:08 AM [facility] Emergency [facility] Emergency Department [address] [place] [address] Gonzalo Holman MD Beck, Joann [...] Obesity Eczema contact dermatit is at times/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 Never 07/11/2023 Do you belong to any clubs o r organizations such as druze groups, unions, fraternal or athletic groups, or [...] place to sleep or slept in a long-term (including now)? No 07/11/2023 Personal Safety Answer Date Recorded Have you ever been in or are you currently in a harmful physical or emotional relationship or is someone making you feel afraid or unsafe? Denies 04/28/2024 Comments No Sex and Gender Information Value Date Recorded Sex Assigned at Not on file Legal Sex Female 2:19 PM FOOD SCIENCE TECHNICIAN Gender Identity Not on file Sexual Orientation Bisexual 04/28/2024 6: 46 PM FOOD SCIENCE TECHNICIAN Obstetrics History Last Filed Vital Signs Vital Sign Reading Time Taken Comments Blood Pressure 129/81 04/28/2024 11:30 PM FOOD SCIENCE TECHNICIAN Pulse 85 04/28/2024 11:30 PM FOOD SCIENCE TECHNICIAN Temperature 36.9 C (98.4 F) 04/28/2024 5:39 PM FOOD SCIENCE TECHNICIAN Respiratory Rate 16 04/28/2024 11:30 PM FOOD SCIENCE TECHNICIAN Oxygen Saturation 97% 04/28/2024 11:30 PM FOOD SCIENCE TECHNICIAN Inhaled Oxygen Concentration - - Weight 140.6 kg (310 lb) 04/28/2024 5:39 PM FOOD SCIENCE TECHNICIAN Height 165.1 cm (5' 5 ) 04/28/2024 5:39 PM FOOD SCIENCE TECHNICIAN Body Mass Index 51.59 04/28/2024 5:39 PM FOOD SCIENCE TECHNICIAN Plan of Treatment Health Maintenance Due Date [...] this topic Medical Devices Implanted Type Area Director Of Placement Device Identifier Shelf Expiration Date Model / Serial / Lot Other - See Comments Other - see comments Neck Description:Neck disc replac ement C6-C7 Procedures Procedure Name Priority Date/Time Associated Diagnosis Comments EGFR STAT 04/28/2024 11:19 PM FOOD SCIENCE TECHNICIAN BASIC METABOLIC PANEL STAT 04/28/2024 11:19 PM FOOD SCIENCE TECHNICIAN POCT GLUCOSE DEVICE Routine 04/28/2024 9 :38 PM FOOD SCIENCE TECHNICIAN TROPONIN T HIGH-SENSITIVITY 2-HOUR Timed 04/28/2024 9:37 PM FOOD SCIENCE TECHNICIAN POCT GLUCOSE DEVICE Routine 04/28/2024 8 :31 PM FOOD SCIENCE TECHNICIAN PRO B-TYPE NATRIURETIC PEPTIDE STAT 04/28/2024 7:13 PM FOOD SCIENCE TECHNICIAN COMPREHENSIVE METABOLIC PANEL STAT 04/28/2024 7:13 PM FOOD SCIENCE TECHNICIAN EGFR STAT 04/28/2024 7:13 PM FOOD SCIENCE TECHNICIAN DIFFERENTIAL AUTO STAT 04/28/2024 7:1 3 PM FOOD SCIENCE TECHNICIAN TROPONIN T HIGH-SENSITIVITY SERIES (BASELINE, 2HR, 4HR, 6HR) STAT 04/28/2024 7:13 PM FOOD SCIENCE TECHNICIAN CBC WITH AUTO DIFFERENTIAL STAT 04/28/2024 7:13 PM FOOD SCIENCE TECHNICIAN RESPIRATORY PATHOGEN PANEL Routine 04/28/2024 7:13 PM FOOD SCIENCE TECHNICIAN URINALYSIS AND REFLEX TO MICROSCOPIC AND CULTURE STAT 04/28/2024 7:13 [address] HEAD WO CONTRAST ED 04/28/2024 6 :53 PM FOOD SCIENCE TECHNICIAN XR CHEST PA LATERAL 2 VIEWS ED 04/28/2024 6:34 PM FOOD SCIENCE TECHNICIAN ECG 12-LEAD STAT 04/28/2024 6:26 PM FOOD SCIENCE TECHNICIAN POCT GLUCOSE DEVICE Routine 04/28/2024 5 :44 PM FOOD SCIENCE TECHNICIAN HEMOGLOBIN A1C Routine 06/02/2023 4:40 AM FOOD SCIENCE TECHNICIAN from Last 3 Months or Most Recently Relevant to Health Maintenance Results * eGFR (04/28/2024 11:19 PM FOOD SCIENCE TECHNICIAN) Pathologist [facility] Emergency Department eGFR >90 >=60 mL/min/1. 73 m2 Comment: [...] reviewed 2021. Blood 04/28/2024 11:1 9 PM FOOD SCIENCE TECHNICIAN 04/28/2024 11:24 PM FOOD SCIENCE TECHNICIAN us Gonzalo Holman MD LAB BLOOD ORDERABLES Final R esult [facility] [address] Department [place] [address] * (ABNORMAL) Basic metabolic panel (04/28/2024 11:19 PM FOOD SCIENCE TECHNICIAN) Pathologist [facility] Emergency Department Sodium 139 135 - 145 mmol/L Potassium, pl 4.3 3.3 - 4.9 mmol/L [facility] Chloride 105 97 - 110 mmol/L [facility] CO2 19(L) 22 - 32 mmol/L [facility] Anion gap 15 2 - 15 mmol/L [facility] BUN 16 6 - 25 mg/dL [facility] Creatinine 0.67 0.60 - 1.10 mg/dL [facility] Glucose 218(H) 70 - 199 mg/dL [facility] Comment: Interpretive Data Fasting glucose [...] 2022. Calcium 9.4 8.5 - 10.3 mg/dL [facility] Blood 04/28/2024 11:1 9 PM FOOD SCIENCE TECHNICIAN 04/28/2024 11:24 PM FOOD SCIENCE TECHNICIAN Gonzalo Holman MD LAB BLOOD ORDERABLES Final R esult Performing Organization Address City/[facility]/ZIP Co de Phone Number [facility] [address] [place] [address] * POCT glucose (04/28/2024 9:38 PM FOOD SCIENCE TECHNICIAN) Pathologist [facility] Emergency Department Glucose, POC 195 70 - 199 mg/dL Comment: For Glucose values <35 mg/dl when Hematocrit is >60 mg/dl,the test may not accurately detect significant hypoglycemia,and testing in the Laboratory should be considered if clinically indicated. Blood 04/28/2024 9:38 PM FOOD SCIENCE TECHNICIAN 04/28/2024 9:38 PM FOOD SCIENCE TECHNICIAN Gonzalo Holman MD LAB POCT ORDERABLES - DEVICE Final Result Performing Organization Address City/[facility]/ZIP Co de Phone Number [facility] [address] Department [place] [address] * Troponin T high-sensitivity 2-hour (04/28/2024 9:37 PM FOOD SCIENCE TECHNICIAN) Pathologist [facility] Emergency Department Trop T hs <6 <=14 ng/L Comment: Interpretive Data For further hscTnT resources including the diagnostic algorithm and an aid in interpretation, copy and paste this link: https://nrl.[email or web address]/show/hsTrop Current Interpretive Data last revised 2020. Trop T hs delta 0 ng/L [facility] Trop T hs interp Insignificant [facility] Blood 04/28/2024 9:37 PM FOOD SCIENCE TECHNICIAN 04/28/2024 9:50 PM FOOD SCIENCE TECHNICIAN Gonzalo Holman MD LAB BLOOD ORDERABLES Final R esult Performing Organization Address [facility] Co de Phone Number [facility] [address] Department of Laboratories [place], [place] [id number] * POCT glucose (04/28/2024 8:31 PM FOOD SCIENCE TECHNICIAN) Glucose, POC 198 70 - 199 mg/dL Comment: For Glucose values <35 mg/dl when Hematocrit is >60 mg/dl,the test may not accurately detect significant hypoglycemia,and testing in the Laboratory should be considered if clinically indicated. Blood 04/28/2024 8:31 PM FOOD SCIENCE TECHNICIAN 04/28/2024 8:31 PM FOOD SCIENCE TECHNICIAN Gonzalo Holman MD LAB POCT ORDERABLES - DEVICE Final Result Performing Organization Address [facility] Co de Phone Number [facility] [address] Department [place] [address] * Troponin T high-sensitivity series (baseline, 2hr, 4hr, 6hr) (04/28/2024 7:13 PM FOOD SCIENCE TECHNICIAN) Trop T hs <6 <=14 ng/L Comment: Interpretive Data For further hscTnT resources including the diagnostic algorithm and an aid in interpretation, copy and paste this link: https://nrl.[email or web address]/show/hsTrop Current Interpretive Data last revised 2020. Blood 04/28/2024 7:13 PM FOOD SCIENCE TECHNICIAN 04/28/2024 7:22 PM FOOD SCIENCE TECHNICIAN Gonzalo Holman MD LAB BLOOD ORDERABLES Final R esult Performing Organization Address [facility] Co de Phone Number [facility] [address] Department of DNS:[employer] [place], [place] [id number] * eGFR (04/28/2024 7:13 PM FOOD SCIENCE TECHNICIAN) eGFR >90 >=60 mL/min/1. 73 m2 Comment: [...] last reviewed 2021. Blood 04/28/2024 7:13 PM FOOD SCIENCE TECHNICIAN 04/28/2024 7:22 PM FOOD SCIENCE TECHNICIAN Gonzalo Holman MD LAB BLOOD ORDERABLES Final R esult Performing Organization Address [facility] Co de Phone Number [facility] [address] Department of [employer] [place], [place] [id number] * (ABNORMAL) Differential, auto (04/28/2024 7:13 PM FOOD SCIENCE TECHNICIAN) Pathologist [facility] Emergency Department Neutrophil abs 15.5(H) 1.5 - 6.5 K/cumm Imm gran abs 0.2(H) 0.0 - 0.1 K/cumm [facility] Lymphocyte abs 2.4 0.8 - 3.3 K/cumm [facility] Monocyte abs 0.7 0.2 - 0.8 K/cumm [facility] Eosinophil abs 0.0 0.0 - 0.5 K/cumm [facility] Basophil abs 0.0 0.0 - 0.1 K/cumm [facility] Neutrophil pct 82.2 % [facility] Comment: Interpretive Data Percent cell count reference ranges are not reported, since discordance with absolute values may lead to misinterpretation of CBC data. Current Interpretive Data was last revised on 2017. Imm gran pct 0.9 % [facility] Comment: Interpretive Data Percent cell count reference ranges are not reported, since discordance with absolute values may lead to misinterpretation of CBC data. Current Interpretive Data was last revised on 2017. Lymphocyte pct 12.9 % [facility] Comment: Interpretive Data Percent cell count reference ranges are not reported, since discordance with absolute values may lead to misinterpretation of CBC data. Current Interpretive Data was last revised on 2017. Monocyte pct 3.9 % [facility] Comment: Interpretive Data Percent cell count reference ranges are not reported, since discordance with absolute values may lead to misinterpretation of CBC data. Current Interpretive Data was last revised on 2017. Eosinophil pct 0.0 % [facility] Comment: Interpretive Data Percent cell count reference ranges are not reported, since discordance with absolute values may lead to misinterpretation of CBC data. Current Interpretive Data was last revised on 2017. Basophil pct 0.1 % [facility] Comment: Interpretive Data Percent cell count reference ranges are not reported, since discordance with absolute values may lead to misinterpretation of CBC data. Current Interpretive Data was last revised on 2017. Blood 04/28/2024 7:13 PM FOOD SCIENCE TECHNICIAN 04/28/2024 7:22 PM FOOD SCIENCE TECHNICIAN us Gonzalo Holman MD LAB BLOOD ORDERABLES Final R esult [facility] [address] Department [place] [address] * Pro B-type natriuretic peptide (04/28/2024 7:13 PM FOOD SCIENCE TECHNICIAN) NT-proBNP 51 <=300 pg/mL Comment: Interpretive Comments: [...] well as advanced age. - References: 1. Jses JL et.al. Eur Heart J. 2006:27:330-337. 2. Jean-Claude RW, Sarath BALLESTEROS. J. AM Walt Cardiol: Cardiovasc Imag. 2009;2: 216- 225. Interpretive Data Last Revised Date: 2018. Blood 04/28/2024 7:13 PM FOOD SCIENCE TECHNICIAN 04/28/2024 7:14 PM FOOD SCIENCE TECHNICIAN us Gonzalo Holman MD LAB BLOOD ORDERABLES Final R esult [facility] [address] Department [place] [address] * Urinalysis reflex to microscopic and culture Urine (04/28/2024 7:13 PM FOOD SCIENCE TECHNICIAN) Color, ur Straw Yellow Clarity, ur Clear Clear [facility] Specific gravity, ur 1.010 1.003 - 1.030 [facility] pH, urine 6.5 [facility] Comment: Interpretive Data U rine pH is affected by diet, medications, systemic acid-base disturbances, and renal tubular function. pH may affect urinary stone formation. For example, urine pH below 6.0 may help reduce the tendency for calcium phosphate stones and pH greater than 6.0 may reduce the tendency for uric acid stone formation. Source: [facility] Current Interpretive Data was last revised on 2017 Protein, ur ql Negative Negative [facility] Glucose, ur ql Negative Negative [facility] Ketones, ur Negative Negative [facility] Bilirubin, ur Negative Negative [facility] Blood, ur Negative Negative [facility] Urobilinogen, ur <2.0 <2.0 mg/dL [facility] Nitrite, ur Negative Negative [facility] Leukocyte esterase, ur Negative Negative [facility] UA reflex comment Reflex conditions for microscopic UA and culture not met. [facility] Urine 04/28/2024 7:13 PM FOOD SCIENCE TECHNICIAN 04/28/2024 7:14 PM FOOD SCIENCE TECHNICIAN Gonzalo Holman MD LAB MICROBIOLOGY - GENERAL O RDERABLES Final Result [facility] [address] Department [place] [address] * Respiratory pathogen panel Nasopharyngeal (04/28/2024 7:13 PM FOOD SCIENCE TECHNICIAN) Influenza A RNA Not Detected Not Detected [facility] Influenza B RNA Not Detected Not Detected [facility] RSV RNA Not Detected Not Detected [facility] COVID-19 RNA Not Detected Not Detected [facility] Coronavirus 229E RNA Not Detected Not Detected [facility] Coronavirus HKU1 RNA Not Detected Not Detected [facility] Coronavirus NL63 RNA Not Detected Not Detected [facility] Coronavirus OC43 RNA Not Detected Not Detected [facility] Adenovirus DNA Not Detected Not Detected [facility] Metapneumovirus RNA Not Detected Not Detected [facility] Rhinovirus/Enterov irus RNA Not Detected Not Detected [facility] Parainfluenza 1 RNA Not Detected Not Detected [facility] Parainfluenza 2 RNA Not Detected Not Detected [facility] Parainfluenza 3 RNA Not Detected Not Detected [facility] Parainfluenza 4 RNA Not Detected Not Detected [facility] B. pertussis DNA Not Detected Not Detected [facility] B. parapertussis DNA Not Detected Not Detected [facility] C. pneumoniae DNA Not Detected Not Detected [facility] M. pneumoniae DNA Not Detected Not Detected [facility] Comment: Interpretive Data The [employer] FilmArray Respiratory Panel (RP2.1) assay is a [...] assay has FDA clearance for testing of CAMPUS RECEPTIONIST swabs. The performance characteristics of this assay have been determined by [facility]. Current interpretive data was last revised on 2020. Nasopharyngeal 04/28/2024 7: 13 PM FOOD SCIENCE TECHNICIAN 04/28/2024 7:19 PM FOOD SCIENCE TECHNICIAN Narrative [facility] - 04/28/2024 8:11 PM FOOD SCIENCE TECHNICIAN Is the Patient experiencing symptoms consistent with COVID?->Yes Surveillance testing for transplant patient?->No Gonzalo Holman MD LAB MICROBIOLOGY - GENERAL O RDERABLES Final Result [facility] [address] Department [place] [address] [facility] * (ABNORMAL) CBC with auto differential (04/28/2024 7:13 PM FOOD SCIENCE TECHNICIAN) WBC 18.8(H) 3.8 - 9.9 K/cumm Hgb 13.7 11.9 - 15.5 g/dL [facility] Hct 41.7 35.6 - 45.5 % [facility] Plt 398 150 - 400 K/cumm [facility] MPV 9.2 9.1 - 12.3 fL [facility] RBC 5.12 3.90 - 5.20 M/cumm [facility] MCV 81.4 81.3 - 96.4 fL [facility] MCH 26.8(L) 27.1 - 33.3 pg [facility] MCHC 32.9 32.3 - 35.7 g/dL [facility] RDW CV 14.1 11.1 - 14.9 % [facility] RDW SD 41.2 35.7 - 48.1 fL [facility] NRBC abs 0.00 0.00 - 0.01 K/cumm [facility] Blood 04/28/2024 7:13 PM FOOD SCIENCE TECHNICIAN 04/28/2024 7:22 PM FOOD SCIENCE TECHNICIAN Gonzalo Holman MD LAB BLOOD ORDERABLES Final R esult [facility] [address] Department [place] [address] * (ABNORMAL) Comprehensive metabolic panel (04/28/2024 7:13 PM FOOD SCIENCE TECHNICIAN) Sodium 141 135 - 145 mmol/L Potassium, pl 4.2 3.3 - 4.9 mmol/L [facility] Chloride 104 97 - 110 mmol/L [facility] CO2 20(L) 22 - 32 mmol/L [facility] Anion gap 17(H) 2 - 15 mmol/L [facility] BUN 16 6 - 25 mg/dL [facility] Creatinine 0.74 0.60 - 1.10 mg/dL [facility] Glucose 212(H) 70 - 199 mg/dL [facility] Comment: Interpretive Data Fasting glucose [...] 2022. Calcium 9.9 8.5 - 10.3 mg/dL [facility] Bilirubin, total 0.2 0.1 - 1.2 mg/dL [facility] Protein, pl 7.7 6.5 - 8.5 g/dL [facility] Albumin 4.6 3.5 - 5.0 g/dL [facility] Alk phos 98 40 - 130 Units/L [facility] ALT 29 7 - 45 Units/L [facility] AST 19 10 - 45 Units/L [facility] Blood 04/28/2024 7:13 PM FOOD SCIENCE TECHNICIAN 04/28/2024 7:14 PM FOOD SCIENCE TECHNICIAN Gonzalo Holman MD LAB BLOOD ORDERABLES Final R esult [facility] [address] Department [place] [address] * CT Head WO Contrast (04/28/2024 6:53 PM FOOD SCIENCE TECHNICIAN) Anatomical Region Laterality Modality Head and Neck N/A Computed Tomogra phy 04/28/2024 6:57 PM FOOD SCIENCE TECHNICIAN Impressions 04/28/2024 7:20 PM FOOD SCIENCE TECHNICIAN No acute intracranial process. Dictated by: Valencia Yousif MD The radiology attending physician has personally reviewed this study, and had reviewed and/or edited this written report and agrees with it. Electronically signed by: Rachid Monge MD Narrative 04/28/2024 7:20 PM FOOD SCIENCE TECHNICIAN EXAMINATION: CT head without contrast HISTORY: Headache [...] Pa Lateral 2 Vw (04/28/2024 6:34 PM FOOD SCIENCE TECHNICIAN) Anatomical Region Laterality Modality Body, Chest N/A Computed Radiogr aphy 04/28/2024 6:45 PM FOOD SCIENCE TECHNICIAN Impressions 04/28/2024 6:45 PM FOOD SCIENCE TECHNICIAN No consolidation or pulmonary edema. No pleural effusion or pneumothorax. Unchanged cardiomediastinal silhouette. Unchanged mild elevation of the right hemidiaphragm. Cholecystectomy. Electronically signed by: Johanna Lopez M.D. Narrative 04/28/2024 6:45 PM FOOD SCIENCE TECHNICIAN EXAMINATION: XR CHEST PA LATERAL 2 VIEWS [...] * ECG 12 lead (04/28/2024 6:26 PM FOOD SCIENCE TECHNICIAN) 04/28/2024 6:26 PM FOOD SCIENCE TECHNICIAN Narrative [facility] - 04/28/2024 9:06 PM FOOD SCIENCE TECHNICIAN Vent Rate: 86 bpm RR Interval: 695 msec FL Interval: 168 msec QRS Duration: 91 msec QT Interval: 363 msec QTC Interval: 406 msec P-R-T [place]: 17 - 11 - 12 degrees IMPRESSION: SINUS RHYTHM LOW QRS VOLTAGE IN PRECORDIAL LEADS [QRS DEFLECTION < 1.0 mV IN CHEST LEADS] DELAYED R WAVE PROGRESSION ABNORMAL ECG Electronically Signed By: Andres Cummins [facility] Card Gonzalo Holman MD ECG ORDERABLES Final Result [facility] * (ABNORMAL) POCT glucose (04/28/2024 5:44 PM FOOD SCIENCE TECHNICIAN) Glucose, POC 201(H) 70 - 199 mg/dL Comment: For Glucose values <35 mg/dl when Hematocrit is >60 mg/dl,the test may not accurately detect significant hypoglycemia,and testing in the Laboratory should be considered if clinically indicated. Blood 04/28/2024 5:44 PM FOOD SCIENCE TECHNICIAN 04/28/2024 5:44 PM FOOD SCIENCE TECHNICIAN Notinfile Unknown LAB POCT ORDERABLES - DEVICE F inal Result Performing Organization Address [facility] Co de Phone Number [facility] [address] [place] [address] * (ABNORMAL) Hemoglobin A1c (06/02/2023 4:40 AM FOOD SCIENCE TECHNICIAN) [facility] Hgb A1C 8.6(H) 4.0 - 5.6 % [facility] Estimated Average Glucose 200 mg/dL [facility] Comment: The ADA recommends reporting an estimated Average Glucose (eAG) with all Hemoglobin A1c results using the equation derived from a study of 507 normal and diabetic adults. Minority populations were underrepresented and children were not included. (Diabetes Care 31:7760-4187, 2008). The eAG is not equivalent to a fasting glucose. Blood 06/02/2023 4:40 AM FOOD SCIENCE TECHNICIAN 06/02/2023 5:21 AM FOOD SCIENCE TECHNICIAN us Jean Givens DO LAB BLOOD ORDERABLES Final Result [facility] [address] [place] [address] from Last 3 Months or Most Recently Relevant to Health Maintenance Insurance [facility] PPO [employer] [facility] PPO [employer]IL [employer] [facility] Advance Directives For more information, please contact: [phone] * Full Code (Latest Code Status on File) Date Activated Date Inactivated Comments 07/10/2023 7:28 AM 07/12/2023 4:02 PM * Full Code Date Activated Date Inactivated Comments 05/30/2023 8:47 PM 06/05/2023 7:08 PM Care Teams Pit Steward Relationship Specialty Start Date End Date Lyle Hutchins MD [address] [facility] [address] [address] PCP - General Family Medicine 02/09/20
--- OUTSIDE RECORDS SUMMARY | 2024-07-26 07:06 | XMS_ITS | Referral Summary ---
Author Organization [facility] Address [address] [place] [address] Care Team Providers Care Drying Machine Operator Package Yarns Name Role Phone Rosette Michelle RN [facility] Lyle Stuart MD Primary Care Provider Source Comments [facility],non-owned Affiliates and Associated Physician Practices is amultiple site organization consisting of ambulatory clinics and hospital sitesin [place], [place], [place] and [place]. This disclosure is being madepursuant to the Care Everywhere program and may not contain all information available regarding this patient. Last updated 18.[facility] Encounters Date Type Department Care Team Description 07/12/2024 Refill [facility] [address] [phone] Lyle Hutchins MD Refill Request 07/01/2024 1:30 PM CHEMICAL PATHOLOGIST Office Visit [facility] [address] [phone] Lyle Hutchins MD Type 2 diabetes mellitus without complication, with long-term current use of insulin (HCC) (Primary Dx); Lumbar radiculitis 06/29/2024 Telephone [facility] [address] [phone] Lyle Hutchins MD General 06/24/2024 Telephone [facility] [address] [phone] Lyle Hutchins MD General (FMLA Form's) 06/15/2024 Refill [facility] 1000 [facility], [facility] [address] [place] [address] Lyle Hutchins MD Refill Request 05/31/2024 Refill [facility] [address] [facility], [facility] [address] [place] [address] Lyle Hutchins MD Refill Request 05/10/2024 Refill [facility] [address] [facility], [facility] [address] [place] [address] Lyle Hutchins MD Refill Request [...] or Wheezing 4 025 Active HYDROcodone-uziel taminophen ([place]) 5-325 MG tablet Take 1 (one) tablet [...] Active Continuous Glucose Sensor (Dexcom G7 Sensor) [facility] Active ursodiol (Actigall) 300 MG capsuleIndicati ons:Other [...] (AF LURIA, FLUZONE TRIVALENT; 6MO+) (IIV3) 03/05/2013 [email or web address] primary monoval ent 12+ yr 0.3mL Purple [...] Comments Blood Pressure 122/79 07/01/2024 1:31 PM CHEMICAL PATHOLOGIST Pulse 91 07/01/2024 1:31 PM CHEMICAL PATHOLOGIST Temperature 36.3 C (97.3 F) 07/01/2024 1:31 PM CHEMICAL PATHOLOGIST Respiratory Rate 18 03/09/2024 3:04 PM CDT Oxygen Saturation 98% 07/01/2024 1:31 PM CHEMICAL PATHOLOGIST Inhaled Oxygen Concentration - - Weight 146.4 kg (322 lb 12.8 oz) 07/01/2024 1:31 PM CHEMICAL PATHOLOGIST Height 165.1 cm (5' 5 ) 07/01/2024 1:31 PM CHEMICAL PATHOLOGIST Body Mass Index 53.72 07/01/2024 1:31 PM CHEMICAL PATHOLOGIST Functional Status Functional Status Response Date of [...] 70 - 99 mg/dL 03/05/2024 1:26 PM [facility] Sodium 139 136 - 145 mmol/L 03/05/2024 1:26 PM [facility] Potassium 4.3 3.5 - 5.1 mmol/L 03/05/2024 1:26 PM [facility] Chloride 108(H) 98 - 107 mmol/L 03/05/2024 1:26 PM [facility] CO2 18(L) 22 - 29 mmol/L 03/05/2024 1:26 PM [facility] Calcium 9.5 8.4 - 10.4 mg/dL 03/05/2024 1:26 PM [facility] Anion Gap 13 6 - 16 mmol/L 03/05/2024 1:26 PM [facility] BUN 14 5.3 - 18.7 mg/dL 03/05/2024 1:26 PM [facility] Creatinine 0.80 0.57 - 1.11 mg/dL 03/05/2024 1:26 PM [facility] Alkaline Phosphatase 82 40 - 150 U/L 03/05/2024 1:26 PM [facility] ALT 20 0 - 55 U/L 03/05/2024 1:26 PM [facility] AST 24 5 - 34 U/L 03/05/2024 1:26 PM [facility] Protein Total 7.5 6.4 - 8.3 gm/dL 03/05/2024 1:26 PM [facility] Albumin 3.7 3.4 - 5.0 gm/dL 03/05/2024 1:26 PM [facility] Bilirubin Total 0.3 0.2 - 1.2 mg/dL 03/05/2024 1:26 PM [facility] eGFR by CKD-EPI >90 >=90 mL/min/1.7 3 m2 03/05/2024 1:26 PM CDT [facility] Blood BLOOD SPECIMEN / Unknown Venipuncture / Unknown 03/05/2024 1:04 PM CDT 03/05/2024 1:08 PM CDT Wilmer Reyna MD LAB - CHEMISTRY OR DERABLES [facility] [address] [address] * MAMMO BILAT SCREENING W EDGAR (12/13/2023 10:42 AM CDT) Anatomical Region Laterality Modality Breast Bilateral Mammography 12/15/2023 8:56 AM CDT Impressions 12/15/2023 8:59 AM CDT : No mammographic evidence of malignancy in either breast. ASSESSMENT: BIRADS Category 1: Negative mammogram. RECOMMENDATION: Bilateral screening mammogram in one year. Thank you for allowing us to participate in the care of your patient. [facility] utilizes [employer] as a reminder system to notify patients [...] 5:27 PM 03/09/2024 5:53 PM Care Teams Drying Machine Operator Package Yarns Relationship Specialty Start Date End Date Lyle Hutchins MD PCP - General 03/02/19 Rosette Michelle RN Registered Nurse 01/01/17
--- OUTSIDE RECORDS SUMMARY | 2024-07-26 07:06 | XMS_ITS | Clinical Summary ---
Author Organization [facility] Address [address] [place] [address] Phone Care Team Providers Care Car Wash Manager Name Role Phone Romi Tompkins MD Primary [...] Shellfish Derived Anaphylaxis High 11/12/2018 Medications Insulin Stonewall, Disposable, (NOVOFINE 32) 32 gauge x 1/4 Needle Novofine 32 32 gauge x 1/4 needle USE DAILY FOR INJECTION. Active Blood-Glucose Meter (ONETOUCH VERIO FLEX)Indication s:Type 2 diabetes mellitus with hyperglycemia, without long-term current use of insulin ([facility]) Check blood sugars three times daily. ICD 10: E11.9, insurance coverage depending.. 1 Device 9 Active QUEtiapine (SEROquel) 25 mg tablet Take 25 mg by mouth daily. Active NORETHINDRONE ACETATE ORAL Take 5 mg by mouth daily. Active lancetsIndicati ons:Type 2 diabetes mellitus with hyperglycemia, without long-term current use of insulin ([facility]) Check blood sugars three times daily. 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 Adhesion Barrier N/A: Abdomen GENZYME- BIOSURG 10/30/2014 [id number] Procedures Procedure Name Priority Date/Time Associated Diagnosis Comments POC HEMOGLOBIN A1C Routine 03/10/2019 3: 27 PM CDT Type 2 diabetes mellitus without complication, without long-term current use of insulin ([facility]) CERV/VAG CYTO SCREEN PAP RLFX HPV Routine 01/05/2019 3:35 PM CDT Encntr for stogy roller exam (general) (routine) w abnormal findings HM DIABETES EYE EXAM Routine 12/28/2018 LIPID PANEL Routine 12/08/2018 7:36 AM CDT Type 2 diabetes mellitus with hyperglycemia, without long-term current use of insulin ([facility]) Morbid obesity with body mass index of 40.0-49.9 ([facility]) from Last 3 Months or Most Recently Relevant to Health Maintenance Results * (ABNORMAL) POC HEMOGLOBIN A1C (03/10/2019 3:27 PM CDT) HGB A1C POC 7.6(A) <=5.7 % [facility] Blood, capillary 03/10/2019 3:27 PM CDT us Romi Tompkins MD POINT OF CARE TESTING Final R esult [id number] [address] [place] [address] * CERV/VAG CYTO SCREEN PAP RLFX HPV (01/05/2019 3:35 PM CDT) CASE REPORT Gynecologic Cytology Report Case: [id number] Authorizing Provider: Justin Kaminski MD Collected: 01/05/2019 03:35 PM Ordering Location: [facility] Received: 01/06/2019 06:50 AM [facility] First Screen: Desirae Ames Rescreen: Hannah Snow MD Specimen: LB PAP TP W/RFLX HPV PROT, Vaginal cuff 01/14/2019 3:28 PM CDT [facility] Specimen Adequacy Satisfactory for evaluation 01/14/2019 3:28 PM CDT [facility] Acid Dipper Interpretation Negative for intraepithelial lesion or malignancy 01/14/2019 3:28 PM CDT [facility] Acid Dipper Other Findings Fungal organisms morphologically consistent with Litzy species 01/14/2019 3:28 PM CDT [facility] CHEMIST HELPER Clinical Information abdominal hysterectomy and oophorectomy 01/14/2019 3:28 PM CDT [facility] Acid Dipper Educational Note 01/14/2019 3:28 PM CDT [facility] Comment:The Pap test is a sc reening test used to aid in the detection of cervical cancer and its precursors. It should not be the sole means by which malignant and premalignant lesions are diagnosed. Both false negative and false positive results may occur. Results must be interpreted in the context of historic and current clinical information. EMBEDDED IMAGE 01/14/2019 3:28 PM CDT [facility] Genital (Vaginal cuff) Collection / Unknown 01/05/2019 3:35 PM CDT 01/06/2019 6:50 AM CDT us Justin Kaminski MD PATHOLOGY/CYTOLOGY ORDERABLES Fi nal Result [facility] CLIA# [id number] [address] [place] [address] * HM DIABETES EYE EXAM (12/28/2018) us Abstract Provider HEALTH MAINTENANCE Edited Resu lt - Final [facility] [address] [facility] CLIA# [id number] [address] [place] [address] * (ABNORMAL) LIPID PANEL (12/08/2018 7:36 AM CDT) CHOLESTEROL 249(H) <200 mg/dL 12/08/2018 1:18 PM CDT [facility] TRIGLYCERIDE 256(H) <150 mg/dL 12/08/2018 1:18 PM CDT [facility] HDL 44(L) >57 mg/dL 12/08/2018 1:18 PM CDT [facility] LDL CALCULATED 154(H) <100 mg/dL 12/08/2018 1:18 PM T [facility] NON-HDL CHOLESTEROL 205(H) <130 mg/dL 12/08/2018 1:18 PM CDT [facility] Blood Venipuncture / Unknown 12/08/2018 7:36 AM CDT 12/08/2018 7:36 AM CDT Narrative [facility] - 12/08/2018 1:18 PM CDT TOTAL CHOLESTEROL [...] Tompkins MD CHEMISTRY ORDERABLES Final Re sult [facility] CLIA# [id number] [address] [place], [place] [id number] from Last 3 Months or Most Recently Relevant to Health Maintenance Insurance [place] [address] [place] [address] [place] [address] [address] [facility] [address] Advance Directives For more information, please contact: [phone] * Full Code (Latest Code Status on File) Date Activated Date Inactivated Comments 03/22/2019 8:53 AM 03/23/2019 8:20 PM * Full Code Date Activated Date Inactivated Comments 01/28/2019 10:36 PM 02/01/2019 1:24 PM * Full Code Date Activated Date Inactivated Comments 02/02/2013 3:50 PM 02/03/2013 2:21 PM * Full Code Date Activated Date Inactivated Comments 02/02/2013 10:13 AM 02/02/2013 3:50 PM Care Teams Car Wash Manager Relationship Specialty Start Date End Date Romi Tompkins MD PCP - General Family Practice 12/02/18
--- OUTSIDE RECORDS SUMMARY | 2024-07-26 07:06 | XMS_ITS | Clinical Summary ---
Author Organization [facility] [employer] Address [address] [facility] [place] [address] Care Team Providers Care Temperature Logging Operator Name Role Phone Rosette Michelle RN [facility] Primary Care Provider [phone] Source Comments [facility],non-owned Affiliates and Associated Physician Practices is amultiple site organization consisting of ambulatory clinics and hospital sitesin [place], [place], [place] and [place]. This disclosure is being madepursuant to the Care Everywhere program and may not contain all information available regarding this patient. Last updated 18.[facility] [employer] Allergies Active Allergy Reactions Criticality Noted Date [...] or Wheezing 4 025 Active HYDROcodone-uziel taminophen ([place]) 5-325 MG tablet Take 1 (one) [...] Active Continuous Glucose Sensor (Dexcom G7 Sensor) [facility] Active ursodiol (Actigall) 300 MG capsuleIndicati ons:Other [...] Description 07/12/2024 Refill [facility] [address] [facility], [facility] [address] [place] [phone] Lyle Hutchins MD Refill Request 07/01/2024 1:30 PM SIDING STAPLER Office Visit [facility] [address] [facility], [facility] [address] [place] [phone] Lyle Hutchins MD Type 2 diabetes mellitus without complication, with long-term current use of insulin (HCC) (Primary Dx); Lumbar radiculitis 06/29/2024 Telephone [facility] [address] [facility], [facility] [address] [place] [phone] Lyle Hutchins MD [facility] 06/24/2024 Telephone [facility] 1000 [facility], [address] [phone] Lyle Hutchins MD [facility] (FMLA Form's) 06/15/2024 Refill [facility] [address] [phone] Lyle Hutchins MD Refill Request 05/31/2024 Refill [facility] [address] [facility], [address] [phone] Lyle Hutchins MD Refill Request 05/10/2024 Refill [facility] [address] [facility], [address] [phone] Lyle Hutchins MD Refill Request from Last 3 Months Immunizations Name Administration Dates Next Due INFLUENZA VACCINE, TRIV. (AF LURIA, FLUZONE TRIVALENT; 6MO+) (IIV3) 03/05/2013 [employer] primary monoval ent 12+ yr 0.3mL Purple [...] Comments Blood Pressure 122/79 07/01/2024 1:31 PM SIDING STAPLER Pulse 91 07/01/2024 1:31 PM SIDING STAPLER Temperature 36.3 C (97.3 F) 07/01/2024 1:31 PM SIDING STAPLER Respiratory Rate 18 03/09/2024 3:04 PM CDT Oxygen Saturation 98% 07/01/2024 1:31 PM SIDING STAPLER Inhaled Oxygen Concentration - - Weight 146.4 kg (322 lb 12.8 oz) 07/01/2024 1:31 PM SIDING STAPLER Height 165.1 cm (5' 5 ) 07/01/2024 1:31 PM SIDING STAPLER Body Mass Index 53.72 07/01/2024 1:31 PM SIDING STAPLER Plan of Treatment Health Maintenance Due Date [...] - 99 mg/dL 03/05/2024 1:26 PM CDT [facility] Sodium 139 136 - 145 mmol/L 03/05/2024 1:26 PM CDT [facility] Potassium 4.3 3.5 - 5.1 mmol/L 03/05/2024 1:26 PM [facility] Chloride 108(H) 98 - 107 mmol/L 03/05/2024 1:26 PM [facility] CO2 18(L) 22 - 29 mmol/L 03/05/2024 1:26 PM [facility] Calcium 9.5 8.4 - 10.4 mg/dL 03/05/2024 1:26 PM [facility] Anion Gap 13 6 - 16 mmol/L 03/05/2024 1:26 PM [facility] BUN 14 5.3 - 18.7 mg/dL 03/05/2024 1:26 PM [facility] Creatinine 0.80 0.57 - 1.11 mg/dL 03/05/2024 1:26 PM [facility] Alkaline Phosphatase 82 40 - 150 U/L 03/05/2024 1:26 PM [facility] ALT 20 0 - 55 U/L 03/05/2024 1:26 PM [facility] AST 24 5 - 34 U/L 03/05/2024 1:26 PM [facility] Protein Total 7.5 6.4 - 8.3 gm/dL 03/05/2024 1:26 PM [facility] Albumin 3.7 3.4 - 5.0 gm/dL 03/05/2024 1:26 PM [facility] Bilirubin Total 0.3 0.2 - 1.2 mg/dL 03/05/2024 1:26 PM [facility] eGFR by CKD-EPI >90 >=90 mL/min/1.7 3 m2 03/05/2024 1:26 PM [facility] Blood BLOOD SPECIMEN / Unknown Venipuncture / Unknown 03/05/2024 1:04 PM CDT 03/05/2024 1:08 PM T Wilmer Reyna MD LAB - CHEMISTRY OR DERABLES [facility] [address] [address] * MAMMO [...] participate in the care of your patient. [facility] Care utilizes [employer] as a reminder system to notify patients [...] 5:27 PM 03/09/2024 5:53 PM Care Teams Temperature Logging Operator Relationship Specialty Start Date End Date Lyle Hutchins MD PCP - General 03/02/19 Rosette Michelle RN Registered Nurse 01/01/17
--- OUTSIDE RECORDS SUMMARY | 2024-07-26 07:06 | XMS_ITS ---
Author Organization [facility] Address [address] [place] [address] Care Team Providers Care Oyster Grower Name Role Phone Cuong CHINCHILLA, John Primary Care Provider Unavailab Lyle Espinoza Unavailable [phone] Shadia CHINCHILLA, Bishop Unavailable Unavailable Allergies Allergen [...] vancomycin Vancomycin Unknown Drug Allergy Activ e REASON FOR VISIT Back pain Medications Medication SIG (Take, Route, Frequency, Duration) Notes Start Date End Date Status Lancets - as directed Active Insulin Degludec 100 UNIT/ML as directed Subcutaneous Act dannielle Fiasp PenFill 100 UNIT/ML as directed Subcutaneous Active Allopurinol 100 MG 1 tablet Orally Once a day for 30 day(s) Active traMADol HCl 50 MG 1 tablet as needed O rally q 8 hours as needed for 7 days 11/08/2022 Active Norethindrone Acetate 5 MG 1 tablet Oral ly Once a day for 30 day(s) Active Nabumetone 750 MG as directed Orally Active QUEtiapine Fumarate 50 MG 1 tablet at be dtime Orally Once a day for 30 day(s) Active Ozempic (0.25 or 0.5 MG/DOSE) 2 MG/1.5ML as directed Subcutaneous Active Omeprazole 40 MG 1 capsule 30 minutes before morning meal Orally Once a day for 30 day(s) Active Ursodiol 300 MG 1 capsule Orally Twi ce a day for 30 day(s) Active Lexapro 20 MG 1 tablet Orally Once a day Active Social History Sex Assigned At : Social History Observation Description Sex Assigned At Female Encounters Encounter Location Date Provider Diagnosis -[facility] [address] [phone] 07/23/2024 Lyle Gonzalez Assessments Encounter Date Diagnosis (ICD Code) Assessment Notes Treatment Notes Treatment Clinical Notes Section Notes 07/23/2024 Other Reviewed [place] PDMP on 07/21/24 at 7:36 am and patient is compliant. Last fill of Oxycodone Hcl (Ir) [address] Jean Givens 3 days on 06/05/23 and tramadol 10/2022 per [facility] for 7 days. Plan Of Treatment No Information Progress Notes * Natasha WILSON MDOB:[birth year] (43 yo F)Acc No.[id number]:07/23/2024 Progress Note Patient: Natasha ROGERS Provider: Melissa Gonzalez MD :1980 A ge:43 Y S ex:Female Date:07/23/2024 Address:[address] [place], [place] [id number] Pcp:John Hutchins MD Subjective: * Chief Complaints: * 1 . Back pain. * ROS: C ancer: Breast N o. P rostate N o. S kin N o. O thers N o. A utoimmune: Fibromylagia N o. L upus N o. T MJ N o.?Osteoarthritis N o. R heumatoid arthritis N o. O thers N o. R enal: Kidney stones N o. K idney infections N o. O thers N o. G enitourinary: Prostrate problems N o. U rinary Incontinence N o.?Bladder infections N o. O thers N o. C entral nervous system: Stroke N o. H eadaches N o. M igraines N o.?Nerve Damage N o. O thers N o. I nfectious disease: Hepatitis N o. M ononucleosis N o. O thers N o. P sychiatric: Depression N o. E CT Treatments N o. A nxiety?No. A lcoholism N o. P anic Attacks N o. D rug Addiction N o. O ther?No. C ardiology: High blood Pressure N o. H eart Attack N o. A ngina(Chest Pain) N o. C ongestive heart failure N o. O thers N o. ? E ndocrinology: Diabetes N o. T hyroid disease N o. O thers?No. G astroenterology: Peptic ulcer disease N o. I rritable bowel syndrome?No. G ERD N o. D iverticulosis N o. O thers N o. H ematology/Lymph: Anemia N o. S ickle Cell N o. O thers N o.? R espiratory: Asthma N o. C hronic Bronchitis N o. P neumonia?No. C OPD N o. O thers N o. * Medical History: D ysuria, Endometriosis, Pelvic adhesions, Chronic interstitial cystis, Bladder pain and Urgency, Chronic constipation, IBS. * Surgical History: C ervical Diskectomy C5-6 2020, Endometriosis fulguration 2016, Cystoscopy 2017, Salpingo-oophorectomy (B) 2017, Lysis of adhesions, pelvic, laparoscopic 2017, cholecystectomy , hysterectomy , Left knee arthroscopy , Tonsillectomy . * Hospitalization/Major Diagno stic Procedure: s ee above . * Family History: F ather: alive, diagnosed with Cancer. M other: alive, diagnosed with Diabetes. * Medications: T aking Lexapro 20 MG Tablet 1 tablet Orally Once a day , Taking Ursodiol 300 MG Capsule 1 capsule Orally Twice a day , Taking QUEtiapine Fumarate 50 MG Tablet 1 tablet at bedtime Orally Once a day , Taking Ozempic (0.25 or 0.5 MG/DOSE) 2 MG/1.5ML Solution Pen-injector as directed Subcutaneous , Taking Omeprazole 40 MG Capsule Delayed Release 1 capsule 30 minutes before morning meal Orally Once a day , Taking Norethindrone Acetate 5 MG Tablet 1 tablet Orally Once a day , Taking Nabumetone 750 MG Tablet as directed Orally , Taking Lancets - Miscellaneous as directed , Taking Insulin Degludec 100 UNIT/ML Solution Pen-injector as directed Subcutaneous , Taking Fiasp PenFill 100 UNIT/ML Solution Cartridge as directed Subcutaneous , Taking Allopurinol 100 MG Tablet 1 tablet Orally Once a day , Taking traMADol HCl 50 MG Tablet 1 tablet as needed Orally q 8 hours as needed , Medication List reviewed and reconciled with the patient * Allergies: P enicillin, Sulfa Antibiotics, Shellfish-derived Products, Vancomycin, Methylprednisolone, Clarithromycin, Dicyclomine, Ketorolac, Lorazepam, Metoclopramide, Naproxen, Prochlorperazine, Adhesive, Iodine, Influenza A (H1N1) Monoval PF. Objective: * Vitals: Assessment: Plan: * Treatment: * Images: Billing Information: * Visit Code: * Procedure Codes: * Electronic signature of Homer Gonzalez MD on 07/26/2024 at 07:06 AM ENGINEERING DRAFTER Sign off status: Pending * Provider: Melissa Gonzalez MD Date: 07/23/2024 Generated for Les johns/Karen/Ted on: 07/26/2024 07:06 AM ENGINEERING DRAFTER
--- OUTSIDE RECORDS SUMMARY | 2024-07-26 07:06 | XMS_ITS | Encounter Summary ---
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
--- OUTSIDE RECORDS SUMMARY | 2024-07-26 07:06 | XMS_ITS | Patient Health Summary ---
Author Organization [facility] [employer] Address [address] [place] [address] Care Team Providers Care Brass Finisher Name Role Phone Rosette Michelle RN [facility] Lyle David MD Primary Care Provider [phone] Note from [facility],non-owned Affiliates and Associated Physician Practices is amultiple site organization consisting of ambulatory clinics and hospital sitesin [place], [place], [place] and [place]. This disclosure is being madepursuant to the Care Everywhere program and may not contain all informatio navailable regarding this patient. Last updated 18.[facility] Allergies * Adhesive Sensitivity(Nausea and/or Vomiting) * [...] Shortness of Breath or Wheezing * HYDROcodone-acetaminophen (Strang) 5-325 MG tablet(Started 03/02/2024) Take 1 (one) [...] Comments Blood Pressure 122/79 07/01/2024 1:31 PM CLINICAL VETERINARIAN Pulse 91 07/01/2024 1:31 PM CLINICAL VETERINARIAN Temperature 36.3 C (97.3 F) 07/01/2024 1:31 PM CLINICAL VETERINARIAN Respiratory Rate 18 03/09/2024 3:04 PM CDT Oxygen Saturation 98% 07/01/2024 1:31 PM CLINICAL VETERINARIAN Inhaled Oxygen Concentration - - Weight 146.4 kg (322 lb 12.8 oz) 07/01/2024 1:31 PM CLINICAL VETERINARIAN Height 165.1 cm (5' 5 ) 07/01/2024 1:31 PM CLINICAL VETERINARIAN Body Mass Index 53.72 07/01/2024 1:31 PM CLINICAL VETERINARIAN Procedures * CARDIAC EKG ORDER(Performed 03/10/2024) * [...] TIME(Performed 11/20/2021) Performed for Cervical radiculopathy * HI INSERT NON-INDWELLING BLADDER(Performed 10/19/2021) Performed for Frequency [...] 08/07/2018) Performed for Frequency of urination * HI IRRIGATION OF BLADDER(Performed 08/06/2018) Performed for Chronic interstitial cystitis * URINALYSIS - POINT OF CARE(Performed 08/06/2018) Performed for Frequency of urination * HI IRRIGATION OF BLADDER(Performed 02/10/2018) Performed for Chronic interstitial cystitis * THERAPY REPORT(Performed 01/12/2018) * CULTURE YEAST WITH DIRECT FLUORESCENT ANDRE(Performed 12/10/2017) Performed for Acute vaginitis, Vaginal discharge, Vaginal irritation, IC (interstitial cystitis) * HI IRRIGATION OF BLADDER(Performed 12/09/2017) Performed for Acute vaginitis, Vaginal discharge, Vaginal irritation, IC (interstitial cystitis) * IMAGING/RADIOLOGY/XRAY RESULTS ORDER(Performed 11/12/2017) * HI IRRIGATION OF BLADDER(Performed 10/21/2017) Performed for Chronic interstitial cystitis * HI IRRIGATION OF BLADDER(Performed 10/11/2017) Performed for Chronic interstitial cystitis * THERAPY REPORT(Performed 10/08/2017) * HI IRRIGATION OF BLADDER(Performed 09/23/2017) Performed for Chronic interstitial cystitis * HI IRRIGATION OF BLADDER(Performed 09/19/2017) Performed for Chronic [...] - 99 mg/dL 03/09/2024 11:48 AM CDT [facility] Specimen Type Cap Fingerstick 2023 11:48 AM CDT [facility] Blood BLOOD SPECIMEN / Unknown 03/09/2024 11:39 AM CDT 03/09/2024 11:48 AM CDT Angelica Huber MD LAB - POINT OF CARE ORDERABLES [facility] [address] [place], [place] [id number] * ECHO COMPLETE W CONTRAST (03/08/2024 11:30 [...] 10:50 AM Patient Status: OPO Study Site: [facility] Primary Location: [facility] EStudy Info Technical Quality: Poor Exam Type: [...] Provider: Edson Nascimento Attending Physician: Edson Nascimento Family Intervention Specialist: Yahaira Church [facility] Left Ventricle The left ventricle is normal [...] 10:50 AM Patient Status: OPO Study Site: [facility] Primary Location: [facility] EStudy Info Technical Quality: Poor Exam Type: [...] Provider: Edson Nascimento Attending Physician: Edson Nascimento Family Intervention Specialist: Yahaira Church [facility] Left Ventricle The left ventricle is normal [...] BLOOD GASES OR DERABLES Performing Organization Address City/State/[facility] Co de Phone Number [facility] RESP THERAPY [address] * CT Neck Soft Tissue W [...] Gaston's Test N/A 03/05/2024 4:00 PM CDT [facility] O2 Device Room Air 03/05/2024 4:00 PM CDT [facility] Blood BLOOD SPECIMEN / Unknown 03/05/2024 3:33 PM CDT 03/05/2024 3:33 PM CDT Wilmer Reyna MD LAB - BLOOD GASES ORDERABLES [facility]ER[facility] Alphonse Monae [address] * CT Angio Chest Pulm Embolism [...] <3 <=14 ng/L 03/05/2024 2:48 PM CDT [facility] Delta Troponin I HS 03/05/2024 2:48 PM CDT [facility] Comment:Result exceeds linea rity range. A delta value is unable to be calculated. Blood BLOOD SPECIMEN / Unknown Venipuncture / Unknown 03/05/2024 2:18 PM CDT 03/05/2024 2:23 PM CDT Wilmer Reyna MD LAB - CHEMISTRY OR DERABLES Performing Organization Address City/[facility] Co de Phone Number [facility] [address] [place] [address] * TROPONIN-I HIGH SENSITIVE BASELINE + 1HR (03/05/2024 1:04 PM CDT) Only the most recent of2 resultswithin the time period is included. Pathologist [facility] Troponin I High Sensitive <3 <=14 ng/L 03/05/2024 1:31 PM CDT [facility] Blood BLOOD SPECIMEN / Unknown Venipuncture / Unknown 03/05/2024 1:04 PM CDT 03/05/2024 1:08 PM CDT Wilmer Reyna MD LAB - CHEMISTRY OR DERABLES Performing Organization Address [facility] de Phone Number [facility] [address] [place] [address] * (ABNORMAL) CBC W AUTO DIFFERENTIAL (03/05/2024 1:04 PM CDT) Only the most recent of13 resultswithin the time period is included. Pathologist [facility] WBC 15.7(H) 4.0 - 10.7 x10E9/L 03/05/2024 1:10 PM CDT [facility] RBC Count 4.98 3.90 - 5.20 x10E12/L 03/05/2024 1:10 PM CDT [facility] Hemoglobin 13.5 11.9 - 15.8 g/dL 03/05/2024 1:10 PM CDT [facility] Hematocrit 41.6 34.8 - 46.1 % 03/05/2024 1:10 PM CDT [facility] MCV 83.5 80.0 - 98.0 fL 03/05/2024 1:10 PM CDT [facility] MCH 27.1 26.7 - 33.6 pg 03/05/2024 1:10 PM [facility] MCHC 32.5 31.7 - 36.3 g/dL 03/05/2024 1:10 PM [facility] RDW-CV 14.7 11.3 - 14.8 % 03/05/2024 1:10 PM [facility] Platelet Count 297 150 - 420 x10E9/L 03/05/2024 1:10 PM [facility] MPV 9.4 7.8 - 11.4 fL 03/05/2024 1:10 PM [facility] Neutrophil % 77.7(H) 41.0 - 74.0 % 03/05/2024 1:10 PM [facility] Lymphocyte % 18.4 17.0 - 47.0 % 03/05/2024 1:10 PM [facility] Monocyte % 2.9(L) 3.0 - 11.0 % 03/05/2024 1:10 PM [facility] Eosinophil % 0.2 0.0 - 7.0 % 03/05/2024 1:10 PM [facility] Basophil % 0.3 0.0 - 1.6 % 03/05/2024 1:10 PM [facility] Immature Granulocytes % 0.5 0.0 - 1.0 % 03/05/2024 1:10 PM [facility] Neutrophil Absolute 12.15(H) 1.60 - 7.50 x10E9/L 03/05/2024 1:10 PM [facility] Lymphocyte Absolute 2.88 1.00 - 4.40 x10E9/L 03/05/2024 1:10 PM [facility] Monocyte Absolute 0.46 0.15 - 1.00 x10E9/L 03/05/2024 1:10 PM [facility] Eosinophil Absolute 0.03 0.00 - 0.60 x10E9/L 03/05/2024 1:10 PM [facility] Basophil Absolute 0.05 0.00 - 0.13 x10E9/L 03/05/2024 1:10 PM [facility] Blood BLOOD SPECIMEN / Unknown Venipuncture / Unknown 03/05/2024 1:04 PM CDT 03/05/2024 1:08 PM CDT Wilmer Reyna MD LAB - HEMATOLOGY O RDERABLES Performing Organization Address [facility] Co de Phone Number [facility] [address] [place] [address] * B-TYPE NATRIURETIC PEPTIDE (03/05/2024 1:04 PM CDT) BNP 14 <=100 pg/mL 03/05/2024 1:31 PM CDT [facility] Blood BLOOD SPECIMEN / Unknown Venipuncture / Unknown 03/05/2024 1:04 PM CDT 03/05/2024 1:08 PM CDT Narrative [facility] - 03/05/2024 1:31 PM CDT A [...] - CHEMISTRY OR DERABLES Performing Organization Address [facility] Co de Phone Number [facility] [address] [place] [address] * (ABNORMAL) COMPREHENSIVE METABOLIC PANEL (03/05/2024 1:04 PM CDT) Only the most recent of10 resultswithin the time period is included. Glucose 202(H) 70 - 99 mg/dL 03/05/2024 1:26 PM CDT [facility] Sodium 139 136 - 145 mmol/L 03/05/2024 1:26 PM CDT [facility] Potassium 4.3 3.5 - 5.1 mmol/L 03/05/2024 1:26 PM CDT [facility] Chloride 108(H) 98 - 107 mmol/L 03/05/2024 1:26 PM CDT [facility] CO2 18(L) 22 - 29 mmol/L 03/05/2024 1:26 PM CDT [facility] Calcium 9.5 8.4 - 10.4 mg/dL 03/05/2024 1:26 PM CDT [facility] Anion Gap 13 6 - 16 mmol/L 03/05/2024 1:26 PM CDT [facility] BUN 14 5.3 - 18.7 mg/dL 03/05/2024 1:26 PM CDT [facility] Creatinine 0.80 0.57 - 1.11 mg/dL 03/05/2024 1:26 PM [facility] Alkaline Phosphatase 82 40 - 150 U/L 03/05/2024 1:26 PM CDT [facility] ALT 20 0 - 55 U/L 03/05/2024 1:26 PM CDT [facility] AST 24 5 - 34 U/L 03/05/2024 1:26 PM [facility] Protein Total 7.5 6.4 - 8.3 gm/dL 03/05/2024 1:26 PM [facility] Albumin 3.7 3.4 - 5.0 gm/dL 03/05/2024 1:26 PM [facility] Bilirubin Total 0.3 0.2 - 1.2 mg/dL 03/05/2024 1:26 PM [facility] eGFR by CKD-EPI >90 >=90 mL/min/1.7 3 m2 03/05/2024 1:26 PM [facility] Blood BLOOD SPECIMEN / Unknown Venipuncture / Unknown 03/05/2024 1:04 PM CDT 03/05/2024 1:08 PM CDT Wilmer Reyna MD LAB - CHEMISTRY OR DERABLES [facility] [address] [place] [address] * HCG BLOOD QUALITATIVE (03/05/2024 1:04 PM CDT) HCG Qual Serum Negative Negative 03/05/2024 1:18 PM CDT [facility] Blood BLOOD SPECIMEN / Unknown Venipuncture / Unknown 03/05/2024 1:04 PM CDT 03/05/2024 1:08 PM CDT Narrative [facility] - 03/05/2024 1:18 PM CDT Specimens [...] Reyna MD LAB - CHEMISTRY OR DERABLES [facility] [address] [address] * XR CHEST 1VW PORTABLE (03/05/2024 12:04 [...] of2 resultswithin the time period is included. [facility] Signature Ventricular Rate 71 BPM [facility] Atrial Rate 71 BPM [facility] P-R Interval 148 ms [facility] QRS Duration ms 80 ms [facility] Q-T Interval ms 386 ms [facility] QTC Calculation (Bezet) 419 ms [facility] Calculated P [place] 16 degrees [facility] Calculated R [place] 18 degrees [facility] Calculated T [place] 16 degrees [facility] Interpretation EKG Normal sinus rhythm Normal ECG When compared with ECG of 01-MAY-2023 10:06, No significant change was found Confirmed by Francisco J Reis MD ([id number]) on 03/05/2024 12:13:13 PM [facility] 03/05/2024 11:4 5 AM CDT 03/05/2024 12:13 PM CDT Wilmer Reyna MD ECG ORDERABLES [facility] * MAMMO BILAT SCREENING W EDGAR (12/13/2023 10:42 AM CDT) Anatomical Region Laterality Modality Breast Bilateral Mammography 12/15/2023 8:56 AM CDT Impressions 12/15/2023 8:59 AM CDT : No mammographic evidence of malignancy in either breast. ASSESSMENT: BIRADS Category 1: Negative mammogram. RECOMMENDATION: Bilateral screening mammogram in one year. Thank you for allowing us to participate in the care of your patient. [facility] Breast [facility] utilizes [employer] as a reminder system to notify patients [...] CARE (12/11/2023 1:06 PM CDT) PPD negative [facility] Other MISCELLANEOUS SAMPLE S / Unknown 12/11/2023 1:06 PM CDT Sloane Schultz MEMBERSHIP SALES REPRESENTATIVE-GLASS DEPOSITION TENDER LAB - POINT OF C ARE ORDERABLES Performing Organization Address [facility] de Phone Number [facility] [address] [phone] * SARS-COV-2 (COVID-19)+INFLU A+B AG (AMB) POC (09/25/2023 1:21 PM CDT) Only the most recent of2 resultswithin the time period is included. Pathologist [facility] Influenza A Antigen Rapid Negative Negative [facility] Influenza B Antigen Rapid Negative Negative [facility] SARS-CoV-2 Ag Negative Negative [facility] COVID Internal Control Acceptable Acceptable [facility] Lot # [id number] [facility] Expiration Date 06/01/2024 [facility] Instrument Serial Number na [facility] Microbiology SPECIMEN FROM NASAL FOSSAE / Unknown 09/25/2023 1:21 PM CDT Sloanepierre Schultz MEMBERSHIP SALES REPRESENTATIVE-[facility] LAB - POINT OF C ARE ORDERABLES Performing Organization Address [facility] de Phone Number [facility] [address] [place] [address], [facility] [phone] * STREP A SCREEN - POINT OF CARE (AMB) (09/25/2023 1:20 PM CDT) Only the most recent of2 resultswithin the time period is included. Strep A Rapid POCT Negative Negative [facility] Strep A Internal Control Present [facility] Other ENTIRE THROAT (SURFACE REGION OF NECK) / Unknown 09/25/2023 1:20 PM CDT Sloanepierre Schultz MEMBERSHIP SALES REPRESENTATIVE-GLASS DEPOSITION TENDER LAB - POINT OF C ARE ORDERABLES [facility] [address] [place] [address], [facility] [phone] * XR SHOULDER LEFT 2VW OR MORE (05/01/2023 11:43 AM CLINICAL VETERINARIAN) Only the most recent of2 resultswithin the time period is included. Anatomical Region Laterality Modality Upper Extremity Radiographic Hernan ging 05/01/2023 11:5 0 AM CLINICAL VETERINARIAN Narrative 05/01/2023 11:50 AM CLINICAL VETERINARIAN PROCEDURE(s): XR SHOULDER LEFT 2VW OR MORE [...] Chappell MD on 05/01/2023 11:50 AM Mike oHuse MD DIAGNOSTIC IMAGIN G ORDERABLES * CT HEAD WO CONTRAST (05/01/2023 11:24 AM CLINICAL VETERINARIAN) Anatomical Region Laterality Modality Head Computed Tomogra phy 05/01/2023 11:2 9 AM CLINICAL VETERINARIAN Impressions 05/01/2023 11:32 AM CLINICAL VETERINARIAN IMPRESSION: 1. No acute intracranial abnormality is identified. > Interpreting Provider: Thom Longoria DO on 05/01/2023 11:32 AM Narrative 05/01/2023 11:32 AM CLINICAL VETERINARIAN PROCEDURE: CT HEAD WO CONTRAST DATE/TIME OF [...] REFLEX MICROSCOPIC REFLEX CULTURE (05/01/2023 11:23 AM CLINICAL VETERINARIAN) Only the most recent of6 resultswithin the time period is included. Color UA Yellow Straw, Yellow 05/01/2023 11:39 AM CLINICAL VETERINARIAN [facility] Clarity UA Clear Clear 05/01/2023 11:39 AM CLINICAL VETERINARIAN [facility] Glucose UA Negative Negative 05/01/2023 11:39 AM CLINICAL VETERINARIAN [facility] Bilirubin UA Negative Negative 05/01/2023 11:39 AM CLINICAL VETERINARIAN [facility] Ketone UA 1+(A) Negative 05/01/2023 11:39 AM CLINICAL VETERINARIAN [facility] Specific [place] UA 1.014 1.005 - 1.030 05/01/2023 11:39 AM CLINICAL VETERINARIAN [facility] Blood UA Negative Negative 05/01/2023 11:39 AM CLINICAL VETERINARIAN [facility] pH UA 6.0 5.0 - 8.0 pH 05/01/2023 11:39 AM CLINICAL VETERINARIAN [facility] Protein UA Negative Negative 05/01/2023 11:39 AM CLINICAL VETERINARIAN [facility] Urobilinogen UA Negative Negative mg/dL 05/01/2023 11:39 AM CLINICAL VETERINARIAN [facility] Nitrite UA Negative Negative 05/01/2023 11:39 AM CLINICAL VETERINARIAN [facility] Leukocyte UA Negative Negative 05/01/2023 11:39 AM CLINICAL VETERINARIAN [facility] Urine Microscopy Urine microscopy not indicated 05/01/2023 11:39 AM CLINICAL VETERINARIAN [facility] Reflex Status Culture not indicated 05/01/2023 11:39 AM [facility] Urine URINE SPECIMEN OBTAINED BY CLEAN CATCH PROCEDURE / Unknown Collection / Unknown 05/01/2023 11:23 AM CLINICAL VETERINARIAN 05/01/2023 11:24 AM CLINICAL VETERINARIAN Narrative [facility] - 05/01/2023 11:39 AM CLINICAL VETERINARIAN Mike House MD LAB - URINALYSIS ORDERABLES Performing Organization Address City/State/[facility] Co de Phone Number [facility] [address] [place] [address] * PAIN MANAGEMENT PROCEDURE TIME (06/18/2022 4:22 PM CLINICAL VETERINARIAN) Only the most recent of3 resultswithin the [...] on how to reach the clinic or operations dispatcher physician at anytime for questions or complaints. Estimated blood loss during procedure 0 ml. Lyle Gonzalez MD DIAGNOSTIC IMAGIN G ORDERABLES * LACTIC ACID BLOOD REFLEX TO REPEAT (01/12/2022 1:08 PM CDT) Pathologist [facility] Lactic Acid 1.58 <=2 mmol/L 01/12/2022 1:23 PM CDT [facility] Blood BLOOD SPECIMEN / Unknown Venipuncture / Unknown 01/12/2022 1:08 PM CDT 01/12/2022 1:12 PM CDT Dia CERDAC LAB - CHEMISTRY ALEX RANGEL Performing Organization Address [facility] de Phone Number [facility] [address] [place] [phone] * (ABNORMAL) C-REACTIVE PROTEIN (01/12/2022 1:08 PM CDT) Only the most recent of2 resultswithin the time period is included. [facility] C-Reactive Protein 2.27(H) <=0.50 mg/dL 01/12/2022 1:30 PM CDT [facility] Blood BLOOD SPECIMEN / Unknown Venipuncture / Unknown 01/12/2022 1:08 PM CDT 01/12/2022 1:12 PM CDT Dia Hammond PA-C LAB - CHEMISTRY ALEX RANGEL Performing Organization Address [facility] de Phone Number [facility] [address] [place], [place] [id number] * ERYTHROCYTE SEDIMENTATION RATE (01/12/2022 1:08 PM CDT) Only the most recent of3 resultswithin the time period is included. [facility] Erythrocyte Sedimentation Rate Automated 17 0 - 20 MM/HR 01/12/2022 1:24 PM CDT [facility] Blood BLOOD SPECIMEN / Unknown Venipuncture / Unknown 01/12/2022 1:08 PM CDT 01/12/2022 1:12 PM CDT Dia DENNIS-C LAB - HEMATOLOGY ORD ERAARACELI Performing Organization Address City/[facility]/ZIP Co de Phone Number [facility] [address] [place] [phone] * XR FOOT LEFT 3VW OR MORE [...] DATE/TIME OF EXAM: 01/07/2022 4:49 PM, LOCATION [facility] INDICATION: M79.642: Pain in left hand M79.672: [...] MORE, DATE/TIME OF EXAM: 01/07/2022 4:49PM, LOCATION [facility] INDICATION: M79.642: Pain in left hand M79.672: [...] Report Pat.Name: REED JEAN CARLOS Melissa Pat.ID: [id number] .Date: 01/07/2022 Refer.MD: Terrance Noonan Exam Time: 6:25:00 PM Study Type:LE Venous Age: 3 1980,41Y Sex: FEMALE Sonogrphr: Joann De Leon RDMS, RVT Pat. Stat.:Outpatient Room: ER Reason for Study: Pain -Leg, left History / Clinical: Hypertension, Diabetes, Obesity Procedures: Lower Extremity Venous - Left Race: [facility] Visit ID: [id number] ++++++++++++++++++++++++++++++++++++ SUMMARY: ++++++++++++++++++++++++++++++++++++ No evidence of deep [...] CHEMISTRY O RDERABLES OUTSIDE REFERENCE LAB * HI INSERT NON-INDWELLING BLADDER (10/19/2021 2:45 PM CDT) [...] [facility] Comment: CULTURE, URINE, SPECIAL Micro Number: [id number] Test Status: Final Specimen Source: Urine, catheter Specimen Quality: Adequate Result: No Growth Test Performed at: [address] [id number] JEFRY HARRIS MD Microbiology URINE SPECIMEN COLLECTION, CATHETERIZED / Unknown 10/19/2021 2:30 PM CDT 10/20/2021 12:36 AM CDT Rhea Kerns MD LAB - MICROBIOLOGY O RDERABLES [address] [address] * URINALYSIS AUTO - POINT OF CARE (AMB) [facility] (10/19/2021) Glucose UA neg Bilirubin UA POCT neg Ketones UA POCT neg Specific [place] UA 1.010 Blood Urine POCT neg pH [...] on 10/06/2021 at 1:22 PM Chelsie Padron MEMBERSHIP SALES REPRESENTATIVE-GLASS DEPOSITION TENDER CT ORDERABL ES * IMAGING RADIOLOGY XRAY [...] 9:42 AM CDT) SARS-CoV-2 Ag Negative Negative [facility] Lot # [id number] [facility] Expiration Date 04/24/2022 [facility] Instrument Serial Number [id number] [facility] COVID Internal Control Acceptable Acceptable [facility] Microbiology SPECIMEN FROM NASAL FOSSAE / Unknown 03/15/2021 9:42 AM CDT Lina Kaplan MEMBERSHIP SALES REPRESENTATIVE-GLASS DEPOSITION TENDER LAB - POINT OF CARE ORDERABLES [facility] [address], [address] [phone] * DEXA BONE DENSITY 2 SITES (03/06/2021) [...] UA Neg Negative [facility] Specific [place] UA POCT 1.030 1.002 - 1.030 [facility] Ketone UA 2+(A) Negative [facility] Bilirubin UA POCT Neg Negative [facility] Glucose UA Neg Negative [facility] Urine URINE / Unknown 11/24/2020 1 :05 PM CDT Lyle Hutchins MD LAB - POINT OF CARE ORDERABLES [facility] [address] [place] [address], [facility] [phone] * CULTURE URINE (11/24/2020 12:46 PM CDT) [...] Resulting Agency Comment Lab Testing performed at: [address] [id number] Lyle Hutchins MD LAB - MICROBIOLOGY O [facility] INSURANCE BILL [address] [place] [address] * (ABNORMAL) BASIC METABOLIC PANEL (BMP) (11/02/2020 [...] 10.2 mg/dL [facility] Comment: Test Performed at: [facility] [address] [place] [address] CHANTE TATUM DO,MPH Blood BLOOD SPECIMEN / Unknown 11/02/2020 10:03 AM CDT 11/02/2020 10:04 AM CDT Lyle Hutchins MD LAB - CHEMISTRY ALEX RANGEL [facility] [address] [place] [address] * (ABNORMAL) HEMOGLOBIN A1C - POINT OF CARE (HgbA1C) (11/02/2020 10:00 AM CDT) Pathologist [facility] Hemoglobin A1c POCT 6.9(H) % [facility] Expiration Date [id number] [facility] [place] Lot # [id number] [facility] [place] QC Verified Yes Yes [facility] Blood BLOOD SPECIMEN / Unknown 11/02/2020 10:00 AM CDT Lyle Hutchins MD LAB - POINT OF CARE ORDERABLES [facility] [address] [place] [address], [facility] [phone] * XR LUMBAR SPINE 2 OR 3VW [...] on 03/29/2020 at 2:13 PM Lina Kaplan [employer] REPRESENTATIVE[employer] DIAGNOSTIC [facility] GING ORDERABLES * (ABNORMAL) URIC ACID BLOOD (02/22/2020 8:40 AM CDT) Uric Acid 8.4(H) 2.5 - 7.0 mg/dL [facility] Comment: Therapeutic target for gout patients: <6.0 mg/dL Test Performed at: [facility] [address] [facility] [place] [address] CHANTE TATUM DO,MPH Blood BLOOD SPECIMEN / Unknown 02/22/2020 8:40 AM CDT 02/22/2020 8:42 AM CDT Lyle Hutchins MD LAB - CHEMISTRY ALEX RANGEL Performing Organization Address [facility] de [place] [address] * RHEUMATOID FACTOR BLOOD QUANTITATIVE (RF) (02/22/2020 8:40 AM CDT) Pathologist [facility] [place] Rheumatoid Factor <14 <14 IU/mL [facility] Comment: Test Performed at: [facility] [address] [place] [address] CHANTE TATUM DO,MPH Blood BLOOD SPECIMEN / Unknown 02/22/2020 8:40 AM CDT 02/22/2020 8:42 AM CDT Lyle Hutchins MD LAB - CHEMISTRY ALEX RANGEL Performing Organization Address [facility] [place] [address] * GUILLERMO BLOOD SCREEN W/REFLEX TITER (02/22/2020 8:40 AM CDT) Pathologist [facility] [place] GUILLERMO Screen NEGATIVE NEGATIVE [facility] Comment: GUILLERMO [...] AC-0: Negative International Consensus on GUILLERMO Patterns (https://doi.org/10.1515/tnez-6027-5590) For additional information, please refer to http://education.K[employer]/faq/SUC226 (This link is being provided for informational/ educational purposes only.) Test Performed at: [facility] [address] [place] [address] CHANTE TATUM DO,MPH Blood BLOOD SPECIMEN / Unknown 02/22/2020 8:40 AM CDT 02/22/2020 8:42 AM CDT Lyle Hutchins MD LAB - CHEMISTRY ALEX RANGEL Performing Organization Address [facility] de Phone Number [facility] [address] [place] [address] * SS-A/SS-B (SJOGREN'S) ANTIBODY PANEL (02/22/2020 8:40 AM CDT) Sjogren's Antibodies (SSA) <1.0 NEG <1.0 NEG AI [facility] Sjogren's Antibodies (SSB) <1.0 NEG <1.0 NEG AI [facility] Comment: REPORT COMMENT: FASTING:YES Test Performed at: [facility] [address] CHANTE TATUM DO,MPH Blood BLOOD SPECIMEN / Unknown 02/22/2020 8:40 AM CDT 02/22/2020 8:42 AM CDT Lyle Hutchins MD LAB - CHEMISTRY ALEX RANGEL Performing Organization Address [facility] de Phone Number [facility] [address] [place] [address] * CK BLOOD (02/22/2020 8:40 AM CDT) CK 42 29 - 143 U/L [facility] Comment: Test Performed at: [facility] [address] CHANTE TATUM DO,MPH Blood BLOOD SPECIMEN / Unknown 02/22/2020 8:40 AM CDT 02/22/2020 8:42 AM CDT Lyle Hutchins MD LAB - CHEMISTRY ALEX RANGEL Performing Organization Address [facility] Co de Phone Number [facility] [address] [place] [address] * CT ABDOMEN PELVIS W CONTRAST (09/25/2018 [...] - 78 U/L 09/25/2018 6:37 PM CDT [facility] Blood BLOOD SPECIMEN / Unknown Venipuncture / Unknown 09/25/2018 4:18 PM CDT 09/25/2018 4:21 PM CDT Narrative [facility] - 09/25/2018 6:37 PM CDT Attention clinician: Reference Range has changed. Prem Wagner PA-C LAB - CHEMISTRY ORD ERABLES [facility] [address] [place] [address] * HI IRRIGATION OF BLADDER (08/06/2018 4:33 PM CLINICAL VETERINARIAN) Narrative Ila Blancas APRN-CNP - 08/06/2018 4:33 PM CLINICAL VETERINARIAN Ila Blancas APRN-CNP 08/06/2018 4:33 PM Bladder Rescue Instillation Procedure Note: Indication: Interstitial cystitis, painful bladder syndrome, urinary frequency. CPT: 34464 Procedure: The procedure was discussed with the patient and verbal consent was obtained. The patient was placed in a dorsal lithotomy position. Her urethra was visualized and prepped with Betadine (unless she was allergic in which case Hibiclens was used). A 12F reg catheter was introduced under aseptic conditions. The bladder was then instilled slowly with a solution containin cc 0.5% Marcaine (S0020)([facility] [id number]) 40 mg Kenalog (J3301) 10,000 units Heparin [...] pH units Blood UA + Negative Specific Herriman UA POCT 1.020 1.002 - 1.030 Ketone UA neg Negative Bilirubin UA POCT neg Negative Glucose UA neg Negative Urine URINE / Unknown 08/06/2018 [facility] - POI NT OF CARE ORDERABLES * HI IRRIGATION OF BLADDER (02/10/2018 3:00 PM CDT) Narrative Ila Blancas APRN-CNP - 02/10/2018 3:00 PM CDT Ila Blancas APRN-CNP 02/10/2018 3:00 PM Bladder Rescue Instillation Procedure Note: Indication: Interstitial cystitis, painful bladder syndrome, urinary frequency. CPT: 22676 Procedure: The procedure was discussed with the patient and verbal consent was obtained. The patient was placed in a dorsal lithotomy position. Her urethra was visualized and prepped with Betadine (unless she was allergic in which case Hibiclens was used). A 12F reg catheter was introduced under aseptic conditions. The bladder was then instilled slowly with a solution containin cc 0.5% Marcaine (S0020)([facility] [id number]) 40 mg Kenalog (J3301) 10,000 units Heparin (J1644) The catheter was then removed, and the patient was instructed to retain the solution for at least 30 minutes. She tolerated the procedure well. A follow up visit for repeat bladder instillation was scheduled for next 4 week. Ila Blancas [facility]BERSH[facility]ES [facility] PROCEDURE /MINOR SURGICAL ORDERABLES * THERAPY REPORT (01/12/2018 10:33 AM CDT) Narrative 01/12/2018 10:33 AM CDT Ordered by an unspecified provider. Scanned Document SCANNING ONLY * CULTURE YEAST WITH DIRECT FLUORESCENT ANDRE (12/10/2017 9:00 AM CDT) Smear [facility] Comment: CULTURE, YEAST, W/DIRECT FLUORESCENT ANDRE MICRO NUMBER: [id number] TEST STATUS: FINAL SPECIMEN SOURCE: GENITAL SPECIMEN QUALITY: ADEQUATE SMEAR: No fungal elements seen. RESULT: No fungal growth at 2 Weeks NO COLLECTION DATE RECEIVED. WE HAVE USED THE DATE THE SPECIMEN WAS RECEIVED BY THIS LABORATORY THE COLLECTION DATE. IF THIS IS INCORRECT, PLEASE CONTACT CLIENT SERVICES. PHONE NUMBER: [phone] Test Performed at: [facility] [address] JEFRY HARRIS MD Microbiology SPECIMEN FROM GENITAL SYSTEM / Unknown 11/26/2017 1:18 AM CDT Ila STEINBERG LAB - YOJANA ROBIOLOGY ORDERABLES [facility] [address] [place] [address] * HI IRRIGATION OF BLADDER (12/09/2017 9:28 AM CDT) Narrative Ila Blancas APRN-CNP - 12/09/2017 9:28 AM CDT Ila Blancas APRN-CNP 12/09/2017 9:28 AM Bladder Rescue Instillation Procedure Note: Indication: Interstitial cystitis, painful bladder syndrome, urinary frequency. CPT: 44640 Procedure: The procedure was discussed with the patient and verbal consent was obtained. The patient was placed in a dorsal lithotomy position. Her urethra was visualized and prepped with Betadine (unless she was allergic in which case Hibiclens was used). A 12F reg catheter was introduced under aseptic conditions. The bladder was then instilled slowly with a solution containin cc 0.5% Marcaine (S0020)([facility] [id number]) 40 mg Kenalog (J3301) 10,000 units Heparin (J1644) The catheter was then removed, and the patient was instructed to retain the solution for at least 30 minutes. She tolerated the procedure well. A follow up visit for repeat bladder instillation was scheduled for next 1-2 week. Ila STEINBERG PROCEDURE /MINOR SURGICAL ORDERABLES * HI IRRIGATION OF BLADDER (10/21/2017 5:15 PM CDT) Narrative Ila Blancas APRN-CNP - 10/21/2017 5:15 PM CDT Ila Blancas APRN-CNP 10/21/2017 5:15 PM Bladder Rescue Instillation Procedure Note: Indication: Interstitial cystitis, painful bladder syndrome, urinary frequency. CPT: 39772 Procedure: The procedure was discussed with the [...] Ila STEINBERG PROCEDURE /MINOR SURGICAL ORDERABLES * HI IRRIGATION OF BLADDER (10/11/2017 8:04 PM CDT) Ila Nogueira APRN-CNP - 10/11/2017 8:04 PM CDT Ila Blancas APRN-CNP 10/11/2017 8:04 PM Bladder Rescue Instillation Procedure Note: Indication: Interstitial cystitis, painful bladder syndrome, urinary frequency. CPT: 63229 Procedure: The procedure was discussed with the [...] unspecified provider. Scanned Document SCANNING ONLY * HI IRRIGATION OF BLADDER (09/23/2017 2:37 PM CDT) Ila Nogueira APRN-CNP - 09/23/2017 2:37 PM CDT Ila Blancas APRN-CNP 09/23/2017 2:37 PM Bladder Rescue Instillation Procedure Note: Indication: Interstitial cystitis, painful bladder syndrome, urinary frequency. CPT: 44522 Procedure: The procedure was discussed with the [...] was scheduled for next week. Ila Blancas APRN-GLASS DEPOSITION TENDER PROCEDURE /MINOR SURGICAL ORDERABLES * HI IRRIGATION OF BLADDER (09/19/2017 2:58 PM CDT) Ila Nogueira APRN-CNP - 09/19/2017 2:58 PM CDT Ila Blancas APRN-CNP 09/19/2017 2:58 PM Bladder Rescue Instillation Procedure Note: Indication: Interstitial cystitis, painful bladder syndrome, urinary frequency. CPT: 17287 Procedure: The procedure was discussed with the [...] was scheduled for next week. Ila Blancas APRN-GLASS DEPOSITION TENDER PROCEDURE /MINOR SURGICAL ORDERABLES * HCG BETA BLOOD QUANTITATIVE (08/26/2017 12:04 PM CDT) hCG Quantitative 1 mIU/mL 08/27/19 18 1:30 PM CDT [facility] Blood BLOOD SPECIMEN / Unknown Venipuncture / Unknown 08/26/2017 12:04 PM CDT 08/26/2017 1:14 PM CDT Narrative [facility] - 08/26/2017 1:30 PM CDT hCG [...] - CHEMISTRY ALEX RANGEL Performing Organization Address City/[facility]/ZIP Co de Phone Number [facility] [address] [place] [address] * FSH (07/26/2017 9:51 AM CLINICAL VETERINARIAN) FSH 32.3 mIU/mL [facility] ([facility]) Comment: Reference Range Follicular Phase 2.5-10.2 Mid-cycle Peak 3.1-17.7 Luteal Phase 1.5- 9.1 Postmenopausal 23.0-116.3 Test Performed at: [facility] [place] [address] [place] [address] CHANTE TATUM DO,MPH Blood specimen (specimen) BLOOD SPECIMEN / Unknown 07/26/2017 9:51 AM CLINICAL VETERINARIAN 07/26/2017 9:51 AM CLINICAL VETERINARIAN Jostin Souza Jr., MD LAB - CHEMISTRY ORDERABLES Performing Organization Address City/[facility]/ZIP Co de Phone Number [facility] ([facility]) [id number] * LAB HISTORICAL RESULTS-ONBASE (01/22/2017) 01/22/2017 Historical Provider LAB - CHEMISTRY Brie [facility] [address] * APHERESIS/TRANSFUSION ORDER (01/03/2017 10:54 PM [...] CDT) Case Report Surgical Pathology Report Case: [id number] Authorizing Provider: Jostin Souza Jr., MD Collected: 01/01/2017 03:21 PM Ordering Location: [facility] Received: 01/02/2017 07:54 AM Pathologist: Prudence Paez MD Specimens: A) - Ovary with Tube, Bilateral tube and ovary B) - Tissue, Left pelvic rim 01/03/2017 5:04 PM CDT [facility] Final Diagnosis 1. Bilateral fallopian tubes and ovaries, salpingoophorectomy: -- Ovaries with epithelial inclusion cysts -- Fallopian tube with paratubal cysts 2. Left pelvic rim, biopsy: -- Endometriosis MC/na 01/03/2017 5:04 PM CDT [facility] Clinical History Endometriosis, chronic pelvic pain. 01/03/2017 5:04 PM CDT [facility] Gross Description The specimen is received [...] structures each filled with translucent thin fluid. Shank Breaker sections are submitted as follows: A1-A2 - Fallopian tubes A3-A4 - Ovaries MR/crista Specimen B, left pelvic rim consists of 1 sheet of rubbery, arenas tissue measuring 0.7 x 0.6 x 0.1 cm. The specimen is submitted in toto in cassette B1. MR/dak 01/03/2017 5:04 PM T [facility] Microscopic Description 1. Sections of the fallopian tubes show no significant pathologic diagnosis. Paratubal cysts are identified. Sections of the ovary shows small epithelial inclusion cysts. No evidence of malignancy is seen. 2. Sections show fibrous connective tissue with endometriosis. JEROME/krishan 01/03/2017 5:04 PM T [facility] Disclaimer All histochemical and/or immunohistochemical results are interpreted with controls that demonstrate appropriate staining reactions before reporting results. Note on use of immunocytochemistry reagents: This test was developed and its performance characteristic determined by [facility], Department of Laboratory Medicine. It has not been cleared or approved by the U.S. Food and Drug Administration (FDA). The FDA has determined that such clearance or approval is not necessary. The test is used for clinical purpose. It should not be regarded as investigational or for research. This laboratory is certified to perform high complexity testing. 01/03/2017 5:04 PM CDT [facility] Embedded Images 01/03/2017 5:04 PM T [facility] Pathology/Cytology FALLOPIAN TUBE AND OVARY, CS / Unknown 01/01/2017 3:21 PM CDT 01/02/2017 7:54 AM CDT Miscellaneous samples (specimen) TISSUE SPECIMEN / Unknown 01/01/2017 3:22 PM CDT 01/02/2017 7:54 AM CDT Jostin Souza Jr., MD LAB - PATHOLOGY/ CYTOLOGY ORDERABLES [facility] [address] [place] [address] * PATHOLOGY/GENETICS HISTORICAL-ONBASE (01/01/2017) 01/01/2017 Historical Provider LAB - CHEMISTRY O RDERABLES [place] [id number] * BLOOD TYPE VERIFICATION (12/26/2016 2:15 PM CDT) ABO A 12/26/2016 3:17 PM CDT [facility] Rh Type Negative 12/26/2016 3:17 PM CDT [facility] Blood Bank BLOOD SPECIMEN / Unknown Venipuncture / Unknown 12/26/2016 2:15 PM CDT 12/26/2016 2:42 PM CDT Jostin Souza Jr., MD LAB - BLOOD BANK ORDERABLES Performing Organization Address [facility] Co de Phone Number [facility] [address] [place] [address] * TYPE + SCREEN PANEL (12/26/2016 2:12 PM CDT) ABO A 12/26/2016 3:17 PM CDT [facility] Rh Type Negative 12/26/2016 3:17 PM CDT [facility] Comment:History check perfor med. No retype required. Antibody Screen Negative 12/26/2016 3:17 PM CDT [facility] Blood Bank BLOOD SPECIMEN / Unknown Venipuncture / Unknown 12/26/2016 2:12 PM CDT 12/26/2016 2:36 PM CDT Jostin Souza Jr., MD LAB - BLOOD BANK ORDERABLES Performing Organization Address [facility] Co de Phone Number [facility] [address] [place] [address] * URINALYSIS MICROSCOPIC ONLY W/REFLEX CULTURE (07/29/2016 8:16 AM CLINICAL VETERINARIAN) Epithelial Cell UA 0-2 0-2, 2-5 # /hpf 07/29/2016 8:56 AM CLINICAL VETERINARIAN [facility] Urine URINE SPECIMEN OBTAINED BY CLEAN CATCH PROCEDURE / Unknown Collection / Unknown 07/29/2016 8:16 AM CLINICAL VETERINARIAN 07/29/2016 8:41 AM CLINICAL VETERINARIAN Juanita Beltran DO LAB - URINALYSIS ORD ERABLES Performing Organization Address [facility] de Phone Number [facility] [address] [place] [address] * HCG URINE QUALITATIVE - POINT OF CARE (IP) (07/29/2016 8:12 AM CLINICAL VETERINARIAN) HCG Qual Urine Negative Negative HC POCT TESTING QC Verified Yes Yes [facility] POC T TESTING Urine URINE / Unknown 07/29/2016 8 :12 AM CLINICAL VETERINARIAN Juanita Beltran DO LAB - POINT OF CARE ORDERABLES Performing Organization Address [facility] de Phone Number [facility] POCT TESTING [address] [place] [address] * CHLAMYDIA+GC SANDRA PAP VIAL (04/11/2016 3:00 AM CLINICAL VETERINARIAN) Chlamydia trachomatis RNA TMA NOT DETECTED NOT DETECTED [facility] ([facility]) Neisseria gonorrhoeae RNA TMA NOT DETECTED NOT DETECTED [facility] ([facility]) See Note [facility] ([facility]) Comment: This test was performed using the APTIMA COMBO2 Assay ([employer] The analytical performance characteristics of this assay, when used to test SurePath specimens have been determined by [employer]. Test Performed at: [facility] [address] [place] [address] CHANTE TATUM DO,MPH Cervical swab (specimen) 04/11/2016 3:00 AM CLINICAL VETERINARIAN 04/10/2016 6:55 AM CLINICAL VETERINARIAN Narrative [facility] ([facility]) - 04/11/2016 3:00 AM CLINICAL VETERINARIAN Specimen Type->Cervical swab Jostin Souza Jr., MD LAB - MICROBIOLO GY ORDERABLES Performing Organization Address [facility] Co de Phone Number [facility] ([facility]) Care Teams Brass Finisher Relationship Specialty Start Date End Date Lyle Hutchins MD PCP - General 03/02/19 Rosette Michelle RN Registered Nurse 01/01/17
== END 2024-07-22 16:20 | disposition home or self-care (01) ==
LOC: ANHED 17:52 → ANH3MEDSUR 07-22 10:18
PROVIDERS: Family Medicine; Physician Assistant; Admitting Provider Hospitalist; Emergency Provider Physician Assistant; Visit Provider Hospitalist
DX: L03.211 Cellulitis of face (principal); K04.7 Periapical abscess without sinus; E11.9 Type 2 diabetes mellitus without complications; G47.33 Obstructive sleep apnea (adult) (pediatric); F41.8 Other specified anxiety disorders; J45.909 Unspecified asthma, uncomplicated; Z88.0 Allergy status to penicillin; Z99.89 Dependence on other enabling machines and devices; Z79.4 Long term (current) use of insulin; Z79.899 Other long term (current) drug therapy
CPT/HCPCS: 36415; 70487; 80048; 80053; 82948; 83036; 83735; 85025; 85027; 85652; 86140; 87040; 96361; 96365; 96366; 96367; 96375; 96376; 99285; A9270; G0378; J1100; J1815; J1836; J1956; J2270; J2405; J7030; Q9967

== ENCOUNTER 2024-10-27 10:47 | Emergency (ER) | payer OTHER, SELFPAY ==
--- NOTE | ~2024-10-27 | XR_ITS ---
XR elbow LT min 3V 10/27/2024 12:35 Indication: Left elbow pain Procedure: 4 views left elbow Comparison: No prior studies for comparison. Findings: Small joint effusion with displacement of the ventral fat. No fracture is identified. There is anatomic alignment. No foreign bodies. Impression: 1: No acute fracture. 2: Small joint effusion. Reviewed, dictated and finalized at location A. Impression: 1: No acute fracture. 2: Small joint effusion.
--- NOTE | ~2024-10-27 | XR_ITS ---
XR wrist RT min 3V 10/27/2024 12:35 Indication: Right wrist pain Procedure: 4 views right wrist Comparison: No prior studies for comparison. Findings: No fracture, subluxation or dislocation. No focal soft tissue abnormality. No foreign munira s. Impression: 1: No acute bone or joint abnormality. Reviewed, dictated and finalized at location A. Impression: 1: No acute bone or joint abnormality.
--- NOTE | ~2024-10-27 | XR_ITS ---
XR knee LT 3V 10/27/2024 12:35 Indication: Left knee pain after fall Procedure: 3 views left knee Comparison: No prior studies for comparison. Findings: Mild osteoarthritis of the lateral knee. No acute fracture. There is a prominent tibial tub ercle. There is a focal cortical lytic lesion lesion with lytic expansion along the posterior lateral proximal femur at the metaphysis. Impression: 1: Nonspecific expansile lytic lesion proximal tibia posteriorly and laterally at the metaphysis. Con line person correlation with MRI of the area of interest without and with contrast for further assessment. 2: No acute fracture. Reviewed, dictated and finalized at location A. Impression: 1: Nonspecific expansile lytic lesion proximal tibia posteriorly and laterally at the metaphysis. Consider correlation with MRI of the area of interest withou t and with contrast for further assessment. 2: No acute fracture.
--- OUTSIDE RECORDS SUMMARY | 2024-10-27 10:53 | XMS_ITS | Clinical Summary ---
Author Organization [facility] Address [address] [place] [address] Care Team Providers Care Ship'S Carpenter Name Role Phone Lyle Hutchins MD Primary Care Provider Allergies Active Allergy Reactions Criticality Noted Date [...] 11/06/2015 Only shrimp & Tuna confirmed with collection development librarian Ketorolac Mental status changes Low Agitated and [...] Take 1 capsule by mouth daily (brand: Osmopure) Active polyethylene glycol (Miralax) 17 gram packetIndicatio [...] associated with type 2 diabetes mellitus 03/22/2019 Metabolic acidosis 03/22/2019 Sinusitis 03/22/2019 Trochanteric bursitis of left hip 03/21/2019 Elevated liver enzymes 02/17/2019 Gastroesophageal reflux disease 02/17/2019 Gastroparesis due to DM 02/17/2019 NAFLD (nonalcoholic fatty liver disease) 019 Protein-calorie malnutrition, moderate 9 Intractable nausea and vomiting 01/28/2019 Morbid obesity with BMI of 50.0-59.9, adult 01/01 Insulin dependent type 2 diabetes mellitus, cont rolled 01/28/2019 Enthesopathy of hip region 01/18/2019 Anxiety [...] Obesity Eczema contact dermatit is at times/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 prop worker/ no outbreaks at this time 11/27/21 Tarsal tunnel syndrome left, hx fracture Wears glasses Teeth missing wisdom teeth, 2 teeth lower left missing Miscarriage seven/endometrio sis/unable to have children/hysterectomy followed 7 D & C's PONV (postoperative nausea and vomiting) only after cervical discectomy DKA (diabetic ketoacidosis) (HCC) occurred several years ago after prednisone dosing/listed as an allergy now Overactive [...] drink = 0.6 oz pur e alcohol) [facility] Utilities Answer Date Recorded In the past 12 months has e electric, gas, oil, or water [employer] threatened to shut off services in your [...] often do you attend chur ch or baptist services? Never 07/11/2023 Do you belong to any clubs o r organizations such as uatsdin groups, unions, fraternal or athletic groups, or [...] place to sleep or slept in a halfway (including now)? No 07/11/2023 Personal Safety Answer Date Recorded Have you ever been in or are you currently in a harmful physical or emotional relationship or is someone making you feel afraid or unsafe? Denies 04/28/2024 Comments No Sex and Gender Information Value Date Recorded Sex Assigned at Not on file Legal Sex Female 2:19 PM RN PLACEMENT Gender Identity Not on file Sexual Orientation Bisexual 04/28/2024 6: 46 PM RN PLACEMENT Obstetrics History Last Filed Vital Signs Vital Sign Reading Time Taken Comments Blood Pressure 129/81 04/28/2024 11:30 PM RN PLACEMENT Pulse 85 04/28/2024 11:30 PM RN PLACEMENT Temperature 36.9 C (98.4 F) 04/28/2024 5:39 PM RN PLACEMENT Respiratory Rate 16 04/28/2024 11:30 PM RN PLACEMENT Oxygen Saturation 97% 04/28/2024 11:30 PM RN PLACEMENT Inhaled Oxygen Concentration - - Weight 140.6 kg (310 lb) 04/28/2024 5:39 PM RN PLACEMENT Height 165.1 cm (5' 5) 04/28/2024 5:39 PM RN PLACEMENT Body Mass Index 51.59 04/28/2024 5:39 PM RN PLACEMENT Plan of Treatment Health Maintenance Due Date [...] Vaccine ( season) 2024 03/07/2021, 07/25/2020, 07/04/2020 Breast Cancer Screening-Mammogram 12/12/2024 12/13/2023, 12/13/2023 Influenza Vaccine (Season Ended) 2025 03/03/2019, 04/01/2014, 03/05/2013, Additional history exists eGFR 04/28/2025 04/28/2024, 04/03, 03/02/2024, Additional history exists Pneumococcal vaccine <65 Completed 03/03/2023, 12/2011 HPV Vaccines Aged Out No longer eligi ble based on patient's age to complete this topic Medical Devices Implanted Type Area Cable Splicing Technician Device Identifier Shelf Expiration Date Model / Serial / Lot Other - See Comments Other - see comments Neck Description:Neck disc replac ement C6-C7 Procedures Procedure Name Priority Date/Time Associated Diagnosis Comments EGFR STAT 04/28/2024 11:19 PM RN PLACEMENT HEMOGLOBIN A1C Routine 06/02/2023 4:40 AM RN PLACEMENT from Last 3 Months or Most Recently Relevant to Health Maintenance Results * eGFR (04/28/2024 11:19 PM RN PLACEMENT) eGFR >90 >=60 mL/min/1. 73 m2 Comment: [...] reviewed 2021. Blood 04/28/2024 11:1 9 PM RN PLACEMENT 04/28/2024 11:24 PM RN PLACEMENT Gonzalo Holman MD LAB BLOOD ORDERABLES Final R esult Performing Organization Address City/[facility]/ZIP Co de Phone Number [facility] [address] [place] [address] * (ABNORMAL) Hemoglobin A1c (06/02/2023 4:40 AM RN PLACEMENT) Hgb A1C 8.6(H) 4.0 - 5.6 % [facility] Estimated Average Glucose 200 mg/dL [facility] Comment: The ADA recommends reporting an estimated Average Glucose (eAG) with all Hemoglobin A1c results using the equation derived from a study of 507 normal and diabetic adults. Minority populations were underrepresented and children were not included. (Diabetes Care 31:3822-8027, 2008). The eAG is not equivalent to a fasting glucose. Blood 06/02/2023 4:40 AM RN PLACEMENT 06/02/2023 5:21 AM RN PLACEMENT Jean Givens DO LAB BLOOD ORDERABLES Final Result Performing Organization Address City/[facility]/ZIP Co de Phone Number [facility] [address] [place] [address] from Last 3 Months or Most Recently Relevant to Health Maintenance Insurance [facility] PPO [employer]IL [employer] [facility] PPO [employer] [id number] Advance Directives For more information, please contact: [phone] * Full Code (Latest Code Status on File) Date Activated Date Inactivated Comments 07/10/2023 7:28 AM 07/12/2023 4:02 PM * Full Code Date Activated Date Inactivated Comments 05/30/2023 8:47 PM 06/05/2023 7:08 PM Care Teams Ship'S Carpenter Relationship Specialty Start Date End Date Lyle Hutchins MD [address] [address] PCP - General Family Medicine 02/09/20
--- OUTSIDE RECORDS SUMMARY | 2024-10-27 10:53 | XMS_ITS | Continuity of Care Document ---
Author Organization [facility] Address [address] [place] [address] Phone Care Team Providers Care Track Supervisor Name Role Phone Andres Coker MD Unavailable [...] Procedures Procedure Date ALLERGY SKIN TESTS OFFICE [id number] BODY MASS INDEX DOCD SYST BP LT [...] Diagnoses Date Provider Providers Copied on Encounter [facility], [address], [place], [place], [address] , tel: [phone] [facility] [place] No Information 2 John Paul Campos. [address] [facility] , [address] [place] [address], [place], [place], [address] , [place]. tel:[phone] OFFICE [id number] [address], [place], [place], [address] , [place] tel: [phone] [facility] [place] Patient encounter (chief complaint) Dermographic urticariaAnaphylaxis due to shellfish, initial encounterAllergic contact dermatitis due to other agents 2 John Paul Campos. [address] [facility] , [place] [address], [place], [place], [address] , [place]. tel:[phone] Referring Provider: Lyle Hutchins MD, [address] [place] [address], [address]. tel:[phone] [facility], [address], [place], [place], [address] , [place] tel:[phone] [facility] No Information 1 Leeroy Jimenez. [address] [facility], [place], [place], [address] , [place]. tel:[phone] Referring Provider: Bishop Reno, [address] , [place], [address]. tel:[phone] [facility], [address], [place], [place], [address] , [place] tel: [phone] [facility] Irritable bowel syndrome with diarrheaDiffuse abdominal pain 6 Marcos Horvath. [address] [facility], [address], [place], [place], [address] . tel: [phone] Referring Provider: Lyle Hutchins MD, [address], [address]. tel:[phone] Family History Family Member Type Diagnosis Age At Onset Problem (finding) Family history of Irritable bowel disease Payers Payer name Insurance type Covered libertarian ID Authoriza tiventura(s) DIYA PPO CI [id number] Social History Type Description Quantity Date Captured [...]
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
--- OUTSIDE RECORDS SUMMARY | 2024-10-27 10:53 | XMS_ITS | Continuity of Care Document ---
Author Organization [facility] Address [address] [place] [address] Phone Care Team Providers Care Gyroscopic Engineering Technician Name Role Phone Naye Rollins PA-C Unavailable Unavailable Allergies, Adverse Reactions, Alerts Substance Reaction Status Criticality KETOROLAC TROMETHAMINE Active No In formation shellfish derived Active No Informa tion prednisone Active No Information Penicillins Active No Information clarithromycin Active No Informatio n Medications Medication Instructions Dosage Effective Dates (start - stop) Status Comments LEXAPRO (unknown strength) Not Available - Active NABUMETONE (unknown strength) Not Available - Active PRILOSEC (unknown strength) Not Available - Active CRANBERRY (unknown strength) Not Available - Active Procedures Procedure Date OFFICE CONSULTATION Advance Directives Directive Yes / No Effective Date File Name No Information Encounters Encounter Description Practice Location Reason(s) For Visit Diagnoses Date Provider Providers Copied on Encounter OFFICE CONSULTATION [facility], [address], [place], [address], [place] tel:[phone] [facility] Left hip pain (chief complaint) Left hip painTrochanteric bursitis of left hip Aug- 5 [address] [place]. [address], [place], [place], [address] . tel:[phone] Referring Provider: Lyle Green[address], [address]. tel:[phone] Family History Family Member Type Diagnosis Age At Onset Mother Problem (finding) hypertension Father Problem (finding) gout Mother Problem (finding) Maternal history of reji betes mellitus Father Problem (finding) Maternal history of reji betes mellitus Mother Problem (finding) depression Payers Payer name Insurance type Covered alliance party ID Tete lundy(s) No Information Social History [...]
--- OUTSIDE RECORDS SUMMARY | 2024-10-27 10:53 | XMS_ITS | Clinical Summary ---
Author Organization [facility] Address [address] [place] [address] Phone Care Team Providers Care Noc Engineer Name Role Phone Romi Tompkins MD [...] Shellfish Derived Anaphylaxis High 11/12/2018 Medications Insulin Chamberino, Disposable, (NOVOFINE 32) 32 gauge x 1/4 Needle Novofine 32 32 gauge x 1/4 needle USE DAILY FOR INJECTION. Active Blood-Glucose Meter (ONETOUCH VERIO FLEX)Indication s:Type 2 diabetes mellitus with hyperglycemia, without long-term current use of insulin ([facility]) Check blood sugars three times daily. ICD 10: E11.9, insurance coverage depending.. 1 Device 9 Active QUEtiapine (SEROquel) 25 mg tablet Take 25 mg by mouth daily. Active NORETHINDRONE ACETATE ORAL Take 5 mg by mouth daily. Active lancetsIndicati ons:Type 2 diabetes mellitus with hyperglycemia, without long-term current use of insulin ([facility]) Check blood sugars three times daily. 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 Not on file [...] 4:58 PM CDT Height 165.1 cm (5' 5) 01/15/2023 4:58 PM CDT Body Mass Index 49.09 01/15/2023 4:58 PM CDT Plan of Treatment Health Maintenance Due Date Last Done Comments DIABETES ANNUAL FOOT EXAM 2000 DIABETES MICROALBUMIN ANNUAL SCREEN 2000 HEPATITIS B VACCINES (1 of 3 - 19+ 3-dose series) 2001 LDL CHOLESTEROL ANNUAL 12/09/2019 12/08/2018 DIABETES HBA1C Q 6 MONTHS 05/24/20222021, 03/10/2019, 12/07/2018, Additional history exists DTAP/TDAP/TD VACCINES (2 - Td or Tdap) 09/24/2023 09/23/2013 DIABETES ANNUAL RETINAL EXAM 12/02/2023 12/01/2022, 12/28/2018 INFLUENZA VACCINE (#1) 2024 9, 04/01/2014, 03/05/2013, Additional history exists BREAST CANCER SCREENING 12/12/2024 12/13/2023, 12/12 HPV VACCINES Aged Out No longer eligi ble based on patient's age to complete this topic Medical Devices Implanted Type Area Cad Design Engineer Device Identifier Shelf Expiration Date Model / Serial / Lot Barrier Seprafilm 5x6in [id number] - [id number] Implanted:Qty : 1 on 02/02/2013 by Valencia Lehman DO at [facility] Adhesion Barrier N/A: Abdomen GENZYME- BIOSURG 10/30/2014 [id number] Procedures Procedure Name Priority Date/Time Associated Diagnosis Comments POC HEMOGLOBIN A1C Routine 03/10/2019 3: 27 PM CDT Type 2 diabetes mellitus without complication, without long-term current use of insulin ([facility]) HM DIABETES EYE EXAM Routine 12/28/2018 LIPID PANEL Routine 12/08/2018 7:36 AM CDT Type 2 diabetes mellitus with hyperglycemia, without long-term current use of insulin ([facility]) Morbid obesity with body mass index of 40.0-49.9 ([facility]) from Last 3 Months or Most Recently Relevant to Health Maintenance Results * (ABNORMAL) POC HEMOGLOBIN A1C (03/10/2019 3:27 PM CDT) HGB A1C POC 7.6(A) <=5.7 % [facility] [employer] [facility] Blood, capillary 03/10/2019 3:27 PM CDT us Romi Tompkins MD POINT OF CARE TESTING Final R esult [facility] [facility] CLIA# [id number] [facility] [place] [address] * DIABETES EYE EXAM (12/28/2018) us Abstract Provider HEALTH MAINTENANCE Edited Resu lt - Final [facility] [facility] CLIA# [id number] [facility] [place] [address] * (ABNORMAL) LIPID PANEL (12/08/2018 7:36 AM CDT) CHOLESTEROL 249(H) <200 mg/dL 12/08/2018 1:18 PM CDT [facility] TRIGLYCERIDE 256(H) <150 mg/dL 12/08/2018 1:18 PM CDT [facility] HDL 44(L) >57 mg/dL 12/08/2018 1:18 PM CDT [facility] LDL CALCULATED 154(H) <100 mg/dL 12/08/2018 1:18 PM CDT [facility] NON-HDL CHOLESTEROL 205(H) <130 mg/dL 12/08/2018 1:18 PM CDT [facility] Blood Venipuncture / Unknown 12/08/2018 7:36 AM CDT 12/08/2018 7:36 AM CDT Narrative [facility] - 12/08/2018 1:18 PM CDT TOTAL [...] Tompkins MD CHEMISTRY ORDERABLES Final Re sult [facility] [facility] CLIA# [id number] [place], [place] [id number] from Last 3 Months or Most Recently Relevant to Health Maintenance [place] [address] [address] [place] [address] [employer] CHO[employer] POS II RX [facility] [employer] Advance Directives For more information, please contact: [phone] * Full Code (Latest Code Status on File) Date Activated Date Inactivated Comments 03/22/2019 8:53 AM 03/23/2019 8:20 PM * Full Code Date Activated Date Inactivated Comments 01/28/2019 10:36 PM 02/01/2019 1:24 PM * Full Code Date Activated Date Inactivated Comments 02/02/2013 3:50 PM 02/03/2013 2:21 PM * Full Code Date Activated Date Inactivated Comments 02/02/2013 10:13 AM 02/02/2013 3:50 PM Care Teams Noc Engineer Relationship Specialty Start Date End Date Romi Tompkins MD PCP - General Family Practice 12/02/18
--- OUTSIDE RECORDS SUMMARY | 2024-10-27 10:53 | XMS_ITS | Continuity of Care Document ---
Author Organization [facility] Address [address] [facility] [address] [place] [address] Phone Care Team Providers Care Solar Installation Supervisor Name Role Phone House PROCESS AUTOMATION ENGINEER Nargis KEARNS Unavailable Unavail able Allergies, Adverse Reactions, Alerts Substance Reaction Status [...] 2017 Unna Boot Application Wrist Brace [employer] Office/outpatient visit,est, mod 2017 Office/outpatient visit,new, mod 2017 Office/outpatient visit,new, mod 2008 Advance Directives Directive Yes / No Effective Date File Name No Information Encounters Encounter Description Practice Location Reason(s) For Visit Diagnoses Date Provider Providers Copied on Encounter [facility], [address] [place] [address], [id number], [place] tel:[phone] [facility] left knee pain (chief complaint) Unilateral primary osteoarthriti s, left knee 4 House PROCESS AUTOMATION ENGINEER Nargis. [address] [facility] 100, [place], [place], [id number], [place]. tel:[phone] Referring Provider: Lyle Green, [address] [facility] [address], [place], [address] . tel:[phone] [facility], [facility] [address], [id number], [place] tel:[phone] [facility] left knee pain (chief complaint) Unilateral primary osteoarthriti s, left knee Nov- 4 House PROCESS AUTOMATION ENGINEER Nargis. [address] [address], [place], [place], [address], [place]. tel:[phone] Referring Provider: Lyle Green, [address], [address] . tel:[phone] Office/outpa tient visit,est, [facility], [address], [id number], [place] tel:[phone] [facility] right knee pain (chief complaint) Unilateral primary osteoarthriti s, left knee Jul-0 4 House PROCESS AUTOMATION ENGINEER Nargis. [address] [address], [place], [place], [id number], [place]. tel:[phone] Referring Provider: Lyle Green, [address], [place], [address] . tel:[phone] [facility], [address], [id number], [place] tel:[phone] [facility] Unilateral primary osteoarthriti s, left knee Fe- 4 House PROCESS AUTOMATION ENGINEER Nargis. [address] [address], [place], [place], [address], [place]. tel:[phone] [facility], [address], [id number], [place] tel:[phone] [facility] left knee pain (chief complaint) Unilateral primary osteoarthriti s, left knee Jul-2 3 House PROCESS AUTOMATION ENGINEER Nargis. [address] [address], [place], [place], [id number], [place]. tel:[phone] Referring Provider: Lottie Lincoln, [address] [address], [place], [address] . tel:[phone] Office/outpa tient visit,est, [facility], [address], [id number], [place] tel:[phone] [facility] left knee pain (chief complaint) Unilateral primary osteoarthriti s, left knee 3 [place] PROCESS AUTOMATION ENGINEER Nargis. [address] [facility], [address] [address], [place], [place], [address], [place]. tel:[phone] Referring Provider: Lottie Lincoln, [facility] [address] [address], [place], [address] . tel:[phone] [facility], [address], [id number], [place] tel:[phone] [facility] Unilateral primary osteoarthriti s, left knee 3 Shahnaz Brush. [address] [address], [place], [place], [address], [place]. tel:[phone] Office/outpa tient visit,[facility], [facility], [address], [id number], [place] tel:[phone] [facility] left knee pain (chief complaint) Pain in left kneeUnilatera l primary osteoarthriti s, left kneeObesity 2 Shahnaz Brush. [address] [address], [place], [address], [place]. tel:[phone] Referring Provider: Lottie Lincoln, [address] [address], [place], [address] . tel:[phone] [facility], [address] [place] [address], [id number], [place] tel:[phone] [facility] No Information 1 Administrati ve Provider. [address] [place] [address], [place], [place], [address], [place]. tel:[phone] Office/outpa tient visit,est, [facility], [address] [place] [address] [address], [place], [place], [id number], [place] tel:[phone] [facility] Bilateral hands (chief complaint) Carpal tunnel syndrome, right upper limbCarpal tunnel syndrome, left upper limb Jamil-0 0 Hilda Crump. [address] [facility], [place], [place], [address], [place]. tel:[phone] Referring Provider: Lottie Lincoln, [address] [facility] Suite [facility], [place], [address] . tel:[phone] Office/outpa tient visit,[facility], [address] [address], [place], [place], [id number], [place] tel:[phone] [facility] Bilateral hands (chief complaint) Carpal tunnel syndrome, left upper limbCarpal tunnel syndrome, right upper limb Nicholas-2 0 Hilda Crump. [address] [facility], [address] [address], [place], [place], [address], [place]. tel:[phone] Referring Provider: Lottie Lincoln, [facility] Suite [facility], [place], [address] . tel:[phone] Office/outpa tient visit,[facility], [facility], [address] [address], [place], [place], [address], [place] tel:[phone] [facility] Bilateral hands (chief complaint) Fracture of navicular bone of right wrist, subsequent encounter for fracture w/ routine healingCarpal tunnel syndrome, left upper limbCarpal tunnel syndrome, right upper limb Nicholas-0 0 Hilda Crump. [address] [facility], [address] [address], [place], [place], [address], [place]. tel:[phone] Referring Provider: Lottie Lincoln, [address] [facility] [address] [facility], [place], [address] . tel:[phone] Office/outpa tient visit,[facility], [address] [address], [place], [address], [place] tel:[phone] [facility] RIGHT WRIST (chief complaint) Injury of right wrist, initial encounterFrac ture of scaphoid bone of right wrist, initial encounter for closed fracture 0 Yane Giron. [address] [facility], [facility] 100, [place], [place], [address], [place]. tel:[phone] Referring Provider: Lottie Lincoln, [facility] [address], [place], [address] . tel:[phone] [facility], [address], [id number], [place] tel:[phone] [facility] right wrist (chief complaint) Carpal tunnel syndrome, right upper limb September- 0 Yane Giron. [facility], [address] [address], [place], [place], [address], [place]. tel:[phone] Referring Provider: Lottie Lincoln, [address] [facility] [address], [place], [address] . tel:[phone] [facility], [address] [address], [place], [place], [address], [place] tel:[phone] [facility] RIGHT WRIST (chief complaint) Carpal tunnel syndrome, right upper limb Jul-1 0 Yane Giron. [address] [place] [address], [address] [address], [place], [place], [address], [place]. tel:[phone] Referring Provider: Lottie Lincoln, [address] [facility] [address], [place], [address] . tel:[phone] [facility], [address], [id number], [place] tel:[phone] [facility] right wrist (chief complaint) Carpal tunnel syndrome, right upper limb Mar-0 0 Yane Giron. [address] [facility], [address], [place], [place], [address], [place]. tel:[phone] Referring Provider: Lottie Lincoln, [address] [place] [address] Suite [facility], [place], [address] . tel:[phone] [facility], [address] [place] [address], [place], [place], [address], tel:[phone] [facility] No Information Feb-2 1-202 0 Yane Giron. [address] [place] [address], [place], [place], [id number], [place]. tel:[phone] Referring Provider: Lottie Licnoln, [address] [place] [address], [place], [address] . tel:[phone] [facility], [address] [place] [address], [place], [address], [place] tel:[phone] [facility] Carpal tunnel syndrome, right upper limb Feb-0 5-202 0 Yane Giron. [address] [place] [address], [place], [address], [place]. tel:[phone] Office/outpa tient visit,est, [facility], [address] [place] [address], [place], [place], [address], [place] tel:[phone] [facility] RIGHT WRIST (chief complaint) Carpal tunnel syndrome, right upper limb Feb-0 4-202 0 Yane Giron. [address] [place] [address], [place], [place], [address], [place]. tel:[phone] Referring Provider: Lottie Lincoln, [address] [place] [address], [place], [address] . tel:[phone] Office/outpa tient visit,est, [facility], [address] [place] [address], [place], [place], [address], [place] tel:[phone] [facility] Wrist, shoulder pain. Right side (chief complaint) Colles' fracture of right radius, subsequent encounter for closed fracture w/ routine healingPain in right shoulderCarpa l tunnel syndrome, right upper limbRadiculop athy, cervical region 0 Yane iGron. [address] [facility], [address], [place], [place], [address], [place]. tel:[phone] Referring Provider: Lottie Lincoln, [address] [facility] [address], [place], [address] . tel:[phone] [facility], [address] [facility] 100, [place], [place], [address], [place] tel:[phone] [facility] right wrist (chief complaint) Colles' fracture of right radius, subsequent encounter for closed fracture w/ routine healing 9 Hilda Crump. [address] [facility], [address], [place], [place], [address], [place]. tel:[phone] [facility], [address] [address], [place], [place], [address], [place] tel:[phone] [facility] right wrist (chief complaint) Colles' fracture of right radius, subsequent encounter for closed fracture w/ routine healing 9 Hilda Crump. [address] [facility], Suite [facility], [place], [place], [address], [place]. tel:[phone] Referring Provider: Lottie Lincoln, [address] [facility] Suite [facility], [place], [address] . tel:[phone] [facility], [address] [address], [place], [place], [address], [place] tel:[phone] [facility] No Information 9 Hilda Crump. [address] [facility], [address] [address], [place], [place], [address], [place]. tel:[phone] Office/outpa tient visit,est, low [facility], [address] [address], [place], [place], [address], [place] tel:[phone] [facility] right wrist (chief complaint) Colles' fracture of right radius, initial encounter for closed fracture 9 Hilda Crump. [address] [facility], [address], [place], [place], [address], [place]. tel:[phone] Referring Provider: Lottie Lincoln, [facility] 100, [place], [address] . tel:[phone] Office/outpa tient visit,est, [facility], [address] [facility] 100, [place], [place], [address], [place] tel:[phone] [facility] Follow Up of right ankle (chief complaint) Sprain of unspecified ligament of right ankle, subs encntrSprain of calcaneofibul ar ligament of right ankle, subsLocalized edemaType 2 diabetes mellitus without complications Pain in right foot May- 8 Marie Rachel [address] [place] [address], [place], [place], [address], [place]. tel:[phone] Referring Provider: Lottie Lincoln, [address] [place] [address] [address], [place], [address] . tel:[phone] [facility], [address] [place] [address], [place], [address], [place] tel:[phone] [facility] Pain in right ankle 8 [facility]. [address] [place] [address], [address], [place], [place], [address], [place]. tel:[phone] Referring Provider: Lottie Lincoln, [facility] [address], [place], [address] . tel:[phone] Office/outpa tient visit,est, [facility], [address] [facility] 100, [place], [place], [address], [place] tel:[phone] [facility] Follow Up of right ankle (chief complaint) Sprain of unspecified ligament of right ankle, subs encntrSprain of calcaneofibul ar ligament of right ankle, subsPain in right foot Dec- 0 8 Marie Tafoya. [address] [facility], [address], [place], [place], [address], [place]. tel:[phone] Referring Provider: Mack Tafoya, [facility] Suite [facility], [place], [address] . tel:[phone] [facility], [address] [place] [address], [place], [place], [address], [place] tel:[phone] [facility] Carpal tunnel syndrome, right upper limb Dec-0 8 Yane Giron. [address] [facility], [address], [place], [address], [place]. tel:[phone] Office/outpa tient visit,[facility], [address] [address], [place], [place], [address], [place] tel:[phone] [facility] left shoulder (chief complaint) Pain in left shoulderOther sprain of left shoulder joint, initial encounter Dec-0 8 Yane Giron. 10[address] [facility], [address], [place], [place], [address], [place]. tel:[phone] Referring Provider: Mack Tafoya, [address] [place] [address] Suite [facility], [place], [address] . tel:[phone] Office/outpa tient visit,[facility], [address] [place] [address], [place], [place], [address], [place] tel:[phone] [facility] Injured Ankle (chief complaint) Pain in right footPain in right lower legSprain of ligament of right ankle, subsequent encounterSpra in of calcaneofibul ar ligament of right ankle, subsLocalized edemaType 2 diabetes mellitus without complications Contusion of right foot, subsequent encounter Dec-0 8 Marie Tafoya. [address] [facility], [address], [place], [place], [address], [place]. tel:[phone] Referring Provider: Mack Tafoya, [address] [place] [address] Suite [facility], [place], [address] . tel:[phone] Office/outpa tient visit,[facility], [address] [address], [place], [place], [address], [place] tel:[phone] [facility] Right Shoulder (chief complaint) Pain in right shoulderCarpa l tunnel syndrome, right upper limb 8 Yane Giron. [address] [facility], [facility] 100, [place], [place], [address], [place]. tel:[phone] Referring Provider: Mack Tafoya, [address] [facility] [address], [place], [address] . tel:[phone] Office/outpa tient visit,[facility] [employer] [facility], [address] [address], [place], [place], [address], [place] tel:[phone] [facility] left knee pain (chief complaint) Chondromalaci a patellae, left kneeUnilatera l primary osteoarthriti s, left kneeObesityAn xiety 8 Shahnaz Brush. [address] [address], [place], [place], [address], [place]. tel:[phone] Office/outpa tient visit,[facility], [address], [id number], [place] tel:[phone] [facility] Information Sep-2 200 9 Estee Hooper. 10[address] [facility], [facility] 100, [place], [place], [address], [place]. tel:[phone] Referring Provider: Lyle Green, [address] [place] [address], [address] . tel:[phone] Family History Family Member Type Diagnosis Age [...] Diabetes Payers Payer name Insurance type Covered democrat ID Teet lundy(chuck Barnett [id number] Social History Type Description Quantity Date Captured Comments Alcohol Use Details Unknown Caffeine Use Details Unknown Tobacco Use Status No Information Smoking Status No Information Non-Smoking Tobacco Use Details : No Details Available : No Details Available Sex Female Gender Identity Female Vital Signs Date / Time: Height [...] proceed. This will be arranged with my DOORS PREFITTER Candice Javed. We can repeat this every [...] or under 45, which will be her senior living goal (ideally a BMI of 40 or [...] indication for surgical intervention, but we discussed long wall mining machine tender if she does not lose some of [...]
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
--- OUTSIDE RECORDS SUMMARY | 2024-10-27 10:53 | XMS_ITS | Encounter Summary ---
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
--- OUTSIDE RECORDS SUMMARY | 2024-10-27 10:53 | XMS_ITS ---
Author Organization [facility] Address [address] [place] [address] Care Team Providers Care Nut Sorter Operator Name Role Phone Cuong CHINCHILLA, John Primary Care Provider Unavailab Lyle Espinoza Unavailable [phone] Shadia CHINCHILLA, Bishop Unavailable Unavailable Allergies Allergen [...] Provider Diagnosis -[facility] [address] [address] 07/23/2024 Lyle Gonzalez Assessments Encounter Date Diagnosis (ICD Code) Assessment Notes Treatment Notes Treatment Clinical Notes Section Notes 07/23/2024 Other Reviewed [place] PDMP on 07/21/24 at 7:36 am and patient is compliant. Last fill of Oxycodone Hcl (Ir) [address] Jean Givens 3 days on 06/05/23 and tramadol 10/2022 per [facility] for 7 days. Plan Of Treatment No Information Progress Notes * Natasha WILSON MDOB:[birth year] (44 yo F)Acc No.[id number]:07/23/2024 Progress Note Patient: Natasha ROGERS Provider: Melissa Gonzalez MD :1980 A ge:43 Y S ex:Female Date:07/23/2024 Address:[address] [place], [place] [id number] Pcp:John Hutchins MD Subjective: * Chief Complaints: [...] Electronic signature of Homer Gonzalez MD on 10/27/2024 at 10:53 AM CDT Sign off status: Pending * Provider: Melissa Gonzalez MD Date: 0 07/23/2024 Generated for eLs johns/Karen/Ted on: 10/27/2024 10:53 AM CDT
--- OUTSIDE RECORDS SUMMARY | 2024-10-27 10:53 | XMS_ITS | Encounter Summary ---
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
--- OUTSIDE RECORDS SUMMARY | 2024-10-27 10:53 | XMS_ITS | Referral Summary ---
Author Organization [facility] Address [address] [place] [address] Care Team Providers Care Waistband Setter Lockstitch Name Role Phone Lyle Hutchins MD Primary [...] 11/06/2015 Only shrimp & Tuna confirmed with pre certification specialist Ketorolac Mental status changes Low Agitated and [...] Take 1 capsule by mouth daily (brand: Mozido) Active polyethylene glycol (Miralax) 17 gram packetIndicatio [...] drink = 0.6 oz pur e alcohol) [facility] [employer] Answer Date Recorded In the past 12 months has [employer], gas, oil, or water [email or web address] threatened to shut off services in your [...] often do you attend chur ch or anglican services? Never 07/11/2023 Do you belong to any clubs o r organizations such as restorationist groups, unions, fraternal or athletic groups, or [...] place to sleep or slept in a penitentiary (including now)? No 07/11/2023 Personal Safety Answer Date Recorded Have you ever been in or are you currently in a harmful physical or emotional relationship or is someone making you feel afraid or unsafe? Denies 04/28/2024 Comments No Sex and Gender Information Value Date Recorded Sex Assigned at Not on file Legal Sex Female 2:19 PM OUT OF TOWN COLLECTION CLERK Gender Identity Not on file Sexual Orientation Bisexual 04/28/2024 6: 46 PM OUT OF TOWN COLLECTION CLERK Last Filed Vital Signs Vital Sign Reading Time Taken Comments Blood Pressure 129/81 04/28/2024 11:30 PM OUT OF TOWN COLLECTION CLERK Pulse 85 04/28/2024 11:30 PM OUT OF TOWN COLLECTION CLERK Temperature 36.9 C (98.4 F) 04/28/2024 5:39 PM OUT OF TOWN COLLECTION CLERK Respiratory Rate 16 04/28/2024 11:30 PM OUT OF TOWN COLLECTION CLERK Oxygen Saturation 97% 04/28/2024 11:30 PM OUT OF TOWN COLLECTION CLERK Inhaled Oxygen Concentration - - Weight 140.6 kg (310 lb) 04/28/2024 5:39 PM OUT OF TOWN COLLECTION CLERK Height 165.1 cm (5' 5) 04/28/2024 5:39 PM OUT OF TOWN COLLECTION CLERK Body Mass Index 51.59 04/28/2024 5:39 PM OUT OF TOWN COLLECTION CLERK Plan of Treatment Not on file Medical Devices Implanted Type Area Acetylene Gas Compressor Device Identifier Shelf Expiration Date Model / Serial / Lot Other - See Comments Other - see comments Neck Description:Neck disc replac ement C6-C7 Procedures Procedure Name Priority Date/Time Associated Diagnosis Comments EGFR STAT 04/28/2024 11:19 PM OUT OF TOWN COLLECTION CLERK HEMOGLOBIN A1C Routine 06/02/2023 4:40 AM OUT OF TOWN COLLECTION CLERK from Last 3 Months or Most Recently Relevant to Health Maintenance Results * eGFR (04/28/2024 11:19 PM OUT OF TOWN COLLECTION CLERK) eGFR >90 >=60 mL/min/1. 73 m2 Comment: [...] reviewed 2021. Blood 04/28/2024 11:1 9 PM OUT OF TOWN COLLECTION CLERK 04/28/2024 11:24 PM OUT OF TOWN COLLECTION CLERK us Gonzalo Holman MD LAB BLOOD ORDERABLES Final R esult Performing Organization Address City/[facility] Co de Phone Number [facility] [address] [facility] [employer] [place], [place] [id number] * (ABNORMAL) Hemoglobin A1c (06/02/2023 4:40 AM OUT OF TOWN COLLECTION CLERK) Hgb A1C 8.6(H) 4.0 - 5.6 % [facility] Estimated Average Glucose 200 mg/dL [facility] Comment: The ADA recommends reporting an estimated Average Glucose (eAG) with all Hemoglobin A1c results using the equation derived from a study of 507 normal and diabetic adults. Minority populations were underrepresented and children were not included. (Diabetes Care 31:1086-3052, 2008). The eAG is not equivalent to a fasting glucose. Blood 06/02/2023 4:40 AM OUT OF TOWN COLLECTION CLERK 06/02/2023 5:21 AM OUT OF TOWN COLLECTION CLERK Jean Givens DO LAB BLOOD ORDERABLES Final Result Performing Organization Address [facility] Co de Phone Number [facility] [address] Department [place] [address] from Last 3 Months or Most Recently Relevant to Health Maintenance [facility] P[facility] [employer] [facility] PPO [facility] [employer] [facility] H[facility] Advance Directives For more information, please contact: [phone] * Full Code (Latest Code Status on File) Date Activated Date Inactivated Comments 07/10/2023 7:28 AM 07/12/2023 4:02 PM * Full Code Date Activated Date Inactivated Comments 05/30/2023 8:47 PM 06/05/2023 7:08 PM Care Teams Waistband Setter Lockstitch Relationship Specialty Start Date End Date Lyle Hutchins MD [address] [address] PCP - General Family Medicine 02/09/20
--- OUTSIDE RECORDS SUMMARY | 2024-10-27 10:53 | XMS_ITS | Encounter Summary ---
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
--- OUTSIDE RECORDS SUMMARY | 2024-10-27 10:53 | XMS_ITS | Encounter Summary ---
Author Organization [facility] Address [address] [place] [address] Care Team Providers Care Warehouse Specialist Name Role Phone Rosette Michelle RN Unavailable Unavailab Lyle Stuart MD Primary Care Provider [phone] Mellissa Reid BARREL FILLER HEAD Unavailable [phone] Nargis Martins BARREL FILLER HEAD Unavailable [phone] Reason for Visit * Reason Onset Date Comments Med Question 09/09/2017 Encounter Details Date Type Department Care Team (Late st Contact Info) Description 09/09/2017 Telephone [facility] [address] [place] [address] Lisette Mobley Med Question Social History Tobacco Use Types Packs/Day Years Used Date Smoking Tobacco: Never Smokeless Tobacco: Never Alcohol Use Standard Drinks/Week Comments No 0 (1 standard drink = 0.6 oz pur e alcohol) Comments No Sex and Gender Information Value Date Recorded Sex Assigned at Female 12/12/2023 4:10 PM CDT Legal Sex Female 5:42 AM [employer]ENT [employer] INSURANCE Gender Identity Female 12/12/2023 4:10 PM CDT Sexual Orientation Choose not to disclose 2023 4:10 PM CDT documented as of this encounter Miscellaneous Notes * Telephone Encounter - Patricia Cardenas - 09/09/2017 2:21 PM CDT Telephone call to [facility]. Spoke with Tad who states Elmiron was prescribed Dr Milton on 09/05. States this medication will cost pt $125 per one month supply. Pt is requesting prescription for a cheaper option. * Telephone Encounter - Lisette Mobley - 09/09/2017 1:47 PM CDT Kriss from [facility] pharm called in stating pt can not afford Elmiron rx that was sent over. Pt wouldlike a cheaper rx sent to her pharm. Callback#[phone] documented in this encounter Plan of Treatment Not on file documented as of this encounter Visit Diagnoses Not on filedocumented in this encounter Additional Health Concerns Infection Onset Date Last Indicated Resolved Time COVID-19 Under Investigation 03/15/2021 03/15/2021 03/15/2021 9:43 AM CDT COVID-19 Confirmed 07/09/2023 07/09/2023 4:33 AM [employer] COVID-19 Under Investigation 09/25/2023 09/25/2023 09/25/2023 1:21 PM CDT documented as of this encounter Care Teams Warehouse Specialist Relationship Specialty Start Date End Date Lyle Hutchins MD PCP - General 03/02/19 Rosette Michelle RN Registered Nurse 01/01/17 Mellissa Reid MSW Outpatient Joint Supervisor Care Management 03/10/2403/10 Nargis Martins MSW Outpatient Joint Supervisor Care Management 03/10/2404/25 documented as of this encounter
--- OUTSIDE RECORDS SUMMARY | 2024-10-27 10:53 | XMS_ITS | Encounter Summary ---
Author Organization [facility] Address [address] [place] [address] Care Team Providers Care Legal Advisor Name Role Phone Rosette Michelle RN Unavailable Unavailab Lyle Stuart MD Primary Care Provider [phone] Mellissa Reid RETAIL COSMETICS SALES COUNTER MANAGER Unavailable [phone] Nargis Martins RETAIL COSMETICS SALES COUNTER MANAGER Unavailable Reason for Visit * Reason Onset Date Comments Future Appointment 09/23/2018 Encounter Details Date Type Department Care Team (Late st Contact Info) Description 09/23/2018 Telephone [facility] [address] [place], [place] [id number] Jostin Souza Jr., MD [address] [place], [place] [id number] Future Appointment Social History Tobacco Use Types Packs/Day Years Used Date Smoking Tobacco: Never Smokeless Tobacco: Never Alcohol Use Standard Drinks/Week Comments No 0 (1 standard drink = 0.6 oz pur e alcohol) Comments No Sex and Gender Information Value Date Recorded Sex Assigned at Female 12/12/2023 4:10 PM CDT Legal Sex Female 5:42 AM HOME SPECIALIST Gender Identity Female 12/12/2023 4:10 PM CDT [...] CDT COVID-19 Confirmed 07/09/2023 07/09/2023 4:33 AM HOME SPECIALIST COVID-19 Under Investigation 09/25/2023 09/25/2023 09/25/2023 1:21 PM CDT documented as of this encounter Care Teams Legal Advisor Relationship Specialty Start Date End Date Lyle Hutchins MD PCP - General 03/02/19 Rosette Michelle, RN Registered Nurse 01/01/17 Mellissa Reid MSW Outpatient Privacy Attorney Care Management 03/10/2403/10 Nargis Martins MSW Outpatient Privacy Attorney Care Management 03/10/2404/25 documented as of this encounter
--- OUTSIDE RECORDS SUMMARY | 2024-10-27 10:53 | XMS_ITS | Patient Health Record ---
Author Organization [facility] Address [address] [place] [address] [address] [place] [address] Care Team Providers Care Gastroenterologist Name Role Phone Cuong CHINCHILLA, John Primary Care Provider Unavailab Lyle Espinoza Unavailable [phone] Shadia CHINCHILLA, Bishop Unavailable Unavailable Allergies Allergen [...] Clinical Notes Section Notes 07/23/2024 Other Reviewed [place] PDMP on 07/21/24 at 7:36 am and [...] Coverage Start Date Coverage End Date [employer] [facility] [address] [place] [address] [id number] Natasha Wilson Self - patient is the [...]
--- OUTSIDE RECORDS SUMMARY | 2024-10-27 10:54 | XMS_ITS | Clinical Summary ---
Author Organization [facility] Address [address] [facility] [place] [address] Care Team Providers Care Carpenter Helper Maintenance Name Role Phone Rosette Michelle RN [facility] MD Primary Care Provider [phone] Source Comments [facility],non-owned Affiliates and Associated Physician Practices is amultiple site organization consisting of ambulatory clinics and hospital sitesin [place], [place], [place] and [place]. This disclosure is being madepursuant to the Care Everywhere program and may not contain all information available regarding this patient. Last updated 18.[facility] Allergies Active Allergy Reactions Criticality Noted Date [...] document. Alwaysverify current medications with the patient. insulin degludec (TRESIBA FLEXTOUCH) 100 UNIT/ML pen Inject 30 (thirty) Units subcutaneously once daily Active prazosin (Minipress) 1 MG capsule Take 1 (one) capsule by mouth at bedtime Active escitalopram (Lexapro) 20 MG tablet Take 1 (one) tablet by mouth once daily Active traZODone (Desyrel) 50 MG tablet Take 1.5 (one and one-half) tablets by mouth at bedtime Active evolocumab (Repatha) 140 MG/ML auto-injector Inject subcutaneously every 14 days Active albuterol HFA (Proventil; Ventolin; Proair) 108 (90 Base) MCG/ACT inhaler Inhale 2 (two) puffs by mouth every 4 hours as needed for Shortness of Breath or Wheezing 2024 Active HYDROcodone-ac etaminophen ([place]) 5-325 MG tablet Take 1 (one) tablet by mouth every 6 hours as needed for Pain Active hydrOXYzine HCl (Atarax) 50 MG tablet Take 1 (one) tablet by mouth 3 times daily as needed (Anxiety) Active insulin aspart, w/Niacinamide, (Fiasp) vial Inject 15 (fifteen) Units to 24 (twenty four) Units subcutaneously 3 times daily before meals 15 units baseline then adds 2 units per 50 points on blood sugar reading Active Continuous Glucose Sensor (Dexcom G7 Sensor) [facility] Active QUEtiapine XR 24hr (SEROquel XR) 50 MG tablet TAKE 1 TABLET BY MOUTH EVERYDAY AT BEDTIME 90 tablet 1 024 Active allopurinol (Zyloprim) 100 MG tablet TAKE 1 TABLET BY MOUTH EVERY DAY 90 tablet 1 025 Active tirzepatide (Mounjaro) 7.5 MG/0.5ML injectionIndic ations:Type 2 diabetes mellitus without complication, with long-term current use of insulin (HCC) Inject 7.5 (seven and one-half) mg subcutaneously every 7 days 025 Active norethindrone (Aygestin) 5 MG tablet TAKE 1 TABLET BY MOUTH EVERY DAY 90 tablet 1 025 Active omeprazole (PriLOSEC) 40 MG capsuleIndicat ions:Gastroeso phageal reflux disease with esophagitis without hemorrhage TAKE 1 CAPSULE BY MOUTH EVERY DAY BEFORE BREAKFAST 90 capsule 1 025 Active nabumetone (Relafen) 750 MG tabletIndicati ons:Arthralgia , unspecified joint TAKE 1 (ONE) TABLET BY MOUTH ONCE DAILY NEEDED FOR PAIN 90 tablet 025 Active tiZANidine (Zanaflex) 4 MG tabletIndicati ons:Lumbar radiculitis TAKE 1 TABLET BY MOUTH EVERY 8 HOURS NEEDED FOR MUSCLE SPASM 45 tablet 5 025 Active ursodiol (Actigall) 300 MG capsuleIndicat ions:Other specified diseases of gallbladder TAKE 1 CAPSULE BY MOUTH EVERY DAY 90 capsule 1 025 Active ursodiol (Actigall) 300 MG capsuleIndicat ions:Other specified diseases of gallbladder TAKE 1 CAPSULE BY MOUTH EVERY DAY 90 capsule 1 024 2024 Discontinued Active Problems Problem Noted Date Diagnosed Date [...] Sinusitis 03/22/2019 11/21/2020 Gastroparesis due to DM 02/17/201911/2021 Severe episode of recurrent major depressive disorder, without psychotic features 12/07/201811/2021 Encounters Date Type Department Care Team Description 10/14/2024 Refill [facility] Family Medicine [address] [address] Lyle Hutchins MD Refill Request 09/27/2024 Refill [facility] Family Medicine [address] [address] Lyle Hutchins MD Refill Request 08/31/2024 Refill [facility] [address] [address] Lyle Hutchins MD Refill Request 08/05/2024 4:27 PM BLENDER MACHINE OPERATOR - 08/05/2024 11:59 PM BLENDER MACHINE OPERATOR Hospital Encounter [facility] Imaging Services - [address] [address] Lyle Hutchins MD Discharge Disposition: Home or Self Care 07/30/2024 Refill [facility] - Family Medicine [address] [place] [address], [address] [place] [address] Lyle Hutchins MD Refill Request from Last 3 Months Immunizations Immunization Administration Dates Next Due INFLUENZA VACCINE, TRIV. (AF LURIA, FLUZONE TRIVALENT; 6MO+) (IIV3) 03/05/2013 Covid Pfizer primary monoval ent 12+ yr 0.3mL Purple [...] Recorded Patient Health Questionnaire-2 Score 2 07/01/2024 Comments No Sex and Gender Information Value Date Recorded Sex Assigned at Female 12/12/2023 4:10 PM CDT Legal Sex Female 5:42 AM BLENDER MACHINE OPERATOR Gender Identity Female 12/12/2023 4:10 PM CDT Sexual Orientation Choose not to disclose 2023 4:10 PM CDT Last Filed Vital Signs Vital Sign Reading Time Taken Comments Blood Pressure 122/79 07/01/2024 1:31 PM BLENDER MACHINE OPERATOR Pulse 91 07/01/2024 1:31 PM BLENDER MACHINE OPERATOR Temperature 36.3 C (97.3 F) 07/01/2024 1:31 PM BLENDER MACHINE OPERATOR Respiratory Rate 18 03/09/2024 3:04 PM CDT Oxygen Saturation 98% 07/01/2024 1:31 PM BLENDER MACHINE OPERATOR Inhaled Oxygen Concentration - - Weight 146.4 kg (322 lb 12.8 oz) 07/01/2024 1:31 PM BLENDER MACHINE OPERATOR Height 165.1 cm (5' 5) 07/01/2024 1:31 PM BLENDER MACHINE OPERATOR Body Mass Index 53.72 07/01/2024 1:31 PM BLENDER MACHINE OPERATOR Plan of Treatment Health Maintenance Due Date Last Done Comments HEPATITIS B VACCINE (1 of 3 - 19+ 3-dose series) 2001 DIABETES-FOOT EXAM WITH MONOFILAMENT 01/28/2020 DTAP/TDAP/TD VACCINES (2 - Td or Tdap) 09/24/2023 09/23/2013 DIABETES-HGB A1C 12/01/2023 06/02/2023, , 11/02/2020, Additional history exists COVID-19 VACCINE ( season) 2024 03/07/2021, 03/07/2021, 07/25/2020, Additional history exists PAP SMEAR 03/03/2024 03/03/2021 (Done Outside Per Patient), 01/05/2019, 01/05/2019 (Done Outside Per Report) DIABETES - URINE PROTEIN SCREENING 06/02/2024 12/01/2022 (Done Outside Per Report) DIABETES RETINOPATHY SCREENING 12/01/2024 12/01/2022 (Done Outside Per Patient) INFLUENZA VACCINE (Season Ended) 2025 03/03/2019, 04/01/2014, 03/05/2013, Additional history exists DIABETES-SERUM CREATININE 03/05/20252023, 05/01/2023, 01/21/2022, Additional history [...] complete this topic MENINGOCOCCAL (Group B) VACCINE SHARED DECISION-MAKING Aged Out No longer eligible based on patient's age to complete this topic MENINGOCOCCAL GROUPS A/C/Y/W VACCINE Aged Out No longer eligible based on patient's age to complete this topic Procedures Procedure Name Priority Date/Time Associated Diagnosis Comments MRI LUMBAR SPINE WO CONTRAST Routine 08/05/2024 6:27 PM BLENDER MACHINE OPERATOR Lumbar radiculitis COMPREHENSIVE METABOLIC PANEL STAT 03/05/2024 1:04 PM CDT MAMMO BILAT SCREENING W EDGAR Routine 12/13/2023 10:42 AM CDT Visit for screening mammogram HEMOGLOBIN A1C (EXTERNAL RESULT ENTRY) Routine 11/22/2021 from Last 3 Months or Most Recently Relevant to Health Maintenance Results * MRI Lumbar Spine Wo Contrast (08/05/2024 6:27 PM BLENDER MACHINE OPERATOR) Anatomical Region Laterality Modality Spine Magnetic Resonan ce 08/06/2024 8:16 AM BLENDER MACHINE OPERATOR Impressions 08/06/2024 8:18 AM BLENDER MACHINE OPERATOR IMPRESSION: 1. Lower lumbar disc degeneration and facet arthropathy without significant spinal canal or foraminal stenosis. 2. No lumbar spine compression fracture. > Interpreting Provider: Thom Longoria DO on 08/06/2024 8:18 AM Narrative 08/06/2024 8:18 AM BLENDER MACHINE OPERATOR EXAM: MRI Lumbar Spine without contrast INDICATION: Back pain. COMPARISON: None. TECHNIQUE: Multiplanar, multisequence magnetic resonance imaging of the lumbar spine performed without contrast FINDINGS: For purposes of this dictation, the lowest fully developed disc space is considered to be L5-S1. Alignment and curvature is normal. There is no compression fracture. No edema or marrow replacement. Moderate disc degeneration L5-S1 with mild disc degeneration L3-4 and L4-5. Conus terminates at L1 and is unremarkable. No cord tethering lesion is identified. Review of the axial imaging at each individual disc level shows: L1-L2: Unremarkable. L2-L3: Unremarkable. L3-L4: Facet arthropathy but no spinal canal or foraminal stenosis. L4-L5: Annular bulge with facet arthropathy but no spinal canal or significant foraminal stenosis. L5-S1: Annular bulge and facet arthropathy but no spinal canal or lateral recess stenosis. No significant foraminal narrowing. Paravertebral soft tissues are unremarkable. Procedure Note Thom Longoria DO - 08/06/2024 EXAM: MRI Lumbar Spine without contrast INDICATION: Back pain. COMPARISON: None. TECHNIQUE: Multiplanar, multisequence magnetic resonance imaging of the lumbar spine performed without contrast FINDINGS: For purposes of this dictation, the lowest fully developed disc space is considered to be L5-S1. Alignment and curvature is normal. There is no compression fracture. No edema or marrow replacement. Moderate disc degeneration L5-S1 with mild disc degeneration L3-4 and L4-5. Conus terminates at L1 and is unremarkable. No cord tethering lesion is identified. Review of the axial imaging at each individual disc level shows: L1-L2: Unremarkable. L2-L3: Unremarkable. L3-L4: Facet arthropathy but no spinal canal or foraminal stenosis. L4-L5: Annular bulge with facet arthropathy but no spinal canal or significant foraminal stenosis. L5-S1: Annular bulge and facet arthropathy but no spinal canal orlateral recess stenosis. No significant foraminal narrowing. Paravertebral soft tissues are unremarkable. IMPRESSION: 1. Lower lumbar disc degeneration and facet arthropathy withoutsignificant spinal canal or foraminal stenosis. 2. No lumbar spine compression fracture. > Interpreting Provider: Thom Longoria DO on 08/06/2024 8:18 AM us Lyle Hutchins MD MR ORDERABLES Final Result * (ABNORMAL) COMPREHENSIVE METABOLIC PANEL (03/05/2024 1:04 PM CDT) [facility] Glucose 202(H) 70 - 99 mg/dL 03/05/2024 1:[address] [facility] Sodium 139 136 - 145 mmol/L 03/05/2024 1:[address] [facility] Potassium 4.3 3.5 - 5.1 mmol/L 03/05/2024 1:[address] [facility] Chloride 108(H) 98 - 107 mmol/L 03/05/2024 1:[address] [facility] CO2 18(L) 22 - 29 mmol/L 03/05/2024 1: PM [facility] Calcium 9.5 8.4 - 10.4 mg/dL 03/05/2024 1:[address] [facility] Anion Gap 13 6 - 16 mmol/L 03/05/2024 1:[address] [facility] BUN 14 5.3 - 18.7 mg/dL 03/05/2024 1:[address] [facility] Creatinine 0.80 0.57 - 1.11 mg/dL 03/05/2024 1:[address] [facility] Alkaline Phosphatase 82 40 - 150 U/L 03/05/2024 1:[address] [facility] ALT 20 0 - 55 U/L 03/05/2024 1:[address] [facility] AST 24 5 - 34 U/L 03/05/2024 1:[address] [facility] Protein Total 7.5 6.4 - 8.3 gm/dL 03/05/2024 1:[address] [facility] Albumin 3.7 3.4 - 5.0 gm/dL 03/05/2024 1:[address] [facility] Bilirubin Total 0.3 0.2 - 1.2 mg/dL 03/05/2024 1:[address] [facility] eGFR by CKD-EPI >90 >=90 mL/min/1.7 3 m2 03/05/2024 1:[address] [facility] Blood BLOOD SPECIMEN / Unknown Venipuncture / Unknown 03/05/2024 1:04 PM CDT 03/05/2024 1:08 PM T us Wilmer Reyna MD LAB - CHEMISTRY ORDERABLES Final Result [facility] [address] [id number] * MAMMO BILAT SCREENING W EDGAR (12/13/2023 10:42 AM CDT) Anatomical Region Laterality Modality Breast Bilateral Mammography 12/15/2023 8:56 AM CDT Impressions 12/15/2023 8:59 AM CDT : No mammographic evidence of malignancy in either breast. ASSESSMENT: BIRADS Category 1: Negative mammogram. RECOMMENDATION: Bilateral screening mammogram in one year. Thank you for allowing us to participate in the care of your patient. [facility] utilizes [employer] as a reminder system to notify patients [...] tomosynthesis images. Lyle Hutchins MD MAMMO ORDERABLES Final Result * (ABNORMAL) HEMOGLOBIN A1C (EXTERNAL RESULT ENTRY) (11/22/2021) Hemoglobin A1c (EXTERNAL RESULT) 6.6(H) % OUTSIDE REFERENCE LAB Comment:Endocrinology, [facility] - via Scanned Document Blood BLOOD SPECIMEN / Unknown 11/22/2021 Historical Provider LAB - CHEMISTRY ORDERABLE S Final Result OUTSIDE REFERENCE LAB from Last 3 Months or Most Recently Relevant to Health Maintenance Insurance AETNA AETNA AETNA AETNA AETNA Comp Advance Directives * Full Code (Latest Code Status on File) Date Activated Date Inactivated Comments 03/05/2024 5:27 PM 03/09/2024 5:53 PM Care Teams Carpenter Helper Maintenance Relationship Specialty Start Date End Date Lyle Hutchins MD PCP - General 03/02/19 Rosette Michelle, RN Registered Nurse 01/01/17
[2024-10-27 10:56] VITALS: BP 131/76; PULSE 103; RESP 18; TEMP 36.4; O2SAT 99
[2024-10-27] MEDS: HYDROcodone/acetaminophen (*CRX) 5-325 MG TABLET 2 TAB PO (12:18)
--- NOTE | 2024-10-27 13:10 | ED.GENADULT ---
HPI - General Adult General Chief complaint: Fall Stated complaint: fell at work, L knee, & R wrist pain Time Seen by Provider: 10/27/24 12:10 History of Present Illness HPI narrative: This is a 45-year-old female presenting after a fall at work. She was using the restroom and when she tried to stand up from the toilet she slipped landing on her left knee. She then tried to push herself up with her right wrist and slipped again injuring her right wrist. She did not strike her head. She has not consciousness. She has been having pain in her left knee and has been unable to bear weight. Patient has a history of chronic left knee pain. Related Data Home Medications ?Medication ?Instructions ?Recorded ?Confirmed ?Last Taken ?Type allopurinol 100 mg tablet 100 mg PO DAILY 07/20/24 07/20/24 07/19/24 History escitalopram oxalate 20 mg tablet 20 mg PO DAILY 07/20/24 07/20/24 07/20/24 History evolocumab 140 mg/mL subcutaneous 140 mg subcut Q2TKNPD 07/20/24 07/20/24 07/18/24 History pen injector (Elfego Sosa) hydroxyzine HCl 50 mg tablet 50 mg PO TID PRN anxiety 07/20/24 07/20/24 Unknown History insulin aspart U-100 100 unit/mL 40 unit subcut TIDWMEAL 07/20/24 07/20/24 07/20/24 History (3 mL) subcutaneous pen (Novolog FlexPen U-100 Insulin aspart) insulin degludec 100 unit/mL (3 60 unit subcut DAILY 07/20/24 07/20/24 07/20/24 History mL) subcutaneous pen (Tresiba FlexTouch U-100 insulin) nabumetone 750 mg tablet 750 mg PO HS 07/20/24 07/20/24 07/19/24 History norethindrone acetate 5 mg tablet 5 mg PO DAILY 07/20/24 07/20/24 07/19/24 History omeprazole 40 mg capsule,delayed 40 mg PO DAILY 07/20/24 07/20/24 07/19/24 History release prazosin 1 mg capsule 1 mg PO HS 07/20/24 07/20/24 07/19/24 History pregabalin 100 mg capsule 100 mg PO DAILY 07/20/24 07/20/24 07/19/24 History quetiapine 50 mg tablet,extended 50 mg PO HS 07/20/24 07/20/24 07/19/24 History release 24 hr tirzepatide 5 mg/0.5 mL 7.5 mg subcut WEEKLY 07/20/24 07/20/24 07/18/24 History subcutaneous pen injector (Gene) tizanidine 4 mg tablet 4 mg PO Q8H 07/20/24 07/20/24 Unknown History trazodone 50 mg tablet 75 mg PO HS 07/20/24 07/20/24 07/19/24 History ursodiol 300 mg capsule 300 mg PO HS 07/20/24 07/20/24 07/19/24 History Allergies Allergy/AdvReac Type Severity Reaction Status Date / Time Penicillins Allergy Severe Anaphylaxis Verified 10/27/24 10:59 ketorolac (From Toradol) Allergy Mild Agitated Verified 10/27/24 10:59 lorazepam (From Ativan) Allergy Mild Agitated, Verified 10/27/24 12:15 suicidal Influenza Virus Vaccines AdvReac Mild Vomiting Verified 10/27/24 10:59 metoclopramide (From Reglan) AdvReac Mild Vomiting Verified 10/27/24 10:59 PMFSH Past Medical History Medical History Depression with anxiety Endometriosis Asthma Obstructive sleep apnea on CPAP Type 2 diabetes mellitus Surgical History Surgical History History of cholecystectomy Social History Social History Social History: Surrogate medical decision maker: Aris Wilson, sibling. Code status: Full code. Smoking status: Never smoker Alcohol intake: current Substance use: never Do You Feel Safe in your Home?: Yes Lack of Transportation: No Lack of Food: Never True Current Housing: I Have Housing Concerned About Future Housing: No Difficulty Paying Gas/Electric Bills: No Difficulty Paying for Meds: No Currently Unemployed: No Education: Decline to Answer Difficulty w/ Childcare or Family Care: No Spiritual care concerns: No Exam Narrative: APPEARANCE: No apparent distress. Head: atraumatic. EYES: EOMI, NOSE: Atraumatic NECK: Trachea midline RESPIRATORY: No increased rate of breathing CARDIOVASCULAR: RRR, ABDOMINAL: Non-distended MUSCULOSKELETAl: Focal exam of the left knee reveal abrasion over the tibial tuberosity. There is swelling over the proximal medial lower extremity. Pulses are +2 foot with refill. Sensation and motor function is intact. Compartments are soft. Focal exam of the right wrist revealed no obvious swelling or deformity. Some pain along the posterior carpal bones but no focal tenderness. Mainstreaming Facilitator strength is intact, cap refills less than 2 seconds and pulses are intact. Compartments are soft. NEURO: Alert. Moving 4/4 extremities SKIN:: Warm, dry. Normal color PSYCHIATRIC: Normal affect Course Vital Signs Vital signs: Vital Signs Temperature 97.5 F L 10/27/24 10:56 Pulse Rate 103 H 10/27/24 10:56 Respiratory Rate 18 10/27/24 10:56 Blood Pressure 131/76 10/27/24 10:56 Pulse Oximetry 99 10/27/24 10:56 Oxygen Delivery Room Air 10/27/24 10:56 Temperature 97.5 F L 10/27/24 10:56 Pulse Rate 103 H 10/27/24 10:56 Respiratory Rate 18 10/27/24 10:56 Blood Pressure 131/76 10/27/24 10:56 Pulse Oximetry 99 10/27/24 10:56 Oxygen Delivery Room Air 10/27/24 10:56 Medical Decision Making [facility] Narrative Medical decision making narrative: -Course: 44-year-old female presenting ED after a fall off toilet. X-ray of elbow showed no acute fracture with a small joint effusion. On exam the patient has no pain in that elbow is moving it freely gesturing during her interview. No concerns for serious injury. Wrist negative for acute fractures. KNEE XR: Nonspecific expansile lytic lesion proximal tibia posteriorly and laterally at the metaphysis. Consider correlation with MRI of the area of interest without and with contrast for further assessment. Patient has some swelling of her knee and small abrasion but is neurovascularly intact with is soft compartments. Her pain was treated with some improvement although she is still uncomfortable. Patient may end up needing an MRI of her knee to look for internal derangement and would be ideal if she could also have this lytic bone lesion evaluatedat the same time. She will be given follow-up our local orthopedic surgeon at her request. . She has instructed to follow-up with her primary care physician for further management. -DDX includes but is not limited to: Internal derangement of the knee, bony injury, knee effusion wrist fracture -Co-morbidities complicating care: Morbid obesity, chronic pain - Vital Signs Vital Signs: Vital Signs Temperature 97.5 F L 10/27/24 10:56 Pulse Rate 103 H 10/27/24 10:56 Respiratory Rate 18 10/27/24 10:56 Blood Pressure 131/76 10/27/24 10:56 Pulse Oximetry 99 10/27/24 10:56 Oxygen Delivery Room Air 10/27/24 10:56 Temperature 97.5 F L 10/27/24 10:56 Pulse Rate 103 H 10/27/24 10:56 Respiratory Rate 18 10/27/24 10:56 Blood Pressure 131/76 10/27/24 10:56 Pulse Oximetry 99 10/27/24 10:56 Oxygen Delivery Room Air 10/27/24 10:56 Discharge Plan Discharge Clinical Impression: Acute knee pain, Obesity Patient Disposition: Home Condition: Stable Instructions: Antibiotic Form, Knee Pain (ED) Additional Instructions: You were seen in the emergency department after a fall. Please use Motrin and Tylenol for pain. Use oxycodone and tizanidine for breakthrough pain. Please follow-up the orthopedic surgeon listed below for further evaluation. Please use your walker and be weight-bearing as tolerated. If you develop severe pain or weakness in her leg please return to the ED for immediate evaluation. Your knee x-ray showed a nonspecific lytic lesion in your tibia. This may need an MRI with and without contrast for further evaluation. You may end up needing an MRI for your knee and it would be prudent to evaluate your knee and the bone lesion at the same time. Please follow-up with orthopedic surgeon listed below and your PCP for further evaluation. Patient Language: Georgian Prescriptions: New acetaminophen 500 mg tablet 1,000 mg PO TID PRN (Reason: richard) 7 Days Qty: 42 0RF ibuprofen 800 mg tablet 800 mg PO TID PRN (Reason: pain) 7 Days Qty: 21 0RF oxycodone 5 mg tablet 5 mg PO Q4H PRN (Reason: pain) Qty: 14 0RF tizanidine 4 mg capsule 4 mg PO Q8H PRN (Reason: muscle spasticity) Qty: 14 0RF No Action allopurinol 100 mg tablet 100 mg PO DAILY escitalopram oxalate 20 mg tablet 20 mg PO DAILY Repatha SureClick 140 mg/mL pen injector 140 mg SUBCUT [id number] hydroxyzine HCl 50 mg tablet 50 mg PO TID PRN (Reason: anxiety) insulin aspart U-100 [Novolog FlexPen U-100 Insulin] 100 unit/mL (3 mL) insulin pen 40 unit SUBCUT TIDWMEAL insulin degludec [Tresiba FlexTouch U-100] 100 unit/mL (3 mL) insulin pen 60 unit SUBCUT DAILY nabumetone 750 mg tablet 750 mg PO HS omeprazole 40 mg capsule,delayed release(DR/EC) 40 mg PO DAILY norethindrone acetate 5 mg tablet 5 mg PO DAILY prazosin 1 mg capsule 1 mg PO HS pregabalin 100 mg capsule 100 mg PO DAILY quetiapine 50 mg tablet extended release 24 hr 50 mg PO HS Mounjaro 5 mg/0.5 mL pen injector 7.5 mg SUBCUT WEEKLY trazodone 50 mg tablet 75 mg PO HS tizanidine 4 mg tablet 4 mg PO Q8H ursodiol 300 mg capsule 300 mg PO HS levofloxacin 750 mg tablet 750 mg PO DAILY 6 Days Qty: 6 0RF metronidazole 500 mg tablet 500 mg PO Q8H 6 Days Qty: 18 0RF hydrocodone-acetaminophen 5-325 mg tablet 1 tablet PO Q6H PRN (Reason: pain) 3 Days Qty: 12 0RF Follow-up/Referrals: Blayne Villafana MD [Physician] - 1 Week (Knee pain. Incidental tibial lytic lesion) UNKNOWN,DOCTOR [Primary Care Provider] -
[2024-10-27 13:17] VITALS: BP 129/85; PULSE 92; RESP 17; O2SAT 97
[2024-10-27] MEDS: ACETAMINOPHEN 325 MG TABLET PO (13:18)
[2024-10-27] MEDS: IBUPROFEN 400 MG TABLET 800 MG PO (13:18)
--- OUTSIDE RECORDS SUMMARY | 2024-10-27 13:41 | XMS_ITS | Encounter Summary ---
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
--- OUTSIDE RECORDS SUMMARY | 2024-10-27 13:41 | XMS_ITS | Continuity of Care Document ---
Author Organization [facility] Address [address] [place] [address] Phone Care Team Providers Care Herd Tester Name Role Phone Andres Coker MD Unavailable [...] Procedures Procedure Date ALLERGY SKIN TESTS OFFICE [id number] BODY MASS INDEX DOCD SYST BP LT [...] Diagnoses Date Provider Providers Copied on Encounter [facility], [address], [place], [place], [id number] , tel: [phone] [facility] [place] No Information 2 John Paul Campos. [address] [facility] , [address] [address], [place], [place], [address] , [place]. tel:[phone] OFFICE [id number] [address], [place], [place], [address] , [place] tel: [phone] [facility] Asthma Allergy [place] Patient encounter (chief complaint) Dermographic urticariaAnaphylaxis due to shellfish, initial encounterAllergic contact dermatitis due to other agents 2 John Paul Campos. [address] [facility] , [address] [address], [place], [place], [id number] , [place]. tel:[phone] Referring Provider: Lyle Hutchins MD, [address] [place] [address], [address]. tel:[phone] [facility], [address], [place], [place], [address] , [place] tel:[phone] [facility] No Information 1 Leeroy Jimenez. [address] [facility], [place], [place], [address] , [place]. tel:[phone] Referring Provider: Bishop Reno, [address] , [place], [address]. tel:[phone] [facility], [address], [place], [place], [address] , [place] tel: [phone] [facility] Irritable bowel syndrome with diarrheaDiffuse abdominal pain 6 Marcos Horvath. [address] [facility], [address], [place], [place], [address] . tel: [phone] Referring Provider: Lyle Hutchins MD, [address], [address]. tel:[phone] Family History Family Member Type Diagnosis Age At Onset Problem (finding) Family history of Irritable bowel disease Payers Payer name Insurance type Covered constitution party ID Authoriza tiventura(s) DIYA PPO CI [id number] Social History Type Description Quantity Date Captured [...]
--- OUTSIDE RECORDS SUMMARY | 2024-10-27 13:41 | XMS_ITS | Encounter Summary ---
Author Organization [facility] Health Address [address] [place] [address] Care Team Providers Care Machine Adjuster Leader Case Trim Name Role Phone Rosette Michelle RN Unavailable Unavailab Lyle Stuart MD Primary Care Provider [phone] Mellissa Reid STEWARDESSES TEACHER Unavailable [phone] Nargis Martins STEWARDESSES TEACHER Unavailable Reason for Visit * Reason Onset Date Comments Future Appointment 09/23/2018 Encounter Details Date Type Department Care Team (Late st Contact Info) Description 09/23/2018 Telephone [facility] [address] [place], [place] [id number] Jostin Souza Jr., MD [address] [facility] [address] [place], [place] [id number] Future Appointment Social History Tobacco Use Types Packs/Day Years Used Date Smoking Tobacco: Never Smokeless Tobacco: Never Alcohol Use Standard Drinks/Week Comments No 0 (1 standard drink = 0.6 oz pur e alcohol) Comments No Sex and Gender Information Value Date Recorded Sex Assigned at Female 12/12/2023 4:10 PM CDT Legal Sex Female 5:42 AM MOLD FILLER AND DRAINER Gender Identity Female 12/12/2023 4:10 PM CDT [...] CDT COVID-19 Confirmed 07/09/2023 07/09/2023 4:33 AM MOLD FILLER AND DRAINER COVID-19 Under Investigation 09/25/2023 09/25/2023 09/25/2023 1:21 PM CDT documented as of this encounter Care Teams Machine Adjuster Leader Case Trim Relationship Specialty Start Date End Date Lyle Hutchins MD PCP - General 03/02/19 Rosette Michelle, RN Registered Nurse 01/01/17 Mellissa Reid MSW Outpatient Treater Helper Care Management 03/10/2403/10 Nargis Martins MSW Outpatient Treater Helper Care Management 03/10/2404/25 documented as of this encounter
--- OUTSIDE RECORDS SUMMARY | 2024-10-27 13:41 | XMS_ITS | Referral Summary ---
Author Organization [facility] Address [address] [place] [address] Care Team Providers Care Fraud Representative Name Role Phone Lyle Hutchins MD Primary Care Provider [phone] Allergies Active Allergy Reactions Criticality Noted Date [...] 11/06/2015 Only shrimp & Tuna confirmed with program manager transportation Ketorolac Mental status changes Low Agitated and [...] Take 1 capsule by mouth daily (brand: Droid system master) Active polyethylene glycol (Miralax) 17 gram packetIndicatio [...] drink = 0.6 oz pur e alcohol) [facility] [employer] Answer Date Recorded In the past 12 months has [employer] electric, gas, oil, or water [employer] threatened to shut off services in your [...] often do you attend chur ch or orthodox services? Never 07/11/2023 Do you belong to any clubs o r organizations such as taoism groups, unions, fraternal or athletic groups, or [...] place to sleep or slept in a residential (including now)? No 07/11/2023 Personal Safety Answer Date Recorded Have you ever been in or are you currently in a harmful physical or emotional relationship or is someone making you feel afraid or unsafe? Denies 04/28/2024 Comments No Sex and Gender Information Value Date Recorded Sex Assigned at Not on file Legal Sex Female 2:19 PM CREDIT FRONT OFFICE DEVELOPER Gender Identity Not on file Sexual Orientation Bisexual 04/28/2024 6: 46 PM CREDIT FRONT OFFICE DEVELOPER Last Filed Vital Signs Vital Sign Reading Time Taken Comments Blood Pressure 129/81 04/28/2024 11:30 PM CREDIT FRONT OFFICE DEVELOPER Pulse 85 04/28/2024 11:30 PM CREDIT FRONT OFFICE DEVELOPER Temperature 36.9 C (98.4 F) 04/28/2024 5:39 PM CREDIT FRONT OFFICE DEVELOPER Respiratory Rate 16 04/28/2024 11:30 PM CREDIT FRONT OFFICE DEVELOPER Oxygen Saturation 97% 04/28/2024 11:30 PM CREDIT FRONT OFFICE DEVELOPER Inhaled Oxygen Concentration - - Weight 140.6 kg (310 lb) 04/28/2024 5:39 PM CREDIT FRONT OFFICE DEVELOPER Height 165.1 cm (5' 5) 04/28/2024 5:39 PM CREDIT FRONT OFFICE DEVELOPER Body Mass Index 51.59 04/28/2024 5:39 PM CREDIT FRONT OFFICE DEVELOPER Plan of Treatment Not on file Medical Devices Implanted Type Area Unemployment Claims Adjudicator Device Identifier Shelf Expiration Date Model / Serial / Lot Other - See Comments Other - see comments Neck Description:Neck disc replac ement C6-C7 Procedures Procedure Name Priority Date/Time Associated Diagnosis Comments EGFR STAT 04/28/2024 11:19 PM CREDIT FRONT OFFICE DEVELOPER HEMOGLOBIN A1C Routine 06/02/2023 4:40 AM CREDIT FRONT OFFICE DEVELOPER from Last 3 Months or Most Recently Relevant to Health Maintenance Results * eGFR (04/28/2024 11:19 PM CREDIT FRONT OFFICE DEVELOPER) eGFR >90 >=60 mL/min/1. 73 m2 Comment: [...] reviewed 2021. Blood 04/28/2024 11:1 9 PM CREDIT FRONT OFFICE DEVELOPER 04/28/2024 11:24 PM CREDIT FRONT OFFICE DEVELOPER us Gonzalo Holman MD LAB BLOOD ORDERABLES Final R esult Performing Organization Address City/[facility] Co de Phone Number [facility] [address] [facility] [employer] [place], [place] [id number] * (ABNORMAL) Hemoglobin A1c (06/02/2023 4:40 AM CREDIT FRONT OFFICE DEVELOPER) Hgb A1C 8.6(H) 4.0 - 5.6 % [facility] Estimated Average Glucose 200 mg/dL [facility] Comment: The ADA recommends reporting an estimated Average Glucose (eAG) with all Hemoglobin A1c results using the equation derived from a study of 507 normal and diabetic adults. Minority populations were underrepresented and children were not included. (Diabetes Care 31:5981-1591, 2008). The eAG is not equivalent to a fasting glucose. Blood 06/02/2023 4:40 AM CREDIT FRONT OFFICE DEVELOPER 06/02/2023 5:21 AM CREDIT FRONT OFFICE DEVELOPER Jean Givens DO LAB BLOOD ORDERABLES Final Result Performing Organization Address [facility] Co de Phone Number [facility] [address] [place] [address] from Last 3 Months or Most Recently Relevant to Health Maintenance Insurance [facility] PPO MAIL HANDLERS [facility] PPO MAIL HANDLERS [facility] H[facility] Advance Directives For more information, please contact: [phone] * Full Code (Latest Code Status on File) Date Activated Date Inactivated Comments 07/10/2023 7:28 AM 07/12/2023 4:02 PM * Full Code Date Activated Date Inactivated Comments 05/30/2023 8:47 PM 06/05/2023 7:08 PM Care Teams Fraud Representative Relationship Specialty Start Date End Date Lyle Hutchins MD [address] [address] PCP - General Family Medicine 02/09/20
--- OUTSIDE RECORDS SUMMARY | 2024-10-27 13:41 | XMS_ITS | Encounter Summary ---
Author Organization [facility] Health Address [address] [address] Care Team Providers Care Slitter And Cutter Operator Name Role Phone Rosette Michelle RN Unavailable Unavailab Lyle Stuart MD Primary Care Provider [phone] Mellissa Reid BEVELING AND EDGING MACHINE OPERATOR Unavailable [phone] Nargis Martins BEVELING AND EDGING MACHINE OPERATOR Unavailable [phone] Reason for Visit * Reason Onset Date Comments Med Question 09/09/2017 Encounter Details Date Type Department Care Team (Late st Contact Info) Description 09/09/2017 Telephone [facility] [address] [place] [address] Lisette Mobley Med Question Social History Tobacco Use Types Packs/Day Years Used Date Smoking Tobacco: Never Smokeless Tobacco: Never Alcohol Use Standard Drinks/Week Comments No 0 (1 standard drink = 0.6 oz pur e alcohol) Comments No Sex and Gender Information Value Date Recorded Sex Assigned at Female 12/12/2023 4:10 PM CDT Legal Sex Female 5:42 AM PROCESS CONTROLS TECHNICIAN Gender Identity Female 12/12/2023 4:10 PM CDT Sexual Orientation Choose not to disclose 2023 4:10 PM CDT documented as of this encounter Miscellaneous Notes * Telephone Encounter - Patricia Cardenas - 09/09/2017 2:21 PM CDT Telephone call to [facility]. Spoke with Tad who states Elmiron was prescribed Dr Milton on 09/05. States this medication will cost pt $125 per one month supply. Pt is requesting prescription for a cheaper option. * Telephone Encounter - Lisette Mobley - 09/09/2017 1:47 PM CDT Kriss from [facility] pharm called in stating pt can not afford Elmiron rx that was sent over. Pt wouldlike a cheaper rx sent to her pharm. Callback#[phone] documented in this encounter Plan of Treatment Not on file documented as of this encounter Visit Diagnoses Not on filedocumented in this encounter Additional Health Concerns Infection Onset Date Last Indicated Resolved Time COVID-19 Under Investigation 03/15/2021 03/15/2021 03/15/2021 9:43 AM CDT COVID-19 Confirmed 07/09/2023 07/09/2023 4:33 AM PROCESS CONTROLS TECHNICIAN COVID-19 Under Investigation 09/25/2023 09/25/2023 09/25/2023 1:21 PM CDT documented as of this encounter Care Teams Slitter And Cutter Operator Relationship Specialty Start Date End Date Lyle Hutchins MD PCP - General 03/02/19 Rosette Michelle RN Registered Nurse 01/01/17 Mellissa Reid MSW Outpatient Elementary Classroom Teacher Care Management 03/10/2403/10 Nargis Martins MSW Outpatient Elementary Classroom Teacher Care Management 03/10/2404/25 documented as of this encounter
--- OUTSIDE RECORDS SUMMARY | 2024-10-27 13:41 | XMS_ITS | Encounter Summary ---
Author Organization [facility] Address [address] [place] [address] Care Team Providers Care Slat Basket Maker Helper Machine Name Role Phone Romi Tompkins MD Primary Care Provider Violeta castellon Reason for Visit * Reason Onset Date Comments Courtesy Call 03/20/2019 Encounter Details Date Type Department Care Team (Late st Contact Info) Description 03/20/[address] 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
--- OUTSIDE RECORDS SUMMARY | 2024-10-27 13:41 | XMS_ITS | Clinical Summary ---
Author Organization [facility] Address [address] [place] [address] Care Team Providers Care Electronics Engineering Professor Name Role Phone Lyle Hutchins MD Primary Care Provider [phone] Allergies Active Allergy Reactions Criticality Noted Date [...] 11/06/2015 Only shrimp & Tuna confirmed with television anchor Ketorolac Mental status changes Low Agitated and [...] Take 1 capsule by mouth daily (brand: Razz) Active polyethylene glycol (Miralax) 17 gram packetIndicatio [...] Obesity Eczema contact dermatit is at times/sees electric utility lineworker/ no outbreaks at this time 11/27/21 Tarsal [...] drink = 0.6 oz pur e alcohol) [facility] Utilities Answer Date Recorded In the past 12 months has e electric, gas, oil, or water [employer] threatened to shut off services in your [...] often do you attend chur ch or scientology services? Never 07/11/2023 Do you belong to any clubs o r organizations such as religious groups, unions, fraternal or athletic groups, or [...] place to sleep or slept in a senior care (including now)? No 07/11/2023 Personal Safety Answer Date Recorded Have you ever been in or are you currently in a harmful physical or emotional relationship or is someone making you feel afraid or unsafe? Denies 04/28/2024 Comments No Sex and Gender Information Value Date Recorded Sex Assigned at Not on file Legal Sex Female 2:19 PM COLLEGE COACH Gender Identity Not on file Sexual Orientation Bisexual 04/28/2024 6: 46 PM COLLEGE COACH Obstetrics History Last Filed Vital Signs Vital Sign Reading Time Taken Comments Blood Pressure 129/81 04/28/2024 11:30 PM COLLEGE COACH Pulse 85 04/28/2024 11:30 PM COLLEGE COACH Temperature 36.9 C (98.4 F) 04/28/2024 5:39 PM COLLEGE COACH Respiratory Rate 16 04/28/2024 11:30 PM COLLEGE COACH Oxygen Saturation 97% 04/28/2024 11:30 PM COLLEGE COACH Inhaled Oxygen Concentration - - Weight 140.6 kg (310 lb) 04/28/2024 5:39 PM COLLEGE COACH Height 165.1 cm (5' 5) 04/28/2024 5:39 PM COLLEGE COACH Body Mass Index 51.59 04/28/2024 5:39 PM COLLEGE COACH Plan of Treatment Health Maintenance Due Date [...] this topic Medical Devices Implanted Type Area Vice President Of Advertising Device Identifier Shelf Expiration Date Model / Serial / Lot Other - See Comments Other - see comments Neck Description:Neck disc replac ement C6-C7 Procedures Procedure Name Priority Date/Time Associated Diagnosis Comments EGFR STAT 04/28/2024 11:19 PM COLLEGE COACH HEMOGLOBIN A1C Routine 06/02/2023 4:40 AM COLLEGE COACH from Last 3 Months or Most Recently Relevant to Health Maintenance Results * eGFR (04/28/2024 11:19 PM COLLEGE COACH) eGFR >90 >=60 mL/min/1. 73 m2 Comment: [...] reviewed 2021. Blood 04/28/2024 11:1 9 PM COLLEGE COACH 04/28/2024 11:24 PM COLLEGE COACH Gonzalo Holman MD LAB BLOOD ORDERABLES Final R esult Performing Organization Address City/[facility]/ZIP Co de Phone Number [facility] [address] [place] [address] * (ABNORMAL) Hemoglobin A1c (06/02/2023 4:40 AM COLLEGE COACH) Hgb A1C 8.6(H) 4.0 - 5.6 % [facility] Estimated Average Glucose 200 mg/dL [facility] Comment: The ADA recommends reporting an estimated Average Glucose (eAG) with all Hemoglobin A1c results using the equation derived from a study of 507 normal and diabetic adults. Minority populations were underrepresented and children were not included. (Diabetes Care 31:5860-4767, 2008). The eAG is not equivalent to a fasting glucose. Blood 06/02/2023 4:40 AM COLLEGE COACH 06/02/2023 5:21 AM COLLEGE COACH Jean Givens DO LAB BLOOD ORDERABLES Final Result Performing Organization Address City/[facility]/ZIP Co de Phone Number [facility] [address] [place] [address] from Last 3 Months or Most Recently Relevant to Health Maintenance Insurance [facility] PPO MAIL HANDLERS [facility] PPO MAIL HANDLERS [id number] Advance Directives For more information, please contact: [phone] * Full Code (Latest Code Status on File) Date Activated Date Inactivated Comments 07/10/2023 7:28 AM 07/12/2023 4:02 PM * Full Code Date Activated Date Inactivated Comments 05/30/2023 8:47 PM 06/05/2023 7:08 PM Care Teams Electronics Engineering Professor Relationship Specialty Start Date End Date Lyle Hutchins MD [address] [address] PCP - General Family Medicine 02/09/20
--- OUTSIDE RECORDS SUMMARY | 2024-10-27 13:41 | XMS_ITS | Continuity of Care Document ---
Author Organization [facility] Address [address] [place] [address] Phone Care Team Providers Care Tank Truck Milk Receiver Name Role Phone Naye Rollins PA-C Unavailable [...] on Encounter OFFICE CONSULTATION [facility], [address], [place], [address], [place] tel:[phone] [facility] Left hip pain (chief complaint) Left hip painTrochanteric bursitis of left hip [birth year]- 7 [address] [place]. [address], [place], [place], [address] . tel:[phone] Referring Provider: Lyle Green[address], [address]. tel:[phone] Family History Family Member Type Diagnosis Age At Onset Mother Problem (finding) hypertension Father Problem (finding) gout Mother Problem (finding) Maternal history of reji betes mellitus Father Problem (finding) Maternal history of reji betes mellitus Mother Problem (finding) depression Payers Payer name Insurance type Covered libertarian ID Tete lundy(s) No Information Social History [...]
--- OUTSIDE RECORDS SUMMARY | 2024-10-27 13:41 | XMS_ITS ---
Author Name Auto Generated, Auto Generated Organization [facility] Address [address] [place] [address] Phone [phone] Care Team Providers Care Drug Inspector Name Role Phone Kriss Harley Attending Physician [phone] Functional Status Mental Status Allergies and Intolerances Encounters Problems Reason for Referral Past Medical History
--- OUTSIDE RECORDS SUMMARY | 2024-10-27 13:41 | XMS_ITS | Encounter Summary ---
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
--- OUTSIDE RECORDS SUMMARY | 2024-10-27 13:41 | XMS_ITS | Clinical Summary ---
Author Organization [facility] Address [address] [place] [address] Phone Care Team Providers Care Construction Worker Name Role Phone Romi Tompkins MD [...] Shellfish Derived Anaphylaxis High 11/12/2018 Medications Insulin [place], Disposable, (NOVOFINE 32) 32 gauge x 1/4 Needle Novofine 32 32 gauge x 1/4 needle USE DAILY FOR INJECTION. Active Blood-Glucose Meter (ONETOUCH VERIO FLEX)Indication s:Type 2 diabetes mellitus with hyperglycemia, without long-term current use of insulin ([facility]) Check blood sugars three times daily. ICD 10: E11.9, insurance coverage depending.. 1 Device 9 Active QUEtiapine (SEROquel) 25 mg tablet Take 25 mg by mouth daily. Active NORETHINDRONE ACETATE ORAL Take 5 mg by mouth daily. Active lancetsIndicati ons:Type 2 diabetes mellitus with hyperglycemia, without long-term current use of insulin ([facility]) Check blood sugars three times daily. ICD 10: E11.9 100 Each 6 9 Active blood sugar diagnostic (ONETOUCH VERIO) StripIndication s:Type 2 diabetes mellitus with hyperglycemia, without long-term current use of insulin ([facility]) 1 Strip by See Admin [...] this topic Medical Devices Implanted Type Area Leadership Development Manager Device Identifier Shelf Expiration Date Model / Serial / Lot Barrier Seprafilm 5x6in [id number] - [id number] Implanted:Qty : 1 on 02/02/2013 by Valencia Lehman DO at [facility] Adhesion Barrier N/A: Abdomen GENZYME- BIOSURG 10/30/2014 [id number] Procedures Procedure Name Priority Date/Time Associated Diagnosis Comments POC HEMOGLOBIN A1C Routine 03/10/2019 3: 27 PM CDT Type 2 diabetes mellitus without complication, without long-term current use of insulin ([facility]) HM DIABETES EYE EXAM Routine 12/28/2018 LIPID PANEL Routine 12/08/2018 7:36 AM CDT Type 2 diabetes mellitus with hyperglycemia, without long-term current use of insulin ([facility]) Morbid obesity with body mass index of 40.0-49.9 ([facility]) from Last 3 Months or Most Recently Relevant to Health Maintenance Results * (ABNORMAL) POC HEMOGLOBIN A1C (03/10/2019 3:27 PM CDT) HGB A1C POC 7.6(A) <=5.7 % [facility] Blood, capillary 03/10/2019 3:27 PM CDT us Romi Tompkins MD POINT OF CARE TESTING Final R esult [facility] CLIA# [id number] [facility] [place] [address] * DIABETES EYE EXAM (12/28/2018) us Abstract Provider HEALTH MAINTENANCE Edited Resu lt - Final [facility] CLIA# [id number] [facility] [place] [address] * (ABNORMAL) LIPID PANEL (12/08/2018 7:36 AM CDT) CHOLESTEROL 249(H) <200 mg/dL 12/08/2018 1:18 PM CDT [facility] SERVICES - [facility] TRIGLYCERIDE 256(H) <150 mg/dL 12/08/2018 1:18 PM CDT [facility] [employer] SERVICES - [facility] HDL 44(L) >57 mg/dL 12/08/2018 1:18 PM CDT [facility] [employer] SERVICES - [facility] LDL CALCULATED 154(H) <100 mg/dL 12/08/2018 1:18 PM CDT [facility] [employer] SERVICES - [facility] NON-HDL CHOLESTEROL 205(H) <130 mg/dL 12/08/2018 1:18 PM CDT [facility] Blood Venipuncture / Unknown 12/08/2018 7:36 AM CDT 12/08/2018 7:36 AM CDT Narrative [facility] - 12/08/2018 1:18 PM CDT [...] Tompkins MD CHEMISTRY ORDERABLES Final Re sult [facility] [employer] [facility] CLIA# [id number] [place], [place] [id number] from Last 3 Months or Most Recently Relevant to Health Maintenance [place] [place] [address] [place] [address] [place] [address] [employer] CHO[employer] POS II RX [facility] [employer] Advance Directives For more information, please contact: [phone] * Full Code (Latest Code Status on File) Date Activated Date Inactivated Comments 03/22/2019 8:53 AM 03/23/2019 8:20 PM * Full Code Date Activated Date Inactivated Comments 01/28/2019 10:36 PM 02/01/2019 1:24 PM * Full Code Date Activated Date Inactivated Comments 02/02/2013 3:50 PM 02/03/2013 2:21 PM * Full Code Date Activated Date Inactivated Comments 02/02/2013 10:13 AM 02/02/2013 3:50 PM Care Teams Construction Worker Relationship Specialty Start Date End Date Romi Tompkins MD PCP - General Family Practice 12/02/18
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
--- OUTSIDE RECORDS SUMMARY | 2024-10-27 13:42 | XMS_ITS | Clinical Summary ---
Author Organization [facility] Address [address] [facility] [place] [address] Care Team Providers Care Heavy Repairer Name Role Phone Rosette Michelle RN [facility] Ray MD Primary Care Provider [phone] Source Comments [facility],non-owned Affiliates and Associated Physician Practices is amultiple site organization consisting of ambulatory clinics and hospital sitesin [place], [place], [place] and [place]. This disclosure is being madepursuant to the Care Everywhere program and may not contain all information available regarding this patient. Last updated 18.[facility] Allergies Active Allergy Reactions Criticality Noted Date [...] Breath or Wheezing 2024 Active HYDROcodone-ac etaminophen ([place]) 5-325 MG tablet Take 1 (one) tablet [...] Active Continuous Glucose Sensor (Dexcom G7 Sensor) [facility] Active QUEtiapine XR 24hr (SEROquel XR) 50 [...] Type Department Care Team Description 10/14/2024 Refill [facility] [address] [address] Lyle Hutchins MD Refill Request 09/27/2024 Refill [facility] [address] [address] Lyle Hutchins MD Refill Request 08/31/2024 Refill [facility] [address] [address] Lyle Hutchins MD Refill Request 08/05/2024 4:27 PM DISEASE INTERVENTION SPECIALIST - 08/05/2024 11:59 PM DISEASE INTERVENTION SPECIALIST Hospital Encounter [facility] Imaging Services - [address] [address] Lyle Hutchins MD Discharge Disposition: Home or Self Care 07/30/2024 Refill [facility] [address] [place] [address], [address] [place] [address] Lyle Hutchins MD Refill Request [...] PM CDT Legal Sex Female 5:42 AM DISEASE INTERVENTION SPECIALIST Gender Identity Female 12/12/2023 4:10 PM CDT Sexual Orientation Choose not to disclose 2023 4:10 PM CDT Last Filed Vital Signs Vital Sign Reading Time Taken Comments Blood Pressure 122/79 07/01/2024 1:31 PM DISEASE INTERVENTION SPECIALIST Pulse 91 07/01/2024 1:31 PM DISEASE INTERVENTION SPECIALIST Temperature 36.3 C (97.3 F) 07/01/2024 1:31 PM DISEASE INTERVENTION SPECIALIST Respiratory Rate 18 03/09/2024 3:04 PM CDT Oxygen Saturation 98% 07/01/2024 1:31 PM DISEASE INTERVENTION SPECIALIST Inhaled Oxygen Concentration - - Weight 146.4 kg (322 lb 12.8 oz) 07/01/2024 1:31 PM DISEASE INTERVENTION SPECIALIST Height 165.1 cm (5' 5) 07/01/2024 1:31 PM DISEASE INTERVENTION SPECIALIST Body Mass Index 53.72 07/01/2024 1:31 PM DISEASE INTERVENTION SPECIALIST Plan of Treatment Health Maintenance Due Date [...] SPINE WO CONTRAST Routine 08/05/2024 6:27 PM DISEASE INTERVENTION SPECIALIST Lumbar radiculitis COMPREHENSIVE METABOLIC PANEL STAT 03/05/2024 1:04 PM CDT MAMMO BILAT SCREENING W EDGAR Routine 12/13/2023 10:42 AM CDT Visit for screening mammogram HEMOGLOBIN A1C (EXTERNAL RESULT ENTRY) Routine 11/22/2021 from Last 3 Months or Most Recently Relevant to Health Maintenance Results * MRI Lumbar Spine Wo Contrast (08/05/2024 6:27 PM DISEASE INTERVENTION SPECIALIST) Anatomical Region Laterality Modality Spine Magnetic Resonan ce 08/06/2024 8:16 AM DISEASE INTERVENTION SPECIALIST Impressions 08/06/2024 8:18 AM DISEASE INTERVENTION SPECIALIST IMPRESSION: 1. Lower lumbar disc degeneration and facet arthropathy without significant spinal canal or foraminal stenosis. 2. No lumbar spine compression fracture. > Interpreting Provider: Thom Longoria DO on 08/06/2024 8:18 AM Narrative 08/06/2024 8:18 AM DISEASE INTERVENTION SPECIALIST EXAM: MRI Lumbar Spine without contrast INDICATION: [...] COMPREHENSIVE METABOLIC PANEL (03/05/2024 1:04 PM CDT) [facility] Glucose 202(H) 70 - 99 mg/dL 03/05/2024 1:26 PM [facility] Sodium 139 136 - 145 mmol/L 03/05/2024 1:26 PM [facility] Potassium 4.3 3.5 - 5.1 mmol/L 03/05/2024 1:26 PM [facility] Chloride 108(H) 98 - 107 mmol/L 03/05/2024 1:26 PM [facility] CO2 18(L) 22 - 29 mmol/L 03/05/2024 1: PM [facility] Calcium 9.5 8.4 - 10.4 mg/dL 03/05/2024 1:26 PM [facility] Anion Gap 13 6 - 16 mmol/L 03/05/2024 1:26 PM [facility] BUN 14 5.3 - 18.7 mg/dL 03/05/2024 1:26 PM [facility] Creatinine 0.80 0.57 - 1.11 mg/dL 03/05/2024 1:26 PM [facility] Alkaline Phosphatase 82 40 - 150 U/L 03/05/2024 1:26 PM [facility] ALT 20 0 - 55 U/L 03/05/2024 1:26 PM [facility] AST 24 5 - 34 U/L 03/05/2024 1:26 PM [facility] Protein Total 7.5 6.4 - 8.3 gm/dL 03/05/2024 1:26 PM [facility] Albumin 3.7 3.4 - 5.0 gm/dL 03/05/2024 1:26 PM [facility] Bilirubin Total 0.3 0.2 - 1.2 mg/dL 03/05/2024 1:26 PM [facility] eGFR by CKD-EPI >90 >=90 mL/min/1.7 3 m2 03/05/2024 1:26 PM [facility] Blood BLOOD SPECIMEN / Unknown Venipuncture / Unknown 03/05/2024 1:04 PM CDT 03/05/2024 1:08 PM T us Wilmer Reyna MD LAB - CHEMISTRY ORDERABLES Final Result [facility] [address] [id number] * MAMMO BILAT SCREENING W EDGAR (12/13/2023 10:42 AM CDT) Anatomical Region Laterality Modality Breast Bilateral Mammography 12/15/2023 8:56 AM CDT Impressions 12/15/2023 8:59 AM CDT : No mammographic evidence of malignancy in either breast. ASSESSMENT: BIRADS Category 1: Negative mammogram. RECOMMENDATION: Bilateral screening mammogram in one year. Thank you for allowing us to participate in the care of your patient. [facility] utilizes [employer] as a reminder system to notify patients [...] 5:27 PM 03/09/2024 5:53 PM Care Teams Heavy Repairer Relationship Specialty Start Date End Date Lyle Hutchins MD PCP - General 03/02/19 Rosette Michelle, RN Registered Nurse 01/01/17
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
[2024-10-27 14:02] VITALS: BP 133/81; PULSE 100; RESP 19; TEMP 36.3; O2SAT 98
== END 2024-10-27 14:04 | disposition home or self-care (01) ==
PROVIDERS: Emergency Provider Emergency Medicine
DX: S89.92XA Unspecified injury of left lower leg, initial encounter (principal); E66.9 Obesity, unspecified; Z68.42 Body mass index [BMI] 45.0-49.9, adult; J45.909 Unspecified asthma, uncomplicated; E11.9 Type 2 diabetes mellitus without complications; G47.33 Obstructive sleep apnea (adult) (pediatric); F41.8 Other specified anxiety disorders; Z90.49 Acquired absence of other specified parts of digestive tract; Z79.899 Other long term (current) drug therapy; Z79.4 Long term (current) use of insulin; Z79.85 Long-term (current) use of injectable non-insulin antidiabetic drugs; Z79.3 Long term (current) use of hormonal contraceptives; W18.11XA Fall from or off toilet without subsequent striking against object, initial encounter
CPT/HCPCS: 73080; 73110; 73562; 99284; A9270

== ENCOUNTER 2024-11-05 13:04 | Outpatient (CLI) | payer OTHER, SELFPAY ==
--- NOTE | ~2024-11-05 | MR_ITS ---
MRI of the left knee Clinical history: Injury Technique: Coronal proton density and proton density-weighted images, sagittal proton-density and T2 fat-sat images, and axial proton-density fat-saturated images were acquired. Findings: Anterior and posterior cruciate ligaments are intact. Medial collateral ligament and the la teral collateral ligament complex are intact. Popliteus tendon is intact. Medial and lateral menisci are intact, without evidence of tear. Discoid lateral meniscus present. There is mild chondromalacia the patellar apex. Remaining articular cartilage is well preserved. Ther e is marrow edema at the medial pole the patella. Extensor mechanism is intact. Minimal joint effusion present. No Wright's cyst. Impression: Marrow edema at the medial pole the patella. This could reflect bone contusion from direct impaction injury. Lateral patellar dislocation relocation injury is a consideration, but there is no correspond ing kissing contusion at the lateral femoral condyle, nor any other typical associated imaging findin gs with this diagnosis. Discoid lateral meniscus. Reviewed, dictated and finalized at [facility]. Impression: Marrow edema at the medial pole the patella. This could reflect bone contusion from direct impaction injury. Lateral patellar dislocation relocation injury is a consideration, but there is no corresponding kissing contusion at the latera l femoral condyle, nor any other typical associated imaging findings with this diagnosis. Discoid lateral meniscus.
== END 2024-11-05 13:05 | disposition home or self-care (01) ==
PROVIDERS: PCP Orthopaedic Surgery; Visit Provider Orthopaedic Surgery
DX: M23.362 Other meniscus derangements, other lateral meniscus, left knee (principal)
CPT/HCPCS: 73721

== ENCOUNTER 2024-12-08 12:34 | Emergency (ER) | payer OTHER, SELFPAY ==
--- OUTSIDE RECORDS SUMMARY | 2024-12-08 12:36 | XMS_ITS | Clinical Summary ---
Author Organization [facility] Address [address] [place] [address] Care Team Providers Care Ceo Na Name Role Phone Lyle Hutchins MD Primary Care Provider [phone] Allergies Active Allergy Reactions Criticality Noted Date [...] 11/06/2015 Only shrimp & Tuna confirmed with paper carrier Ketorolac Mental status changes Low Agitated and [...] Take 1 capsule by mouth daily (brand: Lumoid) Active polyethylene glycol (Miralax) 17 gram packetIndicatio [...] Obesity Eczema contact dermatit is at times/sees staff radiation therapist/ no outbreaks at this time 11/27/21 Tarsal [...] drink = 0.6 oz pur e alcohol) [facility] Utilities Answer Date Recorded In the past 12 months has e electric, gas, oil, or water [employer] threatened to shut off services in your [...] often do you attend chur ch or holiness services? Never 07/11/2023 Do you belong to any clubs o r organizations such as anglican groups, unions, fraternal or athletic groups, or [...] on file Legal Sex Female 2:19 PM ELECTRICAL CHECKOUT MECHANIC Gender Identity Not on file Sexual Orientation Bisexual 04/28/2024 6: 46 PM ELECTRICAL CHECKOUT MECHANIC Obstetrics History Last Filed Vital Signs Vital Sign Reading Time Taken Comments Blood Pressure 129/81 04/28/2024 11:30 PM ELECTRICAL CHECKOUT MECHANIC Pulse 85 04/28/2024 11:30 PM ELECTRICAL CHECKOUT MECHANIC Temperature 36.9 C (98.4 F) 04/28/2024 5:39 PM ELECTRICAL CHECKOUT MECHANIC Respiratory Rate 16 04/28/2024 11:30 PM ELECTRICAL CHECKOUT MECHANIC Oxygen Saturation 97% 04/28/2024 11:30 PM ELECTRICAL CHECKOUT MECHANIC Inhaled Oxygen Concentration - - Weight 140.6 kg (310 lb) 04/28/2024 5:39 PM ELECTRICAL CHECKOUT MECHANIC Height 165.1 cm (5' 5) 04/28/2024 5:39 PM ELECTRICAL CHECKOUT MECHANIC Body Mass Index 51.59 04/28/2024 5:39 PM ELECTRICAL CHECKOUT MECHANIC Plan of Treatment Health Maintenance Due Date [...] Cancer Screening-Mammogram 12/12/2024 12/13/2023, 12/13/2023 Influenza Vaccine (#1) 2025 9, 04/01/2014, 03/05/2013, Additional history exists eGFR 04/28/2025 04/28/2024, 04/03, 03/02/2024, Additional history exists Pneumococcal vaccine <65 Completed 03/03/2023, 12/2011 HPV Vaccines Aged Out No longer eligi ble based on patient's age to complete this topic Medical Devices Implanted Type Area Magnetic Healer Device Identifier Shelf Expiration Date Model / Serial / Lot Other - See Comments Other - see comments Neck Description:Neck disc replac ement C6-C7 Procedures Procedure Name Priority Date/Time Associated Diagnosis Comments EGFR STAT 04/28/2024 11:19 PM ELECTRICAL CHECKOUT MECHANIC HEMOGLOBIN A1C Routine 06/02/2023 4:40 AM ELECTRICAL CHECKOUT MECHANIC from Last 3 Months or Most Recently Relevant to Health Maintenance Results * eGFR (04/28/2024 11:19 PM ELECTRICAL CHECKOUT MECHANIC) eGFR >90 >=60 mL/min/1. 73 m2 Comment: [...] reviewed 2021. Blood 04/28/2024 11:1 9 PM ELECTRICAL CHECKOUT MECHANIC 04/28/2024 11:24 PM ELECTRICAL CHECKOUT MECHANIC Gonzalo Holman MD LAB BLOOD ORDERABLES Final R esult Performing Organization Address City/[facility]/ZIP Co de Phone Number [facility] [address] [place] [address] * (ABNORMAL) Hemoglobin A1c (06/02/2023 4:40 AM ELECTRICAL CHECKOUT MECHANIC) Hgb A1C 8.6(H) 4.0 - 5.6 % [facility] Estimated Average Glucose 200 mg/dL [facility] Comment: The ADA recommends reporting an estimated Average Glucose (eAG) with all Hemoglobin A1c results using the equation derived from a study of 507 normal and diabetic adults. Minority populations were underrepresented and children were not included. (Diabetes Care 31:7236-8377, 2008). The eAG is not equivalent to a fasting glucose. Blood 06/02/2023 4:40 AM ELECTRICAL CHECKOUT MECHANIC 06/02/2023 5:21 AM ELECTRICAL CHECKOUT MECHANIC Jean Givens DO LAB BLOOD ORDERABLES Final Result Performing Organization Address City/[facility]/ZIP Co de Phone Number [facility] [address] Department [employer] [place] [address] from Last 3 Months or Most Recently Relevant to Health Maintenance Insurance [facility] PPO MAIL HANDLERS [facility] PPO MAIL HANDLERS [id number] [id number] Advance Directives For more information, please contact: [phone] * Full Code (Latest Code Status on File) Date Activated Date Inactivated Comments 07/10/2023 7:28 AM 07/12/2023 4:02 PM * Full Code Date Activated Date Inactivated Comments 05/30/2023 8:47 PM 06/05/2023 7:08 PM Care Teams Ceo Na Relationship Specialty Start Date End Date Lyle Hutchins MD [address] [address] PCP - General Family Medicine 02/09/20
--- OUTSIDE RECORDS SUMMARY | 2024-12-08 12:36 | XMS_ITS | Encounter Summary ---
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
--- OUTSIDE RECORDS SUMMARY | 2024-12-08 12:36 | XMS_ITS | Encounter Summary ---
Author Organization [facility] Address [address] [place] [address] Care Team Providers Care Physical Trainer Name Role Phone Rosette Michelle RN Unavailable Unavailab Lyle Stuart MD Primary Care Provider [phone] Mellissa Redi COMPLEX CASE MANAGER Unavailable [phone] Nargis Martins COMPLEX CASE MANAGER Unavailable Reason for Visit * Reason Onset Date Comments Future Appointment 09/23/2018 Encounter Details Date Type Department Care Team (Late st Contact Info) Description 09/23/2018 Telephone [facility] [address] [place], [place] [id number] Jostin Souza Jr., MD [address] [address] [place], [place] [id number] Future Appointment Social History Tobacco Use Types Packs/Day Years Used Date Smoking Tobacco: Never Smokeless Tobacco: Never Alcohol Use Standard Drinks/Week Comments No 0 (1 standard drink = 0.6 oz pur e alcohol) Comments No Sex and Gender Information Value Date Recorded Sex Assigned at Female 12/12/2023 4:10 PM CDT Legal Sex Female 5:42 AM DUST COLLECTOR ATTENDANT Gender Identity Female 12/12/2023 4:10 PM CDT [...] CDT COVID-19 Confirmed 07/09/2023 07/09/2023 4:33 AM DUST COLLECTOR ATTENDANT COVID-19 Under Investigation 09/25/2023 09/25/2023 09/25/2023 1:21 PM CDT documented as of this encounter Care Teams Physical Trainer Relationship Specialty Start Date End Date Lyle Hutchins MD PCP - General 03/02/19 Rosette Michelle, RN Registered Nurse 01/01/17 Mellissa Reid MSW Outpatient X Ray Tech Care Management 03/10/2403/10 Nargis Martins MSW Outpatient X Ray Tech Care Management 03/10/2404/25 documented as of this encounter
--- OUTSIDE RECORDS SUMMARY | 2024-12-08 12:36 | XMS_ITS | Encounter Summary ---
Author Organization 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
--- OUTSIDE RECORDS SUMMARY | 2024-12-08 12:36 | XMS_ITS | Referral Summary ---
Author Organization [facility] Address [address] [place] [address] Care Team Providers Care Lost And Found Clerk Name Role Phone Lyle Hutchins MD Primary Care Provider [phone] Allergies Active Allergy Reactions Criticality Noted Date [...] 11/06/2015 Only shrimp & Tuna confirmed with waterproof bag sewer Ketorolac Mental status changes Low Agitated and [...] Take 1 capsule by mouth daily (brand: Usentric) Active polyethylene glycol (Miralax) 17 gram packetIndicatio [...] drink = 0.6 oz pur e alcohol) [facility] [employer] Answer Date Recorded In the past 12 months has [employer] electric, gas, oil, or water [employer] threatened to shut off services in your [...] often do you attend chur ch or evangelical services? Never 07/11/2023 Do you belong to any clubs o r organizations such as episcopal groups, unions, fraternal or athletic groups, or [...] place to sleep or slept in a half-way (including now)? No 07/11/2023 Personal Safety Answer Date Recorded Have you ever been in or are you currently in a harmful physical or emotional relationship or is someone making you feel afraid or unsafe? Denies 04/28/2024 Comments No Sex and Gender Information Value Date Recorded Sex Assigned at Not on file Legal Sex Female 2:19 PM ARCHITECTURE INTERNSHIP Gender Identity Not on file Sexual Orientation Bisexual 04/28/2024 6: 46 PM ARCHITECTURE INTERNSHIP Last Filed Vital Signs Vital Sign Reading Time Taken Comments Blood Pressure 129/81 04/28/2024 11:30 PM ARCHITECTURE INTERNSHIP Pulse 85 04/28/2024 11:30 PM ARCHITECTURE INTERNSHIP Temperature 36.9 C (98.4 F) 04/28/2024 5:39 PM ARCHITECTURE INTERNSHIP Respiratory Rate 16 04/28/2024 11:30 PM ARCHITECTURE INTERNSHIP Oxygen Saturation 97% 04/28/2024 11:30 PM ARCHITECTURE INTERNSHIP Inhaled Oxygen Concentration - - Weight 140.6 kg (310 lb) 04/28/2024 5:39 PM ARCHITECTURE INTERNSHIP Height 165.1 cm (5' 5) 04/28/2024 5:39 PM ARCHITECTURE INTERNSHIP Body Mass Index 51.59 04/28/2024 5:39 PM ARCHITECTURE INTERNSHIP Plan of Treatment Not on file Medical Devices Implanted Type Area Administrative Services Director Device Identifier Shelf Expiration Date Model / Serial / Lot Other - See Comments Other - see comments Neck Description:Neck disc replac ement C6-C7 Procedures Procedure Name Priority Date/Time Associated Diagnosis Comments EGFR STAT 04/28/2024 11:19 PM ARCHITECTURE INTERNSHIP HEMOGLOBIN A1C Routine 06/02/2023 4:40 AM ARCHITECTURE INTERNSHIP from Last 3 Months or Most Recently Relevant to Health Maintenance Results * eGFR (04/28/2024 11:19 PM ARCHITECTURE INTERNSHIP) eGFR >90 >=60 mL/min/1. 73 m2 Comment: [...] reviewed 2021. Blood 04/28/2024 11:1 9 PM ARCHITECTURE INTERNSHIP 04/28/2024 11:24 PM ARCHITECTURE INTERNSHIP us Gonzalo Holman MD LAB BLOOD ORDERABLES Final R esult Performing Organization Address City/[facility] Co de Phone Number [facility] [address] [facility] [address] [place], [place] [phone] * (ABNORMAL) Hemoglobin A1c (06/02/2023 4:40 AM ARCHITECTURE INTERNSHIP) Hgb A1C 8.6(H) 4.0 - 5.6 % [facility] Estimated Average Glucose 200 mg/dL [facility] Comment: The ADA recommends reporting an estimated Average Glucose (eAG) with all Hemoglobin A1c results using the equation derived from a study of 507 normal and diabetic adults. Minority populations were underrepresented and children were not included. (Diabetes Care 31:6721-9756, 2008). The eAG is not equivalent to a fasting glucose. Blood 06/02/2023 4:40 AM ARCHITECTURE INTERNSHIP 06/02/2023 5:21 AM ARCHITECTURE INTERNSHIP Jean Givens DO LAB BLOOD ORDERABLES Final Result Performing Organization Address [facility] Co de Phone Number [facility] [address] [place] [address] from Last 3 Months or Most Recently Relevant to Health Maintenance Insurance [facility]PO MAIL HANDLERS [facility] PPO MAIL HANDLERS [facility] Advance Directives For more information, please contact: [phone] * Full Code (Latest Code Status on File) Date Activated Date Inactivated Comments 07/10/2023 7:28 AM 07/12/2023 4:02 PM * Full Code Date Activated Date Inactivated Comments 05/30/2023 8:47 PM 06/05/2023 7:08 PM Care Teams Lost And Found Clerk Relationship Specialty Start Date End Date Lyle Hutchins MD [address] [address] PCP - General Family Medicine 02/09/20
--- OUTSIDE RECORDS SUMMARY | 2024-12-08 12:36 | XMS_ITS | Encounter Summary ---
Author Organization [facility] Address [address] [place] [address] Care Team Providers Care Machine Tool Mechanic Name Role Phone Rosette Michelle RN Unavailable Unavailab Lyle Stuart MD Primary Care Provider [phone] Mellissa Reid ANESTHESIOLOGIST/PHYSICIAN Unavailable [phone] Nargis Martins ANESTHESIOLOGIST/PHYSICIAN Unavailable [phone] Reason for Visit * Reason Onset Date Comments Med Question 09/09/2017 Encounter Details Date Type Department Care Team (Late st Contact Info) Description 09/09/2017 Telephone [facility] [address] [place] [address] Lisette Mobley Med Question Social History Tobacco Use Types Packs/Day Years Used Date Smoking Tobacco: Never Smokeless Tobacco: Never Alcohol Use Standard Drinks/Week Comments No 0 (1 standard drink = 0.6 oz pur e alcohol) Comments No Sex and Gender Information Value Date Recorded Sex Assigned at Female 12/12/2023 4:10 PM CDT Legal Sex Female 5:42 AM SERVICE ARCHITECT Gender Identity Female 12/12/2023 4:10 PM CDT Sexual Orientation Choose not to disclose 2023 4:10 PM CDT documented as of this encounter Miscellaneous Notes * Telephone Encounter - Patricia Cardenas - 09/09/2017 2:21 PM CDT Telephone call to [facility]. Spoke with Tad who states Elmiron was prescribed Dr Milton on 09/05. States this medication will cost pt $125 per one month supply. Pt is requesting prescription for a cheaper option. * Telephone Encounter - Lisette Mobley - 09/09/2017 1:47 PM CDT Kriss from [facility] pharm called in stating pt can not afford Elmiron rx that was sent over. Pt wouldlike a cheaper rx sent to her pharm. Callback#[phone] documented in this encounter Plan of Treatment Not on file documented as of this encounter Visit Diagnoses Not on filedocumented in this encounter Additional Health Concerns Infection Onset Date Last Indicated Resolved Time COVID-19 Under Investigation 03/15/2021 03/15/2021 03/15/2021 9:43 AM CDT COVID-19 Confirmed 07/09/2023 07/09/2023 4:33 AM SERVICE ARCHITECT COVID-19 Under Investigation 09/25/2023 09/25/2023 09/25/2023 1:21 PM CDT documented as of this encounter Care Teams Machine Tool Mechanic Relationship Specialty Start Date End Date Lyle Hutchins MD PCP - General 03/02/19 Rosette Michelle RN Registered Nurse 01/01/17 Mellissa Reid MSW Outpatient Casing Man Care Management 03/10/2403/10 Nargis Martins MSW Outpatient Casing Man Care Management 03/10/2404/25 documented as of this encounter
--- OUTSIDE RECORDS SUMMARY | 2024-12-08 12:36 | XMS_ITS | Patient Health Record ---
Author Organization [facility] Address [address] [place] [address] Care Team Providers Care Network Lead Name Role Phone Cuong CHINCHILLA, John Primary Care Provider Unavailab Lyle Espinoza Unavailable [phone] Shadia CHINCHILLA, Bishop Unavailable Unavailable Allergies Allergen [...] MG 1 tablet Oral ly Once a day; Duration: 30 day(s) Active Nabumetone 750 MG as directed Orally Active Ursodiol 300 MG 1 capsule Orally Twi ce a day; Duration: 30 day(s) Active QUEtiapine Fumarate 50 MG 1 tablet at be dtime Orally Once a day; Duration: 30 day(s) Active Ozempic (0.25 or 0.5 MG/DOSE) 2 MG/1.5ML as directed Subcutaneous Active Omeprazole 40 MG 1 capsule 30 minutes before morning meal Orally Once a day; Duration: 30 day(s) Active Insulin Degludec 100 UNIT/ML as directed Subcutaneous Act dannielle Fiasp PenFill 100 UNIT/ML as directed Subcutaneous Active Allopurinol 100 MG 1 tablet Orally Once a day; Duration: 30 day(s) Active Lexapro 20 MG 1 tablet Orally Once a day Active traMADol HCl 50 MG 1 tablet as needed O rally q 8 hours as needed; Duration: 7 days 11/08/2022 Active Social History Sex Assigned At : Social History Observation Description Sex Assigned At Female Assessments Encounter Date Diagnosis (ICD Code) Assessment Notes Treatment Notes Treatment Clinical Notes Section Notes 07/23/2024 Other Reviewed [place] PDMP on 07/21/24 at 7:36 am and [...] Insured Coverage Start Date Coverage End Date [facility] [address] [place] [address] [id number] Natasha Wilson Self - patient is the [...]
--- OUTSIDE RECORDS SUMMARY | 2024-12-08 12:36 | XMS_ITS | Clinical Summary ---
Author Organization [facility] Address [address] [place] [address] Phone Care Team Providers Care Shoe Polisher Name Role Phone Romi Tompkins MD Primary [...] Shellfish Derived Anaphylaxis High 11/12/2018 Medications Insulin Marathon, Disposable, (NOVOFINE 32) 32 gauge x 1/4 Needle Novofine 32 32 gauge x 1/4 needle USE DAILY FOR INJECTION. Active Blood-Glucose Meter (ONETOUCH VERIO FLEX)Indication s:Type 2 diabetes mellitus with hyperglycemia, without long-term current use of insulin ([facility]) Check blood sugars three times daily. ICD 10: E11.9, insurance coverage depending.. 1 Device 9 Active QUEtiapine (SEROquel) 25 mg tablet Take 25 mg by mouth daily. Active NORETHINDRONE ACETATE ORAL Take 5 mg by mouth daily. Active lancetsIndicati ons:Type 2 diabetes mellitus with hyperglycemia, without long-term current use of insulin ([facility]) Check blood sugars three times daily. ICD 10: E11.9 100 Each 6 9 Active blood sugar diagnostic (ONETOUCH VERIO) StripIndication s:Type 2 diabetes mellitus with hyperglycemia, without long-term current use of insulin ([facility]) 1 Strip by See Admin Instructions route [...] Grandfather Nnamdi Szymanski Cancer Maternal Grandmother Venita Szymansik brain Asthma Mother Maria D Katie Depression [...] DIABETES ANNUAL RETINAL EXAM 12/02/2023 12/01/2022, 12/28/2018 BREAST CANCER SCREENING 12/12/2024 12/13/2023, 12/12 INFLUENZA VACCINE (#1) 2024 9, 04/01/2014, 03/05/2013, Additional history exists HPV VACCINES Aged Out No longer eligi ble based on patient's age to complete this topic Medical Devices Implanted Type Area Cardiovascular Physician Assistant Device Identifier Shelf Expiration Date Model / Serial / Lot Barrier Seprafilm 5x6in 4301-02 - [id number] Implanted:Qty : 1 on 02/02/2013 by Valencia Lehman DO at [facility] Adhesion Barrier N/A: Abdomen GENZYME- BIOSURG 10/30/2014 [id number] Procedures Procedure Name Priority Date/Time Associated Diagnosis Comments POC HEMOGLOBIN A1C Routine 03/10/2019 3: 27 PM CDT Type 2 diabetes mellitus without complication, without long-term current use of insulin ([facility]) HM DIABETES EYE EXAM Routine 12/28/2018 LIPID PANEL Routine 12/08/2018 7:36 AM CDT Type 2 diabetes mellitus with hyperglycemia, without long-term current use of insulin ([facility]) Morbid obesity with body mass index of 40.0-49.9 ([facility]) from Last 3 Months or Most Recently Relevant to Health Maintenance Results * (ABNORMAL) POC HEMOGLOBIN A1C (03/10/2019 3:27 PM CDT) HGB A1C POC 7.6(A) <=5.7 % [facility] Blood, capillary 03/10/2019 3:27 PM CDT us Romi Tompkins MD POINT OF CARE TESTING Final R esult [facility] CLIA# [id number] [facility] [place] [address] * DIABETES EYE EXAM (12/28/2018) us Abstract Provider HEALTH MAINTENANCE Edited Resu lt - Final [facility] CLIA# [id number] [facility] [place] [address] * (ABNORMAL) LIPID PANEL (12/08/2018 7:36 AM CDT) CHOLESTEROL 249(H) <200 mg/dL 12/08/2018 1:18 PM CDT [facility] - [facility] TRIGLYCERIDE 256(H) <150 mg/dL 12/08/2018 1:18 PM CDT [facility] [employer] SERVICES - [facility] HDL 44(L) >57 mg/dL 12/08/2018 1:18 PM CDT [facility] [employer] [facility] - [facility] LDL CALCULATED 154(H) <100 mg/dL 12/08/2018 1:18 PM CDT [facility] [employer] [facility] - [facility] NON-HDL CHOLESTEROL 205(H) <130 mg/dL 12/08/2018 1:18 PM CDT [facility] Blood Venipuncture / Unknown 12/08/2018 7:36 AM CDT 12/08/2018 7:36 AM CDT Narrative [facility] - 12/08/2018 1:18 PM CDT [...] Tompkins MD CHEMISTRY ORDERABLES Final Re sult [facility] [employer] [facility] CLIA# [id number] [place], [place] [id number] from Last 3 Months or Most Recently Relevant to Health Maintenance [place] [address] [place] [address] [employer] CHO[employer] POS II RX [facility] [employer] Advance Directives For more information, please contact: [phone] * Full Code (Latest Code Status on File) Date Activated Date Inactivated Comments 03/22/2019 8:53 AM 03/23/2019 8:20 PM * Full Code Date Activated Date Inactivated Comments 01/28/2019 10:36 PM 02/01/2019 1:24 PM * Full Code Date Activated Date Inactivated Comments 02/02/2013 3:50 PM 02/03/2013 2:21 PM * Full Code Date Activated Date Inactivated Comments 02/02/2013 10:13 AM 02/02/2013 3:50 PM Care Teams Shoe Polisher Relationship Specialty Start Date End Date Romi Tompkins MD PCP - General Family Practice 12/02/18
--- OUTSIDE RECORDS SUMMARY | 2024-12-08 12:36 | XMS_ITS ---
Author Name Auto Generated, Auto Generated Organization [facility] Address [address] [place] [address] Phone [phone] Care Team Providers Care Collection Team Lead Name Role Phone Kriss Harley Attending Physician [phone] Functional Status Mental Status Allergies and Intolerances Encounters Problems Reason for Referral Past Medical History
--- OUTSIDE RECORDS SUMMARY | 2024-12-08 12:36 | XMS_ITS | Encounter Summary ---
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
--- OUTSIDE RECORDS SUMMARY | 2024-12-08 12:37 | XMS_ITS | Patient Health Record ---
Author Organization [facility] Address [address] [place], [place] [id number] Care Team Providers Care Billing Supervisor Name Role Phone MARCO DUNCAN Unavailable [phone] Lyle Hutchins Unavailable Unavailable Reason For Referral No Information Plan Of Treatment No Information Insurance Providers Payer Name Payer Address Payer Phone Subscriber Number Group Number Insured Name Patient Relationship to Insured Coverage Start Date Coverage End Date A[employer] [address] [place] [address] [phone] [id number] JEAN CARLOS MCBRIDE Self - patient is the insured
--- OUTSIDE RECORDS SUMMARY | 2024-12-08 12:37 | XMS_ITS ---
Author Organization [facility] Address [address] [place] [address] Care Team Providers Care Research Microbiologist Name Role Phone Cuong CHINCHILLA, John Primary Care Provider Unavailab Lyle Espinoza Unavailable [phone] Bishop Reno MD Unavailable Unavailable Allergies Allergen (clinical drug ingredient) [...] Once a day; Duration: 30 day(s) Active traMADol HCl 50 MG 1 tablet as needed O rally q 8 hours as needed; Duration: 7 days 11/08/2022 Active Norethindrone Acetate 5 [...] Once a day; Duration: 30 day(s) Active Ursodiol 300 MG 1 capsule Orally Twi ce a day; Duration: 30 day(s) Active Lexapro 20 MG 1 tablet Orally Once a day Active Social History Sex Assigned At : Social History Observation Description Sex Assigned At Female Encounters Encounter Location Date Provider Diagnosis -/ [address] [address] 07/23/2024 Lyle Gonzalez Assessments Encounter Date Diagnosis (ICD Code) Assessment Notes Treatment Notes Treatment Clinical Notes Section Notes 07/23/2024 Other Reviewed [place] PDMP on 07/21/24 at 7:36 am and patient is compliant. Last fill of Oxycodone Hcl (Ir) [address] Jean Givens 3 days on 06/05/23 and tramadol 10/2022 per [facility] for 7 days. Plan Of Treatment No Information Progress Notes * Natasha WILSON MDOB:[birth year] (44 yo F)Acc No.[id number]:07/23/2024 Progress Note Patient: Natasha ROGERS Melissa Provider: Melissa Gonzalez MD :1980 A ge:43 Y S ex:Female Date:07/23/2024 Address:[address] [place], [place] [id number] Pcp:John Hutchins MD Subjective: * Chief Complaints: [...] Electronic signature of Homer Gonzalez MD on 12/08/2024 at 12:37 PM CDT Sign off status: Pending * Provider: Melissa Gonzalez MD Date: 0 07/23/2024 Generated for Les johns/Karen/Ted on: 0 12/08/2024 12:37 PM CDT
--- OUTSIDE RECORDS SUMMARY | 2024-12-08 12:37 | XMS_ITS | Clinical Summary ---
Author Organization [facility] Address [address] [place] [address] Care Team Providers Care Digital Service Engineer Name Role Phone Rosette Michelle RN [facility] MD Primary Care Provider [phone] Source Comments [facility],non-owned Affiliates and Associated Physician Practices is amultiple site organization consisting of ambulatory clinics and hospital sitesin [place] and [place]. This disclosure is being madepursuant to the Care Everywhere program and may not contain all information available regarding this patient. Last updated 18.[facility] Allergies Active Allergy Reactions Criticality Noted Date [...] 1 (one) capsule by mouth at bedtime 12/31/19 23 Active escitalopram (Lexapro) 20 MG tablet Take 1 (one) tablet by mouth once daily 10/25/19 24 Active traZODone (Desyrel) 50 MG tablet Take 1.5 (one and one-half) tablets by mouth at bedtime 09/17/19 24 Active evolocumab (Repatha) 140 MG/ML auto-injector Inject subcutaneously every 14 days Active albuterol HFA (Proventil; Ventolin; Proair) 108 (90 Base) MCG/ACT inhaler Inhale 2 (two) puffs by mouth every 4 hours as needed for Shortness of Breath or Wheezing 03/02/20 24 025 Active HYDROcodone-uziel taminophen ([place]) 5-325 MG tablet Take 1 (one) tablet by mouth every 6 hours as needed for Pain 03/02/20 24 Active hydrOXYzine HCl (Atarax) 50 MG tablet Take 1 (one) tablet by mouth 3 times daily as needed (Anxiety) 02/19/20 24 Active insulin aspart, w/Niacinamide, (Fiasp) vial Inject 15 (fifteen) Units to 24 (twenty four) Units subcutaneously 3 times daily before meals 15 units baseline then adds 2 units per 50 points on blood sugar reading Active Continuous Glucose Sensor (Dexcom G7 Sensor) MIS Active QUEtiapine XR 24hr (SEROquel XR) 50 MG tablet TAKE 1 TABLET BY MOUTH EVERYDAY AT BEDTIME 90 tablet 1 05/10/20 24 Active allopurinol (Zyloprim) 100 MG tablet TAKE 1 TABLET BY MOUTH EVERY DAY 90 tablet 1 06/16/19 25 Active tirzepatide (Mounjaro) 7.5 MG/0.5ML injectionIndica tions:Type 2 diabetes mellitus without complication, with long-term current use of insulin (HCC) Inject 7.5 (seven and one-half) mg subcutaneously every 7 days 07/01/19 25 Active norethindrone (Aygestin) 5 MG tablet TAKE 1 TABLET BY MOUTH EVERY DAY 90 tablet 1 07/12/19 25 Active omeprazole (PriLOSEC) 40 MG capsuleIndicati ons:Gastroesoph ageal reflux disease with esophagitis without hemorrhage TAKE 1 CAPSULE BY MOUTH EVERY DAY BEFORE BREAKFAST 90 capsule 1 08/03/19 25 Active nabumetone (Relafen) 750 MG tabletIndicatio ns:Arthralgia, unspecified joint TAKE 1 (ONE) TABLET BY MOUTH ONCE DAILY NEEDED FOR PAIN 90 tablet 09/02/19 25 Active tiZANidine (Zanaflex) 4 MG tabletIndicatio ns:Lumbar radiculitis TAKE 1 TABLET BY MOUTH EVERY 8 HOURS NEEDED FOR MUSCLE SPASM 45 tablet 5 09/28/19 25 Active ursodiol (Actigall) 300 MG capsuleIndicati ons:Other specified diseases of gallbladder TAKE 1 CAPSULE BY MOUTH EVERY DAY 90 capsule 1 10/15/19 25 Active Active Problems Problem Noted Date [...] Type Department Care Team Description 10/14/2024 Refill [facility] [address] [facility], [address] [address] Lyle Hutchins MD Refill Request 09/27/[address], [address] [address] Lyle Hutchins MD Refill Request from Last 3 Months Immunizations Immunization Administration Dates Next Due INFLUENZA VACCINE, TRIV. (AF LURIA, FLUZONE TRIVALENT; 6MO+) (IIV3) 03/05/2013 Covid MYFX primary monoval ent 12+ yr 0.3mL Purple [...] PM CDT Legal Sex Female 5:42 AM BRANCH SERVICE SPECIALIST Gender Identity Female 12/12/2023 4:10 PM CDT Sexual Orientation Choose not to disclose 2023 4:10 PM CDT Last Filed Vital Signs Vital Sign Reading Time Taken Comments Blood Pressure 122/79 07/01/2024 1:31 PM BRANCH SERVICE SPECIALIST Pulse 91 07/01/2024 1:31 PM BRANCH SERVICE SPECIALIST Temperature 36.3 C (97.3 F) 07/01/2024 1:31 PM BRANCH SERVICE SPECIALIST Respiratory Rate 18 03/09/2024 3:04 PM CDT Oxygen Saturation 98% 07/01/2024 1:31 PM BRANCH SERVICE SPECIALIST Inhaled Oxygen Concentration - - Weight 146.4 kg (322 lb 12.8 oz) 07/01/2024 1:31 PM BRANCH SERVICE SPECIALIST Height 165.1 cm (5' 5) 07/01/2024 1:31 PM BRANCH SERVICE SPECIALIST Body Mass Index 53.72 07/01/2024 1:31 PM BRANCH SERVICE SPECIALIST Plan of Treatment Health Maintenance Due [...] 12/01/2022 (Done Outside Per Patient) INFLUENZA VACCINE (#1) 2025 9, 04/01/2014, 03/05/2013, Additional history exists DIABETES-SERUM CREATININE [...] COMPREHENSIVE METABOLIC PANEL (03/05/2024 1:04 PM CDT) Pathologist [facility] Glucose 202(H) 70 - 99 mg/dL 03/05/2024 1:26 PM CDT [facility] Sodium 139 136 - 145 mmol/L 03/05/2024 1:26 PM CDT [facility] Potassium 4.3 3.5 - 5.1 mmol/L 03/05/2024 1:26 PM CDT [facility] Chloride 108(H) 98 - 107 mmol/L 03/05/2024 1:26 PM CDT [facility] CO2 18(L) 22 - 29 mmol/L 03/05/2024 1:26 PM CDT [facility] Calcium 9.5 8.4 - 10.4 mg/dL 03/05/2024 1:26 PM CDT [facility] Anion Gap 13 6 - 16 mmol/L 03/05/2024 1:26 PM CDT [facility] BUN 14 5.3 - 18.7 mg/dL 03/05/2024 1:26 PM CDT [facility] Creatinine 0.80 0.57 - 1.11 mg/dL 03/05/2024 1:26 PM CDT [facility] Alkaline Phosphatase 82 40 - 150 U/L 03/05/2024 1:26 PM CDT [facility] ALT 20 0 - 55 U/L 03/05/2024 1:26 PM CDT [facility] AST 24 5 - 34 U/L 03/05/2024 1:26 PM CDT [facility] Protein Total 7.5 6.4 - 8.3 gm/dL 03/05/2024 1:26 PM CDT [facility] Albumin 3.7 3.4 - 5.0 gm/dL 03/05/2024 1:26 PM CDT [facility] Bilirubin Total 0.3 0.2 - 1.2 mg/dL 03/05/2024 1:26 PM CDT [facility] eGFR by CKD-EPI >90 >=90 mL/min/1.7 3 m2 03/05/2024 1:26 PM CDT [facility] Blood BLOOD SPECIMEN / Unknown Venipuncture / Unknown 03/05/2024 1:04 PM CDT 03/05/2024 1:08 PM CDT us Wilmer Reyna MD LAB - CHEMISTRY ORDERABLES Final Result [facility] [address] [address] * MAMMO [...] your patient. [facility] utilizes mobiDEOS as a reminder system to notify patients [...] on synthetic 2D mammogram or tomosynthesis images. us Lyle Hutchins MD MAMMO ORDERABLES Final Result * (ABNORMAL) HEMOGLOBIN A1C (EXTERNAL RESULT ENTRY) (11/22/2021) Hemoglobin A1c (EXTERNAL RESULT) 6.6(H) % OUTSIDE REFERENCE LAB Comment:Endocrinology, [facility] - via Scanned Document Blood BLOOD SPECIMEN / Unknown 11/22/2021 us Historical Provider LAB - CHEMISTRY ORDERABLE S Final Result OUTSIDE REFERENCE LAB from Last 3 Months or Most Recently Relevant to Health Maintenance Insurance AETNA AETNA AETNA AETNA AETNA PAYOR GENERIC Comp Member Subscriber Plan / Payer (Ef fective 2024-Present) Name:Jean Carlos Wilson Relation to Subscriber:Self Name:Katie Jean Carlos Torres Payer ID:Not on file Group ID:Not on file Type:Worker's Comp Address: [place] [id number] Advance Directives * Full Code (Latest Code Status on File) Date Activated Date Inactivated Comments 03/05/2024 5:27 PM 03/09/2024 5:53 PM Care Teams Digital Service Engineer Relationship Specialty Start Date End Date Lyle Hutchins MD PCP - General 03/02/19 Rosette Michelle, RN Registered Nurse 01/01/17
[2024-12-08 12:42] VITALS: BP 146/96; PULSE 102; RESP 18; TEMP 36.6; O2SAT 100
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
--- NOTE | 2024-12-08 14:10 | ED_ITS ---
HPI - General Adult General Chief complaint: Dental/Oral Stated complaint: sores in mouth Time Seen by Provider: 12/08/24 12:36 History of Present Illness HPI narrative: 44-year-old female present to the emergency department for evaluation for multiple sores in her mouth. Patient suspects this may be secondary to grapefruit exposure. Patient did have follow-up with urgent care and was started on prednisone on Friday. Patient reports that she still having worsening sore is. Patient denies any difficulty breathing or swallowing. Patient does have sores to her tongue lips and soft palate. Related Data Home Medications ?Medication ?Instructions ?Recorded ?Confirmed ?Last Taken ?Type allopurinol 100 mg tablet 100 mg PO DAILY 07/20/24 11/11/24 07/19/24 History escitalopram oxalate 20 mg tablet 20 mg PO DAILY 07/20/24 11/11/24 07/20/24 History evolocumab 140 mg/mL subcutaneous 140 mg subcut [id number] 07/20/24 11/11/24 07/18/24 History pen injector (Elfego Sosa) hydroxyzine HCl 50 mg tablet 50 mg PO TID PRN anxiety 07/20/24 11/11/24 Unknown History insulin aspart U-100 100 unit/mL 40 unit subcut TIDWMEAL 07/20/24 11/11/24 07/20/24 History (3 mL) subcutaneous pen (Novolog FlexPen U-100 Insulin aspart) insulin degludec 100 unit/mL (3 60 unit subcut DAILY 07/20/24 11/11/24 07/20/24 History mL) subcutaneous pen (Tresiba FlexTouch U-100 insulin) nabumetone 750 mg tablet 750 mg PO HS 07/20/24 11/11/24 07/19/24 History norethindrone acetate 5 mg tablet 5 mg PO DAILY 07/20/24 11/11/24 07/19/24 History omeprazole 40 mg capsule,delayed 40 mg PO DAILY 07/20/24 11/11/24 07/19/24 History release prazosin 1 mg capsule 1 mg PO HS 07/20/24 11/11/24 07/19/24 History pregabalin 100 mg capsule 100 mg PO DAILY 07/20/24 11/11/24 07/19/24 History quetiapine 50 mg tablet,extended 50 mg PO HS 07/20/24 11/11/24 07/19/24 History release 24 hr tirzepatide 5 mg/0.5 mL 7.5 mg subcut WEEKLY 07/20/24 11/11/24 07/18/24 History subcutaneous pen injector (Gene) tizanidine 4 mg tablet 4 mg PO Q8H 07/20/24 11/11/24 Unknown History trazodone 50 mg tablet 75 mg PO HS 07/20/24 11/11/24 07/19/24 History ursodiol 300 mg capsule 300 mg PO HS 07/20/24 11/11/24 07/19/24 History Allergies Allergy/AdvReac Type Severity Reaction Status Date / Time Penicillins Allergy Severe Anaphylaxis Verified 12/08/24 12:41 ketorolac (From Toradol) Allergy Mild Agitated Verified 12/08/24 12:41 lorazepam (From Ativan) Allergy Mild Agitated, Verified 12/08/24 12:41 suicidal shrimp Allergy Unknown Unknown Verified 12/08/24 12:41 Influenza Virus Vaccines AdvReac Mild Vomiting Verified 12/08/24 12:41 metoclopramide (From Reglan) AdvReac Mild Vomiting Verified 12/08/24 12:41 Review of Systems Review of Systems: All systems reviewed & are unremarkable except as noted in HPI and below PMFSH Past Medical History Medical History Depression with anxiety Endometriosis Asthma Obstructive sleep apnea on CPAP Type 2 diabetes mellitus Surgical History Surgical History History of cholecystectomy Social History Social History Social History: Surrogate medical decision maker: Aris Wilson, sibling. Code status: Full code. Smoking status: Never smoker Alcohol intake: current Substance use: never Do You Feel Safe in your Home?: Yes Lack of Transportation: No Lack of Food: Never True Current Housing: I Have Housing Concerned About Future Housing: No Difficulty Paying Gas/Electric Bills: No Difficulty Paying for Meds: No Currently Unemployed: No Education: Decline to Answer Difficulty w/ Childcare or Family Care: No Spiritual care concerns: No Exam Narrative: APPEARANCE: Well appearing, no pain, no distress, well-nourished. HEAD: normocephalic, atraumatic. EYES: PERRLA/EOMI, conjunctivae clear. NOSE: Normal no drainage EARS:TMS clear with good light reflex. THROAT: Pharynx clear, no exudate. NECK: Supple. No adenopathy, no masses. Mouth: Ulcers to soft palate, posterior tone, left lateral tongue and irritation of mucosal membrane gums RESPIRATORY: Airway patent, respirations nonlabored. Clear to auscultation bilaterally, no rales, rhonchi, wheezing. CARDIOVASCULAR: Regular rate and rhythm without murmurs rubs or gallops. ABDOMINAL: Soft, nontender, nondistended, normal bowel sounds MUSCULOSKELETAL: Moves all extremities. Strength/ROM intact, No edema, No calf tenderness. NEURO: Alert. Cranial nerves II through XII intact. Good gait. Good coordination SKIN: Warm, dry. Normal Color Course Vital Signs Vital signs: Vital Signs Temperature 97.9 F 12/08/24 12:42 Pulse Rate 102 H 12/08/24 12:42 Respiratory Rate 18 12/08/24 12:42 Blood Pressure 146/96 H 12/08/24 12:42 Pulse Oximetry 100 12/08/24 12:42 Temperature 97.9 F 12/08/24 12:42 Pulse Rate 102 H 12/08/24 12:42 Respiratory Rate 18 12/08/24 12:42 Blood Pressure 146/96 H 12/08/24 12:42 Pulse Oximetry 100 12/08/24 12:42 Medical Decision Making MDM Narrative Medical decision making narrative: 44-year-old female present to the emergency department for evaluation for source to her mouth. Patient has been on steroids for the last few days. Patient was initially started on Magic mouthwash for symptom control. Patient was encouraged to have close follow-up with her primary care physician as outpatient Vital Signs Vital Signs: Vital Signs Temperature 97.9 F 12/08/24 12:42 Pulse Rate 102 H 12/08/24 12:42 Respiratory Rate 18 12/08/24 12:42 Blood Pressure 146/96 H 12/08/24 12:42 Pulse Oximetry 100 12/08/24 12:42 Temperature 97.9 F 12/08/24 12:42 Pulse Rate 102 H 12/08/24 12:42 Respiratory Rate 18 12/08/24 12:42 Blood Pressure 146/96 H 12/08/24 12:42 Pulse Oximetry 100 12/08/24 12:42 Discharge Plan Discharge Clinical Impression: Sore in mouth Patient Disposition: Home Condition: Stable Instructions: Antibiotic Form Additional Instructions: Continue prednisone as directed. Magic mouthwash as directed. Have close follow-up with your primary care physician. Follow a clear liquid diet for the next few days and avoid acidic food. If you have worsening symptoms and please call or return to emergency department Patient Language: Korean Prescriptions: New Magic Mouthwash 50 mL suspension 10 ml PO TID PRN (Reason: mouth pain) Qty: 120 0RF Rx Instructions: Belladonna-Phenobarbital 16.2 mg-0.1037 mg-0.0194 mg/5 mL oral elixir 10 mL; Maalox Maximum Strength 400 mg-400 mg-40 mg/5 mL oral suspension 30 mL; lidocaine 2 % mucosal solution 10 mL; Per 50 mL Swish and spit 5-10 mL 3 times a day as needed for mouth pain No Action hydrocodone-acetaminophen 5-325 mg tablet 1 tablet PO Q6H PRN (Reason: pain) 3 Days Qty: 12 0RF allopurinol 100 mg tablet 100 mg PO DAILY escitalopram oxalate 20 mg tablet 20 mg PO DAILY Repatha SureClick 140 mg/mL pen injector 140 mg SUBCUT [id number] hydroxyzine HCl 50 mg tablet 50 mg PO TID PRN (Reason: anxiety) insulin aspart U-100 [Novolog FlexPen U-100 Insulin] 100 unit/mL (3 mL) insulin pen 40 unit SUBCUT TIDWMEAL insulin degludec [Tresiba FlexTouch U-100] 100 unit/mL (3 mL) insulin pen 60 unit SUBCUT DAILY nabumetone 750 mg tablet 750 mg PO HS omeprazole 40 mg capsule,delayed release(DR/EC) 40 mg PO DAILY norethindrone acetate 5 mg tablet 5 mg PO DAILY prazosin 1 mg capsule 1 mg PO HS pregabalin 100 mg capsule 100 mg PO DAILY quetiapine 50 mg tablet extended release 24 hr 50 mg PO HS Mounjaro 5 mg/0.5 mL pen injector 7.5 mg SUBCUT WEEKLY trazodone 50 mg tablet 75 mg PO HS tizanidine 4 mg tablet 4 mg PO Q8H ursodiol 300 mg capsule 300 mg PO HS levofloxacin 750 mg tablet 750 mg PO DAILY 6 Days Qty: 6 0RF metronidazole 500 mg tablet 500 mg PO Q8H 6 Days Qty: 18 0RF acetaminophen 500 mg tablet 1,000 mg PO TID PRN (Reason: richard) 7 Days Qty: 42 0RF ibuprofen 800 mg tablet 800 mg PO TID PRN (Reason: pain) 7 Days Qty: 21 0RF oxycodone 5 mg tablet 5 mg PO Q4H PRN (Reason: pain) Qty: 14 0RF tizanidine 4 mg capsule 4 mg PO Q8H PRN (Reason: muscle spasticity) Qty: 14 0RF Follow-up/Referrals: PHYSICIAN NOT ON STAFF,NONSTAFF [Primary Care Provider] - Stand Alone Forms: Work/School Release IP
== END 2024-12-08 14:20 | disposition home or self-care (01) ==
PROVIDERS: Emergency Provider Emergency Medicine
DX: K13.79 Other lesions of oral mucosa (principal); F32.A Depression, unspecified; F41.9 Anxiety disorder, unspecified; J44.9 Chronic obstructive pulmonary disease, unspecified; G47.30 Sleep apnea, unspecified; E11.9 Type 2 diabetes mellitus without complications; Z79.4 Long term (current) use of insulin
CPT/HCPCS: 99283